=== PATIENT | female | born 1930 | race Hispanic/Latino ===

== ENCOUNTER 2016-10-24 20:11 | Inpatient (IN) | payer MEDICARE, BC ==
[2016-10-24 21:07] LABS: BASO # 0.1 K/uL (0.0-0.2); BASO % 0.9 % (0.0-2.0); EOS # 0.2 K/uL (0.0-0.7); EOS % 2.6 % (0.0-4.0); HEMATOCRIT 30.8 % (34.0-47.0); LYMPH # 0.8 K/uL (1.0-4.3); LYMPH % 11.4 % (20.0-40.0); MEAN CORPUSCULAR HEMOGLOBIN 29.7 pg (27.0-31.0); MEAN CORPUSCULAR HGB CONC 33.2 g/dL (33.0-37.0); MEAN PLATELET VOLUME 7.6 fL (7.2-11.7); MONO # 0.9 K/uL (0.0-0.8); WHITE BLOOD COUNT 7.2 K/uL (4.8-10.8)
[2016-10-24 21:09] LABS: MEAN CELL VOLUME 89.4 fL (81.0-99.0)
[2016-10-24 21:15] LABS: POTASSIUM 4.8 mmol/L (3.6-5.2)
[2016-10-24 21:18] LABS: ALB/GLOB RATIO 1.1 (1.0-2.1); BILIRUBIN,TOTAL 0.5 mg/dL (0.2-1.3); CALCIUM 8.6 mg/dl (8.6-10.4); TOTAL PROTEIN 6.9 g/dL (6.3-8.3)
[2016-10-24 21:47] LABS: TROPONIN I 0.015 ng/mL (0.00-0.120)
[2016-10-24 21:50] LABS: THYROID STIMULATING HORMONE 1.94 mIU/L (0.46-4.68)
--- NOTE | 2016-10-24 21:57 | C.PDOC ---
Time Seen by Provider: 10/24/16 20:37 Chief Complaint (Nursing): Lower Extremity Problem/Injury History Per: Patient, Family Onset/Duration Of Symptoms: Days (about 1 month) Current Symptoms Are (Timing): Still Present Severity: Moderate Associated Symptoms: Ankle/Leg Swelling, Other (Rash on left leg) Reports Recently: Treated By A Physician Additional History Per: Prior Records Past Medical History Reviewed: Historical Data, Nursing Documentation, Vital Signs Vital Signs: Last Vital Signs Temp 98.7 F 10/24/16 20:24 Pulse 61 10/24/16 20:24 Resp 20 10/24/16 20:24 BP 134/65 10/24/16 20:24 Pulse Ox 95 10/24/16 21:59 - Medical History PMH: CHF, Fractures, HTN, Hypercholesterolemia Surgical History: Appendectomy Family History: States: Unknown Family Hx - Social History Hx Tobacco Use: No Hx Alcohol Use: No Hx Substance Use: No - Immunization History Hx Tetanus Toxoid Vaccination: No Hx Influenza Vaccination: Yes Hx Pneumococcal Vaccination: No Review Of Systems Except As Marked, All Systems Reviewed And Found Negative. Constitutional: Negative for: Fever Cardiovascular: Positive for: Edema. Negative for: Chest Pain Respiratory: Negative for: Shortness of Breath Gastrointestinal: Negative for: Vomiting, Abdominal Pain Musculoskeletal: Negative for: Neck Pain Skin: Positive for: Rash Neurological: Negative for: Weakness, Numbness Physical Exam - Physical Exam Appears: Non-toxic, No Acute Distress, Chronically Ill Skin: Warm, Dry, Rash (erythematous, no left leg) Head: Atraumatic, Normacephalic Eye(s): bilateral: PERRL, EOMI Neck: Normal ROM, Supple Cardiovascular: Rhythm Regular Respiratory: Normal Breath Sounds, No Accessory Muscle Use Gastrointestinal/Abdominal: Soft, No Tenderness Back: No CVA Tenderness Extremity: Normal ROM, Pedal Edema (L>R), No Calf Tenderness Pulses: Left Dorsalis Pedis: Normal, Right Dorsalis Pedis: Normal Neurological/Psych: Oriented x3, Normal Motor, Normal Sensation ED Course And Treatment - Laboratory Results Result Diagrams: 10/24/16 20:55 10/24/16 20:55 ECG: Interpreted By Me, Viewed By Me ECG Rhythm: Sinus Rhythm, L BBB, Nonspecific Changes ECG Interpretation: No Changes From Prior Rate From EC O2 Sat by Pulse Oximetry: 95 Pulse Ox Interpretation: Normal Disposition Discussed With : Tim Harmon Comment: He wants pt to be admitted on his service. Doctor Will See Patient In The: Hospital Counseled Patient/Family Regarding: Studies Performed, Diagnosis - Disposition Disposition: HOSPITALIZED Disposition Time: 22:12 Condition: FAIR - Clinical Impression Clinical Impression: Bilateral lower extremity edema, Left leg cellulitis
[2016-10-24] MEDS ORDERED: ceFAZolin IV 1 gm in Dextrose 1 GM/50 ML BAG IVPB STA (22:08)
[2016-10-24] MEDS ORDERED: ceFAZolin 1 gm FROZEN Premix 1 GM/50 ML ML IVPB ONE (22:43)
[2016-10-25] MEDS: Levothyroxine 50 MCG TAB PO SCH (05:57)
[2016-10-25 08:04] VITALS: RESP 20
[2016-10-25] MEDS: Metoprolol Succinate 100 mg XL Tab PO SCH (11:08)
[2016-10-25] MEDS: ceFAZolin IV 1 gm in Dextrose 1 GM/50 ML BAG IVPB SCH ×2 (11:21→22:06)
--- NOTE | 2016-10-25 11:39 | CP.PCM.CON ---
History of Present Illness - History of Present Illness History of Present Illness: admitted for cellulitis multiple comorbidities- IV rx in progress PMH: CHF, Fractures, HTN, Hypercholesterolemia Surgical History: Appendectomy Review of Systems - Constitutional Constitutional: As Per HPI, Fatigue - EENT Eyes: absent: As Per HPI, Blind Spots, Blurred Vision, Change in Vision, Decreased Night Vision, Diplopia, Discharge, Dry Eye, Exophthalmos, Floaters, Irritation, Itchy Eyes, Loss of Peripheral Vision, Pain, Photophobia, Requires Corrective Lenses, Sees Flashes, Spots in Vision, Tunnel Vision, Other Visual Disturbances, Loss of Vision, Other Ears: absent: As Per HPI, Decreased Hearing, Ear Discharge, Ear Pain, Tinnitus, Abnormal Hearing, Disequilibrium, Dizziness, Other Nose/Mouth/Throat: absent: As Per HPI, Epistaxis, Nasal Congestion, Nasal Discharge, Nasal Obstruction, Nasal Trauma, Nose Pain, Post Nasal Drip, Sinus Pain, Sinus Pressure, Bleeding Gums, Change in Voice, Dental Pain, Dry Mouth, Dysphagia, Halitosis, Hoarsness, Lip Swelling, Mouth Lesions, Mouth Pain, Odynophagia, Sore Throat, Throat Swelling, Tongue Swelling, Facial Pain, Neck Pain, Neck Mass, Other - Breasts Breasts: absent: As Per HPI, Change in Shape, Mass, Pain, Nipple Discharge, Nipple Inversion, Skin Changes, Swelling, Other - Cardiovascular Cardiovascular: absent: As Per HPI, Acrocyanosis, Chest Pain, Chest Pain at Rest , Chest Pain with Activity, Claudication, Diaphoresis, Dyspnea, Dyspnea on Exertion, Edema, Irregular Heart Rhythm, Pain Radiating to Arm/Neck/Jaw, Leg Edema, Leg Ulcers, Lightheadedness, Orthopnea, Palpitations, Paroxysmal Nocturnal Dyspnea, Pedal Edema, Radiating Pain, Rapid Heart Rate, Slow Heart Rate, Syncope, Other - Respiratory Respiratory: absent: As Per HPI, Cough, Dyspnea, Hemoptysis, Dyspnea on Exertion , Wheezing, Snoring, Stridor, Pain on Inspiration, Chest Congestion, Excessive Mucous Production, Change in Mucous Color, Pain with Coughing, Other - Gastrointestinal Gastrointestinal: absent: As Per HPI, Abdominal Pain, Belching, Bloating, Change in Bowel Habits, Change in Stool Character, Coffee Ground Emesis, Constipation, Cramping, Diarrhea, Dyspepsia, Dysphagia, Early Satiety, Excessive Flatus, Fecal Incontinence, Heartburn, Hematemesis, Hematochezia, Loose Stools, Melena, Nausea, Odynophagia, Temesmus, Vomiting, Other - Genitourinary Genitourinary: absent: As Per HPI, Change in Urinary Stream, Difficulty Urinating, Dysuria, Flank Pain, Hematuria, Pyuria, Nocturia, Urinary Incontinence, Urinary Frequency, Urinary Hesitance, Urinary Urgency, Voiding Freq/Small Amts, Freq UTI, Hx Renal/Bladder Calculi, Hx /Renal Surgery, Bladder Distension, Other - Reproductive: Female Reproductive:Female: absent: As Per HPI, Amenorrhea, Amenorrhea/ Control, Currently Menstual, Cycle <21 Days, Cycle >35 Days, Cycle Variable, Menses 1-7 Days, Menses >/= 8 Days, Menses Variable, Cycle > 4 Weeks Between, No Menses for 6 Months, Heavy Menses, Light Menses, Normal Menses, Spotting Between Cycles , S/P Hysterectomy, Menopausal, Post Menopausal, Premenarche, Abnormal Vaginal Bleeding, Dysmenorrhea, Dyspareunia, Genital Lesions, Genital Pruritis, Pelvic Pain, Prolapse Symptoms, Sexual Dysfunction, Vaginal Discharge, Vaginal Dryness , Vaginal Odor, Vaginal Pruritis, Other - Menstruation Menstruation: absent: As Per HPI, Amenorrhea, Amenorrhea/ Control, Currently Menstual, Cycle <21 Days, Cycle >35 Days, Cycle Variable, Menses 1-7 Days, Menses >/= 8 Days, Menses Variable, Cycle > 4 Weeks Between, No Menses for 6 Months, Heavy Menses, Light Menses, Normal Menses, Spotting Between Cycles , S/P Hysterectomy, Menopausal, Post Menopausal, Premenarche, Abnormal Vaginal Bleeding, Dysmenorrhea, Other - Musculoskeletal Musculoskeletal: As Per HPI - Integumentary Integumentary: As Per HPI - Neurological Neurological: absent: As Per HPI, Abnormal Gait, Abnormal Hearing, Abnormal Movements, Abnormal Speech, Behavioral Changes, Burning Sensations, Confusion, Convulsions, Disequilibrium, Dizziness, Numbness, Focal Weakness, Frequent Falls , Headaches, Lack of Coordination, Loss of Vision, Memory Loss, Paresthesias, Radicular Pain, Restless Legs, Sensory Deficit, Syncope, Tingling, Tremor, Vertigo, Weakness, Other Visual Disturbances, Other - Psychiatric Psychiatric: absent: As Per HPI, Abnormal Sleep Pattern, Anhedonia, Anxiety, Auditory Hallucinations, Behavioral Changes, Change in Appetite, Change in Libido, Confusion, Depression, Difficulty Concentrating, Hallucinations, Homicidal Ideation, Hopelessness, Irritability, Memory Loss, Mood Swings, Panic Attacks, Paranoia, Suicidal Ideation, Visual Hallucinations, Tactile Hallucinations, Other - Endocrine Endocrine: absent: As Per HPI, Change in Body Appearance, Change in Libido, Cold Intolorance, Deepening of Voice, Excessive Sweating, Fatigue, Flushing, Heat Intolorance, Increase in Ring/Shoe/Hat Size, Palpitations, Polydipsia, Polyphagia, Polyuria, Other - Hematologic/Lymphatic Hematologic: absent: As Per HPI, Easy Bleeding, Easy Bruising, Lymphadenopathy, Other Past Patient History - Past Social History Smoking Status: Former Smoker - CARDIAC Hx Congestive Heart Failure: Yes Hx Hypercholesterolemia: Yes Hx Hypertension: Yes - PULMONARY Hx Respiratory Disorders: No - NEUROLOGICAL Hx Neurological Disorder: No - HEENT Hx HEENT Problems: No - RENAL Hx Chronic Kidney Disease: No - ENDOCRINE/METABOLIC Hx Endocrine Disorders: Yes Hx Diabetes Mellitus Type 2: Yes - HEMATOLOGICAL/ONCOLOGICAL Hx Blood Disorders: No - INTEGUMENTARY Hx Dermatological Problems: No - MUSCULOSKELETAL/RHEUMATOLOGICAL Hx Falls: No Hx Fractures: Yes - GASTROINTESTINAL Hx Gastrointestinal Disorders: No - GENITOURINARY/GYNECOLOGICAL Hx Genitourinary Disorders: No - PSYCHIATRIC Hx Substance Use: No - SURGICAL HISTORY Hx Appendectomy: Yes - ANESTHESIA Hx Anesthesia: Yes Hx Anesthesia Reactions: No Hx Malignant Hyperthermia: No Meds Allergies/Adverse Reactions: Allergies Allergy/AdvReac Type Severity Reaction Status Date / Time naproxen Allergy RASH Verified 10/24/16 20:28 - Medications Medications: Current Medications Amiodarone HCl (Cordarone) 200 mg PO MWF [facility] Last Admin: 10/25/16 11:17 Dose: 200 mg Apixaban (Eliquis) 5 mg PO BID [facility] Last Admin: 10/25/16 11:08 Dose: 5 mg Aspirin (Ecotrin) 81 mg PO DAILY [facility] Last Admin: 10/25/16 11:09 Dose: 81 mg Diltiazem HCl (Cardizem) 120 mg PO DAILY [facility] Last Admin: 10/25/16 11:09 Dose: 120 mg Furosemide (Lasix) 40 mg IVP DAILY [facility] Last Admin: 10/25/16 11:20 Dose: 40 mg Cefazolin Sodium/Dextrose (Ancef Iv 1 Gm Duplex) 1 gm in 50 mls @ 100 mls/hr IVPB Q12 [facility] Last Admin: 10/25/16 11:21 Dose: 100 mls/hr Levothyroxine Sodium (Synthroid) 50 mcg PO DAILY@0630 [facility] Last Admin: 10/25/16 05:57 Dose: 50 mcg Metformin HCl (Glucophage) 500 mg PO BID [facility] Last Admin: 10/25/16 11:09 Dose: 500 mg Metoprolol Succinate (Toprol Xl) 100 mg PO DAILY [facility] Last Admin: 10/25/16 11:08 Dose: 100 mg Rosuvastatin Calcium (Crestor) 5 mg PO [facility] Physical Exam - Constitutional Appears: Non-toxic, Chronically Ill - Head Exam Head Exam: NORMOCEPHALIC - Eye Exam Eye Exam: PERRL. absent: Scleral icterus - ENT Exam ENT Exam: Mucous Membranes Dry, Normal External Ear Exam - Neck Exam Neck exam: Negative for: Lymphadenopathy - Respiratory Exam Respiratory Exam: Decreased Breath Sounds - Cardiovascular Exam Cardiovascular Exam: REGULAR RHYTHM - GI/Abdominal Exam GI & Abdominal Exam: Diminished Bowel Sounds, Soft. absent: Tenderness - Rectal Exam Rectal Exam: Deferred - Exam Exam: NORMAL INSPECTION - Extremities Exam Extremities exam: Negative for: calf tenderness, pedal edema - Back Exam Back exam: absent: CVA tenderness (L), CVA tenderness (R) - Neurological Exam Neurological exam: Alert, CN II-XII Intact, Oriented x3, Reflexes Normal - Psychiatric Exam Psychiatric exam: Normal Affect - Skin Skin Exam: Dry, Erythema Results - Vital Signs Recent Vital Signs: Last Vital Signs Temp 97.9 F 10/25/16 08:02 Pulse 60 10/25/16 08:02 Resp 20 10/25/16 08:02 BP 150/64 10/25/16 11:20 Pulse Ox 95 10/25/16 08:02 - Labs Result Diagrams: 10/24/16 20:55 10/24/16 20:55 Labs: Laboratory Results - last 24 hr 10/25/16 10/25/16 06:55 11:05 POC Glucose (mg/dL) 122 H 232 H Assessment & Plan (1) Bilateral lower extremity edema Status: Acute (2) Left leg cellulitis Status: Acute - Assessment and Plan (Free Text) Assessment: cont iv rx elevation and wound care podiatry follow up
--- NOTE | 2016-10-25 15:21 | VASCLAB ---
PROCEDURE: Lower Extremity Venous Duplex Exam. HISTORY: Swelling, r/o DVT PRIORS: None. TECHNIQUE: Bilateral common femoral, femoral, popliteal and posterior tibial, peroneal and great saphenous veins were evaluated. Flow was assessed with color Doppler, compressibility, assessment of phasic flow and augmentation response. Report prepared by ARIK Cary FINDINGS: RIGHT: 1. Common Femoral Vein: 1.1. Compressibility - Fully compressible: Thrombus - None : Flow - Phasic: Augmentation -Normal: Reflux - None. 2. Femoral Vein: 2.1. Compressibility - Fully compressible: Thrombus - None : Flow - Phasic: Augmentation -Normal: Reflux - None. 3. Popliteal Vein: 3.1. Compressibility - Fully compressible: Thrombus - None : Flow - Phasic: Augmentation -Normal: Reflux - None. 4. Posterior Tibial Vein: 4.1. Compressibility - Fully compressible: Thrombus - None: Flow - Phasic: Augmentation -Normal: Reflux - None. 5. Peroneal Vein: 5.1. Compressibility - Fully compressible: Thrombus - None: Flow - Phasic: Augmentation -Normal: Reflux - None. 6. Great Saphenous Vein: 6.1. Compressibility - Fully compressible: Thrombus - None: Flow - Phasic: Augmentation - Normal: Reflux - None. LEFT: 1. Common Femoral Vein: 1.1. Compressibility - Fully compressible: Thrombus - None: Flow - Phasic: Augmentation -Normal: Reflux - None. 2. Femoral Vein: 2.1. Compressibility - Fully compressible: Thrombus - None: Flow - Phasic: Augmentation -Normal: Reflux - None. 3. Popliteal Vein: 3.1. Compressibility - Fully compressible: Thrombus - None : Flow - Phasic: Augmentation -Normal: Reflux - None. 4. Posterior Tibial Vein: 4.1. Compressibility - Fully compressible: Thrombus - None: Flow - Phasic: Augmentation -Normal: Reflux - None. 5. Peroneal Vein: 5.1. Compressibility - Fully compressible: Thrombus - None: Flow - Phasic: Augmentation -Normal: Reflux - None. 6. Great Saphenous Vein: 6.1. Compressibility - Fully compressible: Thrombus - None: Flow - Phasic: Augmentation - Normal: Reflux - None. OTHER FINDINGS: Right: None significant. Left: None significant. IMPRESSION: Right: No evidence of deep or superficial vein thrombosis of the right lower extremity. Normal valve function noted of the right side. Left: No evidence of deep or superficial vein thrombosis of the left lower extremity. Normal valve function noted of the left side. Soft tissue edema noted in bilateral calf areas.
[2016-10-26] MEDS: Levothyroxine 50 MCG TAB PO SCH (05:42)
--- NOTE | 2016-10-26 09:29 | HP ---
DATE OF SERVICE: 10/24/2016 HISTORY OF PRESENT ILLNESS: This is an 86-year-old female was brought in with a history of redness, swelling and a pain in the left leg, knee down edema increasing over the past two weeks. The patient was seen in the past by Dr. Zane Harmon to his antibiotic did not get better, went to the emergency room at [facility], was discharge few days ago, again seen by me in the office last Tuesday and was recommended admission. She went home and she came back last night. Denies any fall or trauma. She has a history of hypertension, hypothyroidism, diabetes, high cholesterol, and has a cardiac arrhythmias in the past. MEDICATION AT HOME: Include metformin 500 mg one a day, baby aspirin, Lipitor 10, lisinopril 40, Prilosec 40, multivitamin, Synthroid 25, Toprol XL 100 mg one a day, amiodarone 200 mg daily, five days a week Tuesday to Tuesday. REVIEW OF SYSTEMS: GENERAL: Denies any fever or chills, walks with a walker. HEENT: No visual disturbance. No history of glaucoma. NECK: No swollen glands. RESPIRATORY: Negative for cough or hemoptysis. Chest x-ray has been negative. 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 History of hypertension. 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 Has had an EP studies in the past to my recollection. She has been well controlled with amiodarone and stayed in sinus rhythm. GI: Negative for abdominal pain, hematemesis or melena. : Negative for hematuria. She has a history of chronic kidney disease, well stabilized following by Dr. Barnes. MUSCULOSKELETAL: History of back pains, occasional knee pains. Takes Tylenol #3 with relief and in the past, she also had a fracture of the left foot. Use to wear splint. NEUROLOGICAL: Occasional dizziness, one near syncope. PSYCH: No evidence of depression. ALLERGIES: ALLERGIC TO NAPROXEN AND SALICYLATES. PAST MEDICATION HISTORY: History of SVT, has had episode requiring cardioversion in the past. She is currently on amiodarone very well. She is under the care of the DrToan . Never had a colonoscopy done. FAMILY HISTORY: Negative for diabetes or cardiac problems. PERSONAL HISTORY: Does not smokes. Does not drink. She is on well controlled. Low fat low cholesterol ADA diet. No exercise. She is retried. PHYSICAL EXAMINATION: GENERAL: Shows elderly white female conscious,alert, well, oriented, chronically sick looking, but in no distress. She is 5 feet, weighs 223 pounds. VITAL SIGNS: Blood pressure 154/70, heart rate of 72 and regular, respiratory rate of 14, and O2 saturation is 95% on room air. HEAD: Normocephalic. NECK: Supple. MOUTH: No exudates. LUNGS: Clear to auscultation bilaterally. HEART: PMI is . S1 and S2 is distant. No definite gallops or murmurs to be appreciated. ABDOMEN: Soft. EXTREMITIES: 2 to 3+ edema on the knee down from the left leg. Dorsalis pedis is feeble, but palpable. No focal signs. NEUROLOGIC: She is awake, alert, and oriented times 3. LABORATORY DATA: White count was normal. Venous Doppler was done, which was negative. Chem-7 was acceptable. TSH is 1.9. ASSESSMENT: This is an 86-year-old female with the history of cellulitis. PLAN: Plan is to blood culture. Continue with IV Ancef for now. ID followup with Dr. Tamez, Dr. Zane Harmon. Care of plan was explain to the patient's family who was at the bedside. Tim Harmon MD
[2016-10-26] MEDS: ceFAZolin IV 1 gm in Dextrose 1 GM/50 ML BAG IVPB SCH (10:41)
[2016-10-26] MEDS: Metoprolol Succinate 100 mg XL Tab PO SCH (10:43)
[2016-10-26] MEDS ORDERED: Pneumococcal 23-Valent Vaccine IM ONE (13:37)
[2016-10-26 17:11] VITALS: BP 123/58; PULSE 64; TEMP 98.3; O2SAT 96
--- NOTE | 2016-10-26 17:13 | CP.PCM.PN ---
Subjective - Date & Time of Evaluation Date of Evaluation: 10/26/16 Time of Evaluation: 11:00 - Subjective Subjective: Alert, respnsive, no sob or chest pains. Objective - Vital Signs/Intake and Output Vital Signs (last 24 hours): Temp Pulse Resp BP Pulse Ox 98.2 F 56 L 20 146/69 95 10/26/16 07:51 10/26/16 07:51 10/26/16 07:51 10/26/16 10:43 10/26/16 07:51 Intake and Output: 10/26/16 10/26/16 06:59 18:59 Intake Total 200 Balance 200 - Medications Medications: Current Medications Amiodarone HCl (Cordarone) 200 mg PO MWF [facility] Last Admin: 10/25/16 11:17 Dose: 200 mg Apixaban (Eliquis) 5 mg PO BID [facility] Last Admin: 10/26/16 10:42 Dose: 5 mg Aspirin (Ecotrin) 81 mg PO DAILY [facility] Last Admin: 10/26/16 10:42 Dose: 81 mg Diltiazem HCl (Cardizem) 120 mg PO DAILY [facility] Last Admin: 10/26/16 10:42 Dose: Not Given Furosemide (Lasix) 40 mg IVP DAILY [facility] Last Admin: 10/26/16 10:43 Dose: 40 mg Cefazolin Sodium/Dextrose (Ancef Iv 1 Gm Duplex) 1 gm in 50 mls @ 100 mls/hr IVPB Q12 [facility] Last Admin: 10/26/16 10:41 Dose: 100 mls/hr Levothyroxine Sodium (Synthroid) 50 mcg PO DAILY@0630 [facility] Last Admin: 10/26/16 05:42 Dose: 50 mcg Metformin HCl (Glucophage) 500 mg PO BID [facility] Last Admin: 10/26/16 10:42 Dose: 500 mg Metoprolol Succinate (Toprol Xl) 100 mg PO DAILY [facility] Last Admin: 10/26/16 10:43 Dose: Not Given Rosuvastatin Calcium (Crestor) 5 mg PO HS [facility] Last Admin: 10/25/16 22:06 Dose: 5 mg Assessment and Plan - Assessment and Plan (Free Text) Assessment: Ptient admitted with leg edema and cellulitis , seen and examined. Alert, responsive, no distress. Leg edema improved, cleared by DR Harmon for for discharge home today on po keflex. Advised to follow up in 1 week in the office.
--- NOTE | 2016-10-26 17:21 | PCM.HF ---
Heart Failure Core Measure - Heart Failure Left Ventricular Function to be assessed after discharge: Yes JAMES Inhibitor Prescribed: No Contraindication/Reason for not providing: CKD Beta-Princess Prescribed: Metoprolol Succinate Angiotensin II Receptor Princess Prescribed: No Contraindication/Reason for not providing: CKD AnticoagulationTherapy for Atrial Fibrillation/Atrialflutter: Yes Aldosterone Antagonist Prescribed: No Contraindication/Reason for not providing: on calcium channel princess Hydralazine Nitrate Prescribed: No Contraindication/Reason for not providing: will be f/u by PMD Implantable Cardioverter Defibrillator Therapy: No Contraindication/Reason for not providing: will be evaluated in the office Cardiac Resynchronization Therapy Prescribed: No Contraindication/Reason for not providing: not indicated - Follow up Will be discharged to: Home Follow Up Date (must be within 7 days from discharge): 11/01/16 Follow Up Time: 09:00
--- NOTE | 2016-10-27 08:51 | DS ---
HOSPITAL COURSE: An 86-year-old female was brought in with cellulitis of the left leg. P.o. antibiotics did not work. The patient was hospitalized, IV antibiotics Ancef was given. ID consultation Dr. Tamez and podiatry consult Dr. Zane Harmon was given. The patient is improved now and will be discharged to be followed up as an outpatient. Keflex 500 mg p.o. 3 times a day for 5 days was prescribed. She will continue her Lasix, amiodarone, and Cardizem along with Synthroid and metformin. Care of plan was explained to the patient's daughter, Destinee. I will see her back in 2 weeks. FINAL DIAGNOSES: Cellulitis of the left leg. History of hypothyroidism, borderline diabetes, and supraventricular tachycardia. Tim Harmon MD
[2016-10-27] MEDS ORDERED: Pneumococcal 23-Valent Vaccine IM ONE (10:00)
--- NOTE | 2016-10-28 15:01 | PQF CHF ---
To Tim Harmon MD, Patient was presented to the ED with lower leg swelling, history of HTN/CHF/, Prediabetis, Hyperdholesterolemia, Diagnosed with Leg cellulitis. Lab works showed ProBNP of 1780 on admission. Progress notes documented CHF/HTN. Please specify the type of CHF -- Systolic/ Diastolic/acute/Acute on Chronic. Thank you, This form is a permanent part of the medical record Clarification of your documentation is requested to better reflect the severity of illness and intensity of treatment of your patient. Indicators present [X] Diagnosis of CHF and/or history of CHF [X] BNP > 200 1780 [] Imaging Finding of Pulmonary Edema /Pleural Effusions [] Fluid/Volume Overload [] Pitting edema [] Ejection Fraction < 40% (Indicative of Systolic Heart Failure) [] Ejection Fraction > 40% (Indicative of Diastolic Heart Failure) [] Dyspnea / Orthopenea / Paroxysmal Nocturnal Dyspnea [] Other: Location in the medical record that reflects the above clinical findings: [] Treatment Provided: [] PHYSICIAN'S RESPONSE Based on your medical judgment of the clinical indicators outlined above, are you treating this patient for a known or suspected: [] Acute CHF [] Systolic [] Diastolic [] Combined [] Chronic CHF [] Systolic [] Diastolic [] Combined [] Acute on Chronic CHF []Systolic [] Diastolic [] Combined [] CHF due hypertension [] Acute systolic []Chronic systolic [] Acute/ chronic systolic [] Other, please indicate: [] [] If Unable to Determine, please check the box, sign and date. Present On Admission (POA) Indicator: [] Present at the time of admission [] Not present at the time of admission [] Clinically Undetermined In responding to this query, please exercise your independent professional judgment. The fact that a question is asked does not imply that any particular answer is desired or expected. Thank you for your clarification on this documentation. If you have any questions please call:[ ] * Thank you, [ Sharlene Curiel CCS ] wooden barrel mechanic KENISHA
--- NOTE | 2016-10-29 10:12 | CARD ---
APPROVED REPORT EKG Measurement Heart [id number] <Conclusion> Sinus bradycardia Left axis deviation Left bundle branch block Abnormal ECG
== END 2016-10-26 18:00 | disposition home or self-care (01) | DRG 603 ==
LOC: C.ER 20:11 → C.9E 22:12 → C.5T 23:09 → C.3T 10-25 22:34
PROVIDERS: ADMIT Internal Medicine Cardiovascular Disease; ATTEND Internal Medicine Cardiovascular Disease
DX: L03.116 Cellulitis of left lower limb (principal); I11.0 Hypertensive heart disease with heart failure; I50.32 Chronic diastolic (congestive) heart failure; I47.1 Supraventricular tachycardia; E78.00 Pure hypercholesterolemia, unspecified; E03.9 Hypothyroidism, unspecified; R73.03 Prediabetes

== ENCOUNTER 2016-11-19 14:33 | Inpatient (IN) | payer MEDICARE, BC ==
[2016-11-19 16:15] LABS: BASO % 0.1 % (0.0-2.0); EOS # 0.1 K/uL (0.0-0.7); EOS % 0.4 % (0.0-4.0); HEMATOCRIT 33.7 % (34.0-47.0); LYMPH # 0.5 K/uL (1.0-4.3); LYMPH % 2.5 % (20.0-40.0); MEAN CELL VOLUME 87.4 fL (81.0-99.0); MEAN CORPUSCULAR HEMOGLOBIN 28.6 pg (27.0-31.0); MEAN CORPUSCULAR HGB CONC 32.7 g/dL (33.0-37.0); MEAN PLATELET VOLUME 7.7 fL (7.2-11.7); MONO # 2.1 K/uL (0.0-0.8); MONO % 10.4 % (0.0-10.0); PLATELET COUNT 252 K/uL (130-400); RED CELL DISTRIBUTION WIDTH 14.4 % (11.5-14.5); WHITE BLOOD COUNT 20.3 K/uL (4.8-10.8)
[2016-11-19] MEDS ORDERED: Piperacill/Tazo 4.5gm in Dex 4.5 GM/100 ML BAG IVPB STA (16:24)
[2016-11-19 16:25] LABS: ALB/GLOB RATIO 0.9 (1.0-2.1); TOTAL PROTEIN 5.8 g/dL (6.3-8.3)
[2016-11-19 16:36] LABS: RBC URINE 22 /hpf (0-3); URINE BACTERIA MOD (<OCC); URINE BILIRUBIN NEGATIVE (NEGATIVE); URINE BLOOD 2+ (NEGATIVE); URINE COLOR Yellow (YELLOW); URINE GLUCOSE (UA) NORMAL (Normal); URINE KETONE NEGATIVE (NEGATIVE); URINE LEUKOCYTE ESTERASE 1+ Leu/uL (Negative); URINE PROTEIN NEGATIVE (NEGATIVE); URINE UROBILINOGEN NORMAL mg/dL (0.2-1.0); WBC URINE 11 /hpf (0-5)
[2016-11-19 16:47] LABS: BILIRUBIN,TOTAL 0.4 mg/dL (0.2-1.3); CALCIUM 8.4 mg/dl (8.6-10.4); PHOSPHOROUS 3.4 mg/dL (2.5-4.5)
--- NOTE | 2016-11-19 16:52 | C.PDOC ---
History Of Present Illness Patient is a 86 y/o female, with PMHx of hemorrhoids, atrial Fibrillation, CHF, HTN, Hypercholesterolemia, presents to the ED for evaluation of diarrhea for the last 6 days. Pt reports feeling weak, and has decreased PO intake for the last 3 days. Notes that she has diarrhea only after eating. Pt states she was prescribed Flagyl and anti-diarrhea medications by Dr. Tim Harmon. Otherwise, denies any abdominal pain, nausea, vomiting, urinary symptoms, fever, chills, chest pain, shortness of breath, or any other associated symptoms at this time. Time Seen by Provider: 11/19/16 15:12 Chief Complaint (Nursing): Abdominal Pain History Per: Patient History/Exam Limitations: no limitations Onset/Duration Of Symptoms: Days (6) Current Symptoms Are (Timing): Still Present Severity: None Pain Scale Rating Of: 0 Radiation Of Pain To:: None Associated Symptoms: Diarrhea, Loss Of Appetite (Decreased appetite). denies: Fever, Chills, Nausea, Vomiting, Back Pain, Chest Pain, Constipation, Urinary Symptoms Exacerbating Factors: None Alleviating Factors: None Recent travel outside of the [place]: No Additional History Per: Patient Abnormal Vaginal Bleeding: No Past Medical History Reviewed: Historical Data, Nursing Documentation, Vital Signs Vital Signs: Last Vital Signs Temp 99.0 F 11/19/16 17:45 Pulse 74 11/19/16 17:45 Resp 20 11/19/16 17:45 BP 105/63 11/19/16 17:45 Pulse Ox 98 11/19/16 17:45 - Medical History PMH: Atrial Fibrillation (A-flutter (ablation done)), CHF, Fractures (left foot fracture), HTN, Hypercholesterolemia Denies: Chronic Kidney Disease Surgical History: Appendectomy Family History: States: Unknown Family Hx - Social History Hx Tobacco Use: No Hx Alcohol Use: No Hx Substance Use: No - Immunization History Hx Tetanus Toxoid Vaccination: No Hx Influenza Vaccination: Yes Hx Pneumococcal Vaccination: No Review Of Systems Except As Marked, All Systems Reviewed And Found Negative. Constitutional: Positive for: Weakness. Negative for: Fever, Chills Cardiovascular: Negative for: Chest Pain, Palpitations Respiratory: Negative for: Cough, Shortness of Breath Gastrointestinal: Positive for: Diarrhea. Negative for: Nausea, Vomiting, Abdominal Pain, Melena, Hematochezia Genitourinary: Negative for: Dysuria, Frequency, Incontinence, Hematuria Musculoskeletal: Negative for: Back Pain Physical Exam - Physical Exam Additional Physical Exam Comments: Constitutional: No acute distress. Head: Normocephalic. Atraumatic. Eyes: PERRL. ENT: Dry mucous membranes. Neck: Supple. Cardiovascular: Regular rate. Radial pulses 2+ bilaterally. Chest: No tenderness. Respiratory: Clear to auscultation bilaterally. GI: Soft. Nontender. Nondistended. Back: No CVA tenderness. Musculoskeletal: No tenderness or swelling of extremities. Skin: No rash. Neurologic: Alert, no focal deficit. ED Course And Treatment - Laboratory Results Result Diagrams: 11/19/16 16:01 11/19/16 16:01 O2 Sat by Pulse Oximetry: 97 Medical Decision Making Medical Decision Making: Plan: Blood work, UA, urine culture, Abd & pelvis CT. Pt was given Zosyn. On re-evaluation, pt is resting comfortably, no acute distress at this time. PROCEDURE: CT Abdomen and Pelvis without intravenous contrast HISTORY: abdominal pain COMPARISON: None. TECHNIQUE: Without contrast.. Contrast Dose: 0 Radiation dose: Total exam DLP = 1015.95 mGy-cm. This CT exam was performed using one or more of the following dose reduction techniques: Automated exposure control, adjustment of the mA and/or kV according to patient size, and/or use of iterative reconstruction technique. FINDINGS: LOWER THORAX: Moderate hiatal hernia. Coronary arterial calcification. No infiltrate/ effusion. LIVER: Unremarkable. No gross lesion or ductal dilatation. GALLBLADDER AND BILE DUCTS: Unremarkable. PANCREAS: Unremarkable. No gross lesion or ductal dilatation. SPLEEN: Unremarkable. ADRENALS: Bilateral adrenal hypertrophy. No adrenal mass. KIDNEYS AND URETERS: Nonspecific bilateral perinephric stranding. Mid left renal cortical cyst, 2.6 cm diameter. No renal calculus or hydronephrosis. VASCULATURE: Unremarkable. No aortic aneurysm. BOWEL: [place] colonic mural thickening most pronounced in the ascending and transverse colon, consistent with diffuse colitis. There is pericolonic inflammatory change noted about the ascending and transverse and proximal descending colon. There is diverticulosis of the sigmoid colon. There is no evidence of diverticulitis. There is no bowel obstruction. No other abnormal bowel loops are identified. APPENDIX: Not identified. No secondary findings to suggest acute appendicitis. PERITONEUM: Trace fluid in the pelvis. LYMPH NODES: Unremarkable. No enlarged lymph nodes. BLADDER: Nondistended. No gross abnormality. REPRODUCTIVE: Status post hysterectomy. BONES: No fracture. Grade 1 spondylolisthesis at L5-S1 without spondylolysis. OTHER FINDINGS: None. IMPRESSION: Acute [place] colitis most pronounced in the ascending and transverse colon. Likely infectious etiology. Additional minor findings as above. Patient with leukocytosis, bands, pancolitis, acute renal insufficiency, requires IV antibiotics, close monitoring, fluids despite CHF, will keep on telemetry. Dr. Harmon accepts to his service, recommends consult with Savannah Tamez and Cameron. Disposition Discussed With : Tim Harmon Doctor Will See Patient In The: Hospital - Disposition Disposition: HOSPITALIZED Disposition Time: 17:25 Condition: GUARDED Forms: [facility] (Jordanian) - Clinical Impression Clinical Impression: Pancolitis, Bandemia, Acute renal insufficiency - Scribe Statement The provider has reviewed the documentation as recorded by the Scribe Rose Teran All medical record entries made by the Vannessaibe were at my direction and personally dictated by me. I have reviewed the chart and agree that the record accurately reflects my personal performance of the history, physical exam, medical decision making, and the department course for this patient. I have also personally directed, reviewed, and agree with the discharge instructions and disposition.
--- NOTE | 2016-11-19 17:27 | CT ---
PROCEDURE: CT Abdomen and Pelvis without intravenous contrast HISTORY: abdominal pain COMPARISON: None. TECHNIQUE: Without contrast.. Contrast Dose: 0 Radiation dose: Total exam DLP = 1015.95 mGy-cm. This CT exam was performed using one or more of the following dose reduction techniques: Automated exposure control, adjustment of the mA and/or kV according to patient size, and/or use of iterative reconstruction technique. FINDINGS: LOWER THORAX: Moderate hiatal hernia. Coronary arterial calcification. No infiltrate/effusion. LIVER: Unremarkable. No gross lesion or ductal dilatation. GALLBLADDER AND BILE DUCTS: Unremarkable. PANCREAS: Unremarkable. No gross lesion or ductal dilatation. SPLEEN: Unremarkable. ADRENALS: Bilateral adrenal hypertrophy. No adrenal mass. KIDNEYS AND URETERS: Nonspecific bilateral perinephric stranding. Mid left renal cortical cyst, 2.6 cm diameter. No renal calculus or hydronephrosis. VASCULATURE: Unremarkable. No aortic aneurysm. BOWEL: [place] colonic mural thickening most pronounced in the ascending and transverse colon, consistent with diffuse colitis. There is pericolonic inflammatory change noted about the ascending and transverse and proximal descending colon. There is diverticulosis of the sigmoid colon. There is no evidence of diverticulitis. There is no bowel obstruction. No other abnormal bowel loops are identified. APPENDIX: Not identified. No secondary findings to suggest acute appendicitis. PERITONEUM: Trace fluid in the pelvis. LYMPH NODES: Unremarkable. No enlarged lymph nodes. BLADDER: Nondistended. No gross abnormality. REPRODUCTIVE: Status post hysterectomy. BONES: No fracture. Grade 1 spondylolisthesis at L5-S1 without spondylolysis. OTHER FINDINGS: None. IMPRESSION: Acute [place] colitis most pronounced in the ascending and transverse colon. Likely infectious etiology. Additional minor findings as above.
[2016-11-19 17:36] LABS: METAMYELOCYTE 2 % (0-0); MYELOCYTE 1 % (0-0); NEUTROPHIL 69 % (50-75); TOTAL CELLS COUNTED 100
[2016-11-19] MEDS ORDERED: metroNIDAZOLE IV 500 mg/100 ml 500 MG/100 ML BAG IVPB STA (17:50)
[2016-11-19] MEDS ORDERED: Sodium Chloride 0.9% 1,000 ML IV STA (17:51)
[2016-11-19] MEDS ORDERED: Sodium Chloride 0.9% 1,000 ML ONE (18:34)
[2016-11-19] MEDS ORDERED: metroNIDAZOLE IV 500 mg/100 ml 500 MG/100 ML BAG ONE (18:34)
--- NOTE | 2016-11-19 19:15 | CP.PCM.CON ---
History of Present Illness - History of Present Illness History of Present Illness: 86 y/o female, with PMHx of hemorrhoids, atrial Fibrillation, CHF, HTN, Hypercholesterolemia, presents to the ED for evaluation of diarrhea for the last 6 days. Pt reports feeling weak, and has decreased PO intake for the last 3 days. Notes that she has diarrhea only after eating. Pt states she was prescribed Flagyl and anti-diarrhea medications by Dr. Tim Harmon. Otherwise, denies any abdominal pain, nausea, vomiting, urinary symptoms, fever, chills, chest pain, shortness of breath, or any other associated symptoms at this time. - Medical History PMH: Atrial Fibrillation (A-flutter (ablation done)), CHF, Fractures (left foot fracture), HTN, Hypercholesterolemia Denies: Chronic Kidney Disease Surgical History: Appendectomy Family History: States: Unknown Family Hx Past Patient History - Infectious Disease Hx of Infectious Diseases: None - Past Social History Smoking Status: Former Smoker - CARDIAC Hx Atrial Fibrillation: Yes (A-flutter (ablation done)) Hx Congestive Heart Failure: Yes Hx Hypercholesterolemia: Yes Hx Hypertension: Yes - PULMONARY Hx Respiratory Disorders: No - NEUROLOGICAL Hx Neurological Disorder: No - HEENT Hx HEENT Problems: No - RENAL Hx Chronic Kidney Disease: No - ENDOCRINE/METABOLIC Hx Endocrine Disorders: Yes Hx Diabetes Mellitus Type 2: Yes - HEMATOLOGICAL/ONCOLOGICAL Hx Blood Disorders: No - INTEGUMENTARY Hx Dermatological Problems: No - MUSCULOSKELETAL/RHEUMATOLOGICAL Hx Fractures: Yes (left foot fracture) - GASTROINTESTINAL Hx Gastrointestinal Disorders: No - GENITOURINARY/GYNECOLOGICAL Hx Genitourinary Disorders: No - PSYCHIATRIC Hx Substance Use: No - SURGICAL HISTORY Hx Appendectomy: Yes - ANESTHESIA Hx Anesthesia: Yes Hx Anesthesia Reactions: No Hx Malignant Hyperthermia: No Meds Allergies/Adverse Reactions: Allergies Allergy/AdvReac Type Severity Reaction Status Date / Time naproxen Allergy Intermediate RASH Verified 11/19/16 14:46 - Medications Medications: Current Medications Sodium Chloride (Sodium Chloride 0.9%) 1,000 mls @ 100 mls/hr IV .Q10H STA Stop: 11/20/16 03:50 Last Admin: 11/19/16 18:38 Dose: 100 mls/hr Results - Vital Signs Recent Vital Signs: Last Vital Signs Temp 99.0 F 11/19/16 17:45 Pulse 74 11/19/16 17:45 Resp 20 11/19/16 17:45 BP 105/63 11/19/16 17:45 Pulse Ox 97 11/19/16 18:30 - Labs Result Diagrams: 11/19/16 16:01 11/19/16 16:01
[2016-11-19] MEDS: metroNIDAZOLE IV 500 mg/100 ml 500 MG/100 ML BAG IVPB SCH (22:02)
--- NOTE | 2016-11-20 05:01 | HP ---
HISTORY OF PRESENT ILLNESS: Ms. Lili Summers is an 86-year-old female who was brought in with the history of abdominal pain, not eating, drinking well for past three days. The patient was admitted recently in October with the cellulitis of the leg and received antibiotics. Subsequently, she did well, but last week ago, she developed diarrhea and was placed on Flagyl. For the past three days, she has not been eating well and drinking well and feeling nauseous, came to the emergency room where CT showed pancolitis. Also creatinine was 1.7. She has a longstanding history of hypertension, hypothyroidism, diabetes, and SVTs requiring cardioversion in the past. MEDICATION AT HOME: She is maintained on metformin 500 mg one a day, Lipitor 10 mg, lisinopril, which was stopped, multivitamin, Synthroid 25, Toprol XL 100 mg and amiodarone 200 mg five days a week. PERSONAL HISTORY: Does not smoke, does not drink. FAMILY HISTORY: Negative for CAD. ALLERGIES: SHE IS ALLERGIC TO NAPROXEN AND SALICYLATES. PAST MEDICAL HISTORY: History of SVT, cardioversion in the past. Never had a colonoscopy done. REVIEW OF SYSTEMS: Generalized weakness, no fever, no chills, no hematemesis, no melena. Abdominal pain for past three days. No orthopnea, no PND, has no palpation. Multiple joint pains, back pains. No history of TIAs or CVAs, history of dizziness in the past and syncope in the past. No evidence of depression. No visual disturbances. PHYSICAL EXAMINATION: GENERAL: Shows elderly white female who is conscious, alert, well-oriented, in no distress. She is 5 feet and weighs 220 pounds. VITAL SIGNS: Blood pressure 130/70, heart rate of 70 and regular, respiratory rate of 20, afebrile. HEENT: Head is normocephalic. Eyes, no pallor. No icterus. NECK: Supple. LUNGS: Clear. HEART: PMI is not localized. S1 and S2 is distant. No definite gallops or murmurs. ABDOMEN: Not distended, is soft, but diffuse nonspecific tenderness is noted. EXTREMITIES: Shows 1+ pitting edema. Dorsalis pedis are intact. No focal sign. LABORATORY DATA: Creatinine is 1.7, white count is elevated 20,000 with the shift to the left. CT pancolitis. ASSESSMENT: This is an 86-year-old female with history of pancolitis. Worsening of the renal failure, hypertension, diabetes, and hypothyroidism. PLAN: At this point is to ID consultation Dr. Tamez and GI consultation Dr. Pierre and Dr. Barnes for followup. Tim Harmon MD
[2016-11-20] MEDS: Levothyroxine 50 MCG TAB PO SCH (05:59)
[2016-11-20 06:00] LABS: RBC URINE 5 /hpf (0-3); URINE BACTERIA RARE (<OCC); URINE BILIRUBIN NEGATIVE (NEGATIVE); URINE BLOOD 1+ (NEGATIVE); URINE COLOR Yellow (YELLOW); URINE GLUCOSE (UA) NORMAL (Normal); URINE KETONE NEGATIVE (NEGATIVE); URINE LEUKOCYTE ESTERASE 2+ Leu/uL (Negative); URINE PROTEIN NEGATIVE (NEGATIVE); URINE UROBILINOGEN NORMAL mg/dL (0.2-1.0); WBC URINE 13 /hpf (0-5)
[2016-11-20] MEDS: metroNIDAZOLE IV 500 mg/100 ml 500 MG/100 ML BAG IVPB SCH ×3 (06:00→21:30)
[2016-11-20 06:39] LABS: BASO % 0.2 % (0.0-2.0); EOS % 0.1 % (0.0-4.0); HEMATOCRIT 31.6 % (34.0-47.0); LYMPH # 0.6 K/uL (1.0-4.3); LYMPH % 3.3 % (20.0-40.0); MEAN CELL VOLUME 86.7 fL (81.0-99.0); MEAN CORPUSCULAR HEMOGLOBIN 28.3 pg (27.0-31.0); MEAN CORPUSCULAR HGB CONC 32.7 g/dL (33.0-37.0); MEAN PLATELET VOLUME 7.7 fL (7.2-11.7); MONO % 10.9 % (0.0-10.0); PLATELET COUNT 247 K/uL (130-400); RED CELL DISTRIBUTION WIDTH 14.7 % (11.5-14.5); WHITE BLOOD COUNT 18.6 K/uL (4.8-10.8)
[2016-11-20 06:54] LABS: ALB/GLOB RATIO 0.9 (1.0-2.1); BILIRUBIN,TOTAL 0.3 mg/dL (0.2-1.3); CALCIUM 8.2 mg/dl (8.6-10.4); MAGNESIUM 2.2 mg/dL (1.6-2.3); POTASSIUM 3.7 mmol/L (3.6-5.2); TOTAL PROTEIN 5.2 g/dL (6.3-8.3)
[2016-11-20 07:22] LABS: THYROID STIMULATING HORMONE 1.96 mIU/L (0.46-4.68)
[2016-11-20] MEDS: (Novolin R) Insulin Human Regular 100 units/ml vial SC SCH ×3 (07:45→16:30)
[2016-11-20 08:52] LABS: NEUTROPHIL 69 % (50-75); TOTAL CELLS COUNTED 100
--- NOTE | 2016-11-20 10:20 | RAD ---
HISTORY: CHF COMPARISON: Chest x-ray performed 09/17/13 TECHNIQUE: Chest, one view. FINDINGS: Examination limited by habitus. LUNGS: Right peritracheal opacity, possibly tortuous vasculature. Alternatives including thyroid goiter or adenopathy cannot be excluded. Retrocardiac opacity compatible with large hiatal hernia. Please note that chest x-ray has limited sensitivity for the detection of pulmonary masses. PLEURA: No significant pleural effusion identified. No definite pneumothorax . CARDIOVASCULAR: Cardiomegaly. OSSEOUS STRUCTURES: No acute osseous abnormality identified. VISUALIZED UPPER ABDOMEN: Unremarkable. OTHER FINDINGS: None. IMPRESSION: No focal consolidation, significant pleural effusion, or definite pneumothorax identified. Right peritracheal opacity, possibly tortuous vasculature. Alternatives including thyroid goiter or adenopathy cannot be excluded. Retrocardiac opacity compatible with large hiatal hernia.
--- NOTE | 2016-11-20 10:33 | CP.PCM.CON ---
History of Present Illness - History of Present Illness History of Present Illness: 86 yo white female, history of afib, chf, htn, dyslipidemia. Presents with voluminous diarrhea of several days duration. Recent hospitalization with ab therapy. Ct scan indicates pancolitis. Pt with poor po intake. Renal consult for hyponatremia and john. Notes normal u/o. No change in appearance of urine. No one sick at home. No unusual food intake. No family history of renal disease. Baseline creatinine of 1.3. Review of Systems - Constitutional Constitutional: Fatigue. absent: Fever - EENT Eyes: absent: Blurred Vision, Change in Vision Ears: absent: Ear Pain, Dizziness Nose/Mouth/Throat: absent: Dry Mouth, Neck Pain - Cardiovascular Cardiovascular: absent: Chest Pain, Dyspnea - Respiratory Respiratory: absent: Wheezing, Chest Congestion - Gastrointestinal Gastrointestinal: Abdominal Pain, Diarrhea - Genitourinary Genitourinary: absent: Change in Urinary Stream, Difficulty Urinating - Musculoskeletal Musculoskeletal: absent: Back Pain, Neck Pain - Psychiatric Psychiatric: absent: Anhedonia, Anxiety - Hematologic/Lymphatic Hematologic: absent: Easy Bleeding, Easy Bruising Past Patient History - Infectious Disease Hx of Infectious Diseases: None - Past Medical History & Family History Past Medical History?: Yes - Past Social History Smoking Status: Former Smoker - CARDIAC Hx Atrial Fibrillation: Yes (A-flutter (ablation done)) Hx Congestive Heart Failure: Yes Hx Hypercholesterolemia: Yes Hx Hypertension: Yes - PULMONARY Hx Respiratory Disorders: No - NEUROLOGICAL Hx Neurological Disorder: No - HEENT Hx HEENT Problems: No - RENAL Hx Chronic Kidney Disease: No - ENDOCRINE/METABOLIC Hx Endocrine Disorders: Yes Hx Diabetes Mellitus Type 2: Yes - HEMATOLOGICAL/ONCOLOGICAL Hx Blood Disorders: No - INTEGUMENTARY Hx Dermatological Problems: No - MUSCULOSKELETAL/RHEUMATOLOGICAL Hx Falls: Yes Hx Fractures: Yes (left foot fracture) - GASTROINTESTINAL Hx Gastrointestinal Disorders: No - GENITOURINARY/GYNECOLOGICAL Hx Genitourinary Disorders: No - PSYCHIATRIC Hx Psychophysiologic Disorder: No Hx Substance Use: No - SURGICAL HISTORY Hx Appendectomy: Yes Hx Hysterectomy: Yes - ANESTHESIA Hx Anesthesia: Yes Hx Anesthesia Reactions: No Hx Malignant Hyperthermia: No Meds Allergies/Adverse Reactions: Allergies Allergy/AdvReac Type Severity Reaction Status Date / Time naproxen Allergy Intermediate RASH Verified 11/19/16 14:46 - Medications Medications: Current Medications Amiodarone HCl (Cordarone) 200 mg [place] [facility] [place]irin (Aspirin Chewable) 81 mg PO DAILY [facility] Diltiazem HCl (Cardizem) 120 mg PO DAILY [facility] Metronidazole (Flagyl) 500 mg in 100 mls @ 100 mls/hr IVPB Q8 [facility] Last Admin: 11/20/16 06:00 Dose: 100 mls/hr Cefepime HCl 1 gm/ Dextrose 50 mls @ 100 mls/hr IVPB Q12H [facility] Last Admin: 11/20/16 07:47 Dose: 100 mls/hr Insulin Human Regular (Novolin R) 0 unit SC ACHS CLARI PRN Reason: Protocol Last Admin: 11/20/16 07:45 Dose: Not Given Levothyroxine Sodium (Synthroid) 50 mcg PO DAILY@0630 [facility] Last Admin: 11/20/16 05:59 Dose: 50 mcg Metoprolol Succinate (Toprol Xl) 100 mg PO DAILY [facility] Rivaroxaban (Xarelto) 10 mg PO DAILY [facility] Rosuvastatin Calcium (Crestor) 5 mg PO [facility] Physical Exam - Constitutional Appears: Chronically Ill - Head Exam Head Exam: ATRAUMATIC - Eye Exam Eye Exam: EOMI, Normal appearance - ENT Exam ENT Exam: Mucous Membranes Moist - Neck Exam Neck exam: Positive for: Full Rom. Negative for: Lymphadenopathy - Respiratory Exam Respiratory Exam: Clear to Auscultation Bilateral. absent: Accessory Muscle Use - Cardiovascular Exam Cardiovascular Exam: Irregular Rhythm. absent: REGULAR RHYTHM, Rubs - GI/Abdominal Exam GI & Abdominal Exam: Distended, Tenderness. absent: Rebound - Extremities Exam Extremities exam: Negative for: pedal edema - Neurological Exam Neurological exam: Alert, Oriented x3 Results - Vital Signs Recent Vital Signs: Last Vital Signs Temp 98.3 F 11/20/16 08:38 Pulse 80 11/20/16 08:38 Resp 20 11/20/16 08:38 BP 157/69 H 11/20/16 08:38 Pulse Ox 96 11/20/16 08:38 - Labs Result Diagrams: 11/20/16 06:32 11/20/16 06:32 Labs: Laboratory Results - last 24 hr 11/20/16 11/20/16 11/20/16 05:31 06:13 06:32 WBC 18.6 H RBC 3.65 L Hgb 10.3 L Hct 31.6 L MCV 86.7 MCH 28.3 MCHC 32.7 L RDW 14.7 H Plt Count 247 MPV 7.7 Neut % (Auto) 85.5 H Lymph % (Auto) 3.3 L [place] % (Auto) 10.9 H Eos % (Auto) 0.1 Baso % (Auto) 0.2 Neut # 15.9 H Lymph # 0.6 L [place] # 2.0 H Eos # 0.0 Baso # 0.0 Neutrophils % (Manual) 69 Band Neutrophils % 15 H* Lymphocytes % (Manual) 6 L Monocytes % (Manual) 10 Toxic Granulation Present Platelet Estimate Normal Poikilocytosis (manual Slight Anisocytosis (manual) Slight Ovalocytes Slight Sodium Potassium Chloride Carbon Dioxide Anion Gap BUN Creatinine Est GFR ( Amer) Est GFR (Non-Af Amer) POC Glucose (mg/dL) 128 H Random Glucose Calcium Magnesium Total Bilirubin AST ALT Alkaline Phosphatase Total Protein Albumin Globulin Albumin/Globulin Ratio TSH 3rd Generation Urine Color Yellow Urine Clarity Hazy Urine pH 5.0 Ur Specific [place] 1.017 Urine Protein Negative Urine Glucose (UA) Normal Urine Ketones Negative Urine Blood 1+ H Urine Nitrate Negative Urine Bilirubin Negative Urine Urobilinogen Normal Ur Leukocyte Esterase 2+ H Urine WBC (Auto) 13 H Urine RBC (Auto) 5 H Ur Squamous Epith Cells 8 H Urine Bacteria Rare 11/20/16 06:32 WBC RBC Hgb Hct MCV MCH MCHC RDW Plt Count MPV Neut % (Auto) Lymph % (Auto) [place] % (Auto) Eos % (Auto) Baso % (Auto) Neut # Lymph # [place] # Eos # Baso # Neutrophils % (Manual) Band Neutrophils % Lymphocytes % (Manual) Monocytes % (Manual) Toxic Granulation Platelet Estimate Poikilocytosis (manual Anisocytosis (manual) Ovalocytes Sodium 129 L Potassium 3.7 Chloride 98 Carbon Dioxide 24 Anion Gap 11 BUN 60 H Creatinine 1.6 H Est GFR ( Amer) 37 Est GFR (Non-Af Amer) 30 POC Glucose (mg/dL) Random Glucose 111 H Calcium 8.2 L Magnesium 2.2 Total Bilirubin 0.3 AST 26 ALT 36 Alkaline Phosphatase 79 Total Protein 5.2 L Albumin 2.5 L Globulin 2.7 Albumin/Globulin Ratio 0.9 L TSH 3rd Generation 1.96 Urine Color Urine Clarity Urine pH Ur Specific [place] Urine Protein Urine Glucose (UA) Urine Ketones Urine Blood Urine Nitrate Urine Bilirubin Urine Urobilinogen Ur Leukocyte Esterase Urine WBC (Auto) Urine RBC (Auto) Ur Squamous Epith Cells Urine Bacteria Assessment & Plan - Assessment and Plan (Free Text) Assessment: john on ckd due to poor po and diarrhea losses hyponatremia likely due to hypoosmolar hypovolemia for w/u of hyponatremia NS gentle hydration at present trend labs stool cultures empiric treatment for cdiff
[2016-11-20] MEDS: Metoprolol Succinate 100 mg XL Tab PO SCH (11:00)
--- NOTE | 2016-11-20 11:04 | CP.PCM.CON ---
History of Present Illness - History of Present Illness History of Present Illness: This is an 86 year old woman with diarrhea. Patient is a poor historian. Patient was hospitalized at [facility] [place] weeks ago for treatment of cellulitis. She noted sudden onset of diarrhea one week ago, frequent small stools, up to six times a day, without bleeding. she also complains of poor appetite and weakness. She denies having nausea, vomiting, fever, chills. Her primary care doctor prescribed oral metronidazole without any improvement. On evaluation in the ER, WBC count was elevated at 20.3. The CT scan showed mural thickening affecting the entire colon. Review of Systems - Constitutional Constitutional: Weakness. absent: Chills, Fever - Cardiovascular Cardiovascular: absent: Chest Pain, Palpitations - Respiratory Respiratory: absent: Cough, Dyspnea - Gastrointestinal Gastrointestinal: Diarrhea. absent: Abdominal Pain, Constipation, Hematochezia , Melena, Nausea, Vomiting - Genitourinary Genitourinary: absent: Dysuria, Hematuria, Urinary Frequency - Musculoskeletal Musculoskeletal: absent: Back Pain Past Patient History - Infectious Disease Hx of Infectious Diseases: None - Past Medical History & Family History Past Medical History?: Yes - Past Social History Smoking Status: Former Smoker - CARDIAC Hx Atrial Fibrillation: Yes (A-flutter (ablation done)) Hx Congestive Heart Failure: Yes Hx Hypercholesterolemia: Yes Hx Hypertension: Yes - PULMONARY Hx Respiratory Disorders: No - NEUROLOGICAL Hx Neurological Disorder: No - HEENT Hx HEENT Problems: No - RENAL Hx Chronic Kidney Disease: No - ENDOCRINE/METABOLIC Hx Endocrine Disorders: Yes Hx Diabetes Mellitus Type 2: Yes - HEMATOLOGICAL/ONCOLOGICAL Hx Blood Disorders: No - INTEGUMENTARY Hx Dermatological Problems: No - MUSCULOSKELETAL/RHEUMATOLOGICAL Hx Falls: Yes Hx Fractures: Yes (left foot fracture) - GASTROINTESTINAL Hx Gastrointestinal Disorders: No - GENITOURINARY/GYNECOLOGICAL Hx Genitourinary Disorders: No - PSYCHIATRIC Hx Psychophysiologic Disorder: No Hx Substance Use: No - SURGICAL HISTORY Hx Appendectomy: Yes Hx Hysterectomy: Yes - ANESTHESIA Hx Anesthesia: Yes Hx Anesthesia Reactions: No Hx Malignant Hyperthermia: No Meds Allergies/Adverse Reactions: Allergies Allergy/AdvReac Type Severity Reaction Status Date / Time naproxen Allergy Intermediate RASH Verified 11/19/16 14:46 - Medications Medications: Current Medications Amiodarone HCl (Cordarone) 200 mg PO [facility] [place] Aspirin (Aspirin Chewable) 81 mg PO DAILY [facility] Diltiazem HCl (Cardizem) 120 mg PO DAILY [facility] Metronidazole (Flagyl) 500 mg in 100 mls @ 100 mls/hr IVPB Q8 [facility] Last Admin: 11/20/16 06:00 Dose: 100 mls/hr Cefepime HCl 1 gm/ Dextrose 50 mls @ 100 mls/hr IVPB Q12H [facility] Last Admin: 11/20/16 07:47 Dose: 100 mls/hr Insulin Human Regular (Novolin R) 0 unit SC ACHS [facility] PRN Reason: Protocol Last Admin: 11/20/16 07:45 Dose: Not Given Levothyroxine Sodium (Synthroid) 50 mcg PO DAILY@0630 [facility] Last Admin: 11/20/16 05:59 Dose: 50 mcg Metoprolol Succinate (Toprol Xl) 100 mg PO DAILY [facility] Rivaroxaban (Xarelto) 10 mg PO DAILY [facility] Rosuvastatin Calcium (Crestor) 5 mg PO HS [facility] Vancomycin HCl (Vancocin (Oral Or Rectal Use)) 125 mg PO QID [facility] Physical Exam - Constitutional Appears: No Acute Distress - Head Exam Head Exam: ATRAUMATIC, NORMOCEPHALIC - Eye Exam Eye Exam: EOMI, PERRL - Neck Exam Neck exam: Negative for: Lymphadenopathy, Thyromegaly - Respiratory Exam Respiratory Exam: NORMAL BREATHING PATTERN. absent: Rales, Rhonchi, Wheezes - Cardiovascular Exam Cardiovascular Exam: REGULAR RHYTHM, +S1, +S2. absent: Gallop, Rubs, Systolic Murmur - GI/Abdominal Exam GI & Abdominal Exam: Normal Bowel Sounds, Soft. absent: Mass, Organomegaly, Tenderness - Rectal Exam Rectal Exam: Deferred - Extremities Exam Extremities exam: Negative for: calf tenderness, pedal edema Results - Vital Signs Recent Vital Signs: Last Vital Signs Temp 98.3 F 11/20/16 08:38 Pulse 80 11/20/16 08:38 Resp 20 11/20/16 08:38 BP 157/69 H 11/20/16 08:38 Pulse Ox 96 11/20/16 08:38 - Labs Result Diagrams: 11/20/16 06:32 11/20/16 06:32 Labs: Laboratory Results - last 24 hr 11/20/16 11/20/16 11/20/16 05:31 06:13 06:32 WBC 18.6 H RBC 3.65 L Hgb 10.3 L Hct 31.6 L MCV 86.7 MCH 28.3 MCHC 32.7 L RDW 14.7 H Plt Count 247 MPV 7.7 Neut % (Auto) 85.5 H Lymph % (Auto) 3.3 L [place] % (Auto) 10.9 H Eos % (Auto) 0.1 Baso % (Auto) 0.2 Neut # 15.9 H Lymph # 0.6 L [place] # 2.0 H Eos # 0.0 Baso # 0.0 Neutrophils % (Manual) 69 Band Neutrophils % 15 H* Lymphocytes % (Manual) 6 L Monocytes % (Manual) 10 Toxic Granulation Present Platelet Estimate Normal Poikilocytosis (manual Slight Anisocytosis (manual) Slight Ovalocytes Slight Sodium Potassium Chloride Carbon Dioxide Anion Gap BUN Creatinine Est GFR ( Amer) Est GFR (Non-Af Amer) POC Glucose (mg/dL) 128 H Random Glucose Calcium Magnesium Total Bilirubin AST ALT Alkaline Phosphatase Total Protein Albumin Globulin Albumin/Globulin Ratio TSH 3rd Generation Urine Color Yellow Urine Clarity Hazy Urine pH 5.0 Ur Specific [place] 1.017 Urine Protein Negative Urine Glucose (UA) Normal Urine Ketones Negative Urine Blood 1+ H Urine Nitrate Negative Urine Bilirubin Negative Urine Urobilinogen Normal Ur Leukocyte Esterase 2+ H Urine WBC (Auto) 13 H Urine RBC (Auto) 5 H Ur Squamous Epith Cells 8 H Urine Bacteria Rare 11/20/16 06:32 WBC RBC Hgb Hct MCV MCH MCHC RDW Plt Count MPV Neut % (Auto) Lymph % (Auto) [place] % (Auto) Eos % (Auto) Baso % (Auto) Neut # Lymph # [place] # Eos # Baso # Neutrophils % (Manual) Band Neutrophils % Lymphocytes % (Manual) Monocytes % (Manual) Toxic Granulation Platelet Estimate Poikilocytosis (manual Anisocytosis (manual) Ovalocytes Sodium 129 L Potassium 3.7 Chloride 98 Carbon Dioxide 24 Anion Gap 11 BUN 60 H Creatinine 1.6 H Est GFR ( Amer) 37 Est GFR (Non-Af Amer) 30 POC Glucose (mg/dL) Random Glucose 111 H Calcium 8.2 L Magnesium 2.2 Total Bilirubin 0.3 AST 26 ALT 36 Alkaline Phosphatase 79 Total Protein 5.2 L Albumin 2.5 L Globulin 2.7 Albumin/Globulin Ratio 0.9 L TSH 3rd Generation 1.96 Urine Color Urine Clarity Urine pH Ur Specific [place] Urine Protein Urine Glucose (UA) Urine Ketones Urine Blood Urine Nitrate Urine Bilirubin Urine Urobilinogen Ur Leukocyte Esterase Urine WBC (Auto) Urine RBC (Auto) Ur Squamous Epith Cells Urine Bacteria Assessment & Plan (1) Diarrhea Assessment and Plan: Patient presents with diarrhea, leukocytosis, colits on CT scan after antibiotic treatment for cellulitis. This clinical picture is most consistent with C difficile infection and pseudomembranous colitis. Patient should be on vancomycin pending the result of stool for C difficile toxin and PCR. The other antibiotics should be withdrawn as soon as possible. Status: Acute
--- NOTE | 2016-11-20 11:17 | US ---
PROCEDURE: Ultrasound of the Kidneys HISTORY: ARF COMPARISON: CT abdomen and pelvis without oral or IV contrast performed 11/19/16 TECHNIQUE: Sonogram of the kidneys. FINDINGS: RIGHT KIDNEY: Measures: 10.2 x 4.7 x 4.8 cm. 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 No obstructing calculus or hydronephrosis. LEFT KIDNEY: Measures: 10.0 x 4.8 x 5.1 cm. No obstructing calculus or hydronephrosis identified. 2.3 x 2.3 x 2.7 cm midpole renal cyst. OTHER FINDINGS: None. IMPRESSION: 2.3 x 2.3 x 2.7 cm left midpole renal cyst. 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
[2016-11-20] MEDS: Saccharomyces Boulardi 250 mg Cap PO SCH ×2 (11:43→19:00)
[2016-11-20 11:51] LABS: ALB/GLOB RATIO 0.9 (1.0-2.1); BILIRUBIN,TOTAL 0.5 mg/dL (0.2-1.3); TOTAL PROTEIN 4.9 g/dL (6.3-8.3)
[2016-11-20 11:52] LABS: CALCIUM 8.2 mg/dl (8.6-10.4); URIC ACID 8.9 mg/dL (2.2-7.5)
--- NOTE | 2016-11-20 13:28 | CP.PCM.PN ---
Subjective - Date & Time of Evaluation Date of Evaluation: 11/20/16 Time of Evaluation: 13:26 - Subjective Subjective: sleeping.nephro,id & gi consult noted.labs noted. Objective - Vital Signs/Intake and Output Vital Signs (last 24 hours): Temp Pulse Resp BP Pulse Ox 98.3 F 80 20 157/69 H 96 11/20/16 08:38 11/20/16 08:38 11/20/16 08:38 11/20/16 08:38 11/20/16 08:38 - Medications Medications: Current Medications Amiodarone HCl (Cordarone) 200 mg PO [facility] [place] Aspirin (Aspirin Chewable) 81 mg PO DAILY [facility] Last Admin: 11/20/16 11:00 Dose: 81 mg Diltiazem HCl (Cardizem) 120 mg PO DAILY [facility] Last Admin: 11/20/16 11:00 Dose: 120 mg Metronidazole (Flagyl) 500 mg in 100 mls @ 100 mls/hr IVPB Q8 [facility] Last Admin: 11/20/16 06:00 Dose: 100 mls/hr Cefepime HCl 1 gm/ Dextrose 50 mls @ 100 mls/hr IVPB Q12H [facility] Last Admin: 11/20/16 07:47 Dose: 100 mls/hr Insulin Human Regular (Novolin R) 0 unit SC ACHS [facility] PRN Reason: Protocol Last Admin: 11/20/16 07:45 Dose: Not Given Levothyroxine Sodium (Synthroid) 50 mcg PO DAILY@0630 [facility] Last Admin: 11/20/16 05:59 Dose: 50 mcg Metoprolol Succinate (Toprol Xl) 100 mg PO DAILY [facility] Last Admin: 11/20/16 11:00 Dose: 100 mg Rivaroxaban (Xarelto) 10 mg PO DAILY [facility] Last Admin: 11/20/16 11:00 Dose: 10 mg Rosuvastatin Calcium (Crestor) 5 mg PO [facility] Saccharomyces Boulardii (Florastor) 500 mg PO BID [facility] Last Admin: 11/20/16 11:43 Dose: 500 mg Vancomycin HCl (Vancocin (Oral Or Rectal Use)) 125 mg PO QID [facility] - Labs Labs: 11/20/16 06:32 11/20/16 11:20 - Constitutional Appears: No Acute Distress - Eye Exam Eye Exam: Normal appearance - ENT Exam ENT Exam: Mucous Membranes Moist - Respiratory Exam Respiratory Exam: Clear to Ausculation Bilateral - Cardiovascular Exam Cardiovascular Exam: REGULAR RHYTHM - GI/Abdominal Exam GI & Abdominal Exam: Soft Assessment and Plan - Assessment and Plan (Free Text) Assessment: john,ckd,dm,poss sepsis. ct iv antibiotics,hydration.
[2016-11-20] MEDS: Vancomycin 125 MG/5 ML SOLN (ORAL/RECTAL) PO SCH ×3 (14:26→22:21)
[2016-11-21] MEDS: metroNIDAZOLE IV 500 mg/100 ml 500 MG/100 ML BAG IVPB SCH ×3 (05:10→21:49)
[2016-11-21] MEDS: Levothyroxine 50 MCG TAB PO SCH (06:16)
[2016-11-21] MEDS: (Novolin R) Insulin Human Regular 100 units/ml vial SC SCH ×4 (07:08→21:48)
[2016-11-21 07:54] LABS: BASO # 0.1 K/uL (0.0-0.2); BASO % 0.5 % (0.0-2.0); EOS # 0.3 K/uL (0.0-0.7); EOS % 2.2 % (0.0-4.0); LYMPH # 0.8 K/uL (1.0-4.3); MEAN CORPUSCULAR HEMOGLOBIN 28.2 pg (27.0-31.0); MEAN CORPUSCULAR HGB CONC 32.1 g/dL (33.0-37.0); MEAN PLATELET VOLUME 7.5 fL (7.2-11.7); MONO # 2.1 K/uL (0.0-0.8); MONO % 13.2 % (0.0-10.0); PLATELET COUNT 266 K/uL (130-400); RED CELL DISTRIBUTION WIDTH 14.8 % (11.5-14.5); WHITE BLOOD COUNT 15.6 K/uL (4.8-10.8)
[2016-11-21 08:22] LABS: POTASSIUM 3.7 mmol/L (3.6-5.2)
[2016-11-21 08:25] LABS: CALCIUM 7.9 mg/dl (8.6-10.4)
[2016-11-21] MEDS: Vancomycin 125 MG/5 ML SOLN (ORAL/RECTAL) PO SCH ×4 (09:24→21:49)
[2016-11-21] MEDS: Metoprolol Succinate 100 mg XL Tab PO SCH (09:25)
[2016-11-21] MEDS: Saccharomyces Boulardi 250 mg Cap PO SCH ×2 (09:25→18:33)
[2016-11-21 09:32] LABS: METAMYELOCYTE 1 % (0-0); MYELOCYTE 2 % (0-0); NEUTROPHIL 61 % (50-75); TOTAL CELLS COUNTED 100
--- NOTE | 2016-11-21 10:37 | CP.PCM.PN ---
Subjective - Date & Time of Evaluation Date of Evaluation: 11/21/16 Time of Evaluation: 10:35 - Subjective Subjective: Patient states that the bowel movements are less frequent: twice yesterday and once this morning. The bowel movements were better formed yesterday, but she thinks she saw some blood. She denies having nausea, vomiting, abdominal pain. Objective - Vital Signs/Intake and Output Vital Signs (last 24 hours): Temp Pulse Resp BP Pulse Ox 98 F 71 20 141/62 97 11/21/16 09:50 11/21/16 09:50 11/21/16 09:50 11/21/16 09:50 11/21/16 09:50 Intake and Output: 11/21/16 11/21/16 06:59 18:59 Intake Total 600 Balance 600 - Medications Medications: Current Medications Amiodarone HCl (Cordarone) 200 mg PO F [facility] Aspirin (Aspirin Chewable) 81 mg PO DAILY [facility] Last Admin: 11/21/16 09:24 Dose: 81 mg Diltiazem HCl (Cardizem) 120 mg PO DAILY [facility] Last Admin: 11/21/16 09:25 Dose: 120 mg Metronidazole (Flagyl) 500 mg in 100 mls @ 100 mls/hr IVPB Q8 [facility] Last Admin: 11/21/16 05:10 Dose: 100 mls/hr Cefepime HCl 1 gm/ Dextrose 50 mls @ 100 mls/hr IVPB Q12H [facility] Last Admin: 11/21/16 06:53 Dose: 100 mls/hr Insulin Human Regular (Novolin R) 0 unit SC ACHS [facility] PRN Reason: Protocol Last Admin: 11/21/16 07:08 Dose: Not Given Levothyroxine Sodium (Synthroid) 50 mcg PO DAILY@0630 [facility] Last Admin: 11/21/16 06:16 Dose: 50 mcg Metoprolol Succinate (Toprol Xl) 100 mg PO DAILY [facility] Last Admin: 11/21/16 09:25 Dose: 100 mg Rivaroxaban (Xarelto) 10 mg PO DAILY [facility] Last Admin: 11/21/16 09:25 Dose: 10 mg Rosuvastatin Calcium (Crestor) 5 mg PO HS [facility] Last Admin: 11/20/16 22:21 Dose: 5 mg Saccharomyces Boulardii (Florastor) 500 mg PO BID [facility] Last Admin: 11/21/16 09:25 Dose: 500 mg Vancomycin HCl (Vancocin (Oral Or Rectal Use)) 125 mg PO QID [facility] Last Admin: 11/21/16 09:24 Dose: 125 mg - Labs Labs: 11/21/16 07:35 11/21/16 07:35 - Constitutional Appears: No Acute Distress - Head Exam Head Exam: ATRAUMATIC, NORMOCEPHALIC - Eye Exam Eye Exam: EOMI, PERRL - Neck Exam Neck Exam: absent: Lymphadenopathy, Thyromegaly - Respiratory Exam Respiratory Exam: NORMAL BREATHING PATTERN. absent: Rales, Rhonchi, Wheezes - Cardiovascular Exam Cardiovascular Exam: REGULAR RHYTHM, +S1, +S2. absent: Gallop, Rubs, Murmur - GI/Abdominal Exam GI & Abdominal Exam: Soft, Normal Bowel Sounds. absent: Tenderness, Mass, Organomegaly - Rectal Exam Rectal Exam: Deferred - Extremities Exam Extremities Exam: Pedal Edema Additional comments: 1+, non pitting Assessment and Plan (1) Diarrhea Assessment & Plan: Diarrhea is improving, and the WBC count is down to 15,600. The stool leukocytes and C diff toxin АЛЕКСАНДР are both negative; the C diff PCR is pending. If C diff PCR is negative, will schedule colonoscopy. Status: Acute
[2016-11-21 14:46] LABS: RBC URINE 5 /hpf (0-3); URINE BILIRUBIN NEGATIVE (NEGATIVE); URINE BLOOD 1+ (NEGATIVE); URINE COLOR Yellow (YELLOW); URINE GLUCOSE (UA) NORMAL (Normal); URINE KETONE NEGATIVE (NEGATIVE); URINE LEUKOCYTE ESTERASE TRACE Leu/uL (Negative); URINE PROTEIN NEGATIVE (NEGATIVE); URINE UROBILINOGEN NORMAL mg/dL (0.2-1.0); WBC URINE 1 /hpf (0-5)
--- NOTE | 2016-11-21 14:57 | CP.PCM.PN ---
Subjective - Date & Time of Evaluation Date of Evaluation: 11/21/16 Time of Evaluation: 08:00 - Subjective Subjective: Patient states that the bowel movements are less frequent Objective - Vital Signs/Intake and Output Vital Signs (last 24 hours): Temp Pulse Resp BP Pulse Ox 98 F 71 20 141/62 97 11/21/16 09:50 11/21/16 09:50 11/21/16 09:50 11/21/16 09:50 11/21/16 09:50 Intake and Output: 11/21/16 11/21/16 06:59 18:59 Intake Total 600 Balance 600 - Medications Medications: Current Medications Amiodarone HCl (Cordarone) 200 mg PO F [facility] Aspirin (Aspirin Chewable) 81 mg PO DAILY [facility] Last Admin: 11/21/16 09:24 Dose: 81 mg Diltiazem HCl (Cardizem) 120 mg PO DAILY [facility] Last Admin: 11/21/16 09:25 Dose: 120 mg Metronidazole (Flagyl) 500 mg in 100 mls @ 100 mls/hr IVPB Q8 [facility] Last Admin: 11/21/16 14:49 Dose: 100 mls/hr Cefepime HCl 1 gm/ Dextrose 50 mls @ 100 mls/hr IVPB Q12H [facility] Last Admin: 11/21/16 06:53 Dose: 100 mls/hr Insulin Human Regular (Novolin R) 0 unit SC ACHS [facility] PRN Reason: Protocol Last Admin: 11/21/16 14:49 Dose: 2 unit Levothyroxine Sodium (Synthroid) 50 mcg PO DAILY@0630 [facility] Last Admin: 11/21/16 06:16 Dose: 50 mcg Metoprolol Succinate (Toprol Xl) 100 mg PO DAILY [facility] Last Admin: 11/21/16 09:25 Dose: 100 mg Rivaroxaban (Xarelto) 10 mg PO DAILY [facility] Last Admin: 11/21/16 09:25 Dose: 10 mg Rosuvastatin Calcium (Crestor) 5 mg PO HS [facility] Last Admin: 11/20/16 22:21 Dose: 5 mg Saccharomyces Boulardii (Florastor) 500 mg PO BID [facility] Last Admin: 11/21/16 09:25 Dose: 500 mg Vancomycin HCl (Vancocin (Oral Or Rectal Use)) 125 mg PO QID [facility] Last Admin: 11/21/16 14:49 Dose: 125 mg - Labs Labs: 11/21/16 07:35 11/21/16 07:35 - Constitutional Appears: Non-toxic, Chronically Ill - Head Exam Head Exam: NORMOCEPHALIC - Eye Exam Eye Exam: PERRL. absent: Scleral icterus - ENT Exam ENT Exam: Mucous Membranes Dry - Neck Exam Neck Exam: absent: Lymphadenopathy - Respiratory Exam Respiratory Exam: Decreased Breath Sounds - Cardiovascular Exam Cardiovascular Exam: REGULAR RHYTHM, +S1, +S2 - GI/Abdominal Exam GI & Abdominal Exam: Distended, Soft. absent: Tenderness - Rectal Exam Rectal Exam: Deferred - Exam Exam: NORMAL INSPECTION - Back Exam Back Exam: absent: CVA tenderness (L), CVA tenderness (R) - Neurological Exam Neurological Exam: Alert, CN II-XII Intact, Oriented x3 - Psychiatric Exam Psychiatric exam: Normal Mood - Skin Skin Exam: Dry Assessment and Plan (1) Acute renal insufficiency Status: Acute (2) Bandemia Status: Acute (3) Diarrhea Status: Acute (4) Pancolitis Status: Acute (5) Bilateral lower extremity edema Status: Acute - Assessment and Plan (Free Text) Assessment: SEVERE COLITIS IMPROVING R/O ENTEROINVASIVE ORGANISM C DIFF NEGATIVE DR BAKER TO EVALUATE
--- NOTE | 2016-11-21 20:21 | CP.PCM.PN ---
Subjective - Date & Time of Evaluation Date of Evaluation: 11/21/16 Time of Evaluation: 20:19 - Subjective Subjective: blood in stool Objective - Vital Signs/Intake and Output Vital Signs (last 24 hours): Temp Pulse Resp BP Pulse Ox 97.8 F 67 20 99/72 L 99 11/21/16 15:30 11/21/16 18:49 11/21/16 15:30 11/21/16 15:30 11/21/16 15:30 - Medications Medications: Current Medications Amiodarone HCl (Cordarone) 200 mg PO [facility] [place]irin (Aspirin Chewable) 81 mg PO DAILY [facility] Last Admin: 11/21/16 09:24 Dose: 81 mg Diltiazem HCl (Cardizem) 120 mg PO DAILY [facility] Last Admin: 11/21/16 09:25 Dose: 120 mg Metronidazole (Flagyl) 500 mg in 100 mls @ 100 mls/hr IVPB Q8 [facility] Last Admin: 11/21/16 14:49 Dose: 100 mls/hr Cefepime HCl 1 gm/ Dextrose 50 mls @ 100 mls/hr IVPB Q12H [facility] Last Admin: 11/21/16 18:33 Dose: 100 mls/hr Insulin Human Regular (Novolin R) 0 unit SC ACHS [facility] PRN Reason: Protocol Last Admin: 11/21/16 17:25 Dose: Not Given Levothyroxine Sodium (Synthroid) 50 mcg PO DAILY@0630 [facility] Last Admin: 11/21/16 06:16 Dose: 50 mcg Metoprolol Succinate (Toprol Xl) 100 mg PO DAILY [facility] Last Admin: 11/21/16 09:25 Dose: 100 mg Rivaroxaban (Xarelto) 10 mg PO DAILY [facility] Last Admin: 11/21/16 09:25 Dose: 10 mg Rosuvastatin Calcium (Crestor) 5 mg PO HS [facility] Last Admin: 11/20/16 22:21 Dose: 5 mg Saccharomyces Boulardii (Florastor) 500 mg PO BID [facility] Last Admin: 11/21/16 18:33 Dose: 500 mg Vancomycin HCl (Vancocin (Oral Or Rectal Use)) 125 mg PO QID [facility] Last Admin: 11/21/16 18:33 Dose: 125 mg - Labs Labs: 11/21/16 07:35 11/21/16 07:35 - Constitutional Appears: No Acute Distress, Chronically Ill - Eye Exam Eye Exam: Normal appearance - Neck Exam Neck Exam: Normal Inspection - Respiratory Exam Respiratory Exam: Clear to Ausculation Bilateral - Cardiovascular Exam Cardiovascular Exam: REGULAR RHYTHM - GI/Abdominal Exam GI & Abdominal Exam: Soft - Extremities Exam Extremities Exam: absent: Pedal Edema - Neurological Exam Neurological Exam: Alert, Oriented x3 Assessment and Plan - Assessment and Plan (Free Text) Assessment: colitis,better.renal function is back to baseline. ct iv & po antibiotics. recheck labs.
[2016-11-22] MEDS: metroNIDAZOLE IV 500 mg/100 ml 500 MG/100 ML BAG IVPB SCH ×3 (06:07→21:50)
[2016-11-22] MEDS: Levothyroxine 50 MCG TAB PO SCH (06:07)
[2016-11-22] MEDS: (Novolin R) Insulin Human Regular 100 units/ml vial SC SCH ×4 (07:26→22:03)
--- NOTE | 2016-11-22 07:47 | CP.PCM.PN ---
Subjective - Date & Time of Evaluation Date of Evaluation: 11/22/16 Time of Evaluation: 07:45 - Subjective Subjective: seen and examined formed stool this am on vanco flagyl for colitis renal us noted. Objective - Vital Signs/Intake and Output Vital Signs (last 24 hours): Temp Pulse Resp BP Pulse Ox 98.4 F 61 20 134/62 95 11/21/16 23:10 11/22/16 03:29 11/21/16 23:10 11/21/16 23:10 11/21/16 23:10 Intake and Output: 11/22/16 11/22/16 06:59 18:59 Intake Total 850 Balance 850 - Medications Medications: Current Medications Amiodarone HCl (Cordarone) 200 mg PO [facility] [place] Aspirin (Aspirin Chewable) 81 mg PO DAILY [facility] Last Admin: 11/21/16 09:24 Dose: 81 mg Diltiazem HCl (Cardizem) 120 mg PO DAILY [facility] Last Admin: 11/21/16 09:25 Dose: 120 mg Metronidazole (Flagyl) 500 mg in 100 mls @ 100 mls/hr IVPB Q8 [facility] Last Admin: 11/22/16 06:07 Dose: 100 mls/hr Cefepime HCl 1 gm/ Dextrose 50 mls @ 100 mls/hr IVPB Q12H [facility] Last Admin: 11/22/16 06:39 Dose: 100 mls/hr Insulin Human Regular (Novolin R) 0 unit SC ACHS [facility] PRN Reason: Protocol Last Admin: 11/22/16 07:26 Dose: Not Given Levothyroxine Sodium (Synthroid) 50 mcg PO DAILY@0630 [facility] Last Admin: 11/22/16 06:07 Dose: 50 mcg Metoprolol Succinate (Toprol Xl) 100 mg PO DAILY [facility] Last Admin: 11/21/16 09:25 Dose: 100 mg Rivaroxaban (Xarelto) 10 mg PO DAILY [facility] Last Admin: 11/21/16 09:25 Dose: 10 mg Rosuvastatin Calcium (Crestor) 5 mg PO HS [facility] Last Admin: 11/21/16 21:50 Dose: 5 mg Saccharomyces Boulardii (Florastor) 500 mg PO BID [facility] Last Admin: 11/21/16 18:33 Dose: 500 mg Vancomycin HCl (Vancocin (Oral Or Rectal Use)) 125 mg PO QID [facility] Last Admin: 11/21/16 21:49 Dose: 125 mg - Labs Labs: 11/21/16 07:35 11/21/16 07:35 - Constitutional Appears: Non-toxic, No Acute Distress - Head Exam Head Exam: NORMAL INSPECTION - Eye Exam Eye Exam: Normal appearance - ENT Exam ENT Exam: Mucous Membranes Moist, Normal Exam - Neck Exam Neck Exam: Normal Inspection - Respiratory Exam Respiratory Exam: Clear to Ausculation Bilateral, NORMAL BREATHING PATTERN - Cardiovascular Exam Cardiovascular Exam: REGULAR RHYTHM - GI/Abdominal Exam GI & Abdominal Exam: Distended, Soft, Normal Bowel Sounds - Extremities Exam Extremities Exam: Normal Inspection, Pedal Edema Assessment and Plan (1) Acute renal insufficiency Status: Acute (2) Diarrhea Status: Acute (3) Pancolitis Status: Acute (4) Bilateral lower extremity edema Status: Acute (5) Deep venous thrombosis of lower extremity Status: Acute (6) Hyponatremia Status: Acute - Assessment and Plan (Free Text) Assessment: iv fluids if poor intake antibiotics
[2016-11-22 07:50] LABS: CHOLESTEROL 79 mg/dL (0-199)
[2016-11-22] MEDS: Saccharomyces Boulardi 250 mg Cap PO SCH ×2 (09:28→17:30)
[2016-11-22] MEDS: Metoprolol Succinate 100 mg XL Tab PO SCH (09:28)
[2016-11-22] MEDS: Vancomycin 125 MG/5 ML SOLN (ORAL/RECTAL) PO SCH ×4 (09:36→21:49)
--- NOTE | 2016-11-22 11:12 | CP.PCM.PN ---
Subjective - Date & Time of Evaluation Date of Evaluation: 11/22/16 Time of Evaluation: 11:09 - Subjective Subjective: Patient states she had two or three bowel movements yesterday, one today which was looser than before. She denies having nausea, vomiting, abdominal pain. Objective - Vital Signs/Intake and Output Vital Signs (last 24 hours): Temp Pulse Resp BP Pulse Ox 98.1 F 61 20 166/84 H 96 11/22/16 07:57 11/22/16 07:57 11/22/16 07:57 11/22/16 07:57 11/22/16 07:57 Intake and Output: 11/22/16 11/22/16 06:59 18:59 Intake Total 850 Balance 850 - Medications Medications: Current Medications Amiodarone HCl (Cordarone) 200 mg PO MWF [facility] Last Admin: 11/22/16 08:23 Dose: 200 mg Aspirin (Aspirin Chewable) 81 mg PO DAILY [facility] Last Admin: 11/22/16 09:28 Dose: 81 mg Diltiazem HCl (Cardizem) 120 mg PO DAILY [facility] Last Admin: 11/22/16 09:28 Dose: 120 mg Metronidazole (Flagyl) 500 mg in 100 mls @ 100 mls/hr IVPB Q8 [facility] Last Admin: 11/22/16 06:07 Dose: 100 mls/hr Cefepime HCl 1 gm/ Dextrose 50 mls @ 100 mls/hr IVPB Q12H [facility] Last Admin: 11/22/16 06:39 Dose: 100 mls/hr Insulin Human Regular (Novolin R) 0 unit SC ACHS [facility] PRN Reason: Protocol Last Admin: 11/22/16 07:26 Dose: Not Given Levothyroxine Sodium (Synthroid) 50 mcg PO DAILY@0630 [facility] Last Admin: 11/22/16 06:07 Dose: 50 mcg Metoprolol Succinate (Toprol Xl) 100 mg PO DAILY [facility] Last Admin: 11/22/16 09:28 Dose: 100 mg Rivaroxaban (Xarelto) 10 mg PO DAILY [facility] Last Admin: 11/22/16 09:36 Dose: 10 mg Rosuvastatin Calcium (Crestor) 5 mg PO HS [facility] Last Admin: 11/21/16 21:50 Dose: 5 mg Saccharomyces Boulardii (Florastor) 500 mg PO BID [facility] Last Admin: 11/22/16 09:28 Dose: 500 mg Vancomycin HCl (Vancocin (Oral Or Rectal Use)) 125 mg PO QID [facility] Last Admin: 11/22/16 09:36 Dose: 125 mg - Labs Labs: 11/21/16 07:35 11/21/16 07:35 - Constitutional Appears: No Acute Distress - Head Exam Head Exam: ATRAUMATIC, NORMOCEPHALIC - Eye Exam Eye Exam: EOMI, PERRL - Neck Exam Neck Exam: absent: Lymphadenopathy, Thyromegaly - Respiratory Exam Respiratory Exam: NORMAL BREATHING PATTERN. absent: Rales, Rhonchi, Wheezes - Cardiovascular Exam Cardiovascular Exam: REGULAR RHYTHM, +S1, +S2. absent: Gallop, Rubs, Murmur - GI/Abdominal Exam GI & Abdominal Exam: Soft, Normal Bowel Sounds. absent: Tenderness, Mass, Organomegaly - Rectal Exam Rectal Exam: Deferred - Extremities Exam Extremities Exam: absent: Calf Tenderness, Pedal Edema Assessment and Plan (1) Diarrhea Assessment & Plan: Patient continues to have loose bowel movements, though less frequently than on admission. The stool C difficile АЛЕКСАНДР was negative, and the PCR is pending. Plan is for colonoscopy if PCR is negative to investigate the [place]-colitis found on CT scan. Status: Acute
--- NOTE | 2016-11-22 12:34 | CP.PCM.PN ---
Subjective - Date & Time of Evaluation Date of Evaluation: 11/22/16 Time of Evaluation: 12:33 - Subjective Subjective: better.labs noted. Objective - Vital Signs/Intake and Output Vital Signs (last 24 hours): Temp Pulse Resp BP Pulse Ox 98.1 F 61 20 166/84 H 96 11/22/16 07:57 11/22/16 07:57 11/22/16 07:57 11/22/16 07:57 11/22/16 07:57 Intake and Output: 11/22/16 11/22/16 06:59 18:59 Intake Total 850 Balance 850 - Medications Medications: Current Medications Amiodarone HCl (Cordarone) 200 mg PO MWF [facility] Last Admin: 11/22/16 08:23 Dose: 200 mg Aspirin (Aspirin Chewable) 81 mg PO DAILY [facility] Last Admin: 11/22/16 09:28 Dose: 81 mg Diltiazem HCl (Cardizem) 120 mg PO DAILY [facility] Last Admin: 11/22/16 09:28 Dose: 120 mg Metronidazole (Flagyl) 500 mg in 100 mls @ 100 mls/hr IVPB Q8 [facility] Last Admin: 11/22/16 06:07 Dose: 100 mls/hr Cefepime HCl 1 gm/ Dextrose 50 mls @ 100 mls/hr IVPB Q12H [facility] Last Admin: 11/22/16 06:39 Dose: 100 mls/hr Insulin Human Regular (Novolin R) 0 unit SC ACHS [facility] PRN Reason: Protocol Last Admin: 11/22/16 07:26 Dose: Not Given Levothyroxine Sodium (Synthroid) 50 mcg PO DAILY@0630 [facility] Last Admin: 11/22/16 06:07 Dose: 50 mcg Metoprolol Succinate (Toprol Xl) 100 mg PO DAILY [facility] Last Admin: 11/22/16 09:28 Dose: 100 mg Rivaroxaban (Xarelto) 10 mg PO DAILY [facility] Last Admin: 11/22/16 09:36 Dose: 10 mg Rosuvastatin Calcium (Crestor) 5 mg PO HS [facility] Last Admin: 11/21/16 21:50 Dose: 5 mg Saccharomyces Boulardii (Florastor) 500 mg PO BID [facility] Last Admin: 11/22/16 09:28 Dose: 500 mg Vancomycin HCl (Vancocin (Oral Or Rectal Use)) 125 mg PO QID [facility] Last Admin: 11/22/16 09:36 Dose: 125 mg - Labs Labs: 11/21/16 07:35 11/21/16 07:35 - Constitutional Appears: No Acute Distress, Chronically Ill - Head Exam Head Exam: NORMOCEPHALIC - Eye Exam Eye Exam: Normal appearance - Respiratory Exam Respiratory Exam: Clear to Ausculation Bilateral - Cardiovascular Exam Cardiovascular Exam: REGULAR RHYTHM, Murmur - GI/Abdominal Exam GI & Abdominal Exam: Soft - Neurological Exam Neurological Exam: Alert, Oriented x3 Assessment and Plan - Assessment and Plan (Free Text) Assessment: will d/c tele.will d/c home in am
[2016-11-23] MEDS: metroNIDAZOLE IV 500 mg/100 ml 500 MG/100 ML BAG IVPB SCH ×3 (05:42→21:37)
[2016-11-23] MEDS: Levothyroxine 50 MCG TAB PO SCH (06:21)
[2016-11-23] MEDS: (Novolin R) Insulin Human Regular 100 units/ml vial SC SCH ×4 (07:07→21:39)
[2016-11-23] MEDS: Saccharomyces Boulardi 250 mg Cap PO SCH ×2 (09:03→18:11)
[2016-11-23] MEDS: Metoprolol Succinate 100 mg XL Tab PO SCH (09:03)
[2016-11-23] MEDS: Vancomycin 125 MG/5 ML SOLN (ORAL/RECTAL) PO SCH ×4 (09:04→21:37)
--- NOTE | 2016-11-23 11:54 | CP.PCM.PN ---
Subjective - Date & Time of Evaluation Date of Evaluation: 11/23/16 Time of Evaluation: 08:00 - Subjective Subjective: c diff neg await pcr urine + VRE- contaminant ? will repeat discussed with Dr Harmon Objective - Vital Signs/Intake and Output Vital Signs (last 24 hours): Temp Pulse Resp BP Pulse Ox 98.1 F 77 20 123/70 95 11/23/16 07:35 11/23/16 07:35 11/23/16 07:35 11/23/16 07:35 11/23/16 07:35 Intake and Output: 11/23/16 11/23/16 06:59 18:59 Intake Total 260 Balance 260 - Medications Medications: Current Medications Amiodarone HCl (Cordarone) 200 mg PO MWF [facility] Last Admin: 11/22/16 08:23 Dose: 200 mg Aspirin (Aspirin Chewable) 81 mg PO DAILY [facility] Last Admin: 11/23/16 09:04 Dose: 81 mg Diltiazem HCl (Cardizem) 120 mg PO DAILY [facility] Last Admin: 11/23/16 09:04 Dose: 120 mg Metronidazole (Flagyl) 500 mg in 100 mls @ 100 mls/hr IVPB Q8 [facility] Last Admin: 11/23/16 05:42 Dose: 100 mls/hr Cefepime HCl 1 gm/ Dextrose 50 mls @ 100 mls/hr IVPB Q12H [facility] Last Admin: 11/23/16 06:31 Dose: 100 mls/hr Insulin Human Regular (Novolin R) 0 unit SC ACHS [facility] PRN Reason: Protocol Last Admin: 11/23/16 07:07 Dose: Not Given Levothyroxine Sodium (Synthroid) 50 mcg PO DAILY@0630 [facility] Last Admin: 11/23/16 06:21 Dose: 50 mcg Metoprolol Succinate (Toprol Xl) 100 mg PO DAILY [facility] Last Admin: 11/23/16 09:03 Dose: 100 mg Rivaroxaban (Xarelto) 10 mg PO DAILY [facility] Last Admin: 11/23/16 09:07 Dose: 10 mg Rosuvastatin Calcium (Crestor) 5 mg PO HS [facility] Last Admin: 11/22/16 21:49 Dose: 5 mg Saccharomyces Boulardii (Florastor) 500 mg PO BID [facility] Last Admin: 11/23/16 09:03 Dose: 500 mg Vancomycin HCl (Vancocin (Oral Or Rectal Use)) 125 mg PO QID [facility] Last Admin: 11/23/16 09:04 Dose: 125 mg - Labs Labs: 11/21/16 07:35 11/21/16 07:35 Assessment and Plan (1) Acute renal insufficiency Status: Acute (2) Bandemia Status: Acute (3) Diarrhea Status: Acute (4) Pancolitis Status: Acute (5) Bilateral lower extremity edema Status: Acute
--- NOTE | 2016-11-23 11:58 | CP.PCM.PN ---
Subjective - Date & Time of Evaluation Date of Evaluation: 11/23/16 Time of Evaluation: 11:56 - Subjective Subjective: urine c/s noted.vre.needs colon. Objective - Vital Signs/Intake and Output Vital Signs (last 24 hours): Temp Pulse Resp BP Pulse Ox 98.1 F 77 20 123/70 95 11/23/16 07:35 11/23/16 07:35 11/23/16 07:35 11/23/16 07:35 11/23/16 07:35 Intake and Output: 11/23/16 11/23/16 06:59 18:59 Intake Total 260 Balance 260 - Medications Medications: Current Medications Amiodarone HCl (Cordarone) 200 mg PO MWF [facility] Last Admin: 11/22/16 08:23 Dose: 200 mg Aspirin (Aspirin Chewable) 81 mg PO DAILY [facility] Last Admin: 11/23/16 09:04 Dose: 81 mg Diltiazem HCl (Cardizem) 120 mg PO DAILY [facility] Last Admin: 11/23/16 09:04 Dose: 120 mg Metronidazole (Flagyl) 500 mg in 100 mls @ 100 mls/hr IVPB Q8 [facility] Last Admin: 11/23/16 05:42 Dose: 100 mls/hr Cefepime HCl 1 gm/ Dextrose 50 mls @ 100 mls/hr IVPB Q12H [facility] Last Admin: 11/23/16 06:31 Dose: 100 mls/hr Insulin Human Regular (Novolin R) 0 unit SC ACHS [facility] PRN Reason: Protocol Last Admin: 11/23/16 07:07 Dose: Not Given Levothyroxine Sodium (Synthroid) 50 mcg PO DAILY@0630 [facility] Last Admin: 11/23/16 06:21 Dose: 50 mcg Metoprolol Succinate (Toprol Xl) 100 mg PO DAILY [facility] Last Admin: 11/23/16 09:03 Dose: 100 mg Rivaroxaban (Xarelto) 10 mg PO DAILY [facility] Last Admin: 11/23/16 09:07 Dose: 10 mg Rosuvastatin Calcium (Crestor) 5 mg PO HS [facility] Last Admin: 11/22/16 21:49 Dose: 5 mg Saccharomyces Boulardii (Florastor) 500 mg PO BID [facility] Last Admin: 11/23/16 09:03 Dose: 500 mg Vancomycin HCl (Vancocin (Oral Or Rectal Use)) 125 mg PO QID [facility] Last Admin: 11/23/16 09:04 Dose: 125 mg - Labs Labs: 11/21/16 07:35 11/21/16 07:35 - Constitutional Appears: No Acute Distress - Eye Exam Eye Exam: Normal appearance - Respiratory Exam Respiratory Exam: Clear to Ausculation Bilateral - Cardiovascular Exam Cardiovascular Exam: REGULAR RHYTHM, Murmur - GI/Abdominal Exam GI & Abdominal Exam: Soft - Neurological Exam Neurological Exam: Alert, Oriented x3 Assessment and Plan - Assessment and Plan (Free Text) Assessment: c dif was neg.needs colon.iv antibiotics added.diss with dr maza,.no disch yet
[2016-11-23 12:26] LABS: RBC URINE < 1 /hpf (0-3); URINE BACTERIA RARE (<OCC); URINE BILIRUBIN NEGATIVE (NEGATIVE); URINE BLOOD NEGATIVE (NEGATIVE); URINE COLOR Yellow (YELLOW); URINE GLUCOSE (UA) NORMAL (Normal); URINE KETONE NEGATIVE (NEGATIVE); URINE LEUKOCYTE ESTERASE TRACE Leu/uL (Negative); URINE PROTEIN NEGATIVE (NEGATIVE); URINE UROBILINOGEN NORMAL mg/dL (0.2-1.0); WBC URINE 1 /hpf (0-5)
--- NOTE | 2016-11-23 15:49 | CP.PCM.PN ---
Subjective - Date & Time of Evaluation Date of Evaluation: 11/23/16 Time of Evaluation: 15:47 - Subjective Subjective: feels well no complaints Objective - Vital Signs/Intake and Output Vital Signs (last 24 hours): Temp Pulse Resp BP Pulse Ox 98.1 F 77 20 123/70 95 11/23/16 07:35 11/23/16 07:35 11/23/16 07:35 11/23/16 07:35 11/23/16 07:35 Intake and Output: 11/23/16 11/23/16 06:59 18:59 Intake Total 260 Balance 260 - Medications Medications: Current Medications Amiodarone HCl (Cordarone) 200 mg PO MWF [facility] Last Admin: 11/22/16 08:23 Dose: 200 mg Aspirin (Aspirin Chewable) 81 mg PO DAILY [facility] Last Admin: 11/23/16 09:04 Dose: 81 mg Diltiazem HCl (Cardizem) 120 mg PO DAILY [facility] Last Admin: 11/23/16 09:04 Dose: 120 mg Metronidazole (Flagyl) 500 mg in 100 mls @ 100 mls/hr IVPB Q8 [facility] Last Admin: 11/23/16 14:02 Dose: 100 mls/hr Cefepime HCl 1 gm/ Dextrose 50 mls @ 100 mls/hr IVPB Q12H [facility] Last Admin: 11/23/16 06:31 Dose: 100 mls/hr Insulin Human Regular (Novolin R) 0 unit SC ACHS [facility] PRN Reason: Protocol Last Admin: 11/23/16 13:08 Dose: 3 unit Levothyroxine Sodium (Synthroid) 50 mcg PO DAILY@0630 [facility] Last Admin: 11/23/16 06:21 Dose: 50 mcg Metoprolol Succinate (Toprol Xl) 100 mg PO DAILY [facility] Last Admin: 11/23/16 09:03 Dose: 100 mg Rivaroxaban (Xarelto) 10 mg PO DAILY [facility] Last Admin: 11/23/16 09:07 Dose: 10 mg Rosuvastatin Calcium (Crestor) 5 mg PO HS [facility] Last Admin: 11/22/16 21:49 Dose: 5 mg Saccharomyces Boulardii (Florastor) 500 mg PO BID [facility] Last Admin: 11/23/16 09:03 Dose: 500 mg Vancomycin HCl (Vancocin (Oral Or Rectal Use)) 125 mg PO QID [facility] Last Admin: 11/23/16 14:03 Dose: 125 mg - Labs Labs: 11/21/16 07:35 11/21/16 07:35 - Constitutional Appears: Non-toxic, No Acute Distress - Head Exam Head Exam: NORMAL INSPECTION - Eye Exam Eye Exam: Normal appearance - ENT Exam ENT Exam: Mucous Membranes Moist, Normal Exam - Neck Exam Neck Exam: Normal Inspection - Respiratory Exam Respiratory Exam: Clear to Ausculation Bilateral, NORMAL BREATHING PATTERN - Cardiovascular Exam Cardiovascular Exam: REGULAR RHYTHM, RRR - GI/Abdominal Exam GI & Abdominal Exam: Distended, Soft - Extremities Exam Extremities Exam: Normal Inspection - Neurological Exam Neurological Exam: Alert, Awake, Oriented x3 Assessment and Plan (1) Acute renal insufficiency Status: Acute (2) Diarrhea Status: Acute (3) Pancolitis Status: Acute (4) Bilateral lower extremity edema Status: Acute (5) Deep venous thrombosis of lower extremity Status: Acute (6) Hyponatremia Status: Acute - Assessment and Plan (Free Text) Assessment: creatinine at baseline, ckd stable. bp acceptable
[2016-11-23 20:22] LABS: BASO # 0.1 K/uL (0.0-0.2); BASO % 0.7 % (0.0-2.0); EOS # 0.4 K/uL (0.0-0.7); EOS % 3.6 % (0.0-4.0); HEMATOCRIT 29.6 % (34.0-47.0); LYMPH # 0.5 K/uL (1.0-4.3); LYMPH % 4.8 % (20.0-40.0); MEAN CORPUSCULAR HEMOGLOBIN 29.3 pg (27.0-31.0); MEAN CORPUSCULAR HGB CONC 33.7 g/dL (33.0-37.0); MONO # 1.6 K/uL (0.0-0.8); MONO % 13.9 % (0.0-10.0); PLATELET COUNT 274 K/uL (130-400); RED CELL DISTRIBUTION WIDTH 14.9 % (11.5-14.5); WHITE BLOOD COUNT 11.5 K/uL (4.8-10.8)
[2016-11-23 20:34] LABS: POTASSIUM 4.4 mmol/L (3.6-5.2)
[2016-11-23 20:36] LABS: ALB/GLOB RATIO 0.9 (1.0-2.1); BILIRUBIN,TOTAL 0.4 mg/dL (0.2-1.3); TOTAL PROTEIN 4.9 g/dL (6.3-8.3)
[2016-11-23 20:37] LABS: CALCIUM 7.7 mg/dl (8.6-10.4)
[2016-11-23 21:56] LABS: EOSINOPHIL 1 % (0-4); METAMYELOCYTE 1 % (0-0); MYELOCYTE 2 % (0-0); NEUTROPHIL 49 % (50-75); TOTAL CELLS COUNTED 100
[2016-11-24] MEDS: metroNIDAZOLE IV 500 mg/100 ml 500 MG/100 ML BAG IVPB SCH ×3 (05:51→22:12)
[2016-11-24] MEDS: Levothyroxine 50 MCG TAB PO SCH (05:53)
[2016-11-24 07:33] LABS: POTASSIUM 4.6 mmol/L (3.6-5.2)
[2016-11-24 07:37] LABS: CALCIUM 7.8 mg/dl (8.6-10.4)
[2016-11-24] MEDS: Vancomycin 125 MG/5 ML SOLN (ORAL/RECTAL) PO SCH ×5 (09:18→22:14)
[2016-11-24] MEDS: (Novolin R) Insulin Human Regular 100 units/ml vial SC SCH ×5 (09:19→22:12)
[2016-11-24] MEDS: Saccharomyces Boulardi 250 mg Cap PO SCH ×2 (09:19→18:14)
[2016-11-24] MEDS: Metoprolol Succinate 100 mg XL Tab PO SCH (09:19)
[2016-11-24 13:46] LABS: BASO # 0.1 K/uL (0.0-0.2); BASO % 0.7 % (0.0-2.0); EOS # 0.3 K/uL (0.0-0.7); LYMPH # 0.6 K/uL (1.0-4.3); LYMPH % 4.3 % (20.0-40.0); MEAN CELL VOLUME 87.9 fL (81.0-99.0); MEAN CORPUSCULAR HEMOGLOBIN 28.7 pg (27.0-31.0); MEAN CORPUSCULAR HGB CONC 32.6 g/dL (33.0-37.0); MEAN PLATELET VOLUME 6.9 fL (7.2-11.7); MONO # 1.6 K/uL (0.0-0.8); MONO % 12.3 % (0.0-10.0); PLATELET COUNT 308 K/uL (130-400); RED CELL DISTRIBUTION WIDTH 14.9 % (11.5-14.5); WHITE BLOOD COUNT 12.9 K/uL (4.8-10.8)
[2016-11-24 14:24] LABS: MYELOCYTE 2 % (0-0); NEUTROPHIL 76 % (50-75); TOTAL CELLS COUNTED 100
--- NOTE | 2016-11-24 14:49 | CP.PCM.PN ---
Subjective - Date & Time of Evaluation Date of Evaluation: 11/24/16 Time of Evaluation: 13:00 - Subjective Subjective: nontoxic continued diarrhea for scope no chest pain no sob no abdominal pain no edema no rash no headache no dysuria no fever no arthralgias Objective - Vital Signs/Intake and Output Vital Signs (last 24 hours): Temp Pulse Resp BP Pulse Ox 98.1 F 68 20 122/69 96 11/24/16 08:02 11/24/16 08:02 11/24/16 08:02 11/24/16 08:02 11/24/16 08:02 Intake and Output: 11/24/16 11/24/16 06:59 18:59 Intake Total 170 Balance 170 - Medications Medications: Current Medications Amiodarone HCl (Cordarone) 200 mg PO MWF [facility] Last Admin: 11/24/16 08:37 Dose: 200 mg Aspirin (Aspirin Chewable) 81 mg PO DAILY [facility] Last Admin: 11/24/16 09:19 Dose: 81 mg Diltiazem HCl (Cardizem) 120 mg PO DAILY [facility] Last Admin: 11/24/16 09:19 Dose: 120 mg Metronidazole (Flagyl) 500 mg in 100 mls @ 100 mls/hr IVPB Q8 [facility] Last Admin: 11/24/16 13:31 Dose: 100 mls/hr Cefepime HCl 1 gm/ Dextrose 50 mls @ 100 mls/hr IVPB Q12H [facility] Last Admin: 11/24/16 06:44 Dose: 100 mls/hr Insulin Human Regular (Novolin R) 0 unit SC ACHS [facility] PRN Reason: Protocol Last Admin: 11/24/16 13:08 Dose: 1 unit Levothyroxine Sodium (Synthroid) 50 mcg PO DAILY@0630 [facility] Last Admin: 11/24/16 05:53 Dose: 50 mcg Metoprolol Succinate (Toprol Xl) 100 mg PO DAILY [facility] Last Admin: 11/24/16 09:19 Dose: 100 mg Rivaroxaban (Xarelto) 10 mg PO DAILY [facility] Last Admin: 11/24/16 09:19 Dose: 10 mg Rosuvastatin Calcium (Crestor) 5 mg PO HS [facility] Last Admin: 11/23/16 21:37 Dose: 5 mg Saccharomyces Boulardii (Florastor) 500 mg PO BID [facility] Last Admin: 11/24/16 09:19 Dose: 500 mg Vancomycin HCl (Vancocin (Oral Or Rectal Use)) 125 mg PO QID [facility] Last Admin: 11/24/16 13:31 Dose: 125 mg - Labs Labs: 11/24/16 13:40 11/24/16 06:55 - Constitutional Appears: Non-toxic - Head Exam Head Exam: ATRAUMATIC - Eye Exam Eye Exam: EOMI - ENT Exam ENT Exam: Mucous Membranes Moist - Neck Exam Neck Exam: Full ROM. absent: Lymphadenopathy - Respiratory Exam Respiratory Exam: Clear to Ausculation Bilateral. absent: Accessory Muscle Use - Cardiovascular Exam Cardiovascular Exam: REGULAR RHYTHM. absent: Rubs - GI/Abdominal Exam GI & Abdominal Exam: Distended. absent: Guarding, Tenderness - Extremities Exam Extremities Exam: Full ROM. absent: Tenderness Assessment and Plan - Assessment and Plan (Free Text) Assessment: john on ckd, resolved improved hyponatremia for w/u of persistent diarrhea
--- NOTE | 2016-11-24 17:53 | CP.PCM.PN ---
Subjective - Date & Time of Evaluation Date of Evaluation: 11/24/16 Time of Evaluation: 17:51 - Subjective Subjective: Patient denies having nausea, vomiting, abdominal pain. She recalls having only one bowel movement today, which was more formed than previously, though still soft. Nurses notes document a reddish bowel movement last night. Objective - Vital Signs/Intake and Output Vital Signs (last 24 hours): Temp Pulse Resp BP Pulse Ox 98.2 F 74 20 117/70 98 11/24/16 15:25 11/24/16 15:25 11/24/16 15:25 11/24/16 15:25 11/24/16 15:25 Intake and Output: 11/24/16 11/24/16 06:59 18:59 Intake Total 170 200 Balance 170 200 - Medications Medications: Current Medications Amiodarone HCl (Cordarone) 200 mg PO MWF [facility] Last Admin: 11/24/16 08:37 Dose: 200 mg Aspirin (Aspirin Chewable) 81 mg PO DAILY [facility] Last Admin: 11/24/16 09:19 Dose: 81 mg Diltiazem HCl (Cardizem) 120 mg PO DAILY [facility] Last Admin: 11/24/16 09:19 Dose: 120 mg Metronidazole (Flagyl) 500 mg in 100 mls @ 100 mls/hr IVPB Q8 [facility] Last Admin: 11/24/16 13:31 Dose: 100 mls/hr Cefepime HCl 1 gm/ Dextrose 50 mls @ 100 mls/hr IVPB Q12H [facility] Last Admin: 11/24/16 06:44 Dose: 100 mls/hr Insulin Human Regular (Novolin R) 0 unit SC ACHS [facility] PRN Reason: Protocol Last Admin: 11/24/16 13:08 Dose: 1 unit Levothyroxine Sodium (Synthroid) 50 mcg PO DAILY@0630 [facility] Last Admin: 11/24/16 05:53 Dose: 50 mcg Metoprolol Succinate (Toprol Xl) 100 mg PO DAILY [facility] Last Admin: 11/24/16 09:19 Dose: 100 mg Rivaroxaban (Xarelto) 10 mg PO DAILY [facility] Last Admin: 11/24/16 09:19 Dose: 10 mg Rosuvastatin Calcium (Crestor) 5 mg PO HS [facility] Last Admin: 11/23/16 21:37 Dose: 5 mg Saccharomyces Boulardii (Florastor) 500 mg PO BID [facility] Last Admin: 11/24/16 09:19 Dose: 500 mg Vancomycin HCl (Vancocin (Oral Or Rectal Use)) 125 mg PO QID [facility] Last Admin: 11/24/16 13:31 Dose: 125 mg - Labs Labs: 11/24/16 13:40 11/24/16 06:55 - Constitutional Appears: No Acute Distress - Head Exam Head Exam: ATRAUMATIC - Eye Exam Eye Exam: EOMI, PERRL - Neck Exam Neck Exam: absent: Lymphadenopathy, Thyromegaly - Respiratory Exam Respiratory Exam: NORMAL BREATHING PATTERN. absent: Rales, Rhonchi, Wheezes - Cardiovascular Exam Cardiovascular Exam: REGULAR RHYTHM, +S1, +S2. absent: Gallop, Rubs, Murmur - GI/Abdominal Exam GI & Abdominal Exam: Soft, Normal Bowel Sounds. absent: Tenderness, Mass, Organomegaly - Rectal Exam Rectal Exam: Deferred - Extremities Exam Extremities Exam: absent: Calf Tenderness, Pedal Edema Assessment and Plan (1) Diarrhea Assessment & Plan: Patient states that the bowel movements are less frequent, only once today, and somewhat more formed. The HGB is up to 10.8, and the band count is down to 10% . The stool for C diff toxin B PCR is still pending from Tuesday and will be reordered. Status: Acute
--- NOTE | 2016-11-24 18:57 | CP.PCM.PN ---
Subjective - Date & Time of Evaluation Date of Evaluation: 11/24/16 Time of Evaluation: 09:00 - Subjective Subjective: C DIFF PENDING IV RX IN PROGRESS NO SYMPTOMS OF UTI Objective - Vital Signs/Intake and Output Vital Signs (last 24 hours): Temp Pulse Resp BP Pulse Ox 98.2 F 74 20 117/70 98 11/24/16 15:25 11/24/16 15:25 11/24/16 15:25 11/24/16 15:25 11/24/16 15:25 Intake and Output: 11/24/16 11/24/16 06:59 18:59 Intake Total 170 200 Balance 170 200 - Medications Medications: Current Medications Amiodarone HCl (Cordarone) 200 mg PO MWF [facility] Last Admin: 11/24/16 08:37 Dose: 200 mg Aspirin (Aspirin Chewable) 81 mg PO DAILY [facility] Last Admin: 11/24/16 09:19 Dose: 81 mg Diltiazem HCl (Cardizem) 120 mg PO DAILY [facility] Last Admin: 11/24/16 09:19 Dose: 120 mg Metronidazole (Flagyl) 500 mg in 100 mls @ 100 mls/hr IVPB Q8 [facility] Last Admin: 11/24/16 13:31 Dose: 100 mls/hr Cefepime HCl 1 gm/ Dextrose 50 mls @ 100 mls/hr IVPB Q12H [facility] Last Admin: 11/24/16 06:44 Dose: 100 mls/hr Insulin Human Regular (Novolin R) 0 unit SC ACHS [facility] PRN Reason: Protocol Last Admin: 11/24/16 13:08 Dose: 1 unit Levothyroxine Sodium (Synthroid) 50 mcg PO DAILY@0630 [facility] Last Admin: 11/24/16 05:53 Dose: 50 mcg Metoprolol Succinate (Toprol Xl) 100 mg PO DAILY [facility] Last Admin: 11/24/16 09:19 Dose: 100 mg Rivaroxaban (Xarelto) 10 mg PO DAILY [facility] Last Admin: 11/24/16 09:19 Dose: 10 mg Rosuvastatin Calcium (Crestor) 5 mg PO HS [facility] Last Admin: 11/23/16 21:37 Dose: 5 mg Saccharomyces Boulardii (Florastor) 500 mg PO BID [facility] Last Admin: 11/24/16 18:14 Dose: 500 mg Vancomycin HCl (Vancocin (Oral Or Rectal Use)) 125 mg PO QID [facility] Last Admin: 11/24/16 18:15 Dose: 125 mg - Labs Labs: 11/24/16 13:40 11/24/16 06:55 Assessment and Plan (1) Acute renal insufficiency Status: Acute (2) Bandemia Status: Acute (3) Diarrhea Status: Acute (4) Pancolitis Status: Acute (5) Bilateral lower extremity edema Status: Acute
[2016-11-25] MEDS: metroNIDAZOLE IV 500 mg/100 ml 500 MG/100 ML BAG IVPB SCH ×2 (05:41→14:03)
[2016-11-25] MEDS: Levothyroxine 50 MCG TAB PO SCH (05:42)
[2016-11-25] MEDS: (Novolin R) Insulin Human Regular 100 units/ml vial SC SCH ×3 (08:19→17:00)
[2016-11-25] MEDS: Saccharomyces Boulardi 250 mg Cap PO SCH (09:21)
[2016-11-25] MEDS: Vancomycin 125 MG/5 ML SOLN (ORAL/RECTAL) PO SCH ×5 (09:22→14:08)
[2016-11-25] MEDS: Metoprolol Succinate 100 mg XL Tab PO SCH (09:23)
[2016-11-25 14:25] LABS: BASO # 0.1 K/uL (0.0-0.2); BASO % 0.7 % (0.0-2.0); EOS # 0.3 K/uL (0.0-0.7); LYMPH # 0.7 K/uL (1.0-4.3); LYMPH % 5.4 % (20.0-40.0); MEAN CELL VOLUME 87.5 fL (81.0-99.0); MEAN CORPUSCULAR HGB CONC 33.1 g/dL (33.0-37.0); MEAN PLATELET VOLUME 6.5 fL (7.2-11.7); MONO # 1.5 K/uL (0.0-0.8); MONO % 11.4 % (0.0-10.0); NRBC % 0.1 % (0.0-2.0); PLATELET COUNT 248 K/uL (130-400); WHITE BLOOD COUNT 12.8 K/uL (4.8-10.8)
[2016-11-25 15:21] LABS: EOSINOPHIL 3 % (0-4); TOTAL CELLS COUNTED 100
[2016-11-25 15:22] LABS: MYELOCYTE 2 % (0-0); NEUTROPHIL 79 % (50-75)
[2016-11-25 16:46] VITALS: BP 137/63; PULSE 66; RESP 20; TEMP 98.4; O2SAT 97
--- NOTE | 2016-11-26 12:55 | DS ---
HISTORY OF PRESENT ILLNESS: An 86-year-old female was brought in with the history of diarrhea, not eating well, was found to have acute renal failure, dehydration and possible C. diff colitis. CAT scan showed pancolitis. She was seen by Dr. Tamez on ID consultation and Dr. Liu on GI consultation. Occult blood was positive. Hemoglobin was stable. Vital signs are stable at this time. IV Flagyl and vancomycin were given with improvement. The patient is stable now, will be discharged on p.o. vancomycin and Flagyl. She will return to see me in 1 week's time. Her creatinine, which was 1.7 has come back to 1.3. She was also seen and followed by Dr. Skelton for nephrology followup. She does have a history of SVT in the past and she is on amiodarone. FINAL DIAGNOSES: Pancolitis, presumably Clostridium difficile. She also has urinary tract infection, possibly contaminant with Enterococcus faecalis. The patient has history of hypertension, diabetes, hypothyroidism. Tim Harmon MD
== END 2016-11-25 17:20 | disposition home health service (06) | DRG 372 ==
LOC: C.ER 14:33 → C.9E 17:30 → C.6T 19:14
PROVIDERS: ADMIT Internal Medicine Cardiovascular Disease; ATTEND Internal Medicine Cardiovascular Disease
DX: A04.7 Enterocolitis due to Clostridium difficile (principal); E87.1 Hypo-osmolality and hyponatremia; N17.9 Acute kidney failure, unspecified; E11.22 Type 2 diabetes mellitus with diabetic chronic kidney disease; I13.0 Hypertensive heart and chronic kidney disease with heart failure and stage 1 through stage 4 chronic kidney disease, or unspecified chronic kidney disease; I48.91 Unspecified atrial fibrillation; E86.1 Hypovolemia; I50.9 Heart failure, unspecified; N39.0 Urinary tract infection, site not specified; I47.1 Supraventricular tachycardia; E03.9 Hypothyroidism, unspecified; E78.5 Hyperlipidemia, unspecified; D72.825 Bandemia; E78.00 Pure hypercholesterolemia, unspecified; N18.9 Chronic kidney disease, unspecified; Z79.84 Long term (current) use of oral hypoglycemic drugs; Z79.899 Other long term (current) drug therapy; Z87.891 Personal history of nicotine dependence

== ENCOUNTER 2016-12-27 13:50 | Inpatient (IN) | payer MEDICARE, BC ==
[2016-12-27] MEDS ORDERED: Sodium Chloride 0.9% 1,000 ML IV ONE (15:52)
[2016-12-27 16:08] LABS: BASO # 0.1 K/uL (0.0-0.2); BASO % 0.4 % (0.0-2.0); EOS # 0.1 K/uL (0.0-0.7); EOS % 0.5 % (0.0-4.0); HEMATOCRIT 22.1 % (34.0-47.0); LYMPH # 0.6 K/uL (1.0-4.3); LYMPH % 3.5 % (20.0-40.0); MEAN CELL VOLUME 80.9 fL (81.0-99.0); MEAN CORPUSCULAR HGB CONC 32.1 g/dL (33.0-37.0); MEAN PLATELET VOLUME 6.7 fL (7.2-11.7); MONO % 11.1 % (0.0-10.0); NRBC % 0.1 % (0.0-2.0); PLATELET COUNT 405 K/uL (130-400); RED CELL DISTRIBUTION WIDTH 18.3 % (11.5-14.5); WHITE BLOOD COUNT 17.7 K/uL (4.8-10.8)
[2016-12-27 16:18] LABS: POTASSIUM 3.9 mmol/L (3.6-5.2)
[2016-12-27 16:20] LABS: BILIRUBIN,TOTAL 0.3 mg/dL (0.2-1.3)
[2016-12-27 16:21] LABS: CALCIUM 8.3 mg/dl (8.6-10.4); MAGNESIUM 1.7 mg/dL (1.6-2.3); TOTAL PROTEIN 5.5 g/dL (6.3-8.3)
[2016-12-27 16:53] LABS: NEUTROPHIL 85 % (50-75); TOTAL CELLS COUNTED 100
[2016-12-27 17:16] LABS: FREE T4 2.38 ng/dL (0.78-2.19)
[2016-12-27 17:29] LABS: THYROID STIMULATING HORMONE 1.01 mIU/L (0.46-4.68)
--- NOTE | 2016-12-27 17:55 | C.PDOC ---
History Of Present Illness Pt was sent in by her PMD for admission due to persistent diarrhea. Time Seen by Provider: 12/27/16 15:20 Chief Complaint (Nursing): GI Problem History Per: Patient, Family Onset/Duration Of Symptoms: Days (about 1 month), Persistent Current Symptoms Are (Timing): Still Present Severity: Moderate Quality Of Discomfort: Unable To Describe Associated Symptoms: Diarrhea Exacerbating Factors: Food Alleviating Factors: None Last Bowel Movement: Today Recent travel outside of the [place]: No Additional History Per: Prior Records Past Medical History Reviewed: Historical Data, Nursing Documentation, Vital Signs Vital Signs: Last Vital Signs Temp 98.4 F 12/27/16 14:44 Pulse 72 12/27/16 14:44 Resp 16 12/27/16 14:44 BP 130/76 12/27/16 14:44 Pulse Ox 98 12/27/16 14:44 - Medical History PMH: Atrial Fibrillation (A-flutter (ablation done)), CHF, Fractures (left foot fracture), HTN, Hypercholesterolemia Surgical History: Appendectomy Family History: States: Unknown Family Hx - Social History Hx Tobacco Use: No Hx Alcohol Use: No Hx Substance Use: No - Immunization History Hx Tetanus Toxoid Vaccination: No Hx Influenza Vaccination: No Hx Pneumococcal Vaccination: No Review Of Systems Except As Marked, All Systems Reviewed And Found Negative. Constitutional: Positive for: Malaise. Negative for: Fever Cardiovascular: Negative for: Chest Pain Respiratory: Negative for: Shortness of Breath Gastrointestinal: Positive for: Diarrhea. Negative for: Vomiting, Abdominal Pain, Melena, Hematochezia, Hematemesis Musculoskeletal: Negative for: Neck Pain Skin: Negative for: Rash Neurological: Negative for: Weakness, Numbness Physical Exam - Physical Exam Appears: Non-toxic, No Acute Distress Skin: Normal Color, Warm, Dry Head: Atraumatic, Normacephalic Eye(s): bilateral: PERRL, EOMI Oral Mucosa: Dry Neck: Normal ROM, Supple Cardiovascular: Rhythm Regular Respiratory: Normal Breath Sounds, No Accessory Muscle Use Gastrointestinal/Abdominal: Soft, No Tenderness Extremity: Normal ROM, Pedal Edema Neurological/Psych: Oriented x3, Normal Motor, Normal Sensation ED Course And Treatment - Laboratory Results Result Diagrams: 12/27/16 16:05 12/27/16 16:05 Lab Interpretation: Abnormal Interpretation Of Abnormal: Leukocytosis. Anemia. Renal insufficiency. ECG: Interpreted By Me, Viewed By Me ECG Rhythm: Sinus Rhythm, Nonspecific Changes ECG Interpretation: Abnormal Interpretation Of ECG: Nonspecific intraventricular block Rate From EC O2 Sat by Pulse Oximetry: 98 Pulse Ox Interpretation: Normal Progress - Interventions Interventions:: Observation, Intravenous fluid - Data Reviewed Data Reviewed: Lab, EKG, Old records - Patient Status Patient status: Unchanged - Continuity of Care Discussed patient case with:: Patient, Family-HIPPA compliant, ED Nurse, PMD - Patient Plan Patient Plan: Admission, Telemetry Disposition Discussed With : Tim Harmon Comment: He wants her to be admitted on telemetry on his service. Doctor Will See Patient In The: Hospital Counseled Patient/Family Regarding: Studies Performed, Diagnosis - Disposition Disposition: HOSPITALIZED Disposition Time: 17:59 Condition: GUARDED - Clinical Impression Clinical Impression: Intractable diarrhea, Anemia, Leukocytosis, Dehydration, Renal insufficiency
[2016-12-28] MEDS: metroNIDAZOLE IV 500 mg/100 ml 500 MG/100 ML BAG IVPB SCH ×3 (00:19→22:37)
[2016-12-28] MEDS: Vancomycin 125 MG/5 ML SOLN (ORAL/RECTAL) PO SCH ×5 (00:45→22:48)
--- NOTE | 2016-12-28 03:41 | HP ---
HISTORY OF PRESENT ILLNESS: An 86-year-old female was brought in from by office because of having diarrhea, which has continuous, feeling weak and she fell. She has multiple medical problems including history of SVT, history of chronic kidney disease, hypothyroidism, diabetes, severe osteoarthritis, and back problems. At home, she was maintained on metformin 500 mg one a day, Lipitor 10 mg, lisinopril, multivitamin, Synthroid 25 mcg, metoprolol 100 mg one a day, and amiodarone 200 mg 5 days a week. She was in usual state of health until 3 days ago when the diarrhea started. Apparently, she was recently admitted in last month with similar complaints and was dehydrated. She was seen by Dr. Tamez and Dr. Liu. She is under the care of Dr. Barnes for chronic kidney disease. PERSONAL HISTORY: Does not smoke, does not drink. FAMILY HISTORY: Negative for premature coronary artery disease. Family is supportive and daughter is with her. ALLERGIES: NAPROXEN AND SALICYLATES. PAST MEDICAL HISTORY: History of SVT, cardioverted in the past. REVIEW OF SYSTEMS: Generalized weakness currently she walks around with walker and using wheelchair at times. Denies any fever or chills. No cough, no hemoptysis, no chest pain. She has no palpitation since she is on past medications. No abdominal pain, diarrhea is noted. No hematemesis. No melena, joint pains, back pains. No history of TIAs or CVAs. Frequent fall with no syncope. No history of depression. No visual disturbances. Denies any urinary complaints. PHYSICAL EXAMINATION: GENERAL: Elderly white female who is conscious, alert, well oriented, sitting in the chair, chronically sick looking, but in no acute distress. She is 5 feet and weighs 220 pounds. VITAL SIGNS: Her blood pressure is 134/70, heart rate of 76, respiratory rate of 24, temperature is normal. HEENT: Head is normocephalic. Eyes, no pallor. No icterus. NECK: Supple. LUNGS: Clear to auscultation bilaterally. HEART: PMI is not localized. S1, S2 distant. No definite gallops. ABDOMEN: Soft, distended, but not tender. EXTREMITIES: Shows 1+ pitting edema. Distal pulses are intact. NEUROLOGICAL: She is awake, alert, and oriented x3. LABORATORY DATA: White count of 17.5. Creatinine is 1.6, BUN is elevated 42. Hemoglobin is up to 7.1. ASSESSMENT: An 86-year-old female with history of recurrent diarrhea, history of pancolitis, worsening of renal failure, severe anemia, hypertension, diabetes. PLAN: At this point is to admit, type and cross-match, GI followup, hematology followup, nephrology followup. Care of plan was explained to the patient's daughter. Prognosis remains guarded. Tim Harmon MD
[2016-12-28] MEDS: Levothyroxine 50 MCG TAB PO SCH (06:47)
--- NOTE | 2016-12-28 06:53 | CP.PCM.CON ---
History of Present Illness - History of Present Illness History of Present Illness: PATIENT SEEN FULL CONSULT WILL BE DICTATED. SYMPTOMATIC ANEMIA IN 86 YEAR OLD FEMALE WITH MULTIPLE MEDICAL ISSUES WORK UP IN PROGRESS . AGREE WITH PRBC TRANSFUSION WILL FOLLOW Past Patient History - Infectious Disease Hx of Infectious Diseases: None - Past Medical History & Family History Past Medical History?: Yes - Past Social History Smoking Status: Never Smoked - CARDIAC Hx Atrial Fibrillation: Yes (A-flutter (ablation done)) Hx Congestive Heart Failure: Yes Hx Hypercholesterolemia: Yes Hx Hypertension: Yes - PULMONARY Hx Respiratory Disorders: No - NEUROLOGICAL Hx Neurological Disorder: No - HEENT Hx HEENT Problems: No - RENAL Hx Chronic Kidney Disease: No - ENDOCRINE/METABOLIC Hx Diabetes Mellitus Type 2: Yes - HEMATOLOGICAL/ONCOLOGICAL Hx Blood Disorders: No - INTEGUMENTARY Hx Dermatological Problems: No - MUSCULOSKELETAL/RHEUMATOLOGICAL Hx Falls: No - GASTROINTESTINAL Hx Gastrointestinal Disorders: Yes Hx Colitis: Yes - GENITOURINARY/GYNECOLOGICAL Hx Genitourinary Disorders: No - PSYCHIATRIC Hx Substance Use: No - SURGICAL HISTORY Hx Appendectomy: Yes Other/Comment: no additional information given by patient. - ANESTHESIA Hx Anesthesia: Yes Hx Anesthesia Reactions: No Hx Malignant Hyperthermia: No Meds Allergies/Adverse Reactions: Allergies Allergy/AdvReac Type Severity Reaction Status Date / Time naproxen Allergy Intermediate RASH Verified 12/27/16 14:50 - Medications Medications: Current Medications Amiodarone HCl (Cordarone) 200 mg PO MWF [facility] Diltiazem HCl (Cardizem Cd) 120 mg PO DAILY [facility] Metronidazole (Flagyl) 500 mg in 100 mls @ 100 mls/hr IVPB Q8 [facility] Last Admin: 12/28/16 06:47 Dose: 100 mls/hr Levothyroxine Sodium (Synthroid) 50 mcg PO 0630 [facility] Last Admin: 12/28/16 06:47 Dose: 50 mcg Loperamide HCl (Imodium) 2 mg PO TID PRN PRN Reason: Diarrhea Metformin HCl (Glucophage Xr) 500 mg PO DAILY [facility] Metoprolol Succinate (Toprol Xl) 50 mg PO DAILY [facility] Rosuvastatin Calcium (Crestor) 10 mg PO HS [facility] Last Admin: 12/28/16 00:10 Dose: 10 mg Vancomycin HCl (Vancocin (Oral Or Rectal Use)) 250 mg PO QID [facility] Results - Vital Signs Recent Vital Signs: Last Vital Signs Temp 99.8 F H 12/27/16 23:35 Pulse 76 12/27/16 23:35 Resp 20 12/27/16 23:35 BP 108/56 L 12/27/16 23:35 Pulse Ox 95 12/27/16 23:35 - Labs Result Diagrams: 12/27/16 16:05 12/27/16 16:05 Labs: Laboratory Results - last 24 hr 12/27/16 12/27/16 12/27/16 16:05 16:05 16:05 WBC 17.7 H RBC 2.73 L Hgb 7.1 L D Hct 22.1 L MCV 80.9 L D MCH 26.0 L MCHC 32.1 L RDW 18.3 H Plt Count 405 H D MPV 6.7 L Neut % (Auto) 84.5 H Lymph % (Auto) 3.5 L Charles % (Auto) 11.1 H Eos % (Auto) 0.5 Baso % (Auto) 0.4 Neut # 14.9 H Lymph # 0.6 L Charles # 2.0 H Eos # 0.1 Baso # 0.1 Neutrophils % (Manual) 85 H Band Neutrophils % 4 H Lymphocytes % (Manual) 6 L Monocytes % (Manual) 5 Platelet Estimate Normal Polychromasia Slight Hypochromasia (manual) Moderate Anisocytosis (manual) Slight Ovalocytes Slight Sodium 135 Potassium 3.9 Chloride 98 Carbon Dioxide 24 Anion Gap 16 BUN 43 H Creatinine 1.3 H Est GFR ( Amer) 47 Est GFR (Non-Af Amer) 39 POC Glucose (mg/dL) Random Glucose 103 Calcium 8.3 L Magnesium 1.7 Total Bilirubin 0.3 AST 21 ALT 32 Alkaline Phosphatase 77 Total Protein 5.5 L Albumin 2.7 L Globulin 2.7 Albumin/Globulin Ratio 1.0 Free T4 2.38 H TSH 3rd Generation 1.01 12/27/16 21:56 WBC RBC Hgb Hct MCV MCH MCHC RDW Plt Count MPV Neut % (Auto) Lymph % (Auto) Charles % (Auto) Eos % (Auto) Baso % (Auto) Neut # Lymph # Charles # Eos # Baso # Neutrophils % (Manual) Band Neutrophils % Lymphocytes % (Manual) Monocytes % (Manual) Platelet Estimate Polychromasia Hypochromasia (manual) Anisocytosis (manual) Ovalocytes Sodium Potassium Chloride Carbon Dioxide Anion Gap BUN Creatinine Est GFR ( Amer) Est GFR (Non-Af Amer) POC Glucose (mg/dL) 172 H Random Glucose Calcium Magnesium Total Bilirubin AST ALT Alkaline Phosphatase Total Protein Albumin Globulin Albumin/Globulin Ratio Free T4 TSH 3rd Generation
[2016-12-28 07:24] LABS: HEMATOCRIT 20.1 % (34.0-47.0)
[2016-12-28 07:39] LABS: POTASSIUM 3.6 mmol/L (3.6-5.2)
[2016-12-28 08:32] LABS: IRON < 10 ug/dL (37-170)
--- NOTE | 2016-12-28 10:08 | CP.PCM.CON ---
History of Present Illness - History of Present Illness History of Present Illness: This is an 86 year old woman with diarrhea. Patient is a poor historian. Patient is known to me from the previous admission 11/19-11/25/16. She had been hospitalized at [facility] over the summer for treatment of cellulitis. She reports that diarrhea started early in November, frequent small stools, up to six times a day, without bleeding, usually after eating. She also complains of poor appetite and weakness. She denies having nausea, vomiting, fever, chills, difficulty swallowing or heartburn. On that admission, she had WBC count was elevated at 20.3, and a CT scan showed mural thickening affecting the entire colon. She was treated empirically for C difficile infection with probable pseudomembranous colitis, though the stool C diff antigen was negative on two occasions. The C diff toxin B PCR was reported as positive on 11/25/16. Patient was sent to the ER yesterday for persistent diarrhea. Lab work in the ER showed anemia, HGB 7.1 (was 9.6 on 11/25), iron <10, TIBC 248, ferritin 23.2. Review of Systems - Review of Systems All systems: reviewed and no additional remarkable complaints except - Constitutional Constitutional: Malaise. absent: Fever - Cardiovascular Cardiovascular: absent: Chest Pain - Respiratory Respiratory: absent: Cough, Dyspnea, Hemoptysis - Gastrointestinal Gastrointestinal: Diarrhea. absent: Abdominal Pain, Dysphagia, Heartburn, Hematochezia, Melena, Nausea, Vomiting - Musculoskeletal Musculoskeletal: absent: Arthralgias, Back Pain Past Patient History - Infectious Disease Hx of Infectious Diseases: None - Past Medical History & Family History Past Medical History?: Yes - Past Social History Smoking Status: Never Smoked - CARDIAC Hx Atrial Fibrillation: Yes (A-flutter (ablation done)) Hx Congestive Heart Failure: Yes Hx Hypercholesterolemia: Yes Hx Hypertension: Yes - PULMONARY Hx Respiratory Disorders: No - NEUROLOGICAL Hx Neurological Disorder: No - HEENT Hx HEENT Problems: No - RENAL Hx Chronic Kidney Disease: No - ENDOCRINE/METABOLIC Hx Diabetes Mellitus Type 2: Yes - HEMATOLOGICAL/ONCOLOGICAL Hx Blood Disorders: No - INTEGUMENTARY Hx Dermatological Problems: No - MUSCULOSKELETAL/RHEUMATOLOGICAL Hx Falls: No - GASTROINTESTINAL Hx Gastrointestinal Disorders: Yes Hx Colitis: Yes - GENITOURINARY/GYNECOLOGICAL Hx Genitourinary Disorders: No - PSYCHIATRIC Hx Substance Use: No - SURGICAL HISTORY Hx Appendectomy: Yes Other/Comment: no additional information given by patient. - ANESTHESIA Hx Anesthesia: Yes Hx Anesthesia Reactions: No Hx Malignant Hyperthermia: No Meds Allergies/Adverse Reactions: Allergies Allergy/AdvReac Type Severity Reaction Status Date / Time naproxen Allergy Intermediate RASH Verified 12/27/16 14:50 - Medications Medications: Current Medications Amiodarone HCl (Cordarone) 200 mg PO MWF [facility] Diltiazem HCl (Cardizem Cd) 120 mg PO DAILY [facility] Metronidazole (Flagyl) 500 mg in 100 mls @ 100 mls/hr IVPB Q8 [facility] Last Admin: 12/28/16 06:47 Dose: 100 mls/hr Levothyroxine Sodium (Synthroid) 50 mcg PO 0630 [facility] Last Admin: 12/28/16 06:47 Dose: 50 mcg Loperamide HCl (Imodium) 2 mg PO TID PRN PRN Reason: Diarrhea Metformin HCl (Glucophage Xr) 500 mg PO DAILY [facility] Metoprolol Succinate (Toprol Xl) 50 mg PO DAILY [facility] Rosuvastatin Calcium (Crestor) 10 mg PO HS [facility] Last Admin: 12/28/16 00:10 Dose: 10 mg Vancomycin HCl (Vancocin (Oral Or Rectal Use)) 250 mg PO QID [facility] Physical Exam - Constitutional Appears: No Acute Distress - Head Exam Head Exam: ATRAUMATIC, NORMOCEPHALIC - Eye Exam Eye Exam: EOMI, PERRL - Neck Exam Neck exam: Negative for: Lymphadenopathy, Thyromegaly - Respiratory Exam Respiratory Exam: NORMAL BREATHING PATTERN. absent: Rales, Rhonchi, Wheezes - Cardiovascular Exam Cardiovascular Exam: REGULAR RHYTHM, +S1, +S2. absent: Gallop, Rubs, Systolic Murmur - GI/Abdominal Exam GI & Abdominal Exam: Normal Bowel Sounds, Soft. absent: Mass, Organomegaly, Tenderness - Rectal Exam Rectal Exam: Deferred - Extremities Exam Extremities exam: Negative for: calf tenderness, pedal edema Results - Vital Signs Recent Vital Signs: Last Vital Signs Temp 98.0 F 12/28/16 07:25 Pulse 75 12/28/16 07:25 Resp 18 12/28/16 07:25 BP 124/68 12/28/16 07:25 Pulse Ox 95 12/28/16 07:25 - Labs Result Diagrams: 12/28/16 07:11 12/28/16 07:11 Labs: Laboratory Results - last 24 hr 12/27/16 12/27/16 12/27/16 16:05 16:05 16:05 WBC 17.7 H RBC 2.73 L Hgb 7.1 L D Hct 22.1 L MCV 80.9 L D MCH 26.0 L MCHC 32.1 L RDW 18.3 H Plt Count 405 H D MPV 6.7 L Neut % (Auto) 84.5 H Lymph % (Auto) 3.5 L Dickinson % (Auto) 11.1 H Eos % (Auto) 0.5 Baso % (Auto) 0.4 Neut # 14.9 H Lymph # 0.6 L Dickinson # 2.0 H Eos # 0.1 Baso # 0.1 Neutrophils % (Manual) 85 H Band Neutrophils % 4 H Lymphocytes % (Manual) 6 L Monocytes % (Manual) 5 Platelet Estimate Normal Polychromasia Slight Hypochromasia (manual) Moderate Anisocytosis (manual) Slight Ovalocytes Slight Sodium 135 Potassium 3.9 Chloride 98 Carbon Dioxide 24 Anion Gap 16 BUN 43 H Creatinine 1.3 H Est GFR ( Amer) 47 Est GFR (Non-Af Amer) 39 POC Glucose (mg/dL) Random Glucose 103 Calcium 8.3 L Magnesium 1.7 Iron TIBC Ferritin Total Bilirubin 0.3 AST 21 ALT 32 Alkaline Phosphatase 77 Total Protein 5.5 L Albumin 2.7 L Globulin 2.7 Albumin/Globulin Ratio 1.0 Vitamin B12 Folate Free T4 2.38 H TSH 3rd Generation 1.01 Stool Occult Blood Blood Type Antibody Screen 12/27/16 12/28/16 12/28/16 21:56 07:11 07:11 WBC RBC Hgb 6.5 L* Hct 20.1 L MCV MCH MCHC RDW Plt Count MPV Neut % (Auto) Lymph % (Auto) Dickinson % (Auto) Eos % (Auto) Baso % (Auto) Neut # Lymph # Dickinson # Eos # Baso # Neutrophils % (Manual) Band Neutrophils % Lymphocytes % (Manual) Monocytes % (Manual) Platelet Estimate Polychromasia Hypochromasia (manual) Anisocytosis (manual) Ovalocytes Sodium 132 Potassium 3.6 Chloride 102 Carbon Dioxide 22 Anion Gap 12 BUN 36 H Creatinine 1.2 Est GFR ( Amer) 51 Est GFR (Non-Af Amer) 42 POC Glucose (mg/dL) 172 H Random Glucose 105 Calcium 8.0 L Magnesium Iron TIBC Ferritin 23.2 Total Bilirubin AST ALT Alkaline Phosphatase Total Protein Albumin Globulin Albumin/Globulin Ratio Vitamin B12 643 Folate 20.0 Free T4 TSH 3rd Generation Stool Occult Blood Blood Type Antibody Screen 12/28/16 12/28/16 12/28/16 07:11 07:11 07:44 WBC RBC Hgb Hct MCV MCH MCHC RDW Plt Count MPV Neut % (Auto) Lymph % (Auto) Dickinson % (Auto) Eos % (Auto) Baso % (Auto) Neut # Lymph # Dickinson # Eos # Baso # Neutrophils % (Manual) Band Neutrophils % Lymphocytes % (Manual) Monocytes % (Manual) Platelet Estimate Polychromasia Hypochromasia (manual) Anisocytosis (manual) Ovalocytes Sodium Potassium Chloride Carbon Dioxide Anion Gap BUN Creatinine Est GFR ( Amer) Est GFR (Non-Af Amer) POC Glucose (mg/dL) Random Glucose Calcium Magnesium Iron < 10 L TIBC 248 L Ferritin Total Bilirubin AST ALT Alkaline Phosphatase Total Protein Albumin Globulin Albumin/Globulin Ratio Vitamin B12 Folate Free T4 TSH 3rd Generation Stool Occult Blood Negative Blood Type A NEGATIVE Antibody Screen Negative Assessment & Plan - Assessment and Plan (Free Text) Assessment: Patient had C diff documented on the last admission, by PCR, although the stool antigen by [id number] was negative (false negative) on two occasions. 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 However, patient is now anemic, and the HGB has dropped form 9.6 last month to 7.1 on admission. The stool occult blood is negative, but patient should have colonoscopy when stable because of the iron deficiency.
[2016-12-28] MEDS: Metoprolol Succinate 50 mg XL Tab PO SCH (10:42)
[2016-12-28] MEDS: diltiaZEM 120 mg/24 Hours CD Cap PO SCH (10:42)
--- NOTE | 2016-12-28 12:06 | CP.PCM.CON ---
History of Present Illness - History of Present Illness History of Present Illness: failed out pt treatment for c diff colitis appears dehydrated weak and poorly responsive iv anfd po rx ordered Review of Systems - Review of Systems Systems not reviewed;Unavailable: Altered Mental Status - Constitutional Constitutional: As Per HPI - EENT Eyes: absent: As Per HPI, Blind Spots, Blurred Vision, Change in Vision, Decreased Night Vision, Diplopia, Discharge, Dry Eye, Exophthalmos, Floaters, Irritation, Itchy Eyes, Loss of Peripheral Vision, Pain, Photophobia, Requires Corrective Lenses, Sees Flashes, Spots in Vision, Tunnel Vision, Other Visual Disturbances, Loss of Vision, Other Nose/Mouth/Throat: absent: As Per HPI, Epistaxis, Nasal Congestion, Nasal Discharge, Nasal Obstruction, Nasal Trauma, Nose Pain, Post Nasal Drip, Sinus Pain, Sinus Pressure, Bleeding Gums, Change in Voice, Dental Pain, Dry Mouth, Dysphagia, Halitosis, Hoarsness, Lip Swelling, Mouth Lesions, Mouth Pain, Odynophagia, Sore Throat, Throat Swelling, Tongue Swelling, Facial Pain, Neck Pain, Neck Mass, Other - Breasts Breasts: absent: As Per HPI, Change in Shape, Mass, Pain, Nipple Discharge, Nipple Inversion, Skin Changes, Swelling, Other - Cardiovascular Cardiovascular: absent: As Per HPI, Acrocyanosis, Chest Pain, Chest Pain at Rest , Chest Pain with Activity, Claudication, Diaphoresis, Dyspnea, Dyspnea on Exertion, Edema, Irregular Heart Rhythm, Pain Radiating to Arm/Neck/Jaw, Leg Edema, Leg Ulcers, Lightheadedness, Orthopnea, Palpitations, Paroxysmal Nocturnal Dyspnea, Pedal Edema, Radiating Pain, Rapid Heart Rate, Slow Heart Rate, Syncope, Other - Respiratory Respiratory: absent: As Per HPI, Cough, Dyspnea, Hemoptysis, Dyspnea on Exertion , Wheezing, Snoring, Stridor, Pain on Inspiration, Chest Congestion, Excessive Mucous Production, Change in Mucous Color, Pain with Coughing, Other - Gastrointestinal Gastrointestinal: As Per HPI - Genitourinary Genitourinary: absent: As Per HPI, Change in Urinary Stream, Difficulty Urinating, Dysuria, Flank Pain, Hematuria, Pyuria, Nocturia, Urinary Incontinence, Urinary Frequency, Urinary Hesitance, Urinary Urgency, Voiding Freq/Small Amts, Freq UTI, Hx Renal/Bladder Calculi, Hx /Renal Surgery, Bladder Distension, Other - Reproductive: Female Reproductive:Female: absent: As Per HPI, Amenorrhea, Amenorrhea/ Control, Currently Menstual, Cycle <21 Days, Cycle >35 Days, Cycle Variable, Menses 1-7 Days, Menses >/= 8 Days, Menses Variable, Cycle > 4 Weeks Between, No Menses for 6 Months, Heavy Menses, Light Menses, Normal Menses, Spotting Between Cycles , S/P Hysterectomy, Menopausal, Post Menopausal, Premenarche, Abnormal Vaginal Bleeding, Dysmenorrhea, Dyspareunia, Genital Lesions, Genital Pruritis, Pelvic Pain, Prolapse Symptoms, Sexual Dysfunction, Vaginal Discharge, Vaginal Dryness , Vaginal Odor, Vaginal Pruritis, Other - Menstruation Menstruation: absent: As Per HPI, Amenorrhea, Amenorrhea/ Control, Currently Menstual, Cycle <21 Days, Cycle >35 Days, Cycle Variable, Menses 1-7 Days, Menses >/= 8 Days, Menses Variable, Cycle > 4 Weeks Between, No Menses for 6 Months, Heavy Menses, Light Menses, Normal Menses, Spotting Between Cycles , S/P Hysterectomy, Menopausal, Post Menopausal, Premenarche, Abnormal Vaginal Bleeding, Dysmenorrhea, Other - Musculoskeletal Musculoskeletal: absent: As Per HPI, Abnormal Gait, Arthralgias, Atrophy, Back Pain, Deformity, Joint Swelling, Limited Range of Motion, Loss of Height, Muscle Cramps, Muscle Weakness, Myalgias, Neck Pain, Numbness, Radiating Pain into Limb, Stiffness, Tingling, Other - Integumentary Integumentary: absent: As Per HPI, Acne, Alopecia, Bleeding Lesions, Change in Hair, Change in Nails, Change in Pigmentation, Changing Lesions, Dry Skin, Erythema, Furuncle, Hirsutism, Lesions, New Lesions, Non-Healing Lesions, Photosensitivity, Pruritus, Rash, Skin Pain, Skin Ulcer, Sores, Striae, Swelling , Unusual Bruising, Wounds, Jaundice, Other Past Patient History - Infectious Disease Hx of Infectious Diseases: None - Past Medical History & Family History Past Medical History?: Yes - Past Social History Smoking Status: Never Smoked - CARDIAC Hx Atrial Fibrillation: Yes (A-flutter (ablation done)) Hx Congestive Heart Failure: Yes Hx Hypercholesterolemia: Yes Hx Hypertension: Yes - PULMONARY Hx Respiratory Disorders: No - NEUROLOGICAL Hx Neurological Disorder: No - HEENT Hx HEENT Problems: No - RENAL Hx Chronic Kidney Disease: No - ENDOCRINE/METABOLIC Hx Diabetes Mellitus Type 2: Yes - HEMATOLOGICAL/ONCOLOGICAL Hx Blood Disorders: No - INTEGUMENTARY Hx Dermatological Problems: No - MUSCULOSKELETAL/RHEUMATOLOGICAL Hx Falls: No - GASTROINTESTINAL Hx Gastrointestinal Disorders: Yes Hx Colitis: Yes - GENITOURINARY/GYNECOLOGICAL Hx Genitourinary Disorders: No - PSYCHIATRIC Hx Substance Use: No - SURGICAL HISTORY Hx Appendectomy: Yes Other/Comment: no additional information given by patient. - ANESTHESIA Hx Anesthesia: Yes Hx Anesthesia Reactions: No Hx Malignant Hyperthermia: No Meds Allergies/Adverse Reactions: Allergies Allergy/AdvReac Type Severity Reaction Status Date / Time naproxen Allergy Intermediate RASH Verified 12/27/16 14:50 - Medications Medications: Current Medications Amiodarone HCl (Cordarone) 200 mg PO MWF [facility] Diltiazem HCl (Cardizem Cd) 120 mg PO DAILY [facility] Last Admin: 12/28/16 10:42 Dose: 120 mg Metronidazole (Flagyl) 500 mg in 100 mls @ 100 mls/hr IVPB Q8 [facility] Last Admin: 12/28/16 06:47 Dose: 100 mls/hr Levothyroxine Sodium (Synthroid) 50 mcg PO 0630 [facility] Last Admin: 12/28/16 06:47 Dose: 50 mcg Loperamide HCl (Imodium) 2 mg PO TID PRN PRN Reason: Diarrhea Metformin HCl (Glucophage Xr) 500 mg PO DAILY [facility] Last Admin: 12/28/16 10:43 Dose: 500 mg Metoprolol Succinate (Toprol Xl) 50 mg PO DAILY [facility] Last Admin: 12/28/16 10:42 Dose: 50 mg Rosuvastatin Calcium (Crestor) 10 mg PO HS [facility] Last Admin: 12/28/16 00:10 Dose: 10 mg Vancomycin HCl (Vancocin (Oral Or Rectal Use)) 250 mg PO QID [facility] Last Admin: 12/28/16 10:43 Dose: 250 mg Physical Exam - Constitutional Appears: Confused, Chronically Ill - Head Exam Head Exam: ATRAUMATIC, NORMAL INSPECTION, NORMOCEPHALIC - Eye Exam Eye Exam: PERRL. absent: Scleral icterus - ENT Exam ENT Exam: Mucous Membranes Dry, Normal External Ear Exam - Neck Exam Neck exam: Negative for: Lymphadenopathy - Respiratory Exam Respiratory Exam: Decreased Breath Sounds, Clear to Auscultation Bilateral - Cardiovascular Exam Cardiovascular Exam: REGULAR RHYTHM, +S1, +S2 - GI/Abdominal Exam GI & Abdominal Exam: Diminished Bowel Sounds, Distended, Soft. absent: Rigid, Tenderness - Rectal Exam Rectal Exam: Deferred - Exam Exam: NORMAL INSPECTION - Extremities Exam Extremities exam: Positive for: pedal edema, pedal pulses present. Negative for : calf tenderness, tenderness - Back Exam Back exam: absent: CVA tenderness (L), CVA tenderness (R) - Neurological Exam Neurological exam: Altered - Psychiatric Exam Psychiatric exam: Depressed - Skin Skin Exam: Dry Results - Vital Signs Recent Vital Signs: Last Vital Signs Temp 98.0 F 12/28/16 07:25 Pulse 80 12/28/16 10:41 Resp 18 12/28/16 07:25 BP 126/66 12/28/16 10:41 Pulse Ox 95 12/28/16 07:25 - Labs Result Diagrams: 12/28/16 07:11 12/28/16 07:11 Labs: Laboratory Results - last 24 hr 12/27/16 12/27/16 12/27/16 16:05 16:05 16:05 WBC 17.7 H RBC 2.73 L Hgb 7.1 L D Hct 22.1 L MCV 80.9 L D MCH 26.0 L MCHC 32.1 L RDW 18.3 H Plt Count 405 H D MPV 6.7 L Neut % (Auto) 84.5 H Lymph % (Auto) 3.5 L [place] % (Auto) 11.1 H Eos % (Auto) 0.5 Baso % (Auto) 0.4 Neut # 14.9 H Lymph # 0.6 L [place] # 2.0 H Eos # 0.1 Baso # 0.1 Neutrophils % (Manual) 85 H Band Neutrophils % 4 H Lymphocytes % (Manual) 6 L Monocytes % (Manual) 5 Platelet Estimate Normal Polychromasia Slight Hypochromasia (manual) Moderate Anisocytosis (manual) Slight Ovalocytes Slight Sodium 135 Potassium 3.9 Chloride 98 Carbon Dioxide 24 Anion Gap 16 BUN 43 H Creatinine 1.3 H Est GFR ( Amer) 47 Est GFR (Non-Af Amer) 39 POC Glucose (mg/dL) Random Glucose 103 Calcium 8.3 L Magnesium 1.7 Iron TIBC Ferritin Total Bilirubin 0.3 AST 21 ALT 32 Alkaline Phosphatase 77 Total Protein 5.5 L Albumin 2.7 L Globulin 2.7 Albumin/Globulin Ratio 1.0 Vitamin B12 Folate Free T4 2.38 H TSH 3rd Generation 1.01 Stool Occult Blood C. difficile Ag & Toxin Blood Type Antibody Screen 12/27/16 12/28/16 12/28/16 21:56 03:00 07:11 WBC RBC Hgb 6.5 L* Hct 20.1 L MCV MCH MCHC RDW Plt Count MPV Neut % (Auto) Lymph % (Auto) [place] % (Auto) Eos % (Auto) Baso % (Auto) Neut # Lymph # [place] # Eos # Baso # Neutrophils % (Manual) Band Neutrophils % Lymphocytes % (Manual) Monocytes % (Manual) Platelet Estimate Polychromasia Hypochromasia (manual) Anisocytosis (manual) Ovalocytes Sodium Potassium Chloride Carbon Dioxide Anion Gap BUN Creatinine Est GFR ( Amer) Est GFR (Non-Af Amer) POC Glucose (mg/dL) 172 H Random Glucose Calcium Magnesium Iron TIBC Ferritin Total Bilirubin AST ALT Alkaline Phosphatase Total Protein Albumin Globulin Albumin/Globulin Ratio Vitamin B12 Folate Free T4 TSH 3rd Generation Stool Occult Blood C. difficile Ag & Toxin Negative Blood Type Antibody Screen 12/28/16 12/28/16 12/28/16 07:11 07:11 07:11 WBC RBC Hgb Hct MCV MCH MCHC RDW Plt Count MPV Neut % (Auto) Lymph % (Auto) [place] % (Auto) Eos % (Auto) Baso % (Auto) Neut # Lymph # [place] # Eos # Baso # Neutrophils % (Manual) Band Neutrophils % Lymphocytes % (Manual) Monocytes % (Manual) Platelet Estimate Polychromasia Hypochromasia (manual) Anisocytosis (manual) Ovalocytes Sodium 132 Potassium 3.6 Chloride 102 Carbon Dioxide 22 Anion Gap 12 BUN 36 H Creatinine 1.2 Est GFR ( Amer) 51 Est GFR (Non-Af Amer) 42 POC Glucose (mg/dL) Random Glucose 105 Calcium 8.0 L Magnesium Iron < 10 L TIBC 248 L Ferritin 23.2 Total Bilirubin AST ALT Alkaline Phosphatase Total Protein Albumin Globulin Albumin/Globulin Ratio Vitamin B12 643 Folate 20.0 Free T4 TSH 3rd Generation Stool Occult Blood C. difficile Ag & Toxin Blood Type A NEGATIVE Antibody Screen Negative 12/28/16 07:44 WBC RBC Hgb Hct MCV MCH MCHC RDW Plt Count MPV Neut % (Auto) Lymph % (Auto) [place] % (Auto) Eos % (Auto) Baso % (Auto) Neut # Lymph # [place] # Eos # Baso # Neutrophils % (Manual) Band Neutrophils % Lymphocytes % (Manual) Monocytes % (Manual) Platelet Estimate Polychromasia Hypochromasia (manual) Anisocytosis (manual) Ovalocytes Sodium Potassium Chloride Carbon Dioxide Anion Gap BUN Creatinine Est GFR ( Amer) Est GFR (Non-Af Amer) POC Glucose (mg/dL) Random Glucose Calcium Magnesium Iron TIBC Ferritin Total Bilirubin AST ALT Alkaline Phosphatase Total Protein Albumin Globulin Albumin/Globulin Ratio Vitamin B12 Folate Free T4 TSH 3rd Generation Stool Occult Blood Negative C. difficile Ag & Toxin Blood Type Antibody Screen Assessment & Plan (1) Anemia Status: Acute (2) Dehydration Status: Acute (3) Intractable diarrhea Status: Acute (4) Leukocytosis Status: Acute (5) Renal insufficiency Status: Acute (6) Acute renal insufficiency Status: Acute (7) Bilateral lower extremity edema Status: Acute (8) Pancolitis Status: Acute
--- NOTE | 2016-12-28 13:34 | CP.PCM.PN ---
Subjective - Date & Time of Evaluation Date of Evaluation: 12/28/16 Time of Evaluation: 13:32 - Subjective Subjective: poor appeatite. Objective - Vital Signs/Intake and Output Vital Signs (last 24 hours): Temp Pulse Resp BP Pulse Ox 99.2 F 80 18 126/69 100 12/28/16 13:26 12/28/16 13:26 12/28/16 13:26 12/28/16 13:26 12/28/16 12:36 Intake and Output: 12/28/16 12/28/16 06:59 18:59 Intake Total 0 Balance 0 - Medications Medications: Current Medications Amiodarone HCl (Cordarone) 200 mg PO F [facility] Diltiazem HCl (Cardizem Cd) 120 mg PO DAILY [facility] Last Admin: 12/28/16 10:42 Dose: 120 mg Metronidazole (Flagyl) 500 mg in 100 mls @ 100 mls/hr IVPB Q8 [facility] Last Admin: 12/28/16 06:47 Dose: 100 mls/hr Levothyroxine Sodium (Synthroid) 50 mcg PO 0630 [facility] Last Admin: 12/28/16 06:47 Dose: 50 mcg Loperamide HCl (Imodium) 2 mg PO TID PRN PRN Reason: Diarrhea Metformin HCl (Glucophage Xr) 500 mg PO DAILY [facility] Last Admin: 12/28/16 10:43 Dose: 500 mg Metoprolol Succinate (Toprol Xl) 50 mg PO DAILY [facility] Last Admin: 12/28/16 10:42 Dose: 50 mg Rosuvastatin Calcium (Crestor) 10 mg PO HS [facility] Last Admin: 12/28/16 00:10 Dose: 10 mg Vancomycin HCl (Vancocin (Oral Or Rectal Use)) 250 mg PO QID [facility] Last Admin: 12/28/16 10:43 Dose: 250 mg - Labs Labs: 12/28/16 07:11 12/28/16 07:11 - Constitutional Appears: No Acute Distress, Chronically Ill - Head Exam Head Exam: NORMOCEPHALIC - Neck Exam Neck Exam: Normal Inspection - Respiratory Exam Respiratory Exam: Clear to Ausculation Bilateral - Cardiovascular Exam Cardiovascular Exam: REGULAR RHYTHM - GI/Abdominal Exam GI & Abdominal Exam: Soft - Extremities Exam Extremities Exam: Pedal Edema - Neurological Exam Neurological Exam: Alert, Oriented x3 Assessment and Plan - Assessment and Plan (Free Text) Assessment: hb is 6.5.will transfuse. gi,id & hem consult juliet. diss with daughter.
[2016-12-28 22:37] LABS: RBC URINE 6 /hpf (0-3); URINE BACTERIA MANY (<OCC); URINE BILIRUBIN NEGATIVE (NEGATIVE); URINE BLOOD 1+ (NEGATIVE); URINE COLOR Yellow (YELLOW); URINE GLUCOSE (UA) NORMAL (Normal); URINE KETONE NEGATIVE (NEGATIVE); URINE LEUKOCYTE ESTERASE 1+ Leu/uL (Negative); URINE PROTEIN NEGATIVE (NEGATIVE); URINE UROBILINOGEN NORMAL mg/dL (0.2-1.0); WBC URINE 24 /hpf (0-5)
[2016-12-28] MEDS ORDERED: Vancomycin 125 MG/5 ML SOLN (ORAL/RECTAL) PO SCH (23:16)
[2016-12-29] MEDS: Levothyroxine 50 MCG TAB PO SCH (05:44)
[2016-12-29] MEDS: metroNIDAZOLE IV 500 mg/100 ml 500 MG/100 ML BAG IVPB SCH ×3 (05:44→21:41)
[2016-12-29 07:52] LABS: POTASSIUM 3.7 mmol/L (3.6-5.2)
[2016-12-29 07:55] LABS: CALCIUM 7.8 mg/dl (8.6-10.4)
[2016-12-29] MEDS: diltiaZEM 120 mg/24 Hours CD Cap PO SCH (09:58)
[2016-12-29] MEDS: Metoprolol Succinate 50 mg XL Tab PO SCH (09:58)
[2016-12-29] MEDS: Vancomycin 125 MG/5 ML SOLN (ORAL/RECTAL) PO SCH ×4 (10:14→21:42)
--- NOTE | 2016-12-29 14:31 | CP.PCM.PN ---
Subjective - Date & Time of Evaluation Date of Evaluation: 12/29/16 Time of Evaluation: 09:00 - Subjective Subjective: more alert no fever Objective - Vital Signs/Intake and Output Vital Signs (last 24 hours): Temp Pulse Resp BP Pulse Ox 98.2 F 74 20 125/69 95 12/29/16 08:30 12/29/16 09:57 12/29/16 08:30 12/29/16 09:57 12/29/16 08:30 Intake and Output: 12/29/16 12/29/16 06:59 18:59 Intake Total 1250 Balance 1250 - Medications Medications: Current Medications Amiodarone HCl (Cordarone) 200 mg PO MWF [facility] Last Admin: 12/29/16 09:58 Dose: 200 mg Diltiazem HCl (Cardizem Cd) 120 mg PO DAILY [facility] Last Admin: 12/29/16 09:58 Dose: 120 mg Metronidazole (Flagyl) 500 mg in 100 mls @ 100 mls/hr IVPB Q8 [facility] Last Admin: 12/29/16 05:44 Dose: 100 mls/hr Levothyroxine Sodium (Synthroid) 50 mcg PO 0630 [facility] Last Admin: 12/29/16 05:44 Dose: 50 mcg Loperamide HCl (Imodium) 2 mg PO TID PRN PRN Reason: Diarrhea Last Admin: 12/28/16 22:38 Dose: 2 mg Metformin HCl (Glucophage Xr) 500 mg PO DAILY [facility] Last Admin: 12/29/16 09:58 Dose: 500 mg Metoprolol Succinate (Toprol Xl) 50 mg PO DAILY [facility] Last Admin: 12/29/16 09:58 Dose: 50 mg Rosuvastatin Calcium (Crestor) 10 mg PO HS [facility] Last Admin: 12/28/16 22:37 Dose: 10 mg Vancomycin HCl (Vancocin (Oral Or Rectal Use)) 250 mg PO QID [facility] Last Admin: 12/29/16 10:14 Dose: 250 mg - Labs Labs: 12/28/16 07:11 12/29/16 07:12 - Constitutional Appears: Non-toxic, Chronically Ill - Head Exam Head Exam: NORMOCEPHALIC - Eye Exam Eye Exam: PERRL. absent: Scleral icterus - ENT Exam ENT Exam: Mucous Membranes Dry, Normal External Ear Exam - Neck Exam Neck Exam: absent: Lymphadenopathy - Respiratory Exam Respiratory Exam: Decreased Breath Sounds, Clear to Ausculation Bilateral - Cardiovascular Exam Cardiovascular Exam: REGULAR RHYTHM - GI/Abdominal Exam GI & Abdominal Exam: Distended, Soft - Rectal Exam Rectal Exam: Deferred - Exam Exam: NORMAL INSPECTION - Extremities Exam Extremities Exam: absent: Pedal Edema - Back Exam Back Exam: absent: CVA tenderness (L), CVA tenderness (R) Assessment and Plan (1) Anemia Status: Acute (2) Dehydration Status: Acute (3) Intractable diarrhea Status: Acute (4) Leukocytosis Status: Acute (5) Renal insufficiency Status: Acute (6) Acute renal insufficiency Status: Acute (7) Bilateral lower extremity edema Status: Acute (8) Pancolitis Status: Acute
[2016-12-29 14:50] LABS: HEMATOCRIT 28.4 % (34.0-47.0); MEAN CELL VOLUME 81.3 fL (81.0-99.0); MEAN CORPUSCULAR HEMOGLOBIN 26.3 pg (27.0-31.0); MEAN CORPUSCULAR HGB CONC 32.4 g/dL (33.0-37.0); MEAN PLATELET VOLUME 6.4 fL (7.2-11.7); RED CELL DISTRIBUTION WIDTH 18.2 % (11.5-14.5); WHITE BLOOD COUNT 20.4 K/uL (4.8-10.8)
--- NOTE | 2016-12-29 15:37 | CP.PCM.CON ---
History of Present Illness - History of Present Illness History of Present Illness: 86 yo female with ckd, afib, dyslipidemia, hypertension, chf, history of c diff colitis, presents with persistent diarrhea. Cx pending, but empiric treatment for c diff ongoing. Pt also with dropping hemoglobin, requiring blood transfusion. Stool guaiac +. No problems urinating. Poor appetite.No nsaids, contrast, or dc/arb medication. No family history of renal disease. Denies dysuria. Review of Systems - Constitutional Constitutional: Weakness. absent: Fever - EENT Eyes: absent: Blind Spots, Blurred Vision Nose/Mouth/Throat: absent: Nasal Congestion - Cardiovascular Cardiovascular: Palpitations. absent: Chest Pain - Respiratory Respiratory: absent: Cough, Dyspnea - Gastrointestinal Gastrointestinal: Cramping, Diarrhea. absent: Abdominal Pain - Genitourinary Genitourinary: absent: Difficulty Urinating, Dysuria - Musculoskeletal Musculoskeletal: Muscle Weakness. absent: Back Pain - Psychiatric Psychiatric: absent: Anxiety, Confusion - Hematologic/Lymphatic Hematologic: absent: Easy Bleeding, Easy Bruising Past Patient History - Infectious Disease Hx of Infectious Diseases: None - Past Medical History & Family History Past Medical History?: Yes - Past Social History Smoking Status: Never Smoked - CARDIAC Hx Atrial Fibrillation: Yes (A-flutter (ablation done)) Hx Congestive Heart Failure: Yes Hx Hypercholesterolemia: Yes Hx Hypertension: Yes - PULMONARY Hx Respiratory Disorders: No - NEUROLOGICAL Hx Neurological Disorder: No - HEENT Hx HEENT Problems: No - RENAL Hx Chronic Kidney Disease: No - ENDOCRINE/METABOLIC Hx Diabetes Mellitus Type 2: Yes - HEMATOLOGICAL/ONCOLOGICAL Hx Blood Disorders: No - INTEGUMENTARY Hx Dermatological Problems: No - MUSCULOSKELETAL/RHEUMATOLOGICAL Hx Falls: No - GASTROINTESTINAL Hx Gastrointestinal Disorders: Yes Hx Colitis: Yes - GENITOURINARY/GYNECOLOGICAL Hx Genitourinary Disorders: No - PSYCHIATRIC Hx Substance Use: No - SURGICAL HISTORY Hx Appendectomy: Yes Other/Comment: no additional information given by patient. - ANESTHESIA Hx Anesthesia: Yes Hx Anesthesia Reactions: No Hx Malignant Hyperthermia: No Meds Allergies/Adverse Reactions: Allergies Allergy/AdvReac Type Severity Reaction Status Date / Time naproxen Allergy Intermediate RASH Verified 12/27/16 14:50 - Medications Medications: Current Medications Amiodarone HCl (Cordarone) 200 mg PO [facility] Last Admin: 12/29/16 09:58 Dose: 200 mg Diltiazem HCl (Cardizem Cd) 120 mg PO DAILY [facility] Last Admin: 12/29/16 09:58 Dose: 120 mg Metronidazole (Flagyl) 500 mg in 100 mls @ 100 mls/hr IVPB Q8 [facility] Last Admin: 12/29/16 14:51 Dose: 100 mls/hr Levothyroxine Sodium (Synthroid) 50 mcg PO 0630 [facility] Last Admin: 12/29/16 05:44 Dose: 50 mcg Loperamide HCl (Imodium) 2 mg PO TID PRN PRN Reason: Diarrhea Last Admin: 12/28/16 22:38 Dose: 2 mg Metformin HCl (Glucophage Xr) 500 mg PO DAILY [facility] Last Admin: 12/29/16 09:58 Dose: 500 mg Metoprolol Succinate (Toprol Xl) 50 mg PO DAILY [facility] Last Admin: 12/29/16 09:58 Dose: 50 mg Rosuvastatin Calcium (Crestor) 10 mg PO HS [facility] Last Admin: 12/28/16 22:37 Dose: 10 mg Vancomycin HCl (Vancocin (Oral Or Rectal Use)) 250 mg PO QID [facility] Last Admin: 12/29/16 14:51 Dose: 250 mg Physical Exam - Constitutional Appears: Non-toxic, Chronically Ill - Head Exam Head Exam: ATRAUMATIC, NORMAL INSPECTION - Eye Exam Eye Exam: EOMI - ENT Exam ENT Exam: Mucous Membranes Moist - Neck Exam Neck exam: Positive for: Full Rom. Negative for: Lymphadenopathy - Respiratory Exam Respiratory Exam: Clear to Auscultation Bilateral. absent: Accessory Muscle Use - Cardiovascular Exam Cardiovascular Exam: Irregular Rhythm. absent: Rubs - GI/Abdominal Exam GI & Abdominal Exam: Distended, Normal Bowel Sounds, Soft. absent: Tenderness - Extremities Exam Extremities exam: Negative for: pedal edema - Neurological Exam Neurological exam: Alert, Oriented x3 Results - Vital Signs Recent Vital Signs: Last Vital Signs Temp 98.2 F 12/29/16 08:30 Pulse 74 12/29/16 09:57 Resp 20 12/29/16 08:30 BP 125/69 12/29/16 09:57 Pulse Ox 95 12/29/16 08:30 - Labs Result Diagrams: 12/29/16 14:46 12/29/16 07:12 Labs: Laboratory Results - last 24 hr 12/28/16 12/28/16 12/28/16 07:11 16:59 20:26 WBC RBC Hgb Hct MCV MCH MCHC RDW Plt Count MPV Sodium Potassium Chloride Carbon Dioxide Anion Gap BUN Creatinine Est GFR ( Amer) Est GFR (Non-Af Amer) POC Glucose (mg/dL) 144 H Random Glucose Calcium Urine Color Urine Clarity Urine pH Ur Specific [place] Urine Protein Urine Glucose (UA) Urine Ketones Urine Blood Urine Nitrate Urine Bilirubin Urine Urobilinogen Ur Leukocyte Esterase Urine WBC (Auto) Urine RBC (Auto) Ur Squamous Epith Cells Urine Bacteria Stool Occult Blood Positive H Blood Type A NEGATIVE Antibody Screen Negative 12/28/16 12/28/16 12/29/16 20:27 21:00 07:12 WBC RBC Hgb Hct MCV MCH MCHC RDW Plt Count MPV Sodium 135 Potassium 3.7 Chloride 101 Carbon Dioxide 23 Anion Gap 15 BUN 27 H Creatinine 1.1 Est GFR ( Amer) 57 Est GFR (Non-Af Amer) 47 POC Glucose (mg/dL) 169 H Random Glucose 90 Calcium 7.8 L Urine Color Yellow Urine Clarity Hazy Urine pH 5.0 Ur Specific [place] 1.014 Urine Protein Negative Urine Glucose (UA) Normal Urine Ketones Negative Urine Blood 1+ H Urine Nitrate Positive H Urine Bilirubin Negative Urine Urobilinogen Normal Ur Leukocyte Esterase 1+ H Urine WBC (Auto) 24 H Urine RBC (Auto) 6 H Ur Squamous Epith Cells 11 H Urine Bacteria Many H Stool Occult Blood Blood Type Antibody Screen 12/29/16 12/29/16 12/29/16 07:23 12:37 14:46 WBC 20.4 H RBC 3.49 L Hgb 9.2 L D Hct 28.4 L MCV 81.3 MCH 26.3 L MCHC 32.4 L RDW 18.2 H Plt Count 393 MPV 6.4 L Sodium Potassium Chloride Carbon Dioxide Anion Gap BUN Creatinine Est GFR ( Amer) Est GFR (Non-Af Amer) POC Glucose (mg/dL) 130 H 156 H Random Glucose Calcium Urine Color Urine Clarity Urine pH Ur Specific [place] Urine Protein Urine Glucose (UA) Urine Ketones Urine Blood Urine Nitrate Urine Bilirubin Urine Urobilinogen Ur Leukocyte Esterase Urine WBC (Auto) Urine RBC (Auto) Ur Squamous Epith Cells Urine Bacteria Stool Occult Blood Blood Type Antibody Screen Assessment & Plan - Assessment and Plan (Free Text) Assessment: ckd, stable 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
--- NOTE | 2016-12-29 17:55 | CP.PCM.PN ---
Subjective - Date & Time of Evaluation Date of Evaluation: 12/29/16 Time of Evaluation: 17:52 - Subjective Subjective: Patient is more alert today. She denies having nausea, vomiting, abdominal pain. She is unable to quantify the number of bowel movements. She received two units of PRBCs overnight. Objective - Vital Signs/Intake and Output Vital Signs (last 24 hours): Temp Pulse Resp BP Pulse Ox 98.2 F 67 20 125/69 95 12/29/16 08:30 12/29/16 12:30 12/29/16 08:30 12/29/16 09:57 12/29/16 08:30 Intake and Output: 12/29/16 12/29/16 06:59 18:59 Intake Total 1250 400 Balance 1250 400 - Medications Medications: Current Medications Amiodarone HCl (Cordarone) [address] [facility] Last Admin: 12/29/16 09:58 Dose: 200 mg Diltiazem HCl (Cardizem Cd) [address] [facility] Last Admin: 12/29/16 09:58 Dose: 120 mg Metronidazole (Flagyl) 500 mg in 100 mls @ 100 mls/hr IVPB Q8 [facility] Last Admin: 12/29/16 14:51 Dose: 100 mls/hr Levothyroxine Sodium (Synthroid) [address] [facility] Last Admin: 12/29/16 05:44 Dose: 50 mcg Loperamide HCl (Imodium) 2 mg PO TID PRN PRN Reason: Diarrhea Last Admin: 12/28/16 22:38 Dose: 2 mg Metformin HCl (Glucophage Xr) [address] [facility] Last Admin: 12/29/16 09:58 Dose: 500 mg Metoprolol Succinate (Toprol Xl) [address] [facility] Last Admin: 12/29/16 09:58 Dose: 50 mg Rosuvastatin Calcium (Crestor) [address] [facility] Last Admin: 12/28/16 22:37 Dose: 10 mg Vancomycin HCl (Vancocin (Oral Or Rectal Use)) [address] [facility] Last Admin: 12/29/16 14:51 Dose: 250 mg - Labs Labs: 12/29/16 14:46 12/29/16 07:12 - Constitutional Appears: No Acute Distress - Head Exam Head Exam: ATRAUMATIC, NORMOCEPHALIC - Eye Exam Eye Exam: EOMI, PERRL - Neck Exam Neck Exam: absent: Lymphadenopathy, Thyromegaly - Respiratory Exam Respiratory Exam: NORMAL BREATHING PATTERN. absent: Rales, Rhonchi, Wheezes - Cardiovascular Exam Cardiovascular Exam: REGULAR RHYTHM, +S1, +S2. absent: Gallop, Rubs, Murmur - GI/Abdominal Exam GI & Abdominal Exam: Soft, Normal Bowel Sounds. absent: Tenderness, Mass, Organomegaly - Rectal Exam Rectal Exam: Deferred Assessment and Plan (1) Diarrhea Assessment & Plan: Patient continues to experience diarrhea. She is being treated with oral vancomycin and IV metronidazole. Stool for C diff by PCR is pending. Plan is for colonoscopy when stable. Status: Acute
--- NOTE | 2016-12-29 22:51 | CON ---
DATE OF SERVICE: 12/28/2016 HISTORY OF PRESENT ILLNESS: Chart, medical history, medication, imaging study, lab, etc. were reviewed, confirmed, and discussed in great detail with the patient and Dr. Harmon. Ms. Summers is an 86-year-old female with multiple medical problems. She was admitted with diarrhea. She has chronic kidney disease, hypothyroidism, diabetes, osteoarthritis, and back problem. She has been taking multiple medications. The patient is being treated with intravenous antibiotic for her diarrhea. The patient was seen by me at the request of Dr. Harmon for evaluation of her severe symptomatic anemia with hemoglobin of 7.1. The patient had low MCV of 80. Her platelet count was 405. The patient has a high WBC count of 17.7. The patient has chronic renal insufficiency with creatinine of 1.3 and BUN of 43. The patient's diarrhea is getting better; however, the patient complains of generalized weakness and fatigue. The patient has difficulty in activity of daily living and now, the patient has ended up in the hospital with diarrhea. The patient denies any headache or neurological symptoms. The patient denies any chest pain, shortness of breath, or palpitation. The patient denies any abdominal pain, fever, nausea, or vomiting. The patient denies any leg swelling. REVIEW OF SYSTEMS: As stated above. PHYSICAL EXAMINATION: GENERAL: The patient is alert, awake, oriented. VITAL SIGNS: Afebrile, pulse is 78, respirations 16 per minute. HEENT: Unremarkable. Anicteric. NECK: Supple. No adenopathy. No JVD. CHEST: Bilateral air. No rales or rhonchi. ABDOMEN: Soft, nontender. Bowel sounds are present. No palpable hepatosplenomegaly. EXTREMITIES: No pitting edema. No clubbing. No cyanosis. NEUROLOGIC: Alert, awake, oriented, nonfocal. ASSESSMENT: Lili is an 86-year-old female, patient of Dr. Harmon, who was admitted to the hospital with fatigue, generalized weakness, and diarrhea. The patient is currently being treated with intravenous antibiotic. The patient was found to have a symptomatic anemia affecting activity of daily living and fatigue with hemoglobin of 7.1. PLAN: We will order iron, TIBC, ferritin, B12, and folate level. Because of the symptomatic anemia, I agree with Dr. Harmon to have a packed red blood cell transfusion to correct the hematocrit. The risks and benefits of blood transfusion were discussed with the patient. The patient understood the issues well and is in agreement with Dr. Harmon to give packed red blood transfusion. We will do further workup about her anemia. I also recommended that GI blood loss should be ruled out by having a routine screening colonoscopy and also performing stool for occult blood test. The patient is recommended to have outpatient followup with me. I gave my business card for followup information. Kira Alatorre MD
[2016-12-30] MEDS: metroNIDAZOLE IV 500 mg/100 ml 500 MG/100 ML BAG IVPB SCH ×3 (05:46→23:19)
[2016-12-30] MEDS: Levothyroxine 50 MCG TAB PO SCH (05:47)
[2016-12-30] MEDS ORDERED: Dextrose 50% SYRINGE Inj (50 ml) ONE (06:57)
[2016-12-30 08:16] LABS: BASO % 0.2 % (0.0-2.0); EOS # 0.2 K/uL (0.0-0.7); EOS % 1.3 % (0.0-4.0); HEMATOCRIT 25.7 % (34.0-47.0); LYMPH # 0.6 K/uL (1.0-4.3); LYMPH % 3.8 % (20.0-40.0); MEAN CELL VOLUME 81.1 fL (81.0-99.0); MEAN CORPUSCULAR HEMOGLOBIN 26.7 pg (27.0-31.0); MEAN PLATELET VOLUME 6.6 fL (7.2-11.7); MONO # 1.4 K/uL (0.0-0.8); MONO % 8.2 % (0.0-10.0); PLATELET COUNT 368 K/uL (130-400); RED CELL DISTRIBUTION WIDTH 17.9 % (11.5-14.5); WHITE BLOOD COUNT 16.8 K/uL (4.8-10.8)
[2016-12-30 08:31] LABS: POTASSIUM 3.6 mmol/L (3.6-5.2)
[2016-12-30 08:34] LABS: CALCIUM 7.6 mg/dl (8.6-10.4)
[2016-12-30 09:13] LABS: NEUTROPHIL 90 % (50-75); TOTAL CELLS COUNTED 100
[2016-12-30] MEDS: Metoprolol Succinate 50 mg XL Tab PO SCH (10:12)
[2016-12-30] MEDS: diltiaZEM 120 mg/24 Hours CD Cap PO SCH (10:12)
[2016-12-30] MEDS: Vancomycin 125 MG/5 ML SOLN (ORAL/RECTAL) PO SCH ×4 (10:12→22:34)
--- NOTE | 2016-12-30 10:33 | CP.PCM.PN ---
Subjective - Date & Time of Evaluation Date of Evaluation: 12/30/16 Time of Evaluation: 10:30 - Subjective Subjective: Still with diarrhea on rx- c.diff neg x1 UTI noted s/p blood transfusions Stool OB+ Iron stores low no CPs, n, v, f, chills Objective - Vital Signs/Intake and Output Vital Signs (last 24 hours): Temp Pulse Resp BP Pulse Ox 98.4 F 73 20 131/63 95 12/30/16 08:19 12/30/16 08:19 12/30/16 08:19 12/30/16 08:19 12/30/16 08:19 Intake and Output: 12/30/16 12/30/16 06:59 18:59 Intake Total 500 Balance 500 - Medications Medications: Current Medications Amiodarone HCl (Cordarone) 200 mg PO MWF [facility] Last Admin: 12/29/16 09:58 Dose: 200 mg Diltiazem HCl (Cardizem Cd) 120 mg PO DAILY [facility] Last Admin: 12/30/16 10:12 Dose: 120 mg Metronidazole (Flagyl) 500 mg in 100 mls @ 100 mls/hr IVPB Q8 [facility] Last Admin: 12/30/16 05:46 Dose: 100 mls/hr Levothyroxine Sodium (Synthroid) 50 mcg PO 0630 [facility] Last Admin: 12/30/16 05:47 Dose: 50 mcg Loperamide HCl (Imodium) 2 mg PO TID PRN PRN Reason: Diarrhea Last Admin: 12/29/16 18:54 Dose: 2 mg Metformin HCl (Glucophage Xr) 500 mg PO DAILY [facility] Last Admin: 12/30/16 10:12 Dose: 500 mg Metoprolol Succinate (Toprol Xl) 50 mg PO DAILY [facility] Last Admin: 12/30/16 10:12 Dose: 50 mg Rosuvastatin Calcium (Crestor) 10 mg PO HS [facility] Last Admin: 12/29/16 21:41 Dose: 10 mg Vancomycin HCl (Vancocin (Oral Or Rectal Use)) 250 mg PO QID [facility] Last Admin: 12/30/16 10:12 Dose: 250 mg - Labs Labs: 12/30/16 08:06 12/30/16 08:06 - Constitutional Appears: No Acute Distress, Chronically Ill - Head Exam Head Exam: ATRAUMATIC, NORMAL INSPECTION - Eye Exam Eye Exam: EOMI, Normal appearance - Neck Exam Neck Exam: Normal Inspection. absent: Tenderness - Respiratory Exam Respiratory Exam: Clear to Ausculation Bilateral, NORMAL BREATHING PATTERN - Cardiovascular Exam Cardiovascular Exam: REGULAR RHYTHM, +S1 - GI/Abdominal Exam GI & Abdominal Exam: Soft. absent: Tenderness - Extremities Exam Extremities Exam: Normal Inspection. absent: Tenderness - Neurological Exam Neurological Exam: Alert, CN II-XII Intact - Skin Skin Exam: Dry, Warm Assessment and Plan (1) CKD (chronic kidney disease), stage III Status: Acute (2) Dehydration Status: Acute (3) Diarrhea Status: Acute - Assessment and Plan (Free Text) Plan: IV Fe GI workup- as per GI Abs as per ID follow up chemistries
[2016-12-30] MEDS: Ferric Sodium Gluconat Complex 62.5 mg/5 ml Vial IVPB SCH (12:15)
--- NOTE | 2016-12-30 14:20 | CARD ---
APPROVED REPORT EXAM: Two-dimensional and M-mode echocardiogram with Doppler and color Doppler. Other Information Quality : GoodRhythm : NSR INDICATION DIARRHEA, ANEMIA, LEUKOCYTOSIS, DEHYDRATION, (+) B/C 2D DIMENSIONS IVSd1.2 (0.7-1.1cm)LVDd4.7 (3.9-5.9cm) PWd1.2 (0.7-1.1cm)LVDs3.3 (2.5-4.0cm) FS (%) 31.1 %LVEF (%)58.8 (>50%) M-Mode DIMENSIONS Left Atrium (MM)4.32 (2.5-4.0cm)Aortic Root3.28 (2.2-3.7cm) Aortic Cusp Exc.2.13 (1.5-2.0cm) Mitral Valve MV E Pngfnqjc317.0cm/sMV A Mabrdwpf459.5cm/sE/A ratio1.0 TDI E/Lateral E'0.0E/Medial E'0.0 Tricuspid Valve TR Peak [id number]/sTR Peak [id number] LEFT VENTRICLE The left ventricle is normal size. There is mild concentric left ventricular hypertrophy. Left ventricle systolic function is normal. The Ejection Fraction is 60-65%. There is a flattened septum consistent with right ventricle pressure overload. Transmitral Doppler flow pattern is Grade I-abnormal relaxation pattern. There is no ventricular septal defect visualized. RIGHT VENTRICLE The right ventricle is normal size. The right ventricular systolic function is normal. ATRIA The left atrium is mildly dilated. The right atrium size is normal. AORTIC VALVE The aortic valve is mildly sclerotic. The aortic valve is tri-cuspid. No aortic regurgitation is present. There is no aortic valvular stenosis. Vegetations could not be ruled out, if indicated, MADHU is more specific to rule out vegetation MITRAL VALVE The mitral valve is normal in structure. There is no evidence of mitral valve prolapse. Mitral regurgitation is trace. TRICUSPID VALVE The tricuspid valve is normal in structure. There is moderate tricuspid regurgitation. Right ventricular systolic pressure is estimated at greater than 60 mmHg. There is severe pulmonary hypertension. PULMONIC VALVE The pulmonic valve is not well visualized. There is trace pulmonic valvular regurgitation. GREAT VESSELS The aortic root is normal in size. The ascending aorta is normal in size. The IVC is dilated. PERICARDIAL EFFUSION There is no pericardial effusion. <Conclusion> There is mild concentric left ventricular hypertrophy. Left ventricle systolic function is normal. The Ejection Fraction is 60-65%. Transmitral Doppler flow pattern is Grade I-abnormal relaxation pattern. Mitral regurgitation is trace. There is severe pulmonary hypertension.
--- NOTE | 2016-12-30 17:36 | CP.PCM.PN ---
Subjective - Date & Time of Evaluation Date of Evaluation: 12/30/16 Time of Evaluation: 17:35 - Subjective Subjective: better.less diarrea Objective - Vital Signs/Intake and Output Vital Signs (last 24 hours): Temp Pulse Resp BP Pulse Ox 97.8 F 68 20 138/82 96 12/30/16 15:00 12/30/16 15:00 12/30/16 15:00 12/30/16 15:00 12/30/16 15:00 Intake and Output: 12/30/16 12/30/16 06:59 18:59 Intake Total 500 705 Balance 500 705 - Medications Medications: Current Medications Amiodarone HCl (Cordarone) 200 mg PO MWF [facility] Last Admin: 12/29/16 09:58 Dose: 200 mg Diltiazem HCl (Cardizem Cd) 120 mg PO DAILY [facility] Last Admin: 12/30/16 10:12 Dose: 120 mg Ferric Sodium Gluconate Complex (Ferrlecit) 125 mg IVPB DAILY [facility] Stop: 01/07/17 10:46 Last Admin: 12/30/16 12:15 Dose: 125 mg Metronidazole (Flagyl) 500 mg in 100 mls @ 100 mls/hr IVPB Q8 [facility] Last Admin: 12/30/16 14:35 Dose: 100 mls/hr Levothyroxine Sodium (Synthroid) 50 mcg PO 0630 [facility] Last Admin: 12/30/16 05:47 Dose: 50 mcg Loperamide HCl (Imodium) 2 mg PO TID PRN PRN Reason: Diarrhea Last Admin: 12/29/16 18:54 Dose: 2 mg Metformin HCl (Glucophage Xr) 500 mg PO DAILY [facility] Last Admin: 12/30/16 10:12 Dose: 500 mg Metoprolol Succinate (Toprol Xl) 50 mg PO DAILY [facility] Last Admin: 12/30/16 10:12 Dose: 50 mg Mupirocin (Bactroban Ointment) 0 gm TOP BID [facility] Stop: 01/06/17 18:01 Polyethylene Glycol/Electrolytes (Golytely) 4,000 ml PO ONCE ONE Stop: 12/30/16 19:01 Rosuvastatin Calcium (Crestor) 10 mg PO HS [facility] Last Admin: 12/29/16 21:41 Dose: 10 mg Vancomycin HCl (Vancocin (Oral Or Rectal Use)) 250 mg PO QID [facility] Last Admin: 12/30/16 14:34 Dose: 250 mg - Labs Labs: 12/30/16 08:06 12/30/16 08:06 - Constitutional Appears: No Acute Distress, Chronically Ill - Head Exam Head Exam: NORMOCEPHALIC - ENT Exam ENT Exam: Mucous Membranes Moist - Respiratory Exam Respiratory Exam: Clear to Ausculation Bilateral - Cardiovascular Exam Cardiovascular Exam: REGULAR RHYTHM - GI/Abdominal Exam GI & Abdominal Exam: Soft - Neurological Exam Neurological Exam: Alert, Oriented x3 Assessment and Plan - Assessment and Plan (Free Text) Assessment: going for colon in am. hb is better.
--- NOTE | 2016-12-30 18:01 | CP.PCM.PN ---
Subjective - Date & Time of Evaluation Date of Evaluation: 12/30/16 Time of Evaluation: 17:58 - Subjective Subjective: Patient denies having nausea, vomiting, abdominal pain. She states that the diarrhea is improving. Objective - Vital Signs/Intake and Output Vital Signs (last 24 hours): Temp Pulse Resp BP Pulse Ox 97.8 F 68 20 138/82 96 12/30/16 15:00 12/30/16 15:00 12/30/16 15:00 12/30/16 15:00 12/30/16 15:00 Intake and Output: 12/30/16 12/30/16 06:59 18:59 Intake Total 500 705 Balance 500 705 - Medications Medications: Current Medications Amiodarone HCl (Cordarone) 200 mg PO MWF [facility] Last Admin: 12/29/16 09:58 Dose: 200 mg Diltiazem HCl (Cardizem Cd) 120 mg PO DAILY [facility] Last Admin: 12/30/16 10:12 Dose: 120 mg Ferric Sodium Gluconate Complex (Ferrlecit) 125 mg IVPB DAILY [facility] [place] Stop: 01/07/17 10:46 Last Admin: 12/30/16 12:15 Dose: 125 mg Metronidazole (Flagyl) 500 mg in 100 mls @ 100 mls/hr IVPB Q8 [facility] Last Admin: 12/30/16 14:35 Dose: 100 mls/hr Levothyroxine Sodium (Synthroid) 50 mcg PO 0630 [facility] [place] Last Admin: 12/30/16 05:47 Dose: 50 mcg Loperamide HCl (Imodium) 2 mg PO TID PRN PRN Reason: Diarrhea Last Admin: 12/29/16 18:54 Dose: 2 mg Metformin HCl (Glucophage Xr) 500 mg PO DAILY [facility] Last Admin: 12/30/16 10:12 Dose: 500 mg Metoprolol Succinate (Toprol Xl) 50 mg PO DAILY [facility] Last Admin: 12/30/16 10:12 Dose: 50 mg Mupirocin (Bactroban Ointment) 0 gm TOP BID [facility] Stop: 01/06/17 18:01 Polyethylene Glycol/Electrolytes (Golytely) 4,000 ml PO ONCE ONE Stop: 12/30/16 19:01 Rosuvastatin Calcium (Crestor) 10 mg PO HS [facility] [place] Last Admin: 12/29/16 21:41 Dose: 10 mg Vancomycin HCl (Vancocin (Oral Or Rectal Use)) 250 mg PO QID [facility] Last Admin: 12/30/16 14:34 Dose: 250 mg - Labs Labs: 12/30/16 08:06 12/30/16 08:06 - Constitutional Appears: No Acute Distress - Head Exam Head Exam: ATRAUMATIC, NORMOCEPHALIC - Eye Exam Eye Exam: EOMI, PERRL - Neck Exam Neck Exam: absent: Lymphadenopathy, Thyromegaly - Respiratory Exam Respiratory Exam: NORMAL BREATHING PATTERN. absent: Rales, Rhonchi, Wheezes - Cardiovascular Exam Cardiovascular Exam: REGULAR RHYTHM, +S1, +S2. absent: Gallop, Rubs, Murmur - GI/Abdominal Exam GI & Abdominal Exam: Soft, Normal Bowel Sounds. absent: Tenderness, Mass, Organomegaly - Rectal Exam Rectal Exam: Deferred - Extremities Exam Extremities Exam: absent: Calf Tenderness, Pedal Edema Assessment and Plan (1) Diarrhea Assessment & Plan: Patient states that the diarrhea is improving. C diff toxin by [facility] is again negative; PCR is pending. Because of the positive tests for fecal occult blood , colonosocpy has been scheduled for tomorrow. Status: Acute
[2016-12-30] MEDS ORDERED: Peg-Electrolyte Oral Soln 4L (Golytely) PO ONE (19:00)
[2016-12-31] MEDS: metroNIDAZOLE IV 500 mg/100 ml 500 MG/100 ML BAG IVPB SCH ×3 (06:07→21:33)
[2016-12-31] MEDS: Levothyroxine 50 MCG TAB PO SCH (06:08)
[2016-12-31] MEDS ORDERED: Propofol 10 mg/ml Inj (20 ML) ONE (07:34)
[2016-12-31] MEDS ORDERED: Ketamine 50 mg/ml Inj (10 ml) ONE (07:36)
[2016-12-31 07:39] LABS: POTASSIUM 3.9 mmol/L (3.6-5.2)
[2016-12-31 07:41] LABS: ALB/GLOB RATIO 0.9 (1.0-2.1); BILIRUBIN,TOTAL 0.3 mg/dL (0.2-1.3)
[2016-12-31 07:42] LABS: CALCIUM 7.8 mg/dl (8.6-10.4); MAGNESIUM 1.7 mg/dL (1.6-2.3)
[2016-12-31] MEDS ORDERED: Iohexol 240 (50 ml) PO PRN (09:10)
[2016-12-31] MEDS: Metoprolol Succinate 50 mg XL Tab PO SCH (09:17)
[2016-12-31] MEDS: diltiaZEM 120 mg/24 Hours CD Cap PO SCH (09:17)
[2016-12-31] MEDS: Ferric Sodium Gluconat Complex 62.5 mg/5 ml Vial IVPB SCH (09:18)
--- NOTE | 2016-12-31 11:50 | CP.PCM.PN ---
Subjective - Date & Time of Evaluation Date of Evaluation: 12/31/16 Time of Evaluation: 11:49 - Subjective Subjective: egd & colon done.positive for c diff. going for ct. Objective - Vital Signs/Intake and Output Vital Signs (last 24 hours): Temp Pulse Resp BP Pulse Ox 98.4 F 66 16 119/46 L 100 12/31/16 08:05 12/31/16 08:35 12/31/16 08:35 12/31/16 08:35 12/31/16 08:35 Intake and Output: 12/31/16 12/31/16 06:59 18:59 Intake Total 4000 500 Balance 4000 500 - Medications Medications: Current Medications Amiodarone HCl (Cordarone) 200 mg PO MWF [facility] Last Admin: 12/31/16 09:17 Dose: 200 mg Diltiazem HCl (Cardizem Cd) 120 mg PO DAILY [facility] Last Admin: 12/31/16 09:17 Dose: 120 mg Ferric Sodium Gluconate Complex (Ferrlecit) 125 mg IVPB DAILY [facility] Stop: 01/07/17 10:46 Last Admin: 12/31/16 09:18 Dose: 125 mg Metronidazole (Flagyl) 500 mg in 100 mls @ 100 mls/hr IVPB Q8 [facility] Last Admin: 12/31/16 06:07 Dose: 100 mls/hr Lactated Ringer's (Lactated Ringer's 500ml) 500 mls @ 75 mls/hr IV .Q6H40M [facility] Iohexol (Omnipaque 240 (50 Ml)) 50 ml PO ONCE PRN Stop: 01/01/17 09:11 Last Admin: 12/31/16 09:37 Dose: 50 ml Levothyroxine Sodium (Synthroid) 50 mcg PO 0630 [facility] Last Admin: 12/31/16 06:08 Dose: 50 mcg Loperamide HCl (Imodium) 2 mg PO TID PRN PRN Reason: Diarrhea Last Admin: 12/29/16 18:54 Dose: 2 mg Metformin HCl (Glucophage Xr) 500 mg PO DAILY [facility] Last Admin: 12/30/16 10:12 Dose: 500 mg Metoprolol Succinate (Toprol Xl) 50 mg PO DAILY [facility] Last Admin: 12/31/16 09:17 Dose: 50 mg Mupirocin (Bactroban Ointment) 0 gm TOP BID [facility] Stop: 01/06/17 18:01 Last Admin: 12/31/16 09:18 Dose: 1 applic Rosuvastatin Calcium (Crestor) 10 mg PO HS [facility] Last Admin: 12/30/16 22:34 Dose: 10 mg Vancomycin HCl (Vancocin (Oral Or Rectal Use)) 250 mg PO QID [facility] Last Admin: 12/30/16 22:34 Dose: 250 mg - Labs Labs: 12/30/16 08:06 12/31/16 06:53 - Constitutional Appears: No Acute Distress - Eye Exam Eye Exam: Normal appearance - Respiratory Exam Respiratory Exam: Clear to Ausculation Bilateral - Cardiovascular Exam Cardiovascular Exam: REGULAR RHYTHM, Murmur - GI/Abdominal Exam GI & Abdominal Exam: Soft - Extremities Exam Extremities Exam: absent: Pedal Edema - Neurological Exam Neurological Exam: Alert, Oriented x3 Assessment and Plan - Assessment and Plan (Free Text) Assessment: hb stable. ckd better. ct iv fluids.check ct.
[2016-12-31] MEDS: Vancomycin 125 MG/5 ML SOLN (ORAL/RECTAL) PO SCH ×4 (12:52→21:34)
--- NOTE | 2016-12-31 13:24 | CP.PCM.PN ---
Subjective - Date & Time of Evaluation Date of Evaluation: 12/31/16 Time of Evaluation: 09:00 - Subjective Subjective: PCR C DIFF + AG/TOXIN NEG ENDOSCOPY POSITIVE CONT RX / HYDRATION/ IV AND PO RX Objective - Vital Signs/Intake and Output Vital Signs (last 24 hours): Temp Pulse Resp BP Pulse Ox 97.7 F 67 20 125/70 95 12/31/16 10:00 12/31/16 10:00 12/31/16 10:00 12/31/16 10:00 12/31/16 10:00 Intake and Output: 12/31/16 12/31/16 06:59 18:59 Intake Total 4000 500 Balance 4000 500 - Medications Medications: Current Medications Amiodarone HCl (Cordarone) 200 mg PO MWF [facility] Last Admin: 12/31/16 09:17 Dose: 200 mg Diltiazem HCl (Cardizem Cd) 120 mg PO DAILY [facility] Last Admin: 12/31/16 09:17 Dose: 120 mg Ferric Sodium Gluconate Complex (Ferrlecit) 125 mg IVPB DAILY [facility] Stop: 01/07/17 10:46 Last Admin: 12/31/16 09:18 Dose: 125 mg Metronidazole (Flagyl) 500 mg in 100 mls @ 100 mls/hr IVPB Q8 [facility] Last Admin: 12/31/16 06:07 Dose: 100 mls/hr Lactated Ringer's (Lactated Ringer's 500ml) 500 mls @ 75 mls/hr IV .Q6H40M [facility] Iohexol (Omnipaque 240 (50 Ml)) 50 ml PO ONCE PRN Stop: 01/01/17 09:11 Last Admin: 12/31/16 09:37 Dose: 50 ml Levothyroxine Sodium (Synthroid) 50 mcg PO 629 [facility] Last Admin: 12/31/16 06:08 Dose: 50 mcg Loperamide HCl (Imodium) 2 mg PO TID PRN PRN Reason: Diarrhea Last Admin: 12/29/16 18:54 Dose: 2 mg Metformin HCl (Glucophage Xr) 500 mg PO DAILY [facility] Last Admin: 12/30/16 10:12 Dose: 500 mg Metoprolol Succinate (Toprol Xl) 50 mg PO DAILY [facility] Last Admin: 12/31/16 09:17 Dose: 50 mg Mupirocin (Bactroban Ointment) 0 gm TOP BID [facility] Stop: 01/06/17 18:01 Last Admin: 12/31/16 09:18 Dose: 1 applic Rosuvastatin Calcium (Crestor) 10 mg PO HS [facility] Last Admin: 12/30/16 22:34 Dose: 10 mg Vancomycin HCl (Vancocin (Oral Or Rectal Use)) 250 mg PO QID [facility] Last Admin: 12/31/16 12:52 Dose: 250 mg - Labs Labs: 12/30/16 08:06 12/31/16 06:53 - Constitutional Appears: Non-toxic, Chronically Ill - Head Exam Head Exam: NORMOCEPHALIC - Eye Exam Eye Exam: PERRL. absent: Scleral icterus - ENT Exam ENT Exam: Mucous Membranes Dry - Neck Exam Neck Exam: absent: Lymphadenopathy - Respiratory Exam Respiratory Exam: Decreased Breath Sounds - Cardiovascular Exam Cardiovascular Exam: REGULAR RHYTHM - GI/Abdominal Exam GI & Abdominal Exam: Distended, Guarding, Soft. absent: Mass, Rebound - Rectal Exam Rectal Exam: Deferred - Exam Exam: NORMAL INSPECTION - Extremities Exam Extremities Exam: absent: Pedal Edema - Neurological Exam Neurological Exam: Alert, Awake, Oriented x3 - Psychiatric Exam Psychiatric exam: Depressed - Skin Skin Exam: Dry Assessment and Plan (1) Anemia Status: Acute (2) Dehydration Status: Acute (3) Intractable diarrhea Status: Acute (4) Leukocytosis Status: Acute (5) Renal insufficiency Status: Acute (6) Acute renal insufficiency Status: Acute (7) Bilateral lower extremity edema Status: Acute (8) Pancolitis Status: Acute - Assessment and Plan (Free Text) Assessment: CONT IV AND PO RX PROGNOSIS GUARDED
--- NOTE | 2016-12-31 14:16 | CP.PCM.PN ---
Subjective - Date & Time of Evaluation Date of Evaluation: 12/31/16 Time of Evaluation: 14:13 - Subjective Subjective: still with diarrhea c.diff dx noted- on treatment no fevers, chill, dyspnea, dysuria renal function improved; lytes acceptable no other complaint Objective - Vital Signs/Intake and Output Vital Signs (last 24 hours): Temp Pulse Resp BP Pulse Ox 97.7 F 67 20 125/70 95 12/31/16 10:00 12/31/16 10:00 12/31/16 10:00 12/31/16 10:00 12/31/16 10:00 Intake and Output: 12/31/16 12/31/16 06:59 18:59 Intake Total 4000 500 Balance 4000 500 - Medications Medications: Current Medications Amiodarone HCl (Cordarone) 200 mg PO MWF [facility] Last Admin: 12/31/16 09:17 Dose: 200 mg Diltiazem HCl (Cardizem Cd) 120 mg PO DAILY [facility] Last Admin: 12/31/16 09:17 Dose: 120 mg Ferric Sodium Gluconate Complex (Ferrlecit) 125 mg IVPB DAILY [facility] Stop: 01/07/17 10:46 Last Admin: 12/31/16 09:18 Dose: 125 mg Metronidazole (Flagyl) 500 mg in 100 mls @ 100 mls/hr IVPB Q8 [facility] Last Admin: 12/31/16 06:07 Dose: 100 mls/hr Lactated Ringer's (Lactated Ringer's 500ml) 500 mls @ 75 mls/hr IV .Q6H40M [facility] Iohexol (Omnipaque 240 (50 Ml)) 50 ml PO ONCE PRN Stop: 01/01/17 09:11 Last Admin: 12/31/16 09:37 Dose: 50 ml Levothyroxine Sodium (Synthroid) 50 mcg PO 0630 [facility] Last Admin: 12/31/16 06:08 Dose: 50 mcg Loperamide HCl (Imodium) 2 mg PO TID PRN PRN Reason: Diarrhea Last Admin: 12/29/16 18:54 Dose: 2 mg Metformin HCl (Glucophage Xr) 500 mg PO DAILY [facility] Last Admin: 12/30/16 10:12 Dose: 500 mg Metoprolol Succinate (Toprol Xl) 50 mg PO DAILY [facility] Last Admin: 12/31/16 09:17 Dose: 50 mg Mupirocin (Bactroban Ointment) 0 gm TOP BID [facility] Stop: 01/06/17 18:01 Last Admin: 12/31/16 09:18 Dose: 1 applic Rosuvastatin Calcium (Crestor) 10 mg PO HS [facility] Last Admin: 12/30/16 22:34 Dose: 10 mg Vancomycin HCl (Vancocin (Oral Or Rectal Use)) 250 mg PO QID [facility] Last Admin: 12/31/16 12:52 Dose: 250 mg - Labs Labs: 12/30/16 08:06 12/31/16 06:53 - Constitutional Appears: No Acute Distress, Chronically Ill - Head Exam Head Exam: ATRAUMATIC, NORMAL INSPECTION - Eye Exam Eye Exam: EOMI, Normal appearance - Neck Exam Neck Exam: Normal Inspection. absent: Tenderness - Respiratory Exam Respiratory Exam: Clear to Ausculation Bilateral, NORMAL BREATHING PATTERN - Cardiovascular Exam Cardiovascular Exam: REGULAR RHYTHM, +S1 - GI/Abdominal Exam GI & Abdominal Exam: Soft. absent: Tenderness - Extremities Exam Extremities Exam: Normal Inspection. absent: Tenderness - Neurological Exam Neurological Exam: Alert, CN II-XII Intact - Skin Skin Exam: Dry, Warm Assessment and Plan (1) CKD (chronic kidney disease), stage III Status: Acute (2) Dehydration Status: Acute (3) Diarrhea Status: Acute (4) Clostridium difficile colitis Status: Acute - Assessment and Plan (Free Text) Plan: treatment for c.diff follow up lytes closely
--- NOTE | 2016-12-31 15:52 | CT ---
PROCEDURE: CT chest abdomen pelvis dated 12/31/2016 HISTORY: Paraesophageal hiatal hernia. Pseudomembranous colitis COMPARISON: Comparison made with prior CT scan abdomen and pelvis 11/19/2016 TECHNIQUE: Radiation dose: Total exam DLP = 1672.09 mGy-cm. This CT exam was performed using one or more of the following dose reduction techniques: Automated exposure control, adjustment of the mA and/or kV according to patient size, and/or use of iterative reconstruction technique. . FINDINGS: CT CHEST WITHOUT CONTRAST: LUNGS: There appears to be chronic scarring and some mild fibrosis in both lung bases , left greater than right. . There also appears to be some scarring in the middle lobe and lingular regions as well. . No significant focal areas of consolidation not withstanding the aforementioned mild bibasilar atelectasis. MEDIASTINUM: Heart appears enlarged. No significant pericardial effusion. Ascending thoracic aorta measures approximately 3.56 cm and descending thoracic aorta measures approximately 2.56 cm. Pulmonary trunk measures approximately 2.68 cm. Central airways are midline and patent. No large endobronchial lesions are seen. Large paraesophageal hernia is present. Oral contrast material seen throughout most of the esophagus likely due to reflux. Mildly enlarged slightly heterogeneous right lobe thyroid gland which extends into a substernal location. . Thyroid ultrasound recommended LYMPH NODES: Few small nonspecific mediastinal lymph nodes are present, at least 1 of which appears calcified suggesting prior exposure to granulomatous disease process. Evaluation for hilar adenopathy slightly limited due to the lack of circulating intravenous contrast material. PLEURA: The small bilateral effusions are present right larger than left. There appears to be some minimal bibasilar atelectasis as well. BONES: Minor multilevel degenerative spondylosis of the thoracic spine. OTHER FINDINGS: None. CT ABDOMEN AND PELVIS: LIVER: Liver exhibits normal size. No obvious large hepatic mass or collection. . GALLBLADDER AND BILE DUCTS: Gallbladder is incompletely distended -contracted secondary to nonfasting state which may in part account for thick-walled appearance. . The possibility of gallbladder wall edema and/or small amount pericholecystic fluid cannot be excluded. No evidence of radiopaque intraluminal gallbladder calculi seen. PANCREAS: The pancreas appears atrophic and fatty replaced. No obvious pancreatic masses or collections. SPLEEN: Spleen exhibits normal size and attenuation pattern. ADRENALS: Re- demonstrated is enlargement of the adrenal glands. KIDNEYS AND URETERS: Kidneys demonstrate relatively symmetric size. No evidence of nephrolithiasis or hydronephrosis. Re- demonstrated is a exophytic cyst anterolateral aspect midpole left kidney. Infiltration changes and small amount of perinephric fluid felt to be present nonspecific. VASCULATURE: No evidence of abdominal aortic or iliac artery aneurysm. Partially calcified atherosclerotic plaque seen along the abdominal aorta and iliac arteries. BOWEL: Evaluation of the bowel is limited due to incomplete opacification. Visualized loops of small bowel exhibit relatively normal contour and caliber. No evidence of acute mechanical small bowel obstruction. Moderate wall thickening of the distal descending and sigmoid colon and to a lesser degree proximal rectum noted. There is a persistent although somewhat improved wall thickening of the remaining colon as compared to the prior study. . Vague infiltration changes in the mesentery seen about the cecum and scattered about the remaining colon. Findings are consistent with a nonspecific colitis possibly pseudomembranous variety given the patient's history of same however clinical correlation recommended. . The appendix is not seen with any certainty however no obvious inflammatory changes right lower quadrant of the abdomen not withstanding wall thickening and some infiltration about the cecum PERITONEUM: No free intraperitoneal air. There may be a small amount of presacral fluid. . Note is made of nonspecific infiltration changes within the subcutaneous tissues extending from the left lateral lower chest wall into the abdomen to the level of the upper pelvis region nonspecific. Overlying skin thickening. Rule out cellulitis. LYMPH NODES: Unremarkable. No enlarged lymph nodes. BLADDER: Urinary bladder incompletely distended which may in part account for thick-walled appearance. Possibility of a cystitis not excluded. REPRODUCTIVE: Changes of hysterectomy. BONES: Multilevel degenerative spondylosis of the lower thoracic and lumbar spine. Slight anterior subluxation L5 over S1 unchanged. OTHER FINDINGS: None. IMPRESSION: Small bilateral effusions and bibasilar atelectasis right greater than left. Large hiatal hernia. On oral contrast was seen anteriorly is seen throughout the esophagus likely due to reflux. Enlarged heterogeneous right lobe thyroid gland extending into a substernal location. Recommend followup thyroid ultrasound. Findings consistent nonspecific colitis some with mild improvement. . There may be a small amount of presacral fluid Infiltration changes within subcutaneous tissues left lateral lower chest and abdomen with what appears represent some mild overlying skin thickening. Rule out cellulitis.
[2016-12-31] MEDS: Lactated Ringer's 500 ML IV SCH ×2 (15:53→21:50)
[2016-12-31 22:43] LABS: RBC URINE 11 /hpf (0-3); URINE BACTERIA MANY (<OCC); URINE BILIRUBIN NEGATIVE (NEGATIVE); URINE BLOOD 2+ (NEGATIVE); URINE COLOR Amber (YELLOW); URINE GLUCOSE (UA) NORMAL (Normal); URINE KETONE NEGATIVE (NEGATIVE); URINE LEUKOCYTE ESTERASE 3+ Leu/uL (Negative); URINE PROTEIN NEGATIVE (NEGATIVE); URINE UROBILINOGEN NORMAL mg/dL (0.2-1.0); WBC URINE 91 /hpf (0-5)
[2017-01-01] MEDS: Lactated Ringer's 500 ML IV SCH ×2 (04:30→22:08)
[2017-01-01] MEDS: Levothyroxine 50 MCG TAB PO SCH (05:40)
[2017-01-01] MEDS: metroNIDAZOLE IV 500 mg/100 ml 500 MG/100 ML BAG IVPB SCH ×3 (05:40→22:07)
[2017-01-01 06:52] LABS: CHLORIDE 104 mmol/L (98-107); POTASSIUM 3.7 mmol/L (3.6-5.2); SODIUM 137 mmol/L (132-148)
[2017-01-01 06:54] LABS: BILIRUBIN,TOTAL 0.2 mg/dL (0.2-1.3); GFR AFRICAN-AMERICAN > 60
[2017-01-01 06:55] LABS: ALB/GLOB RATIO 0.8 (1.0-2.1); ALKALINE PHOSPHATASE 62 U/L (38-126); ALT/SGPT 32 U/L (9-52); AST/SGOT 26 U/L (14-36); BLOOD UREA NITROGEN 17 mg/dL (7-17); CALCIUM 7.9 mg/dl (8.6-10.4); CARBON DIOXIDE 25 mmol/L (22-30); GLUCOSE,RANDOM 85 mg/dL (65-105); MAGNESIUM 1.7 mg/dL (1.6-2.3); TOTAL PROTEIN 4.8 g/dL (6.3-8.3)
--- NOTE | 2017-01-01 09:05 | CP.PCM.PN ---
Subjective - Date & Time of Evaluation Date of Evaluation: 01/01/17 Time of Evaluation: 09:00 - Subjective Subjective: input over 4 liters bp stable afebrile bun down to 11,creatinine down to .9 awake alert comfortable no diarrhea overnight ROS no orthostaic symptoms Nasal drip and intermittent cough.no hemoptysis No chest pain No abdomenal pain or vomiting no dysuria or hematuria Objective - Vital Signs/Intake and Output Vital Signs (last 24 hours): Temp Pulse Resp BP Pulse Ox 97.3 F L 67 18 146/75 97 01/01/17 07:00 01/01/17 07:00 01/01/17 07:00 01/01/17 07:00 01/01/17 07:00 Intake and Output: 01/01/17 01/01/17 06:59 18:59 Intake Total 1400 Output Total 1 Balance 1399 - Medications Medications: Current Medications Amiodarone HCl (Cordarone) 200 mg PO F [facility] Last Admin: 12/31/16 09:17 Dose: 200 mg Diltiazem HCl (Cardizem Cd) 120 mg PO DAILY [facility] Last Admin: 12/31/16 09:17 Dose: 120 mg Ferric Sodium Gluconate Complex (Ferrlecit) 125 mg IVPB DAILY [facility] Stop: 01/07/17 10:46 Last Admin: 12/31/16 09:18 Dose: 125 mg Metronidazole (Flagyl) 500 mg in 100 mls @ 100 mls/hr IVPB Q8 [facility] Last Admin: 01/01/17 05:40 Dose: 100 mls/hr Lactated Ringer's (Lactated Ringer's 500ml) 500 mls @ 75 mls/hr IV .Q6H40M [facility] Last Admin: 01/01/17 04:30 Dose: Not Given Iohexol (Omnipaque 240 (50 Ml)) 50 ml PO ONCE PRN Stop: 01/01/17 09:11 Last Admin: 12/31/16 09:37 Dose: 50 ml Levothyroxine Sodium (Synthroid) 50 mcg PO 629 [facility] Last Admin: 01/01/17 05:40 Dose: 50 mcg Loperamide HCl (Imodium) 2 mg PO TID PRN PRN Reason: Diarrhea Last Admin: 12/29/16 18:54 Dose: 2 mg Metformin HCl (Glucophage Xr) 500 mg PO DAILY [facility] Last Admin: 12/30/16 10:12 Dose: 500 mg Metoprolol Succinate (Toprol Xl) 50 mg PO DAILY [facility] Last Admin: 12/31/16 09:17 Dose: 50 mg Mupirocin (Bactroban Ointment) 0 gm TOP BID [facility] Stop: 01/06/17 18:01 Last Admin: 12/31/16 18:23 Dose: 1 applic Rosuvastatin Calcium (Crestor) 10 mg PO HS [facility] Last Admin: 12/31/16 21:44 Dose: 10 mg Vancomycin HCl (Vancocin (Oral Or Rectal Use)) 250 mg PO QID [facility] Last Admin: 12/31/16 21:34 Dose: 250 mg - Labs Labs: 12/30/16 08:06 01/01/17 06:31 - Constitutional Appears: Well, No Acute Distress - ENT Exam ENT Exam: Mucous Membranes Moist - Respiratory Exam Respiratory Exam: Clear to Ausculation Bilateral - Cardiovascular Exam Cardiovascular Exam: REGULAR RHYTHM - GI/Abdominal Exam GI & Abdominal Exam: Soft. absent: Tenderness Additional comments: obese - Extremities Exam Extremities Exam: Pedal Edema. absent: Calf Tenderness - Back Exam Back Exam: absent: CVA tenderness (L), CVA tenderness (R) Additional comments: no pre sacral edema - Psychiatric Exam Psychiatric exam: Normal Affect - Skin Skin Exam: Dry Assessment and Plan (1) Clostridium difficile colitis Status: Acute (2) Dehydration Status: Acute (3) Acute renal insufficiency Status: Acute - Assessment and Plan (Free Text) Plan: follow chems closely continue supportive care
[2017-01-01] MEDS: Metoprolol Succinate 50 mg XL Tab PO SCH (10:03)
[2017-01-01] MEDS: Ferric Sodium Gluconat Complex 62.5 mg/5 ml Vial IVPB SCH (10:03)
[2017-01-01] MEDS: diltiaZEM 120 mg/24 Hours CD Cap PO SCH (10:03)
[2017-01-01] MEDS: Vancomycin 125 MG/5 ML SOLN (ORAL/RECTAL) PO SCH ×4 (10:06→22:11)
[2017-01-02] MEDS: Lactated Ringer's 500 ML IV SCH (00:30)
[2017-01-02] MEDS: metroNIDAZOLE IV 500 mg/100 ml 500 MG/100 ML BAG IVPB SCH ×3 (05:49→21:25)
[2017-01-02] MEDS: Levothyroxine 50 MCG TAB PO SCH (05:49)
[2017-01-02] MEDS: Metoprolol Succinate 50 mg XL Tab PO SCH (09:36)
[2017-01-02] MEDS: Ferric Sodium Gluconat Complex 62.5 mg/5 ml Vial IVPB SCH (09:36)
[2017-01-02] MEDS: diltiaZEM 120 mg/24 Hours CD Cap PO SCH (09:36)
[2017-01-02] MEDS: Vancomycin 125 MG/5 ML SOLN (ORAL/RECTAL) PO SCH ×5 (09:36→21:24)
--- NOTE | 2017-01-02 12:26 | CP.PCM.PN ---
Subjective - Date & Time of Evaluation Date of Evaluation: 01/02/17 Time of Evaluation: 12:24 - Subjective Subjective: Covering Dr Liu CC: Follow up CDiff colitis Diarrhea under control CT confirms large paraesophageal hernia with GE Reflux present Objective - Vital Signs/Intake and Output Vital Signs (last 24 hours): Temp Pulse Resp BP Pulse Ox 98.2 F 69 20 160/75 H 98 01/02/17 08:00 01/02/17 08:00 01/02/17 08:00 01/02/17 08:00 01/02/17 08:00 Intake and Output: 01/02/17 01/02/17 06:59 18:59 Intake Total 800 Balance 800 - Medications Medications: Current Medications Amiodarone HCl (Cordarone) 200 mg PO F [facility] Last Admin: 12/31/16 09:17 Dose: 200 mg Diltiazem HCl (Cardizem Cd) 120 mg PO DAILY [facility] Last Admin: 01/02/17 09:36 Dose: 120 mg Ferric Sodium Gluconate Complex (Ferrlecit) 125 mg IVPB DAILY [facility] Stop: 01/07/17 10:46 Last Admin: 01/02/17 09:36 Dose: 125 mg Metronidazole (Flagyl) 500 mg in 100 mls @ 100 mls/hr IVPB Q8 [facility] Last Admin: 01/02/17 05:49 Dose: 100 mls/hr Lactated Ringer's (Lactated Ringer's 500ml) 500 mls @ 75 mls/hr IV .Q6H40M [facility] Last Admin: 01/02/17 00:30 Dose: Not Given Levothyroxine Sodium (Synthroid) 50 mcg PO 0630 [facility] Last Admin: 01/02/17 05:49 Dose: 50 mcg Loperamide HCl (Imodium) 2 mg PO TID PRN PRN Reason: Diarrhea Last Admin: 12/29/16 18:54 Dose: 2 mg Metformin HCl (Glucophage Xr) 500 mg PO DAILY [facility] Last Admin: 12/30/16 10:12 Dose: 500 mg Metoprolol Succinate (Toprol Xl) 50 mg PO DAILY [facility] Last Admin: 01/02/17 09:36 Dose: 50 mg Mupirocin (Bactroban Ointment) 0 gm TOP BID [facility] Stop: 01/06/17 18:01 Last Admin: 10/01/17 09:36 Dose: Not Given Rosuvastatin Calcium (Crestor) 10 mg PO HS [facility] Last Admin: 01/01/17 22:12 Dose: 10 mg Vancomycin HCl (Vancocin (Oral Or Rectal Use)) 250 mg PO QID [facility] Last Admin: 01/02/17 09:36 Dose: 250 mg - Labs Labs: 12/30/16 08:06 01/01/17 06:31 - Constitutional Appears: Well, No Acute Distress - Head Exam Head Exam: NORMOCEPHALIC - Eye Exam Eye Exam: absent: Scleral icterus - Respiratory Exam Respiratory Exam: NORMAL BREATHING PATTERN - Cardiovascular Exam Cardiovascular Exam: REGULAR RHYTHM - GI/Abdominal Exam GI & Abdominal Exam: Soft. absent: Distended, Guarding, Tenderness Assessment and Plan (1) Gastro-esophageal reflux disease without esophagitis Assessment & Plan: Large paraesophageal hernia on EGD and CT scan Tolerating diet Monitor Status: Acute (2) Clostridium difficile colitis Assessment & Plan: Clinically improved Continue present management Status: Acute
[2017-01-02] MEDS ORDERED: Albuterol-Ipratrop 3 mg / 0.5 (3 ml) UD INH PRN (12:44)
--- NOTE | 2017-01-02 16:10 | CP.PCM.PN ---
Subjective - Date & Time of Evaluation Date of Evaluation: 01/02/17 Time of Evaluation: 08:00 - Subjective Subjective: less diarrhea VRE urine- likely contaminant cont Vanco/flagyl x 14 days Objective - Vital Signs/Intake and Output Vital Signs (last 24 hours): Temp Pulse Resp BP Pulse Ox 98.2 F 69 20 111/66 98 01/02/17 08:00 01/02/17 08:00 01/02/17 08:00 01/02/17 12:57 01/02/17 08:00 Intake and Output: 01/02/17 01/02/17 06:59 18:59 Intake Total 800 Balance 800 - Medications Medications: Current Medications Albuterol/Ipratropium (Duoneb 3 Mg/0.5 Mg (3 Ml) Ud) 3 ml INH RQID PRN PRN Reason: Shortness of Breath Amiodarone HCl (Cordarone) 200 mg PO MWF [facility] Last Admin: 12/31/16 09:17 Dose: 200 mg Diltiazem HCl (Cardizem Cd) 120 mg PO DAILY [facility] Last Admin: 01/02/17 09:36 Dose: 120 mg Ferric Sodium Gluconate Complex (Ferrlecit) 125 mg IVPB DAILY [facility] Stop: 01/07/17 10:46 Last Admin: 01/02/17 09:36 Dose: 125 mg Metronidazole (Flagyl) 500 mg in 100 mls @ 100 mls/hr IVPB Q8 [facility] Last Admin: 01/02/17 13:00 Dose: 100 mls/hr Levothyroxine Sodium (Synthroid) 50 mcg PO 0630 [facility] Last Admin: 01/02/17 05:49 Dose: 50 mcg Loperamide HCl (Imodium) 2 mg PO TID PRN PRN Reason: Diarrhea Last Admin: 12/29/16 18:54 Dose: 2 mg Metformin HCl (Glucophage Xr) 500 mg PO DAILY [facility] Last Admin: 12/30/16 10:12 Dose: 500 mg Metoprolol Succinate (Toprol Xl) 50 mg PO DAILY [facility] Last Admin: 01/02/17 09:36 Dose: 50 mg Mupirocin (Bactroban Ointment) 0 gm TOP BID [facility] Stop: 01/06/17 18:01 Last Admin: 01/02/17 09:36 Dose: Not Given Rosuvastatin Calcium (Crestor) 10 mg PO HS [facility] Last Admin: 01/01/17 22:12 Dose: 10 mg Vancomycin HCl (Vancocin (Oral Or Rectal Use)) 250 mg PO QID [facility] Last Admin: 01/02/17 14:40 Dose: 250 mg - Labs Labs: 12/30/16 08:06 01/01/17 06:31 - Constitutional Appears: Non-toxic, Chronically Ill - Head Exam Head Exam: NORMOCEPHALIC - Eye Exam Eye Exam: PERRL - ENT Exam ENT Exam: Mucous Membranes Dry - Neck Exam Neck Exam: absent: Lymphadenopathy - Respiratory Exam Respiratory Exam: Decreased Breath Sounds - Cardiovascular Exam Cardiovascular Exam: REGULAR RHYTHM - GI/Abdominal Exam GI & Abdominal Exam: Distended, Soft - Rectal Exam Rectal Exam: Deferred - Exam Exam: NORMAL INSPECTION - Extremities Exam Extremities Exam: absent: Pedal Edema - Back Exam Back Exam: absent: CVA tenderness (L), CVA tenderness (R) Assessment and Plan (1) Anemia Status: Acute (2) Dehydration Status: Acute (3) Intractable diarrhea Status: Acute (4) Leukocytosis Status: Acute (5) Renal insufficiency Status: Acute (6) Acute renal insufficiency Status: Acute (7) Bilateral lower extremity edema Status: Acute (8) Pancolitis Status: Acute
[2017-01-02] MEDS: Albuterol-Ipratrop 3 mg / 0.5 (3 ml) UD INH PRN (20:41)
[2017-01-03] MEDS: Levothyroxine 50 MCG TAB PO SCH (05:41)
[2017-01-03] MEDS: Albuterol-Ipratrop 3 mg / 0.5 (3 ml) UD INH PRN (05:46)
[2017-01-03] MEDS: diltiaZEM 120 mg/24 Hours CD Cap PO SCH (10:42)
[2017-01-03] MEDS: Ferric Sodium Gluconat Complex 62.5 mg/5 ml Vial IVPB SCH (10:42)
[2017-01-03] MEDS: Metoprolol Succinate 50 mg XL Tab PO SCH (10:43)
[2017-01-03] MEDS: Vancomycin 125 MG/5 ML SOLN (ORAL/RECTAL) PO SCH ×4 (10:43→23:55)
--- NOTE | 2017-01-03 11:00 | CP.PCM.PN ---
Subjective - Date & Time of Evaluation Date of Evaluation: 01/03/17 Time of Evaluation: 10:00 - Subjective Subjective: vre/ klebs in urine likely colonized improving with rx for c diff Objective - Vital Signs/Intake and Output Vital Signs (last 24 hours): Temp Pulse Resp BP Pulse Ox 97.7 F 91 H 20 117/69 97 01/03/17 07:40 01/03/17 07:40 01/03/17 07:40 01/03/17 07:40 01/03/17 07:40 Intake and Output: 01/03/17 01/03/17 06:59 18:59 Intake Total 678 Balance 678 - Medications Medications: Current Medications Albuterol/Ipratropium (Duoneb 3 Mg/0.5 Mg (3 Ml) Ud) 3 ml INH RQID PRN PRN Reason: Shortness of Breath Last Admin: 01/03/17 05:46 Dose: 3 ml Amiodarone HCl (Cordarone) 200 mg PO MWF [facility] Last Admin: 01/03/17 10:42 Dose: 200 mg Diltiazem HCl (Cardizem Cd) 120 mg PO DAILY [facility] Last Admin: 01/03/17 10:42 Dose: 120 mg Ferric Sodium Gluconate Complex (Ferrlecit) 125 mg IVPB DAILY [facility] Stop: 01/07/17 10:46 Last Admin: 01/03/17 10:42 Dose: 125 mg Levothyroxine Sodium (Synthroid) 50 mcg PO 0630 [facility] Last Admin: 01/03/17 05:41 Dose: 50 mcg Loperamide HCl (Imodium) 2 mg PO TID PRN PRN Reason: Diarrhea Last Admin: 12/29/16 18:54 Dose: 2 mg Metformin HCl (Glucophage Xr) 500 mg PO DAILY [facility] Last Admin: 01/03/17 10:43 Dose: 500 mg Metoprolol Succinate (Toprol Xl) 50 mg PO DAILY [facility] Last Admin: 01/03/17 10:43 Dose: 50 mg Metronidazole (Flagyl) 500 mg PO Q8 [facility] Last Admin: 01/03/17 05:41 Dose: 500 mg Mupirocin (Bactroban Ointment) 0 gm TOP BID [facility] Stop: 01/06/17 18:01 Last Admin: 01/03/17 10:41 Dose: 1 applic Rosuvastatin Calcium (Crestor) 10 mg PO HS [facility] Last Admin: 01/02/17 21:23 Dose: 10 mg Vancomycin HCl (Vancocin (Oral Or Rectal Use)) 250 mg PO QID [facility] Last Admin: 01/03/17 10:43 Dose: 250 mg - Labs Labs: 12/30/16 08:06 01/01/17 06:31 - Constitutional Appears: Non-toxic, Chronically Ill - Head Exam Head Exam: NORMOCEPHALIC - Eye Exam Eye Exam: PERRL - ENT Exam ENT Exam: Mucous Membranes Dry, Normal External Ear Exam - Neck Exam Neck Exam: absent: Lymphadenopathy - Respiratory Exam Respiratory Exam: Decreased Breath Sounds - Cardiovascular Exam Cardiovascular Exam: REGULAR RHYTHM - GI/Abdominal Exam GI & Abdominal Exam: Distended - Rectal Exam Rectal Exam: Deferred - Exam Exam: NORMAL INSPECTION Assessment and Plan (1) Anemia Status: Acute (2) Dehydration Status: Acute (3) Intractable diarrhea Status: Acute (4) Leukocytosis Status: Acute (5) Renal insufficiency Status: Acute (6) Acute renal insufficiency Status: Acute (7) Bilateral lower extremity edema Status: Acute (8) Pancolitis Status: Acute
--- NOTE | 2017-01-03 13:13 | CP.PCM.PN ---
Subjective - Date & Time of Evaluation Date of Evaluation: 01/03/17 Time of Evaluation: 13:11 - Subjective Subjective: No more diarrhea; c/o mild wheezing ALI resolved HTN controlled No c/o n, v, SOB, CPs, HAs, f,c Objective - Vital Signs/Intake and Output Vital Signs (last 24 hours): Temp Pulse Resp BP Pulse Ox 97.7 F 91 H 20 117/69 97 01/03/17 07:40 01/03/17 07:40 01/03/17 07:40 01/03/17 07:40 01/03/17 07:40 Intake and Output: 01/03/17 01/03/17 06:59 18:59 Intake Total 678 Balance 678 - Medications Medications: Current Medications Albuterol/Ipratropium (Duoneb 3 Mg/0.5 Mg (3 Ml) Ud) 3 ml INH RQID PRN PRN Reason: Shortness of Breath Last Admin: 01/03/17 05:46 Dose: 3 ml Amiodarone HCl (Cordarone) 200 mg PO MWF [facility] Last Admin: 01/03/17 10:42 Dose: 200 mg Diltiazem HCl (Cardizem Cd) 120 mg PO DAILY [facility] Last Admin: 01/03/17 10:42 Dose: 120 mg Ferric Sodium Gluconate Complex (Ferrlecit) 125 mg IVPB DAILY [facility] Stop: 01/07/17 10:46 Last Admin: 01/03/17 10:42 Dose: 125 mg Levothyroxine Sodium (Synthroid) 50 mcg PO 0630 [facility] Last Admin: 01/03/17 05:41 Dose: 50 mcg Loperamide HCl (Imodium) 2 mg PO TID PRN PRN Reason: Diarrhea Last Admin: 12/29/16 18:54 Dose: 2 mg Metformin HCl (Glucophage Xr) 500 mg PO DAILY [facility] Last Admin: 01/03/17 10:43 Dose: 500 mg Metoprolol Succinate (Toprol Xl) 50 mg PO DAILY [facility] Last Admin: 01/03/17 10:43 Dose: 50 mg Metronidazole (Flagyl) 500 mg PO Q8 [facility] Last Admin: 01/03/17 05:41 Dose: 500 mg Mupirocin (Bactroban Ointment) 0 gm TOP BID [facility] Stop: 01/06/17 18:01 Last Admin: 01/03/17 10:41 Dose: 1 applic Rosuvastatin Calcium (Crestor) 10 mg PO HS [facility] Last Admin: 01/02/17 21:23 Dose: 10 mg Vancomycin HCl (Vancocin (Oral Or Rectal Use)) 250 mg PO QID [facility] Last Admin: 01/03/17 10:43 Dose: 250 mg - Labs Labs: 12/30/16 08:06 01/01/17 06:31 - Constitutional Appears: No Acute Distress, Chronically Ill - Head Exam Head Exam: ATRAUMATIC, NORMAL INSPECTION - Eye Exam Eye Exam: EOMI, Normal appearance - Neck Exam Neck Exam: Normal Inspection. absent: Tenderness - Respiratory Exam Respiratory Exam: Clear to Ausculation Bilateral, NORMAL BREATHING PATTERN - Cardiovascular Exam Cardiovascular Exam: REGULAR RHYTHM, +S1 - GI/Abdominal Exam GI & Abdominal Exam: Soft. absent: Tenderness - Extremities Exam Extremities Exam: Pedal Edema. absent: Tenderness - Neurological Exam Neurological Exam: Alert, CN II-XII Intact - Skin Skin Exam: Dry, Warm Assessment and Plan (1) CKD (chronic kidney disease), stage III Status: Acute (2) Dehydration Status: Acute (3) Diarrhea Status: Acute (4) Clostridium difficile colitis Status: Acute - Assessment and Plan (Free Text) Plan: Continue to monitor lytes, renal function
[2017-01-03 13:59] LABS: BASO # 0.1 K/uL (0.0-0.2); BASO % 1.2 % (0.0-2.0); EOS # 0.1 K/uL (0.0-0.7); HEMATOCRIT 31.1 % (34.0-47.0); LYMPH # 0.2 K/uL (1.0-4.3); LYMPH % 2.2 % (20.0-40.0); MEAN CORPUSCULAR HGB CONC 32.5 g/dL (33.0-37.0); MEAN PLATELET VOLUME 6.1 fL (7.2-11.7); MONO # 1.3 K/uL (0.0-0.8); MONO % 11.8 % (0.0-10.0); PLATELET COUNT 356 K/uL (130-400); WHITE BLOOD COUNT 10.8 K/uL (4.8-10.8)
[2017-01-03 14:17] LABS: CHLORIDE 101 mmol/L (98-107); POTASSIUM 4.7 mmol/L (3.6-5.2); SODIUM 135 mmol/L (132-148)
[2017-01-03 14:19] LABS: BILIRUBIN,TOTAL 0.2 mg/dL (0.2-1.3); CARBON DIOXIDE 24 mmol/L (22-30); GFR AFRICAN-AMERICAN > 60
[2017-01-03 14:20] LABS: ALB/GLOB RATIO 0.9 (1.0-2.1); ALKALINE PHOSPHATASE 72 U/L (38-126); ALT/SGPT 32 U/L (9-52); AST/SGOT 32 U/L (14-36); BLOOD UREA NITROGEN 15 mg/dL (7-17); CALCIUM 8.4 mg/dl (8.6-10.4); GLUCOSE,RANDOM 149 mg/dL (65-105); TOTAL PROTEIN 5.9 g/dL (6.3-8.3)
[2017-01-03 14:45] LABS: EOSINOPHIL 2 % (0-4); NEUTROPHIL 83 % (50-75); TOTAL CELLS COUNTED 100
--- NOTE | 2017-01-03 16:00 | CP.PCM.PN ---
Subjective - Date & Time of Evaluation Date of Evaluation: 01/03/17 Time of Evaluation: 15:59 - Subjective Subjective: sob Objective - Vital Signs/Intake and Output Vital Signs (last 24 hours): Temp Pulse Resp BP Pulse Ox 97.7 F 91 H 20 117/69 97 01/03/17 07:40 01/03/17 07:40 01/03/17 07:40 01/03/17 07:40 01/03/17 07:40 Intake and Output: 01/03/17 01/03/17 06:59 18:59 Intake Total 678 Balance 678 - Medications Medications: Current Medications Albuterol/Ipratropium (Duoneb 3 Mg/0.5 Mg (3 Ml) Ud) 3 ml INH RQID PRN PRN Reason: Shortness of Breath Last Admin: 01/03/17 05:46 Dose: 3 ml Amiodarone HCl (Cordarone) 200 mg PO MWF [facility] Last Admin: 01/03/17 10:42 Dose: 200 mg Diltiazem HCl (Cardizem Cd) 120 mg PO DAILY [facility] Last Admin: 01/03/17 10:42 Dose: 120 mg Ferric Sodium Gluconate Complex (Ferrlecit) 125 mg IVPB DAILY [facility] Stop: 01/07/17 10:46 Last Admin: 01/03/17 10:42 Dose: 125 mg Levothyroxine Sodium (Synthroid) 50 mcg PO 0630 [facility] Last Admin: 01/03/17 05:41 Dose: 50 mcg Loperamide HCl (Imodium) 2 mg PO TID PRN PRN Reason: Diarrhea Last Admin: 12/29/16 18:54 Dose: 2 mg Metformin HCl (Glucophage Xr) 500 mg PO DAILY [facility] Last Admin: 01/03/17 10:43 Dose: 500 mg Metoprolol Succinate (Toprol Xl) 50 mg PO DAILY [facility] Last Admin: 01/03/17 10:43 Dose: 50 mg Metronidazole (Flagyl) 500 mg PO Q8 [facility] Last Admin: 01/03/17 13:31 Dose: 500 mg Mupirocin (Bactroban Ointment) 0 gm TOP BID [facility] Stop: 01/06/17 18:01 Last Admin: 01/03/17 10:41 Dose: 1 applic Rosuvastatin Calcium (Crestor) 10 mg PO HS [facility] Last Admin: 01/02/17 21:23 Dose: 10 mg Fluticasone/Salmeterol (Advair Diskus 250/50) 1 puff INH RQ12 [facility] Vancomycin HCl (Vancocin (Oral Or Rectal Use)) 250 mg PO QID [facility] Last Admin: 01/03/17 13:31 Dose: 250 mg - Labs Labs: 01/03/17 13:54 01/03/17 13:54 - Constitutional Appears: No Acute Distress, Chronically Ill - Eye Exam Eye Exam: Normal appearance - Respiratory Exam Respiratory Exam: Rhonchi, Wheezes - Cardiovascular Exam Cardiovascular Exam: REGULAR RHYTHM, Murmur - GI/Abdominal Exam GI & Abdominal Exam: Soft - Neurological Exam Neurological Exam: Alert, Oriented x3 Assessment and Plan - Assessment and Plan (Free Text) Assessment: still congested.will obtain chest x ray.add advair.ct neb rx.add lasix.d/c iv fluoids.labs noted.
[2017-01-03 19:43] LABS: RBC URINE 1 /hpf (0-3); URINE BACTERIA MANY (<OCC); URINE BILIRUBIN NEGATIVE (NEGATIVE); URINE COLOR Amber (YELLOW); URINE GLUCOSE (UA) NORMAL (Normal); URINE KETONE NEGATIVE (NEGATIVE); URINE LEUKOCYTE ESTERASE 2+ Leu/uL (Negative); URINE PROTEIN NEGATIVE (NEGATIVE); URINE UROBILINOGEN NORMAL mg/dL (0.2-1.0); WBC URINE 26 /hpf (0-5)
[2017-01-03 20:04] LABS: URINE BLOOD TRACE (NEGATIVE)
[2017-01-03] MEDS: Fluticasone-Salmeterol 250-50mcg Diskus INH SCH (20:20)
--- NOTE | 2017-01-03 21:12 | CP.PCM.CON ---
History of Present Illness - History of Present Illness History of Present Illness: Chief complaint: Shortness of breath History of present illness: 86-year-old female with history of atrial fibrillation, hypertension admitted to the hospital with profound diarrhea, and also anemia. Patient was also bradycardic, initially was on amiodarone. Patient admitted to the hospital with the persistent diarrhea, and there found to have C. difficile colitis. Patient started on Lasix, cause of the shortness of breath pulmonary evaluation was called. Patient is having increasing SOB recently. Combining of some cough. Cough with thick yellow mucus production. Patient still continues to have her diarrhea. She does not have any chest pain. Denies any fever or chills. Past medical history: Hypertension, renal insufficiency, hyperlipidemia, hypercholesterolemia and atrial fibrillation Surgical history: None Allergies: Naproxen Family history: Noncontributory Past surgical history: Nonsmoker nonalcoholic lives independently Review of system: 18 point review of systems noted. Combining of increasing SOB. Cough noted. Mucus production present. Continues to have her diarrhea. No fever. Mild abdominal pain noted. Leg swelling present bilaterally. Patient is extremely weak fatigue On examination: Vital signs reviewed Bilateral lungs with decreased air entry noted with rales Regular heart sound Abdomen soft nontender, edema bilaterally in the legs noted [employer] alert awake but mild confusion noted No lymphadenopathy Labs repeated Nonspecific. Chest x-ray showing evidence of bilateral congestive changes, increased right lower lung infiltrative changes Assessment and recommendation: 86-year-old female with a history of hypertension and atrial fibrillation congestive heart failure severe pulmonary hypertension admitted with the C. difficile colitis, and likely acute respiratory failure congestive heart failure cannot be ruled out. Aspiration possible. C. difficile colitis. Sepsis. We'll continue to monitor. Bronchodilators. Antibiotic may be needed. Aspiration prevention. BiPAP as needed and will follow the patient Past Patient History - Infectious Disease Hx of Infectious Diseases: None - Past Medical History & Family History Past Medical History?: Yes - Past Social History Smoking Status: Never Smoked - CARDIAC Hx Cardiac Disorders: Yes (A fibrillation) Hx Congestive Heart Failure: Yes Hx Hypercholesterolemia: Yes Hx Hypertension: Yes - PULMONARY Hx Respiratory Disorders: No - NEUROLOGICAL Hx Neurological Disorder: No - HEENT Hx HEENT Problems: No - RENAL Hx Chronic Kidney Disease: No - ENDOCRINE/METABOLIC Hx Diabetes Mellitus Type 2: Yes - HEMATOLOGICAL/ONCOLOGICAL Hx Blood Disorders: No - INTEGUMENTARY Hx Dermatological Problems: No - MUSCULOSKELETAL/RHEUMATOLOGICAL Hx Falls: No - GASTROINTESTINAL Hx Gastrointestinal Disorders: Yes Hx Colitis: Yes - GENITOURINARY/GYNECOLOGICAL Hx Genitourinary Disorders: No - PSYCHIATRIC Hx Substance Use: No - SURGICAL HISTORY Hx Appendectomy: Yes Other/Comment: no additional information given by patient. - ANESTHESIA Hx Anesthesia: Yes Hx Anesthesia Reactions: No Hx Malignant Hyperthermia: No Meds Allergies/Adverse Reactions: Allergies Allergy/AdvReac Type Severity Reaction Status Date / Time naproxen Allergy Intermediate RASH Verified 12/27/16 14:50 - Medications Medications: Current Medications Albuterol/Ipratropium (Duoneb 3 Mg/0.5 Mg (3 Ml) Ud) 3 ml INH RQID PRN PRN Reason: Shortness of Breath Last Admin: 01/03/17 05:46 Dose: 3 ml Amiodarone HCl (Cordarone) 200 mg PO MWF [facility] Last Admin: 01/03/17 10:42 Dose: 200 mg Diltiazem HCl (Cardizem Cd) 120 mg PO DAILY [facility] Last Admin: 01/03/17 10:42 Dose: 120 mg Ferric Sodium Gluconate Complex (Ferrlecit) 125 mg IVPB DAILY [facility] Stop: 01/07/17 10:46 Last Admin: 01/03/17 10:42 Dose: 125 mg Furosemide (Lasix) 20 mg IVP BID [facility] Last Admin: 01/03/17 18:45 Dose: Not Given Levothyroxine Sodium (Synthroid) 50 mcg PO 0630 [facility] Last Admin: 01/03/17 05:41 Dose: 50 mcg Loperamide HCl (Imodium) 2 mg PO TID PRN PRN Reason: Diarrhea Last Admin: 12/29/16 18:54 Dose: 2 mg Metformin HCl (Glucophage Xr) 500 mg PO DAILY [facility] Last Admin: 01/03/17 10:43 Dose: 500 mg Metoprolol Succinate (Toprol Xl) 50 mg PO DAILY [facility] Last Admin: 01/03/17 10:43 Dose: 50 mg Metronidazole (Flagyl) 500 mg PO Q8 [facility] Last Admin: 01/03/17 13:31 Dose: 500 mg Mupirocin (Bactroban Ointment) 0 gm TOP BID [facility] Stop: 01/06/17 18:01 Last Admin: 01/03/17 18:49 Dose: 1 applic Rosuvastatin Calcium (Crestor) 10 mg PO HS [facility] Last Admin: 01/02/17 21:23 Dose: 10 mg Fluticasone/Salmeterol (Advair Diskus 250/50) 1 puff INH RQ12 [facility] Vancomycin HCl (Vancocin (Oral Or Rectal Use)) 250 mg PO QID [facility] Last Admin: 01/03/17 18:47 Dose: 250 mg Results - Vital Signs Recent Vital Signs: Last Vital Signs Temp 97.3 F L 01/03/17 16:00 Pulse 96 H 01/03/17 16:00 Resp 20 01/03/17 16:00 BP 125/70 01/03/17 16:31 Pulse Ox 95 01/03/17 16:00 - Labs Result Diagrams: 01/09/17 07:12 01/09/17 06:29 Labs: Laboratory Results - last 24 hr 01/02/17 01/03/17 01/03/17 21:14 06:09 11:54 WBC RBC Hgb Hct MCV MCH MCHC RDW Plt Count MPV Neut % (Auto) Lymph % (Auto) [place] % (Auto) Eos % (Auto) Baso % (Auto) Neut # Lymph # [place] # Eos # Baso # Neutrophils % (Manual) Lymphocytes % (Manual) Monocytes % (Manual) Eosinophils % (Manual) Platelet Estimate Hypochromasia (manual) Anisocytosis (manual) Ovalocytes Sodium Potassium Chloride Carbon Dioxide Anion Gap BUN Creatinine Est GFR ( Amer) Est GFR (Non-Af Amer) POC Glucose (mg/dL) 144 H 117 H 151 H Random Glucose Calcium Total Bilirubin AST ALT Alkaline Phosphatase Total Protein Albumin Globulin Albumin/Globulin Ratio Urine Color Urine Clarity Urine pH Ur Specific [place] Urine Protein Urine Glucose (UA) Urine Ketones Urine Blood Urine Nitrate Urine Bilirubin Urine Urobilinogen Ur Leukocyte Esterase Urine WBC (Auto) Urine RBC (Auto) Ur Squamous Epith Cells Urine Bacteria 01/03/17 01/03/17 01/03/17 13:54 13:54 16:35 WBC 10.8 RBC 3.76 L Hgb 10.1 L Hct 31.1 L MCV 83.0 MCH 27.0 MCHC 32.5 L RDW 19.0 H Plt Count 356 MPV 6.1 L Neut % (Auto) 83.8 H Lymph % (Auto) 2.2 L [place] % (Auto) 11.8 H Eos % (Auto) 1.0 Baso % (Auto) 1.2 Neut # 9.0 H Lymph # 0.2 L [place] # 1.3 H Eos # 0.1 Baso # 0.1 Neutrophils % (Manual) 83 H Lymphocytes % (Manual) 5 L Monocytes % (Manual) 10 Eosinophils % (Manual) 2 Platelet Estimate Normal Hypochromasia (manual) Slight Anisocytosis (manual) Slight Ovalocytes Slight Sodium 135 Potassium 4.7 Chloride 101 Carbon Dioxide 24 Anion Gap 14 BUN 15 Creatinine 0.9 Est GFR ( Amer) > 60 Est GFR (Non-Af Amer) 59 POC Glucose (mg/dL) 136 H Random Glucose 149 H Calcium 8.4 L Total Bilirubin 0.2 AST 32 ALT 32 Alkaline Phosphatase 72 Total Protein 5.9 L Albumin 2.8 L D Globulin 3.1 Albumin/Globulin Ratio 0.9 L Urine Color Urine Clarity Urine pH Ur Specific [place] Urine Protein Urine Glucose (UA) Urine Ketones Urine Blood Urine Nitrate Urine Bilirubin Urine Urobilinogen Ur Leukocyte Esterase Urine WBC (Auto) Urine RBC (Auto) Ur Squamous Epith Cells Urine Bacteria 01/03/17 19:33 WBC RBC Hgb Hct MCV MCH MCHC RDW Plt Count MPV Neut % (Auto) Lymph % (Auto) [place] % (Auto) Eos % (Auto) Baso % (Auto) Neut # Lymph # [place] # Eos # Baso # Neutrophils % (Manual) Lymphocytes % (Manual) Monocytes % (Manual) Eosinophils % (Manual) Platelet Estimate Hypochromasia (manual) Anisocytosis (manual) Ovalocytes Sodium Potassium Chloride Carbon Dioxide Anion Gap BUN Creatinine Est GFR ( Amer) Est GFR (Non-Af Amer) POC Glucose (mg/dL) Random Glucose Calcium Total Bilirubin AST ALT Alkaline Phosphatase Total Protein Albumin Globulin Albumin/Globulin Ratio Urine Color [place] Urine Clarity Hazy Urine pH 5.0 Ur Specific [place] 1.019 Urine Protein Negative Urine Glucose (UA) Normal Urine Ketones Negative Urine Blood Trace H Urine Nitrate Positive H Urine Bilirubin Negative Urine Urobilinogen Normal Ur Leukocyte Esterase 2+ H Urine WBC (Auto) 26 H Urine RBC (Auto) 1 Ur Squamous Epith Cells 2 Urine Bacteria Many H
[2017-01-04] MEDS: Albuterol-Ipratrop 3 mg / 0.5 (3 ml) UD INH PRN ×3 (05:25→20:50)
[2017-01-04] MEDS: Levothyroxine 50 MCG TAB PO SCH (06:19)
[2017-01-04 06:47] LABS: BASO # 0.1 K/uL (0.0-0.2); BASO % 0.7 % (0.0-2.0); EOS # 0.1 K/uL (0.0-0.7); EOS % 1.1 % (0.0-4.0); HEMATOCRIT 29.5 % (34.0-47.0); LYMPH # 0.8 K/uL (1.0-4.3); LYMPH % 7.2 % (20.0-40.0); MEAN CELL VOLUME 82.4 fL (81.0-99.0); MEAN CORPUSCULAR HEMOGLOBIN 27.1 pg (27.0-31.0); MEAN CORPUSCULAR HGB CONC 32.8 g/dL (33.0-37.0); MEAN PLATELET VOLUME 6.3 fL (7.2-11.7); MONO # 1.4 K/uL (0.0-0.8); MONO % 13.2 % (0.0-10.0); NRBC % 0.1 % (0.0-2.0); PLATELET COUNT 348 K/uL (130-400); RED CELL DISTRIBUTION WIDTH 19.4 % (11.5-14.5); WHITE BLOOD COUNT 10.9 K/uL (4.8-10.8)
[2017-01-04 07:37] LABS: CHLORIDE 99 mmol/L (98-107)
[2017-01-04 07:38] LABS: POTASSIUM 4.3 mmol/L (3.6-5.2); SODIUM 135 mmol/L (132-148)
[2017-01-04 07:40] LABS: ALB/GLOB RATIO 0.8 (1.0-2.1); ALKALINE PHOSPHATASE 69 U/L (38-126); AST/SGOT 38 U/L (14-36); BILIRUBIN,TOTAL 0.3 mg/dL (0.2-1.3); BLOOD UREA NITROGEN 14 mg/dL (7-17); CARBON DIOXIDE 27 mmol/L (22-30); GFR AFRICAN-AMERICAN > 60; GLUCOSE,RANDOM 89 mg/dL (65-105); TOTAL PROTEIN 5.6 g/dL (6.3-8.3)
[2017-01-04 07:41] LABS: ALT/SGPT 31 U/L (9-52); CALCIUM 8.1 mg/dl (8.6-10.4); MAGNESIUM 1.5 mg/dL (1.6-2.3)
[2017-01-04] MEDS: Fluticasone-Salmeterol 250-50mcg Diskus INH SCH ×2 (07:48→19:38)
[2017-01-04 08:09] LABS: THYROID STIMULATING HORMONE 1.83 mIU/L (0.46-4.68)
[2017-01-04 08:25] LABS: NEUTROPHIL 83 % (50-75); TOTAL CELLS COUNTED 100
--- NOTE | 2017-01-04 08:43 | RAD ---
PROCEDURE: CHEST RADIOGRAPH, 1 VIEW HISTORY: SOB COMPARISON: 11/20/2016 FINDINGS: LUNGS: Interval right very an interval right infrahilar patchy airspace opacity noted. Coalescent areas of pulmonary edema with or without infiltrates here -considerations. Central pulmonary venous congestion-interstitial pulmonary edema - increased since prior exam PLEURA: No pneumothorax or significant appearing pleural fluid seen. Minimal small left pleural effusion not excluded CARDIOVASCULAR: Cardiomegaly -similar OSSEOUS STRUCTURES: No significant abnormalities. VISUALIZED UPPER ABDOMEN: Normal. OTHER FINDINGS: Large hiatal hernia-similar. Superior specially right peritracheal soft tissue fullness consistent with brachiocephalic tortuous vessel without thyroid pathology in most likely. Similar-appearing IMPRESSION: Cardiomegaly and pulmonary venous congestion -CHF. All increased right very and right infrahilar patchy airspace opacities-coalescent pulmonary edema with or without the infiltrate here. Follow-up recommended
--- NOTE | 2017-01-04 09:42 | RAD ---
Chest x-ray single frontal view History: Shortness of breath. Comparison: 01/03/2017 Findings: Persistent diffuse increased interstitial lung markings suggestive for edema and or infiltrate. More confluent consolidative changes in the right hilar and infrahilar region as well as at the left lung base. Persistent small to moderate left and small right pleural effusion. Cardiomegaly. Calcification at the aortic knob. Impression: No significant interval change.
[2017-01-04] MEDS: Metoprolol Succinate 50 mg XL Tab PO SCH (09:43)
[2017-01-04] MEDS: diltiaZEM 120 mg/24 Hours CD Cap PO SCH (09:43)
[2017-01-04] MEDS: Vancomycin 125 MG/5 ML SOLN (ORAL/RECTAL) PO SCH ×4 (09:44→21:40)
[2017-01-04] MEDS: Ferric Sodium Gluconat Complex 62.5 mg/5 ml Vial IVPB SCH (09:45)
--- NOTE | 2017-01-04 10:54 | CP.PCM.PN ---
Subjective - Date & Time of Evaluation Date of Evaluation: 01/04/17 Time of Evaluation: 10:53 - Subjective Subjective: seen and examined s/o sob. denies any nausea vomiting abd pain rash dizziness headache cp palpitation/ poor oral intake on lasix 20mg iv bid Objective - Vital Signs/Intake and Output Vital Signs (last 24 hours): Temp Pulse Resp BP Pulse Ox 99.3 F 122 H 20 112/64 98 01/04/17 07:40 01/04/17 07:40 01/04/17 07:40 01/04/17 09:44 01/04/17 07:40 Intake and Output: 01/04/17 01/04/17 06:59 18:59 Intake Total 250 Balance 250 - Medications Medications: Current Medications Albuterol/Ipratropium (Duoneb 3 Mg/0.5 Mg (3 Ml) Ud) 3 ml INH RQID PRN PRN Reason: Shortness of Breath Last Admin: 01/04/17 07:49 Dose: 3 ml Amiodarone HCl (Cordarone) 200 mg PO DAILY [facility] Last Admin: 01/04/17 09:44 Dose: 200 mg Diltiazem HCl (Cardizem Cd) 120 mg PO DAILY [facility] Last Admin: 01/04/17 09:43 Dose: 120 mg Ferric Sodium Gluconate Complex (Ferrlecit) 125 mg IVPB DAILY [facility] Stop: 01/07/17 10:46 Last Admin: 01/04/17 09:45 Dose: 125 mg Furosemide (Lasix) 20 mg IVP BID [facility] Last Admin: 01/04/17 09:44 Dose: 20 mg Levothyroxine Sodium (Synthroid) 50 mcg PO 0630 [facility] Last Admin: 01/04/17 06:19 Dose: 50 mcg Loperamide HCl (Imodium) 2 mg PO TID PRN PRN Reason: Diarrhea Last Admin: 12/29/16 18:54 Dose: 2 mg Metformin HCl (Glucophage Xr) 500 mg PO DAILY [facility] Last Admin: 01/04/17 09:43 Dose: 500 mg Metoprolol Succinate (Toprol Xl) 50 mg PO DAILY [facility] Last Admin: 01/04/17 09:43 Dose: 50 mg Metronidazole (Flagyl) 500 mg PO Q8 [facility] Last Admin: 01/04/17 06:19 Dose: 500 mg Mupirocin (Bactroban Ointment) 0 gm TOP BID [facility] Stop: 01/06/17 18:01 Last Admin: 01/04/17 09:43 Dose: Not Given Rosuvastatin Calcium (Crestor) 10 mg PO HS [facility] Last Admin: 01/03/17 23:45 Dose: 10 mg Fluticasone/Salmeterol (Advair Diskus 250/50) 1 puff INH RQ12 [facility] Last Admin: 01/04/17 07:48 Dose: 1 puff Vancomycin HCl (Vancocin (Oral Or Rectal Use)) 250 mg PO QID [facility] Last Admin: 01/04/17 09:44 Dose: 250 mg - Labs Labs: 01/04/17 06:23 01/04/17 06:23 - Constitutional Appears: Non-toxic, No Acute Distress, Chronically Ill - Head Exam Head Exam: NORMAL INSPECTION - Eye Exam Eye Exam: Normal appearance - ENT Exam ENT Exam: Mucous Membranes Moist, Normal Exam - Neck Exam Neck Exam: Normal Inspection - Respiratory Exam Respiratory Exam: Decreased Breath Sounds, Rhonchi, NORMAL BREATHING PATTERN - Cardiovascular Exam Cardiovascular Exam: REGULAR RHYTHM, RRR - GI/Abdominal Exam GI & Abdominal Exam: Distended, Soft, Diminished Bowel Sounds - Extremities Exam Extremities Exam: Pedal Edema (1+) Assessment and Plan (1) Anemia Status: Acute (2) CKD (chronic kidney disease), stage III Status: Acute (3) Clostridium difficile colitis Status: Acute (4) Intractable diarrhea Status: Acute - Assessment and Plan (Free Text) Assessment: agree w/ lasix daily chems
--- NOTE | 2017-01-04 10:56 | CARD ---
APPROVED REPORT EKG Measurement Heart [id number] <Conclusion> Normal sinus rhythm Nonspecific intraventricular block Possible Lateral infarct, age undetermined Abnormal ECG
--- NOTE | 2017-01-04 12:05 | CP.PCM.PN ---
Subjective - Date & Time of Evaluation Date of Evaluation: 01/04/17 Time of Evaluation: 12:04 - Subjective Subjective: weak.labs,vitals noted.nsr now. Objective - Vital Signs/Intake and Output Vital Signs (last 24 hours): Temp Pulse Resp BP Pulse Ox 99.3 F 122 H 20 112/64 98 01/04/17 07:40 01/04/17 07:40 01/04/17 07:40 01/04/17 09:44 01/04/17 07:40 Intake and Output: 01/04/17 01/04/17 06:59 18:59 Intake Total 250 Balance 250 - Medications Medications: Current Medications Albuterol/Ipratropium (Duoneb 3 Mg/0.5 Mg (3 Ml) Ud) 3 ml INH RQID PRN PRN Reason: Shortness of Breath Last Admin: 01/04/17 07:49 Dose: 3 ml Amiodarone HCl (Cordarone) 200 mg PO DAILY [facility] Last Admin: 01/04/17 09:44 Dose: 200 mg Diltiazem HCl (Cardizem Cd) 120 mg PO DAILY [facility] Last Admin: 01/04/17 09:43 Dose: 120 mg Ferric Sodium Gluconate Complex (Ferrlecit) 125 mg IVPB DAILY [facility] Stop: 01/07/17 10:46 Last Admin: 01/04/17 09:45 Dose: 125 mg Furosemide (Lasix) 20 mg IVP BID [facility] Last Admin: 01/04/17 09:44 Dose: 20 mg Levothyroxine Sodium (Synthroid) 50 mcg PO 0630 [facility] Last Admin: 01/04/17 06:19 Dose: 50 mcg Loperamide HCl (Imodium) 2 mg PO TID PRN PRN Reason: Diarrhea Last Admin: 12/29/16 18:54 Dose: 2 mg Metformin HCl (Glucophage Xr) 500 mg PO DAILY [facility] Last Admin: 01/04/17 09:43 Dose: 500 mg Metoprolol Succinate (Toprol Xl) 50 mg PO DAILY [facility] Last Admin: 01/04/17 09:43 Dose: 50 mg Metronidazole (Flagyl) 500 mg PO Q8 [facility] Last Admin: 01/04/17 06:19 Dose: 500 mg Mupirocin (Bactroban Ointment) 0 gm TOP BID [facility] Stop: 01/06/17 18:01 Last Admin: 01/04/17 09:43 Dose: Not Given Rosuvastatin Calcium (Crestor) 10 mg PO HS [facility] Last Admin: 01/03/17 23:45 Dose: 10 mg Fluticasone/Salmeterol (Advair Diskus 250/50) 1 puff INH RQ12 [facility] Last Admin: 01/04/17 07:48 Dose: 1 puff Vancomycin HCl (Vancocin (Oral Or Rectal Use)) 250 mg PO QID [facility] Last Admin: 01/04/17 09:44 Dose: 250 mg - Labs Labs: 01/04/17 06:23 01/04/17 06:23 - Constitutional Appears: No Acute Distress, Chronically Ill - Head Exam Head Exam: NORMOCEPHALIC - ENT Exam ENT Exam: Mucous Membranes Moist - Respiratory Exam Respiratory Exam: Rhonchi - Cardiovascular Exam Cardiovascular Exam: REGULAR RHYTHM - GI/Abdominal Exam GI & Abdominal Exam: Soft - Extremities Exam Extremities Exam: Pedal Edema - Neurological Exam Neurological Exam: Alert, Oriented x3 Assessment and Plan - Assessment and Plan (Free Text) Assessment: chf much better.echo done last week will review.will ct lasix.increase amio to 5 days a week.
--- NOTE | 2017-01-04 12:11 | CP.PCM.PN ---
Subjective - Date & Time of Evaluation Date of Evaluation: 01/04/17 Time of Evaluation: 07:00 - Subjective Subjective: Has VRE and KLebs in urine no fever or chills some frequent urination but may be due to diuretics hoild IV antibiotics and treat c diff , consider eval ? role for [address] saunders with bladder irrigation Objective - Vital Signs/Intake and Output Vital Signs (last 24 hours): Temp Pulse Resp BP Pulse Ox 99.3 F 122 H 20 112/64 98 01/04/17 07:40 01/04/17 07:40 01/04/17 07:40 01/04/17 09:44 01/04/17 07:40 Intake and Output: 01/04/17 01/04/17 06:59 18:59 Intake Total 250 Balance 250 - Medications Medications: Current Medications Albuterol/Ipratropium (Duoneb 3 Mg/0.5 Mg (3 Ml) Ud) 3 ml INH RQID PRN PRN Reason: Shortness of Breath Last Admin: 01/04/17 07:49 Dose: 3 ml Amiodarone HCl (Cordarone) 200 mg PO DAILY [facility] Last Admin: 01/04/17 09:44 Dose: 200 mg Diltiazem HCl (Cardizem Cd) 120 mg PO DAILY [facility] Last Admin: 01/04/17 09:43 Dose: 120 mg Ferric Sodium Gluconate Complex (Ferrlecit) 125 mg IVPB DAILY [facility] Stop: 01/07/17 10:46 Last Admin: 01/04/17 09:45 Dose: 125 mg Furosemide (Lasix) 20 mg IVP BID [facility] Last Admin: 01/04/17 09:44 Dose: 20 mg Levothyroxine Sodium (Synthroid) 50 mcg PO 0630 [facility] Last Admin: 01/04/17 06:19 Dose: 50 mcg Loperamide HCl (Imodium) 2 mg PO TID PRN PRN Reason: Diarrhea Last Admin: 12/29/16 18:54 Dose: 2 mg Metformin HCl (Glucophage Xr) 500 mg PO DAILY [facility] Last Admin: 01/04/17 09:43 Dose: 500 mg Metoprolol Succinate (Toprol Xl) 50 mg PO DAILY [facility] Last Admin: 01/04/17 09:43 Dose: 50 mg Metronidazole (Flagyl) 500 mg PO Q8 [facility] Last Admin: 01/04/17 06:19 Dose: 500 mg Mupirocin (Bactroban Ointment) 0 gm TOP BID [facility] Stop: 01/06/17 18:01 Last Admin: 01/04/17 09:43 Dose: Not Given Rosuvastatin Calcium (Crestor) 10 mg PO HS [facility] Last Admin: 01/03/17 23:45 Dose: 10 mg Fluticasone/Salmeterol (Advair Diskus 250/50) 1 puff INH RQ12 [facility] Last Admin: 01/04/17 07:48 Dose: 1 puff Vancomycin HCl (Vancocin (Oral Or Rectal Use)) 250 mg PO QID [facility] Last Admin: 01/04/17 09:44 Dose: 250 mg - Labs Labs: 01/04/17 06:23 01/04/17 06:23 - Constitutional Appears: Non-toxic, No Acute Distress, Chronically Ill - Head Exam Head Exam: NORMOCEPHALIC - Eye Exam Eye Exam: PERRL - ENT Exam ENT Exam: Mucous Membranes Dry - Neck Exam Neck Exam: absent: Lymphadenopathy - Respiratory Exam Respiratory Exam: Decreased Breath Sounds - Cardiovascular Exam Cardiovascular Exam: REGULAR RHYTHM - GI/Abdominal Exam GI & Abdominal Exam: Distended, Soft - Rectal Exam Rectal Exam: Deferred - Exam Exam: NORMAL INSPECTION - Extremities Exam Extremities Exam: absent: Pedal Edema - Back Exam Back Exam: absent: CVA tenderness (L), CVA tenderness (R) - Neurological Exam Neurological Exam: Alert, Awake - Psychiatric Exam Psychiatric exam: Depressed Assessment and Plan (1) Anemia Status: Acute (2) Dehydration Status: Acute (3) Intractable diarrhea Status: Acute (4) Leukocytosis Status: Acute (5) Renal insufficiency Status: Acute (6) Acute renal insufficiency Status: Acute (7) Bilateral lower extremity edema Status: Acute (8) Pancolitis Status: Acute
--- NOTE | 2017-01-04 16:14 | CP.PCM.CON ---
History of Present Illness - History of Present Illness History of Present Illness: EP Consult Note Reason for consult: tachycardia HPI: Patient is an 86 oy woman with hx of atrial flutter status post prior ablation (on chronic amiodarone); preserved LVEF (by recent echo); HTN; hypothyroidism; hemmorhoids; sciatica; who was admitted for diarrhea and found to have GI bleed with severe anemia. Workup revealed C.diff colitis, for which patient is being treated medically. On telemetry, patient noted to have episodes of atrial tachycardia degenerating into atrial fibrillation. She spontaneously converted to sinus rhythm this morning, but went back into atrial fibrillation this afternoon at 1:30pm. EP is now consulted by Dr. Tim Harmon. Patient feels comfortable for now, without any palpitaitons, SOB, chest pain, dizziness, leg edema, syncope or presyncope. PMH: As above SHx: no tobacco, no etoh, no drugs FHx: no premature CAD ROS: as described in HPI, otherwise negative Past Patient History - Infectious Disease Hx of Infectious Diseases: None - Past Medical History & Family History Past Medical History?: Yes - Past Social History Smoking Status: Never Smoked - CARDIAC Hx Cardiac Disorders: Yes (A fibrillation) Hx Congestive Heart Failure: Yes Hx Hypercholesterolemia: Yes Hx Hypertension: Yes - PULMONARY Hx Respiratory Disorders: No - NEUROLOGICAL Hx Neurological Disorder: No - HEENT Hx HEENT Problems: No - RENAL Hx Chronic Kidney Disease: No - ENDOCRINE/METABOLIC Hx Diabetes Mellitus Type 2: Yes - HEMATOLOGICAL/ONCOLOGICAL Hx Blood Disorders: No - INTEGUMENTARY Hx Dermatological Problems: No - MUSCULOSKELETAL/RHEUMATOLOGICAL Hx Falls: No - GASTROINTESTINAL Hx Gastrointestinal Disorders: Yes Hx Colitis: Yes - GENITOURINARY/GYNECOLOGICAL Hx Genitourinary Disorders: No - PSYCHIATRIC Hx Substance Use: No - SURGICAL HISTORY Hx Appendectomy: Yes Other/Comment: no additional information given by patient. - ANESTHESIA Hx Anesthesia: Yes Hx Anesthesia Reactions: No Hx Malignant Hyperthermia: No Meds Allergies/Adverse Reactions: Allergies Allergy/AdvReac Type Severity Reaction Status Date / Time naproxen Allergy Intermediate RASH Verified 12/27/16 14:50 - Medications Medications: Current Medications Albuterol/Ipratropium (Duoneb 3 Mg/0.5 Mg (3 Ml) Ud) 3 ml INH RQID PRN PRN Reason: Shortness of Breath Last Admin: 01/04/17 07:49 Dose: 3 ml Amiodarone HCl (Cordarone) 200 mg PO DAILY [facility] Last Admin: 01/04/17 09:44 Dose: 200 mg Diltiazem HCl (Cardizem Cd) 120 mg PO DAILY [facility] Last Admin: 01/04/17 09:43 Dose: 120 mg Ferric Sodium Gluconate Complex (Ferrlecit) 125 mg IVPB DAILY [facility] Stop: 01/07/17 10:46 Last Admin: 01/04/17 09:45 Dose: 125 mg Furosemide (Lasix) 20 mg IVP BID [facility] Last Admin: 01/04/17 09:44 Dose: 20 mg Levothyroxine Sodium (Synthroid) 50 mcg PO 0630 [facility] Last Admin: 01/04/17 06:19 Dose: 50 mcg Loperamide HCl (Imodium) 2 mg PO TID PRN PRN Reason: Diarrhea Last Admin: 12/29/16 18:54 Dose: 2 mg Metformin HCl (Glucophage Xr) 500 mg PO DAILY [facility] Last Admin: 01/04/17 09:43 Dose: 500 mg Metoprolol Succinate (Toprol Xl) 50 mg PO DAILY [facility] Last Admin: 01/04/17 09:43 Dose: 50 mg Metronidazole (Flagyl) 500 mg PO Q8 [facility] Last Admin: 01/04/17 13:53 Dose: 500 mg Mupirocin (Bactroban Ointment) 0 gm TOP BID [facility] Stop: 01/06/17 18:01 Last Admin: 01/04/17 09:43 Dose: Not Given Rosuvastatin Calcium (Crestor) 10 mg PO HS [facility] Last Admin: 01/03/17 23:45 Dose: 10 mg Fluticasone/Salmeterol (Advair Diskus 250/50) 1 puff INH RQ12 [facility] Last Admin: 01/04/17 07:48 Dose: 1 puff Vancomycin HCl (Vancocin (Oral Or Rectal Use)) 250 mg PO QID [facility] Last Admin: 01/04/17 13:53 Dose: 250 mg Physical Exam - Constitutional Appears: Well - Head Exam Head Exam: ATRAUMATIC - Eye Exam Eye Exam: Normal appearance - ENT Exam ENT Exam: Mucous Membranes Moist - Neck Exam Neck exam: Positive for: Normal Inspection - Respiratory Exam Respiratory Exam: Clear to Auscultation Bilateral - Cardiovascular Exam Cardiovascular Exam: Irregular Rhythm, +S1, +S2 - GI/Abdominal Exam GI & Abdominal Exam: Soft - Extremities Exam Extremities exam: Negative for: pedal edema - Neurological Exam Neurological exam: Oriented x3 - Psychiatric Exam Psychiatric exam: Normal Affect Results - Vital Signs Recent Vital Signs: Last Vital Signs Temp 99.3 F 01/04/17 07:40 Pulse 122 H 01/04/17 07:40 Resp 20 01/04/17 07:40 BP 112/64 01/04/17 09:44 Pulse Ox 98 01/04/17 07:40 - Labs Result Diagrams: 01/04/17 06:23 01/04/17 06:23 Labs: Laboratory Results - last 24 hr 01/03/17 01/03/17 01/03/17 16:35 19:33 21:13 WBC RBC Hgb Hct MCV MCH MCHC RDW Plt Count MPV Neut % (Auto) Lymph % (Auto) Leon % (Auto) Eos % (Auto) Baso % (Auto) Neut # Lymph # Leon # Eos # Baso # Neutrophils % (Manual) Band Neutrophils % Lymphocytes % (Manual) Monocytes % (Manual) Platelet Estimate Polychromasia Hypochromasia (manual) Anisocytosis (manual) Ovalocytes Sodium Potassium Chloride Carbon Dioxide Anion Gap BUN Creatinine Est GFR ( Amer) Est GFR (Non-Af Amer) POC Glucose (mg/dL) 136 H 115 H Random Glucose Calcium Magnesium Total Bilirubin AST ALT Alkaline Phosphatase Total Protein Albumin Globulin Albumin/Globulin Ratio TSH 3rd Generation Urine Color Valerie Urine Clarity Hazy Urine pH 5.0 Ur Specific [place] 1.019 Urine Protein Negative Urine Glucose (UA) Normal Urine Ketones Negative Urine Blood Trace H Urine Nitrate Positive H Urine Bilirubin Negative Urine Urobilinogen Normal Ur Leukocyte Esterase 2+ H Urine WBC (Auto) 26 H Urine RBC (Auto) 1 Ur Squamous Epith Cells 2 Urine Bacteria Many H 01/04/17 01/04/17 01/04/17 06:23 06:23 06:44 WBC 10.9 H RBC 3.58 L Hgb 9.7 L Hct 29.5 L MCV 82.4 MCH 27.1 MCHC 32.8 L RDW 19.4 H Plt Count 348 MPV 6.3 L Neut % (Auto) 77.8 H Lymph % (Auto) 7.2 L Leon % (Auto) 13.2 H Eos % (Auto) 1.1 Baso % (Auto) 0.7 Neut # 8.5 H Lymph # 0.8 L Leon # 1.4 H Eos # 0.1 Baso # 0.1 Neutrophils % (Manual) 83 H Band Neutrophils % 3 H Lymphocytes % (Manual) 4 L Monocytes % (Manual) 10 Platelet Estimate Normal Polychromasia Slight Hypochromasia (manual) Slight Anisocytosis (manual) Slight Ovalocytes Slight Sodium 135 Potassium 4.3 Chloride 99 Carbon Dioxide 27 Anion Gap 14 BUN 14 Creatinine 1.0 Est GFR ( Amer) > 60 Est GFR (Non-Af Amer) 52 POC Glucose (mg/dL) 109 Random Glucose 89 Calcium 8.1 L Magnesium 1.5 L Total Bilirubin 0.3 AST 38 H ALT 31 Alkaline Phosphatase 69 Total Protein 5.6 L Albumin 2.6 L Globulin 3.1 Albumin/Globulin Ratio 0.8 L TSH 3rd Generation 1.83 Urine Color Urine Clarity Urine pH Ur Specific [place] Urine Protein Urine Glucose (UA) Urine Ketones Urine Blood Urine Nitrate Urine Bilirubin Urine Urobilinogen Ur Leukocyte Esterase Urine WBC (Auto) Urine RBC (Auto) Ur Squamous Epith Cells Urine Bacteria 01/04/17 11:52 WBC RBC Hgb Hct MCV MCH MCHC RDW Plt Count MPV Neut % (Auto) Lymph % (Auto) Leon % (Auto) Eos % (Auto) Baso % (Auto) Neut # Lymph # Leon # Eos # Baso # Neutrophils % (Manual) Band Neutrophils % Lymphocytes % (Manual) Monocytes % (Manual) Platelet Estimate Polychromasia Hypochromasia (manual) Anisocytosis (manual) Ovalocytes Sodium Potassium Chloride Carbon Dioxide Anion Gap BUN Creatinine Est GFR ( Amer) Est GFR (Non-Af Amer) POC Glucose (mg/dL) 154 H Random Glucose Calcium Magnesium Total Bilirubin AST ALT Alkaline Phosphatase Total Protein Albumin Globulin Albumin/Globulin Ratio TSH 3rd Generation Urine Color Urine Clarity Urine pH Ur Specific [place] Urine Protein Urine Glucose (UA) Urine Ketones Urine Blood Urine Nitrate Urine Bilirubin Urine Urobilinogen Ur Leukocyte Esterase Urine WBC (Auto) Urine RBC (Auto) Ur Squamous Epith Cells Urine Bacteria - EKG Data EKG comments: EKG: atrial tachycardia, LBBB Assessment & Plan - Assessment and Plan (Free Text) Assessment: * Paroxysmal atrial fibrillation -- Currently being triggered by high sympathetic tone from dehydration, anemia, and C.diff colitis * Mild acute on chronic diastolic HF -- Probably due to PAF * Anemia with possible GI bleed * C.diff colitis * Preserved LVEF * Atrial flutter status post prior aflutter ablation Plan: * Cont treatment of C.diff, anemia, and GIB, which are the underlying triggers of this patient's PAF currently * Continue amiodarone 200mg PO daily * Unable to start anticoagulation due to severe anemia and probable GI bleed. Once anemia/GIB resolves, then would recommend chronic anticoagulation for high stroke risk from PAF * Cont metoprolol and cardizem for rate control General cardiac care per Dr. Tim Harmon Will see pt from EP standpoint as needed by Dr. Harmon
[2017-01-05] MEDS: Levothyroxine 50 MCG TAB PO SCH (05:45)
[2017-01-05] MEDS: Fluticasone-Salmeterol 250-50mcg Diskus INH SCH ×2 (07:23→19:17)
[2017-01-05] MEDS: Albuterol-Ipratrop 3 mg / 0.5 (3 ml) UD INH PRN ×2 (07:24→13:45)
[2017-01-05] MEDS: diltiaZEM 120 mg/24 Hours CD Cap PO SCH (09:34)
[2017-01-05] MEDS: Ferric Sodium Gluconat Complex 62.5 mg/5 ml Vial IVPB SCH (09:34)
[2017-01-05] MEDS: Metoprolol Succinate 50 mg XL Tab PO SCH (09:34)
[2017-01-05] MEDS: Vancomycin 125 MG/5 ML SOLN (ORAL/RECTAL) PO SCH ×4 (09:34→22:19)
--- NOTE | 2017-01-05 11:58 | CARD ---
APPROVED REPORT EKG Measurement Heart [id number] <Conclusion> svt Nonspecific intraventricular block Possible Lateral infarct, age undetermined Abnormal ECG
--- NOTE | 2017-01-05 13:50 | CP.PCM.PN ---
Subjective - Date & Time of Evaluation Date of Evaluation: 01/05/17 Time of Evaluation: 13:47 - Subjective Subjective: sob ++. Objective - Vital Signs/Intake and Output Vital Signs (last 24 hours): Temp Pulse Resp BP Pulse Ox 99.2 F 123 H 20 102/68 99 01/05/17 07:35 01/05/17 07:35 01/05/17 07:35 01/05/17 09:34 01/05/17 07:35 Intake and Output: 01/05/17 01/05/17 06:59 18:59 Intake Total 400 Balance 400 - Medications Medications: Current Medications Albuterol/Ipratropium (Duoneb 3 Mg/0.5 Mg (3 Ml) Ud) 3 ml INH RQID PRN PRN Reason: Shortness of Breath Last Admin: 01/05/17 13:45 Dose: 3 ml Amiodarone HCl (Cordarone) 200 mg PO DAILY [facility] Last Admin: 01/05/17 09:34 Dose: 200 mg Diltiazem HCl (Cardizem Cd) 120 mg PO DAILY [facility] Last Admin: 01/05/17 09:34 Dose: 120 mg Ferric Sodium Gluconate Complex (Ferrlecit) 125 mg IVPB DAILY [facility] Stop: 01/07/17 10:46 Last Admin: 01/05/17 09:34 Dose: 125 mg Furosemide (Lasix) 20 mg IVP BID [facility] Last Admin: 01/05/17 09:34 Dose: 20 mg Levothyroxine Sodium (Synthroid) 50 mcg PO 0630 [facility] Last Admin: 01/05/17 05:45 Dose: 50 mcg Loperamide HCl (Imodium) 2 mg PO TID PRN PRN Reason: Diarrhea Last Admin: 12/29/16 18:54 Dose: 2 mg Metformin HCl (Glucophage Xr) 500 mg PO DAILY [facility] Last Admin: 01/05/17 09:35 Dose: 500 mg Metoprolol Succinate (Toprol Xl) 50 mg PO DAILY [facility] Last Admin: 01/05/17 09:34 Dose: 50 mg Metronidazole (Flagyl) 500 mg PO Q8 [facility] Last Admin: 01/05/17 05:45 Dose: 500 mg Mupirocin (Bactroban Ointment) 0 gm TOP BID [facility] Stop: 01/06/17 18:01 Last Admin: 01/05/17 09:35 Dose: 1 applic Rosuvastatin Calcium (Crestor) 10 mg PO HS [facility] Last Admin: 01/04/17 21:40 Dose: 10 mg Fluticasone/Salmeterol (Advair Diskus 250/50) 1 puff INH RQ12 [facility] Last Admin: 01/05/17 07:23 Dose: 1 puff Vancomycin HCl (Vancocin (Oral Or Rectal Use)) 250 mg PO QID [facility] Last Admin: 01/05/17 09:34 Dose: 250 mg - Labs Labs: 01/04/17 06:23 01/04/17 06:23 - Constitutional Appears: In Acute Distress, Chronically Ill - Head Exam Head Exam: NORMOCEPHALIC - Respiratory Exam Respiratory Exam: Rhonchi, Wheezes - Cardiovascular Exam Cardiovascular Exam: Tachycardia, REGULAR RHYTHM - GI/Abdominal Exam GI & Abdominal Exam: Soft - Extremities Exam Extremities Exam: Pedal Edema - Neurological Exam Neurological Exam: Alert, Oriented x3 Assessment and Plan - Assessment and Plan (Free Text) Assessment: recurrent chf.sinus tach on tele. will give 80 mg lasix,ct lopressor & cardizem for rate control along with amio. prognosis is poor. pt has living will,request dnr.diss with daughter. everett give supportive rx.
--- NOTE | 2017-01-05 14:14 | CP.PCM.PN ---
Subjective - Date & Time of Evaluation Date of Evaluation: 01/05/17 Time of Evaluation: 14:11 - Subjective Subjective: Has been still very dyspneiCXR with CHF On increased doses of IV lasix Good UO so far Less diarrhea Renal function, lytes have been stable No other complaints Objective - Vital Signs/Intake and Output Vital Signs (last 24 hours): Temp Pulse Resp BP Pulse Ox 99.2 F 123 H 20 102/68 99 01/05/17 07:35 01/05/17 07:35 01/05/17 07:35 01/05/17 09:34 01/05/17 07:35 Intake and Output: 01/05/17 01/05/17 06:59 18:59 Intake Total 400 Balance 400 - Medications Medications: Current Medications Albuterol/Ipratropium (Duoneb 3 Mg/0.5 Mg (3 Ml) Ud) 3 ml INH RQID PRN PRN Reason: Shortness of Breath Last Admin: 01/05/17 13:45 Dose: 3 ml Amiodarone HCl (Cordarone) 200 mg PO DAILY [facility] Last Admin: 01/05/17 09:34 Dose: 200 mg Diltiazem HCl (Cardizem Cd) 120 mg PO DAILY [facility] Last Admin: 01/05/17 09:34 Dose: 120 mg Ferric Sodium Gluconate Complex (Ferrlecit) 125 mg IVPB DAILY [facility] Stop: 01/07/17 10:46 Last Admin: 01/05/17 09:34 Dose: 125 mg Furosemide (Lasix) 20 mg IVP BID [facility] Last Admin: 01/05/17 09:34 Dose: 20 mg Furosemide (Lasix) 80 mg IVP ONCE ONE Stop: 01/05/17 14:16 Levothyroxine Sodium (Synthroid) 50 mcg PO 0630 [facility] Last Admin: 01/05/17 05:45 Dose: 50 mcg Loperamide HCl (Imodium) 2 mg PO TID PRN PRN Reason: Diarrhea Last Admin: 12/29/16 18:54 Dose: 2 mg Metformin HCl (Glucophage Xr) 500 mg PO DAILY [facility] Last Admin: 01/05/17 09:35 Dose: 500 mg Metoprolol Succinate (Toprol Xl) 50 mg PO DAILY [facility] Last Admin: 01/05/17 09:34 Dose: 50 mg Metronidazole (Flagyl) 500 mg PO Q8 [facility] Last Admin: 01/05/17 05:45 Dose: 500 mg Mupirocin (Bactroban Ointment) 0 gm TOP BID [facility] Stop: 01/06/17 18:01 Last Admin: 01/05/17 09:35 Dose: 1 applic Rosuvastatin Calcium (Crestor) 10 mg PO HS [facility] Last Admin: 01/04/17 21:40 Dose: 10 mg Fluticasone/Salmeterol (Advair Diskus 250/50) 1 puff INH RQ12 [facility] Last Admin: 01/05/17 07:23 Dose: 1 puff Vancomycin HCl (Vancocin (Oral Or Rectal Use)) 250 mg PO QID [facility] Last Admin: 01/05/17 09:34 Dose: 250 mg - Labs Labs: 01/04/17 06:23 01/04/17 06:23 - Constitutional Appears: In Acute Distress, Chronically Ill - Head Exam Head Exam: ATRAUMATIC, NORMAL INSPECTION - Eye Exam Eye Exam: EOMI, Normal appearance - Neck Exam Neck Exam: Normal Inspection. absent: Tenderness - Respiratory Exam Respiratory Exam: Rales, Respiratory Distress - Cardiovascular Exam Cardiovascular Exam: REGULAR RHYTHM, +S1 - GI/Abdominal Exam GI & Abdominal Exam: Distended, Soft - Extremities Exam Extremities Exam: Pedal Edema, Tenderness - Neurological Exam Neurological Exam: Alert, CN II-XII Intact - Skin Skin Exam: Dry, Warm Assessment and Plan (1) CKD (chronic kidney disease), stage III Status: Acute (2) Diarrhea Status: Acute (3) Clostridium difficile colitis Status: Acute (4) CHF (congestive heart failure) Status: Acute - Assessment and Plan (Free Text) Plan: Agree with IV lasix Follow up chemistries
[2017-01-05] MEDS: Acetaminophen-Codeine 300/30 mg Tab PO PRN (18:10)
--- NOTE | 2017-01-05 18:33 | CP.PCM.PN ---
Subjective - Date & Time of Evaluation Date of Evaluation: 01/05/17 Time of Evaluation: 07:00 - Subjective Subjective: rx for chf/ copd/ c diff in progress Objective - Vital Signs/Intake and Output Vital Signs (last 24 hours): Temp Pulse Resp BP Pulse Ox 98.8 F 132 H 20 130/83 95 01/05/17 15:12 01/05/17 16:00 01/05/17 15:12 01/05/17 18:22 01/05/17 15:12 Intake and Output: 01/05/17 01/05/17 06:59 18:59 Intake Total 400 Output Total 400 Balance 400 -400 - Medications Medications: Current Medications Acetaminophen/Codeine Phosphate (Tylenol/Codeine 300 Mg/30 Mg) 1 ea PO Q8 PRN PRN Reason: Cough Last Admin: 01/05/17 18:10 Dose: 1 ea Albuterol/Ipratropium (Duoneb 3 Mg/0.5 Mg (3 Ml) Ud) 3 ml INH RQID PRN PRN Reason: Shortness of Breath Last Admin: 01/05/17 13:45 Dose: 3 ml Amiodarone HCl (Cordarone) 200 mg PO DAILY [facility] Last Admin: 01/05/17 09:34 Dose: 200 mg Diltiazem HCl (Cardizem Cd) 120 mg PO DAILY [facility] Last Admin: 01/05/17 09:34 Dose: 120 mg Ferric Sodium Gluconate Complex (Ferrlecit) 125 mg IVPB DAILY [facility] Stop: 01/07/17 10:46 Last Admin: 01/05/17 09:34 Dose: 125 mg Furosemide (Lasix) 20 mg IVP BID [facility] Last Admin: 01/05/17 18:22 Dose: 20 mg Levothyroxine Sodium (Synthroid) 50 mcg PO 0630 [facility] Last Admin: 01/05/17 05:45 Dose: 50 mcg Loperamide HCl (Imodium) 2 mg PO TID PRN PRN Reason: Diarrhea Last Admin: 12/29/16 18:54 Dose: 2 mg Metformin HCl (Glucophage Xr) 500 mg PO DAILY [facility] Last Admin: 01/05/17 09:35 Dose: 500 mg Metoprolol Succinate (Toprol Xl) 50 mg PO DAILY [facility] Last Admin: 01/05/17 09:34 Dose: 50 mg Metronidazole (Flagyl) 500 mg PO Q8 [facility] Last Admin: 01/05/17 14:22 Dose: 500 mg Mupirocin (Bactroban Ointment) 0 gm TOP BID [facility] Stop: 01/06/17 18:01 Last Admin: 01/05/17 18:15 Dose: 1 applic Rosuvastatin Calcium (Crestor) 10 mg PO HS [facility] Last Admin: 01/04/17 21:40 Dose: 10 mg Fluticasone/Salmeterol (Advair Diskus 250/50) 1 puff INH RQ12 [facility] Last Admin: 01/05/17 07:23 Dose: 1 puff Vancomycin HCl (Vancocin (Oral Or Rectal Use)) 250 mg PO QID [facility] Last Admin: 01/05/17 18:13 Dose: 250 mg - Labs Labs: 01/04/17 06:23 01/04/17 06:23 - Constitutional Appears: Non-toxic, Chronically Ill - Head Exam Head Exam: NORMOCEPHALIC - Eye Exam Eye Exam: PERRL - ENT Exam ENT Exam: Mucous Membranes Dry - Neck Exam Neck Exam: absent: Lymphadenopathy - Respiratory Exam Respiratory Exam: Decreased Breath Sounds, Clear to Ausculation Bilateral - Cardiovascular Exam Cardiovascular Exam: REGULAR RHYTHM, +S1, +S2 - GI/Abdominal Exam GI & Abdominal Exam: Distended, Soft - Rectal Exam Rectal Exam: Deferred - Exam Exam: NORMAL INSPECTION - Extremities Exam Extremities Exam: absent: Pedal Edema - Back Exam Back Exam: absent: CVA tenderness (L), CVA tenderness (R) - Neurological Exam Neurological Exam: Alert, Awake - Psychiatric Exam Psychiatric exam: Depressed - Skin Skin Exam: Dry Assessment and Plan (1) Anemia Status: Acute (2) Dehydration Status: Acute (3) Intractable diarrhea Status: Acute (4) Leukocytosis Status: Acute (5) Renal insufficiency Status: Acute (6) Acute renal insufficiency Status: Acute (7) Bilateral lower extremity edema Status: Acute (8) Pancolitis Status: Acute - Assessment and Plan (Free Text) Assessment: cont iv rx
[2017-01-06] MEDS: Acetaminophen-Codeine 300/30 mg Tab PO PRN ×2 (02:20→10:46)
[2017-01-06] MEDS: Levothyroxine 50 MCG TAB PO SCH (05:53)
[2017-01-06] MEDS ORDERED: Digoxin 500 mcg/2ml (0.5 mg/2ml) Inj IVP ONE (08:17)
[2017-01-06] MEDS: diltiaZEM 180 mg/24 Hours CD Cap PO SCH ×2 (08:30→10:30)
[2017-01-06] MEDS: Albuterol-Ipratrop 3 mg / 0.5 (3 ml) UD INH SCH ×4 (08:52→19:07)
[2017-01-06] MEDS: Fluticasone-Salmeterol 250-50mcg Diskus INH SCH ×2 (08:58→19:07)
--- NOTE | 2017-01-06 09:47 | RAD ---
HISTORY: sob COMPARISON: 01/04/2017 FINDINGS: LUNGS: Howell bile interstitial pulmonary edema and/or interstitial lung disease. Confluent superimposed airspace opacities right hilar in both infrahilar regions-right greater than left. Large hiatal hernia- Carol esophageal type previously referenced -likely contributing to some right medial lung base compressive atelectatic changes here. No active pulmonary disease. PLEURA: Bilateral small pleural effusions. No pneumothorax CARDIOVASCULAR: Cardiomegaly central hilar engorgement right greater than left OSSEOUS STRUCTURES: Left shoulder arthrosis VISUALIZED UPPER ABDOMEN: Hiatal hernia noted OTHER FINDINGS: None. IMPRESSION: Cardiomegaly and pulmonary interstitial edema suspect. Concomitant interstitial pulmonary lung disease possible. Findings similar . Small bilateral pleural effusions similar. Right basal subsegmental compressive atelectasis inferred-large contributing paraesophageal hernia.
[2017-01-06] MEDS ORDERED: MethylPREDNISolone 40 mg Vial IVP ONE (10:00)
[2017-01-06] MEDS: Vancomycin 125 MG/5 ML SOLN (ORAL/RECTAL) PO SCH ×4 (10:29→22:35)
[2017-01-06] MEDS: Metoprolol Succinate 50 mg XL Tab PO SCH (10:29)
[2017-01-06] MEDS: Ferric Sodium Gluconat Complex 62.5 mg/5 ml Vial IVPB SCH (10:29)
--- NOTE | 2017-01-06 10:47 | CP.PCM.PN ---
Subjective - Date & Time of Evaluation Date of Evaluation: 01/06/17 Time of Evaluation: 10:45 - Subjective Subjective: Still SOB Good UO with IV lasix On treatment for c.diff chemistries acceptable No CPs, n, v, diarrhea now Objective - Vital Signs/Intake and Output Vital Signs (last 24 hours): Temp Pulse Resp BP Pulse Ox 99.1 F 130 H 20 151/92 H 97 01/06/17 08:46 01/06/17 08:46 01/06/17 08:46 01/06/17 08:48 01/06/17 08:46 Intake and Output: 01/06/17 01/06/17 06:59 18:59 Intake Total 630 Output Total 2009 Balance -1380 - Medications Medications: Current Medications Acetaminophen/Codeine Phosphate (Tylenol/Codeine 300 Mg/30 Mg) 1 ea PO Q8 PRN PRN Reason: Cough Last Admin: 01/06/17 02:20 Dose: 1 ea Albuterol/Ipratropium (Duoneb 3 Mg/0.5 Mg (3 Ml) Ud) 3 ml INH RQID [facility] Last Admin: 01/06/17 08:52 Dose: 3 ml Amiodarone HCl (Cordarone) 200 mg PO DAILY [facility] Last Admin: 01/06/17 10:29 Dose: 200 mg Diltiazem HCl (Cardizem Cd) 180 mg PO DAILY [facility] Last Admin: 01/06/17 10:30 Dose: Not Given Ferric Sodium Gluconate Complex (Ferrlecit) 125 mg IVPB DAILY [facility] Stop: 01/07/17 10:46 Last Admin: 01/06/17 10:29 Dose: 125 mg Furosemide (Lasix) 20 mg IVP BID [facility] Last Admin: 01/06/17 10:30 Dose: Not Given Piperacillin Sod/Tazobactam (Sod 2.275 gm/ Sodium Chloride) 100 mls @ 200 mls/ hr IVPB Q8H [facility] Levothyroxine Sodium (Synthroid) 50 mcg PO 0630 [facility] Last Admin: 01/06/17 05:53 Dose: 50 mcg Loperamide HCl (Imodium) 2 mg PO TID PRN PRN Reason: Diarrhea Last Admin: 12/29/16 18:54 Dose: 2 mg Metformin HCl (Glucophage Xr) 500 mg PO DAILY [facility] Last Admin: 10/05/17 10:29 Dose: 500 mg Metoprolol Succinate (Toprol Xl) 50 mg PO DAILY [facility] Last Admin: 01/06/17 10:29 Dose: 50 mg Metronidazole (Flagyl) 500 mg PO Q8 [facility] Last Admin: 01/06/17 05:53 Dose: 500 mg Mupirocin (Bactroban Ointment) 0 gm TOP BID [facility] Stop: 01/06/17 18:01 Last Admin: 01/06/17 10:38 Dose: 1 applic Rosuvastatin Calcium (Crestor) 10 mg PO HS [facility] Last Admin: 01/05/17 22:19 Dose: 10 mg Fluticasone/Salmeterol (Advair Diskus 250/50) 1 puff INH RQ12 [facility] Last Admin: 01/06/17 08:58 Dose: 1 puff Vancomycin HCl (Vancocin (Oral Or Rectal Use)) 250 mg PO QID [facility] Last Admin: 01/06/17 10:29 Dose: 250 mg - Labs Labs: 01/04/17 06:23 01/04/17 06:23 - Constitutional Appears: No Acute Distress, Chronically Ill - Head Exam Head Exam: ATRAUMATIC, NORMAL INSPECTION - Eye Exam Eye Exam: EOMI, Normal appearance - Neck Exam Neck Exam: Normal Inspection. absent: Tenderness - Respiratory Exam Respiratory Exam: Clear to Ausculation Bilateral, NORMAL BREATHING PATTERN - Cardiovascular Exam Cardiovascular Exam: REGULAR RHYTHM, +S1 - GI/Abdominal Exam GI & Abdominal Exam: Soft. absent: Tenderness - Extremities Exam Extremities Exam: Normal Inspection. absent: Tenderness - Neurological Exam Neurological Exam: Alert, CN II-XII Intact - Skin Skin Exam: Dry, Warm Assessment and Plan (1) CKD (chronic kidney disease), stage III Status: Acute (2) Diarrhea Status: Acute (3) Clostridium difficile colitis Status: Acute (4) CHF (congestive heart failure) Status: Acute - Assessment and Plan (Free Text) Plan: Continue same rxs Monitor lytes, renal function periodically
[2017-01-06] MEDS: Piperacillin/Tazobact 2.275 GM in Sodium Chloride 100 ML IVPB SCH ×2 (11:15→18:14)
--- NOTE | 2017-01-06 12:58 | CP.PCM.PN ---
Subjective - Date & Time of Evaluation Date of Evaluation: 01/06/17 Time of Evaluation: 12:56 - Subjective Subjective: sob ++. Objective - Vital Signs/Intake and Output Vital Signs (last 24 hours): Temp Pulse Resp BP Pulse Ox 99.1 F 136 H 20 151/92 H 97 01/06/17 08:46 01/06/17 12:01 01/06/17 08:46 01/06/17 08:48 01/06/17 08:46 Intake and Output: 01/06/17 01/06/17 06:59 18:59 Intake Total 630 Output Total 2009 Balance -1380 - Medications Medications: Current Medications Acetaminophen/Codeine Phosphate (Tylenol/Codeine 300 Mg/30 Mg) 1 ea PO Q8 PRN PRN Reason: Cough Last Admin: 01/06/17 10:46 Dose: 1 ea Albuterol/Ipratropium (Duoneb 3 Mg/0.5 Mg (3 Ml) Ud) 3 ml INH RQID [facility] Last Admin: 01/06/17 11:13 Dose: 3 ml Amiodarone HCl (Cordarone) 200 mg PO DAILY [facility] Last Admin: 01/06/17 10:29 Dose: 200 mg Diltiazem HCl (Cardizem Cd) 180 mg PO DAILY [facility] Last Admin: 01/06/17 10:30 Dose: Not Given Ferric Sodium Gluconate Complex (Ferrlecit) 125 mg IVPB DAILY [facility] Stop: 01/07/17 10:46 Last Admin: 01/06/17 10:29 Dose: 125 mg Furosemide (Lasix) 20 mg IVP BID [facility] Last Admin: 01/06/17 10:30 Dose: Not Given Piperacillin Sod/Tazobactam (Sod 2.275 gm/ Sodium Chloride) 100 mls @ 200 mls/ hr IVPB Q8H [facility] Last Admin: 01/06/17 11:15 Dose: 200 mls/hr Levothyroxine Sodium (Synthroid) 50 mcg PO 0630 [facility] Last Admin: 01/06/17 05:53 Dose: 50 mcg Loperamide HCl (Imodium) 2 mg PO TID PRN PRN Reason: Diarrhea Last Admin: 12/29/16 18:54 Dose: 2 mg Metformin HCl (Glucophage Xr) 500 mg PO DAILY [facility] Last Admin: 01/06/17 10:29 Dose: 500 mg Metoprolol Succinate (Toprol Xl) 50 mg PO DAILY [facility] Last Admin: 01/06/17 10:29 Dose: 50 mg Metronidazole (Flagyl) 500 mg PO Q8 [facility] Last Admin: 01/06/17 05:53 Dose: 500 mg Mupirocin (Bactroban Ointment) 0 gm TOP BID [facility] Stop: 01/06/17 18:01 Last Admin: 01/06/17 10:38 Dose: 1 applic Rosuvastatin Calcium (Crestor) 10 mg PO HS [facility] Last Admin: 01/05/17 22:19 Dose: 10 mg Fluticasone/Salmeterol (Advair Diskus 250/50) 1 puff INH RQ12 [facility] Last Admin: 01/06/17 08:58 Dose: 1 puff Vancomycin HCl (Vancocin (Oral Or Rectal Use)) 250 mg PO QID [facility] Last Admin: 01/06/17 10:29 Dose: 250 mg - Labs Labs: 01/04/17 06:23 01/04/17 06:23 - Constitutional Appears: In Acute Distress, Chronically Ill - Head Exam Head Exam: NORMOCEPHALIC - Respiratory Exam Respiratory Exam: Rhonchi, Wheezes - Cardiovascular Exam Cardiovascular Exam: Tachycardia - GI/Abdominal Exam GI & Abdominal Exam: Soft - Extremities Exam Extremities Exam: Pedal Edema - Neurological Exam Neurological Exam: Alert, Oriented x3 Assessment and Plan - Assessment and Plan (Free Text) Assessment: chf,svt. will increase lasix.correct mg.
[2017-01-06] MEDS: Magnesium Sulfate 1 gm in D5W 1 GM/100 ML BAG IVPB SCH ×2 (13:23→14:51)
[2017-01-06 14:12] LABS: CHLORIDE 95 mmol/L (98-107); POTASSIUM 4.4 mmol/L (3.6-5.2); SODIUM 131 mmol/L (132-148)
[2017-01-06 14:15] LABS: CARBON DIOXIDE 27 mmol/L (22-30); GFR AFRICAN-AMERICAN > 60
[2017-01-06 14:16] LABS: BLOOD UREA NITROGEN 22 mg/dL (7-17); GLUCOSE,RANDOM 115 mg/dL (65-105)
[2017-01-07] MEDS: Piperacillin/Tazobact 2.275 GM in Sodium Chloride 100 ML IVPB SCH ×4 (02:47→12:20)
[2017-01-07 05:46] LABS: AMIODARONE 0.5 mcg/mL (1.5-2.5); DESETHYLAMIODARONE 0.9 mcg/mL (1.5-2.5)
[2017-01-07] MEDS: Levothyroxine 50 MCG TAB PO SCH (05:47)
[2017-01-07 07:20] LABS: MAGNESIUM 1.8 mg/dL (1.6-2.3)
[2017-01-07] MEDS: Albuterol-Ipratrop 3 mg / 0.5 (3 ml) UD INH SCH ×4 (08:06→19:29)
[2017-01-07 08:31] LABS: POTASSIUM 4.2 mmol/L (3.6-5.2)
[2017-01-07] MEDS ORDERED: Metoprolol Succinate 100 mg XL Tab PO STA (08:33)
[2017-01-07 08:34] LABS: ALB/GLOB RATIO 0.8 (1.0-2.1); BILIRUBIN,TOTAL 0.4 mg/dL (0.2-1.3); TOTAL PROTEIN 6.2 g/dL (6.3-8.3)
[2017-01-07 08:35] LABS: CALCIUM 7.8 mg/dl (8.6-10.4)
[2017-01-07] MEDS: Fluticasone-Salmeterol 250-50mcg Diskus INH SCH ×2 (09:06→19:29)
[2017-01-07] MEDS: diltiaZEM 180 mg/24 Hours CD Cap PO SCH (10:43)
[2017-01-07] MEDS: Vancomycin 125 MG/5 ML SOLN (ORAL/RECTAL) PO SCH ×4 (10:45→23:25)
[2017-01-07] MEDS: Ferric Sodium Gluconat Complex 62.5 mg/5 ml Vial IVPB SCH (10:59)
--- NOTE | 2017-01-07 11:59 | PCM.SURG1 ---
Surgeon's Initial Post Op Note - Surgeon's Notes Surgeon: Don Melendez MD Pharmaceutical Development Technician: NONE Type of Anesthesia: Local Pre-Operative Diagnosis: Poor venous access Operative Findings: US showed a patent right basilic vein Post-Operative Diagnosis: Poor venous access Operation Performed: Single lumen picc placement right basilic vein, 34 cm. Tip is in the SVC. Specimen/Specimens Removed: None Estimated Blood Loss: EBL {In ML}: 2 Blood Products Given: N/A Drains Used: No Drains Post-Op Condition: Fair Date of Surgery/Procedure: 01/07/17 Time of Surgery/Procedure: 11:50
--- NOTE | 2017-01-07 12:19 | CP.PCM.PN ---
Subjective - Date & Time of Evaluation Date of Evaluation: 01/07/17 Time of Evaluation: 12:18 - Subjective Subjective: sob ++.edema + Objective - Vital Signs/Intake and Output Vital Signs (last 24 hours): Temp Pulse Resp BP Pulse Ox 99.8 F H 140 H 20 138/83 97 01/07/17 07:25 01/07/17 07:32 01/07/17 07:25 01/07/17 07:25 01/07/17 07:25 Intake and Output: 01/07/17 01/07/17 06:59 18:59 Intake Total 540 Output Total 1100 Balance -560 - Medications Medications: Current Medications Acetaminophen/Codeine Phosphate (Tylenol/Codeine 300 Mg/30 Mg) 1 ea PO Q8 PRN PRN Reason: Cough Last Admin: 01/06/17 10:46 Dose: 1 ea Albuterol/Ipratropium (Duoneb 3 Mg/0.5 Mg (3 Ml) Ud) 3 ml INH RQID [facility] Last Admin: 01/07/17 08:06 Dose: Not Given Amiodarone HCl (Cordarone) 200 mg PO DAILY [facility] Last Admin: 01/07/17 10:44 Dose: 200 mg Diltiazem HCl (Cardizem Cd) 180 mg PO DAILY [facility] Last Admin: 01/07/17 10:43 Dose: 180 mg Furosemide (Lasix) 80 mg IVP Q12 [facility] Last Admin: 01/07/17 10:59 Dose: Not Given Piperacillin Sod/Tazobactam (Sod 2.275 gm/ Sodium Chloride) 100 mls @ 200 mls/ hr IVPB Q8H [facility] Last Admin: 01/07/17 10:59 Dose: Not Given Levothyroxine Sodium (Synthroid) 50 mcg PO 0630 [facility] Last Admin: 01/07/17 05:47 Dose: 50 mcg Loperamide HCl (Imodium) 2 mg PO TID PRN PRN Reason: Diarrhea Last Admin: 12/29/16 18:54 Dose: 2 mg Metformin HCl (Glucophage Xr) 500 mg PO DAILY [facility] Last Admin: 01/07/17 10:44 Dose: 500 mg Metoprolol Succinate (Toprol Xl) 100 mg PO DAILY [facility] Metronidazole (Flagyl) 500 mg PO Q8 [facility] Last Admin: 01/07/17 05:47 Dose: 500 mg Nitroglycerin (Nitro-Bid 2% Oint) 1 ea TOP Q6H [facility] Stop: 01/11/17 23:59 Rosuvastatin Calcium (Crestor) 10 mg PO HS [facility] Last Admin: 01/06/17 22:36 Dose: 10 mg Fluticasone/Salmeterol (Advair Diskus 250/50) 1 puff INH RQ12 [facility] Last Admin: 01/07/17 09:06 Dose: Not Given Vancomycin HCl (Vancocin (Oral Or Rectal Use)) 250 mg PO QID [facility] Last Admin: 01/07/17 10:45 Dose: 250 mg - Labs Labs: 01/04/17 06:23 01/07/17 06:30 - Constitutional Appears: In Acute Distress, Chronically Ill - Head Exam Head Exam: NORMOCEPHALIC - Respiratory Exam Respiratory Exam: Rhonchi, Wheezes - Cardiovascular Exam Cardiovascular Exam: Tachycardia, REGULAR RHYTHM - GI/Abdominal Exam GI & Abdominal Exam: Soft - Extremities Exam Extremities Exam: Pedal Edema - Neurological Exam Neurological Exam: Alert, Oriented x3 Assessment and Plan - Assessment and Plan (Free Text) Assessment: svt,chf, will add local nitrates.lopressor increase to 100. puree diet.
[2017-01-07 12:53] LABS: HEMATOCRIT 29.9 % (34.0-47.0); MEAN CELL VOLUME 82.6 fL (81.0-99.0); MEAN CORPUSCULAR HEMOGLOBIN 27.1 pg (27.0-31.0); MEAN CORPUSCULAR HGB CONC 32.8 g/dL (33.0-37.0); MEAN PLATELET VOLUME 6.6 fL (7.2-11.7); RED CELL DISTRIBUTION WIDTH 20.6 % (11.5-14.5); WHITE BLOOD COUNT 8.5 K/uL (4.8-10.8)
[2017-01-07] MEDS: Acetaminophen-Codeine 300/30 mg Tab PO PRN (13:19)
[2017-01-07] MEDS: Nitroglycerin 2% Ointment Foilpak UD TOP SCH ×2 (13:19→18:34)
--- NOTE | 2017-01-07 14:13 | CP.PCM.PN ---
Subjective - Date & Time of Evaluation Date of Evaluation: 01/07/17 Time of Evaluation: 14:10 - Subjective Subjective: s/p PICC CXR still with CHF pattern Still very dysneic UO-1100ml this AM- on increased dose lasix IV No more diarrhea poor appetite Objective - Vital Signs/Intake and Output Vital Signs (last 24 hours): Temp Pulse Resp BP Pulse Ox 98.1 F 138 H 28 H 119/80 93 L 01/07/17 13:30 01/07/17 13:30 01/07/17 13:30 01/07/17 12:24 01/07/17 13:30 Intake and Output: 01/07/17 01/07/17 06:59 18:59 Intake Total 540 Output Total 1100 Balance -560 - Medications Medications: Current Medications Acetaminophen/Codeine Phosphate (Tylenol/Codeine 300 Mg/30 Mg) 1 ea PO Q8 PRN PRN Reason: Cough Last Admin: 01/07/17 13:19 Dose: 1 ea Albuterol/Ipratropium (Duoneb 3 Mg/0.5 Mg (3 Ml) Ud) 3 ml INH RQID [facility] Last Admin: 01/07/17 12:35 Dose: 3 ml Amiodarone HCl (Cordarone) 200 mg PO DAILY [facility] Last Admin: 01/07/17 10:44 Dose: 200 mg Diltiazem HCl (Cardizem Cd) 180 mg PO DAILY [facility] Last Admin: 01/07/17 10:43 Dose: 180 mg Furosemide (Lasix) 80 mg IVP Q12 [facility] Last Admin: 01/07/17 12:24 Dose: 80 mg Piperacillin Sod/Tazobactam (Sod 2.275 gm/ Sodium Chloride) 100 mls @ 200 mls/ hr IVPB Q8H [facility] Last Admin: 01/07/17 12:20 Dose: 200 mls/hr Levothyroxine Sodium (Synthroid) 50 mcg PO 0630 [facility] Last Admin: 01/07/17 05:47 Dose: 50 mcg Loperamide HCl (Imodium) 2 mg PO TID PRN PRN Reason: Diarrhea Last Admin: 12/29/16 18:54 Dose: 2 mg Metformin HCl (Glucophage Xr) 500 mg PO DAILY [facility] Last Admin: 01/07/17 10:44 Dose: 500 mg Metoprolol Succinate (Toprol Xl) 100 mg PO DAILY [facility] Metronidazole (Flagyl) 500 mg PO Q8 [facility] Last Admin: 01/07/17 13:19 Dose: 500 mg Nitroglycerin (Nitro-Bid 2% Oint) 1 ea TOP Q6H [facility] Stop: 01/11/17 23:59 Last Admin: 01/07/17 13:19 Dose: 1 ea Rosuvastatin Calcium (Crestor) 10 mg PO HS [facility] Last Admin: 01/06/17 22:36 Dose: 10 mg Fluticasone/Salmeterol (Advair Diskus 250/50) 1 puff INH RQ12 [facility] Last Admin: 01/07/17 09:06 Dose: Not Given Vancomycin HCl (Vancocin (Oral Or Rectal Use)) 250 mg PO QID [facility] Last Admin: 01/07/17 13:19 Dose: 250 mg - Labs Labs: 01/07/17 12:46 01/07/17 06:30 - Constitutional Appears: In Acute Distress, Chronically Ill - Head Exam Head Exam: ATRAUMATIC, NORMAL INSPECTION - Eye Exam Eye Exam: EOMI, Normal appearance - Neck Exam Neck Exam: Normal Inspection. absent: Tenderness - Respiratory Exam Respiratory Exam: Rales, Respiratory Distress - Cardiovascular Exam Cardiovascular Exam: REGULAR RHYTHM, +S1 - GI/Abdominal Exam GI & Abdominal Exam: Soft. absent: Tenderness - Extremities Exam Extremities Exam: Pedal Edema, Tenderness - Neurological Exam Neurological Exam: Awake, CN II-XII Intact - Skin Skin Exam: Dry, Warm Assessment and Plan (1) CKD (chronic kidney disease), stage III Status: Acute (2) Diarrhea Status: Acute (3) Clostridium difficile colitis Status: Acute (4) CHF (congestive heart failure) Status: Acute - Assessment and Plan (Free Text) Plan: Add metolazone Continue IV lasix Repeat chemistries
[2017-01-07] MEDS ORDERED: metOLazone 2.5 MG TAB PO SCH (14:15)
--- NOTE | 2017-01-07 17:55 | CP.PCM.PN ---
Subjective - Date & Time of Evaluation Date of Evaluation: 01/07/17 Time of Evaluation: 07:00 - Subjective Subjective: afebrile alert but weak and lethrgic no diarrhea at present Objective - Vital Signs/Intake and Output Vital Signs (last 24 hours): Temp Pulse Resp BP Pulse Ox 98.8 F 117 H 28 H 112/67 92 L 01/07/17 15:42 01/07/17 16:00 01/07/17 15:42 01/07/17 15:42 01/07/17 15:42 Intake and Output: 01/07/17 01/07/17 06:59 18:59 Intake Total 540 474 Output Total 1100 725 Balance -560 -251 - Medications Medications: Current Medications Acetaminophen/Codeine Phosphate (Tylenol/Codeine 300 Mg/30 Mg) 1 ea PO Q8 PRN PRN Reason: Cough Last Admin: 01/07/17 13:19 Dose: 1 ea Albuterol/Ipratropium (Duoneb 3 Mg/0.5 Mg (3 Ml) Ud) 3 ml INH RQID [facility] Last Admin: 01/07/17 16:04 Dose: Not Given Amiodarone HCl (Cordarone) 200 mg PO DAILY [facility] Last Admin: 01/07/17 10:44 Dose: 200 mg Diltiazem HCl (Cardizem Cd) 180 mg PO DAILY [facility] Last Admin: 01/07/17 10:43 Dose: 180 mg Furosemide (Lasix) 80 mg IVP Q12 [facility] Last Admin: 01/07/17 12:24 Dose: 80 mg Piperacillin Sod/Tazobactam (Sod 2.25 gm/ Sodium Chloride) 100 mls @ 200 mls/ hr IVPB Q8H [facility] Levothyroxine Sodium (Synthroid) 50 mcg PO 0630 [facility] Last Admin: 01/07/17 05:47 Dose: 50 mcg Loperamide HCl (Imodium) 2 mg PO TID PRN PRN Reason: Diarrhea Last Admin: 12/29/16 18:54 Dose: 2 mg Metformin HCl (Glucophage Xr) 500 mg PO DAILY [facility] Last Admin: 01/07/17 10:44 Dose: 500 mg Metolazone (Zaroxolyn) 2.5 mg PO DAILY [facility] Last Admin: 01/07/17 14:40 Dose: 2.5 mg Metoprolol Succinate (Toprol Xl) 100 mg PO DAILY [facility] Metronidazole (Flagyl) 500 mg PO Q8 [facility] Last Admin: 01/07/17 13:19 Dose: 500 mg Nitroglycerin (Nitro-Bid 2% Oint) 1 ea TOP Q6H [facility] Stop: 01/11/17 23:59 Last Admin: 01/07/17 13:19 Dose: 1 ea Rosuvastatin Calcium (Crestor) 10 mg PO HS [facility] Last Admin: 01/06/17 22:36 Dose: 10 mg Fluticasone/Salmeterol (Advair Diskus 250/50) 1 puff INH RQ12 [facility] Last Admin: 01/07/17 09:06 Dose: Not Given Vancomycin HCl (Vancocin (Oral Or Rectal Use)) 250 mg PO QID [facility] Last Admin: 01/07/17 13:19 Dose: 250 mg - Labs Labs: 01/07/17 12:46 01/07/17 06:30 - Constitutional Appears: Non-toxic, Chronically Ill - Head Exam Head Exam: NORMOCEPHALIC - Eye Exam Eye Exam: PERRL. absent: Scleral icterus - ENT Exam ENT Exam: Mucous Membranes Dry - Neck Exam Neck Exam: absent: Lymphadenopathy - Respiratory Exam Respiratory Exam: Decreased Breath Sounds, Rales, Rhonchi - Cardiovascular Exam Cardiovascular Exam: REGULAR RHYTHM, +S1, +S2 - GI/Abdominal Exam GI & Abdominal Exam: Distended, Soft. absent: Tenderness - Rectal Exam Rectal Exam: Deferred - Exam Exam: NORMAL INSPECTION - Extremities Exam Extremities Exam: Pedal Edema - Back Exam Back Exam: absent: CVA tenderness (L), CVA tenderness (R) - Neurological Exam Neurological Exam: Alert, Awake, Oriented x3 - Psychiatric Exam Psychiatric exam: Depressed - Skin Skin Exam: Dry Assessment and Plan (1) Anemia Status: Acute (2) Dehydration Status: Acute (3) Intractable diarrhea Status: Acute (4) Leukocytosis Status: Acute (5) Renal insufficiency Status: Acute (6) Acute renal insufficiency Status: Acute (7) Bilateral lower extremity edema Status: Acute (8) Pancolitis Status: Acute - Assessment and Plan (Free Text) Assessment: severe chf s/p c diff colitis recent uti- recurrent afeb and wbc wnl cont iv and po rx poor prognosis
[2017-01-07] MEDS: Piperacillin/Tazobact 2.25 GM in Sodium Chloride 100 ML IVPB SCH (18:36)
--- NOTE | 2017-01-07 21:34 | CP.PCM.PN ---
Subjective - Date & Time of Evaluation Date of Evaluation: 01/06/17 Time of Evaluation: 21:34 - Subjective Subjective: Patient was examined by me on 01/04/2017. Patient is sitting up on the commode, increasing diarrhea noted. Mild exertional dyspnea noted. Complaining of cough. No chest pain Vital signs is stable. Tachycardia noted, heart rate is 1 23 bpm irregular Chest bilateral wheezing noted Abdomen nontender Bilateral leg edema noted Assessment and recommendation: 86-year-old female with a history of hypertension congestive heart failure severe pulmonary hypertension atrial fibrillation admitted with C. difficile colitis. Complicated the respiratory insufficiency possibly secondary to aspiration pneumonitis. Will start the patient on antibiotic, continue the current treatment. Bronchodilator. Will follow the patient. Chest x-ray showing evidence of right lower lung pneumonia, likely aspiration pneumonitis. I spoke to the patient's son about the condition. Patient overall situation is not improving. Objective - Vital Signs/Intake and Output Vital Signs (last 24 hours): Temp Pulse Resp BP Pulse Ox 98.8 F 117 H 28 H 112/67 92 L 01/07/17 15:42 01/07/17 16:00 01/07/17 15:42 01/07/17 15:42 01/07/17 15:42 Intake and Output: 01/07/17 01/08/17 18:59 06:59 Intake Total 474 Output Total 725 Balance -251 - Medications Medications: Current Medications Acetaminophen/Codeine Phosphate (Tylenol/Codeine 300 Mg/30 Mg) 1 ea PO Q8 PRN PRN Reason: Cough Last Admin: 01/07/17 13:19 Dose: 1 ea Albuterol/Ipratropium (Duoneb 3 Mg/0.5 Mg (3 Ml) Ud) 3 ml INH RQID [facility] Last Admin: 01/07/17 19:29 Dose: 3 ml Amiodarone HCl (Cordarone) 200 mg PO DAILY [facility] Last Admin: 01/07/17 10:44 Dose: 200 mg Diltiazem HCl (Cardizem Cd) 180 mg PO DAILY [facility] Last Admin: 01/07/17 10:43 Dose: 180 mg Furosemide (Lasix) 80 mg IVP Q12 [facility] Last Admin: 01/07/17 12:24 Dose: 80 mg Piperacillin Sod/Tazobactam (Sod 2.25 gm/ Sodium Chloride) 100 mls @ 200 mls/ hr IVPB Q8H [facility] Last Admin: 01/07/17 18:36 Dose: 200 mls/hr Levothyroxine Sodium (Synthroid) 50 mcg PO 0630 [facility] Last Admin: 01/07/17 05:47 Dose: 50 mcg Loperamide HCl (Imodium) 2 mg PO TID PRN PRN Reason: Diarrhea Last Admin: 12/29/16 18:54 Dose: 2 mg Metformin HCl (Glucophage Xr) 500 mg PO DAILY [facility] Last Admin: 01/07/17 10:44 Dose: 500 mg Metolazone (Zaroxolyn) 2.5 mg PO DAILY [facility] Last Admin: 01/07/17 14:40 Dose: 2.5 mg Metoprolol Succinate (Toprol Xl) 100 mg PO DAILY [facility] Metronidazole (Flagyl) 500 mg PO Q8 [facility] Last Admin: 01/07/17 13:19 Dose: 500 mg Nitroglycerin (Nitro-Bid 2% Oint) 1 ea TOP Q6H [facility] Stop: 01/11/17 23:59 Last Admin: 01/07/17 18:34 Dose: 1 ea Rosuvastatin Calcium (Crestor) 10 mg PO HS [facility] Last Admin: 01/06/17 22:36 Dose: 10 mg Fluticasone/Salmeterol (Advair Diskus 250/50) 1 puff INH RQ12 [facility] Last Admin: 01/07/17 19:29 Dose: 1 puff Vancomycin HCl (Vancocin (Oral Or Rectal Use)) 250 mg PO QID [facility] Last Admin: 01/07/17 18:35 Dose: 250 mg - Labs Labs: 01/07/17 12:46 01/07/17 06:30
--- NOTE | 2017-01-07 21:34 | CP.PCM.PN ---
Subjective - Date & Time of Evaluation Date of Evaluation: 01/07/17 Time of Evaluation: 21:34 - Subjective Subjective: Patient has episode of shortness of breath. Patient's son is at bedside. Immediate chest x-ray showing evidence of increasing infiltrative changes. Laboratory bleeding noted. No place ordered. Oxygen placed. We'll continue the diuretics at this time. Overall prognosis is very poor. 86-year-old female admitted with the initially severe anemia, received a blood transfusion, complicated with aspiration pneumonia. Anasarca noted. Also worsening renal insufficiency, sepsis, C. difficile colitis. We'll continue the current supportive treatment. Condition may get worse. Will speak to the family Objective - Vital Signs/Intake and Output Vital Signs (last 24 hours): Temp Pulse Resp BP Pulse Ox 98.8 F 117 H 28 H 112/67 92 L 01/07/17 15:42 01/07/17 16:00 01/07/17 15:42 01/07/17 15:42 01/07/17 15:42 Intake and Output: 01/07/17 01/08/17 18:59 06:59 Intake Total 474 Output Total 725 Balance -251 - Medications Medications: Current Medications Acetaminophen/Codeine Phosphate (Tylenol/Codeine 300 Mg/30 Mg) 1 ea PO Q8 PRN PRN Reason: Cough Last Admin: 01/07/17 13:19 Dose: 1 ea Albuterol/Ipratropium (Duoneb 3 Mg/0.5 Mg (3 Ml) Ud) 3 ml INH RQID [facility] Last Admin: 01/07/17 19:29 Dose: 3 ml Amiodarone HCl (Cordarone) 200 mg PO DAILY [facility] Last Admin: 01/07/17 10:44 Dose: 200 mg Diltiazem HCl (Cardizem Cd) 180 mg PO DAILY [facility] Last Admin: 01/07/17 10:43 Dose: 180 mg Furosemide (Lasix) 80 mg IVP Q12 [facility] Last Admin: 01/07/17 12:24 Dose: 80 mg Piperacillin Sod/Tazobactam (Sod 2.25 gm/ Sodium Chloride) 100 mls @ 200 mls/ hr IVPB Q8H [facility] Last Admin: 01/07/17 18:36 Dose: 200 mls/hr Levothyroxine Sodium (Synthroid) 50 mcg PO 0630 [facility] Last Admin: 01/07/17 05:47 Dose: 50 mcg Loperamide HCl (Imodium) 2 mg PO TID PRN PRN Reason: Diarrhea Last Admin: 12/29/16 18:54 Dose: 2 mg Metformin HCl (Glucophage Xr) 500 mg PO DAILY [facility] Last Admin: 01/07/17 10:44 Dose: 500 mg Metolazone (Zaroxolyn) 2.5 mg PO DAILY [facility] Last Admin: 01/07/17 14:40 Dose: 2.5 mg Metoprolol Succinate (Toprol Xl) 100 mg PO DAILY [facility] Metronidazole (Flagyl) 500 mg PO Q8 [facility] Last Admin: 01/07/17 13:19 Dose: 500 mg Nitroglycerin (Nitro-Bid 2% Oint) 1 ea TOP Q6H [facility] Stop: 01/11/17 23:59 Last Admin: 01/07/17 18:34 Dose: 1 ea Rosuvastatin Calcium (Crestor) 10 mg PO HS [facility] Last Admin: 01/06/17 22:36 Dose: 10 mg Fluticasone/Salmeterol (Advair Diskus 250/50) 1 puff INH RQ12 [facility] Last Admin: 01/07/17 19:29 Dose: 1 puff Vancomycin HCl (Vancocin (Oral Or Rectal Use)) 250 mg PO QID [facility] Last Admin: 01/07/17 18:35 Dose: 250 mg - Labs Labs: 01/07/17 12:46 01/07/17 06:30
[2017-01-07 21:46] LABS: DRAW SITE RRA
--- NOTE | 2017-01-07 22:18 | PCM.RRT ---
<Benjamin Bustillo - Last Filed: 01/09/17 09:15> [employer] Nurses Assessment New IV Insertion Tolerance: Good I.Reason for [employer] - A) Acute Change in Patient: (Select all that apply): Acute change in heart rate less than 50 or greater than 120 - Neurological Status (Select all that apply): Verbal, Lethargic. absent: Responsive - Constitutional Appears: In Acute Distress (tachypneic ) - Head Head Exam: ATRAUMATIC, NORMOCEPHALIC - Eyes Eye Exam: EOMI, Normal appearance - Respiratory Exam Respiratory Exam: Accessory Muscle Use, Rales (throughout), Wheezes (throughout) . absent: NORMAL BREATHING PATTERN (tachypneic ) - Cardiovascular Exam Cardiovascular Exam: Tachycardia (140's) - Neurological Exam Neurological Exam: Alert, Awake Plan - Assessment of Findings&Treatment Plan Nurse called [employer] due to increase in HR to 140s, tachypnea and patient appearing more lethargic/difficult to wake up. Patient sounded extremely tight throughout her lung tatum. A chest x-ray was obtained. It is believed that she has a worsening development of aspiration pneumonia. Patient was transferred to ICU. The patient's son and daughter were contacted and they arrived to the hospital. Dr. Lopez had a conversation with both of them. It was decided that the patient be intubated to help decrease the patient's work load. Patient was intubated. <Tim Lopez - Last Filed: 01/18/17 07:54> [facility] Nurses Assessment - Vital Signs Vital Signs: Rapid Response Vital Sign Blood Pressure 142/90 Pulse Rate 153 Respiratory Rate 28 Temperature 98.8 F Oxygen Saturation 88 - Vital Signs at end of [employer] Vital Signs at end of [employer]: Rapid Response End Vital Sign Blood Pressure 146/95 Pulse Rate 142 Respiratory Rate 24 Temperature 98.2 F O2 Sat by Pulse Oximetry 92 Attending/Attestation - Attestation I have personally seen and examined this patient.: Yes I have fully participated in the care of the patient.: Yes I have reviewed all pertinent clinical information, including history, physical exam and plan: Yes Notes (Text): See note for the same day.
[2017-01-07] MEDS ORDERED: Albuterol-Ipratrop 3 mg / 0.5 (3 ml) UD INH STA (22:31)
[2017-01-07] MEDS: Midazolam 50 mg/10 ml 100 MG in Sodium Chloride 0.9% 80 ML IV SCH (23:45)
[2017-01-08 00:26] LABS: ABG ALLEN TEST POS; ABG MECHANICAL RATE 16; ARTERIAL BLOOD GAS MODE PRVC; ARTERIAL BLOOD HGB O2 SAT 96.2 % (95.0-98.0); ATERIAL BLOOD GAS PEEP 5; CARBOXYHEMOGLOBIN 0.5 % (0.5-1.5); DRAW SITE RR; HHB 2.1 % (0.0-5.0); METHEMOGLOBIN 1.2 % (0.0-3.0)
[2017-01-08] MEDS ORDERED: Acetaminophen 650mg/20.3ml solution UD PO STA (00:31)
[2017-01-08] MEDS ORDERED: Acetaminophen 650mg/20.3ml solution UD PO PRN (00:33)
[2017-01-08 00:51] LABS: BASO % 0.1 % (0.0-2.0); HEMATOCRIT 29.5 % (34.0-47.0); LYMPH # 0.2 K/uL (1.0-4.3); LYMPH % 1.9 % (20.0-40.0); MEAN CORPUSCULAR HEMOGLOBIN 27.4 pg (27.0-31.0); MEAN PLATELET VOLUME 6.8 fL (7.2-11.7); MONO # 0.5 K/uL (0.0-0.8); MONO % 5.5 % (0.0-10.0); NRBC % 0.1 % (0.0-2.0); PLATELET COUNT 246 K/uL (130-400); RED CELL DISTRIBUTION WIDTH 21.1 % (11.5-14.5); WHITE BLOOD COUNT 8.3 K/uL (4.8-10.8)
[2017-01-08] MEDS ORDERED: Acetaminophen 650mg/20.3ml solution UD ONE (00:58)
[2017-01-08] MEDS: Piperacillin/Tazobact 2.25 GM in Sodium Chloride 100 ML IVPB SCH ×3 (00:59→17:31)
[2017-01-08 01:00] LABS: POTASSIUM 4.4 mmol/L (3.6-5.2)
[2017-01-08 01:02] LABS: ALB/GLOB RATIO 0.8 (1.0-2.1); BILIRUBIN,TOTAL 0.5 mg/dL (0.2-1.3); TOTAL PROTEIN 5.7 g/dL (6.3-8.3)
[2017-01-08 01:03] LABS: CALCIUM 7.5 mg/dl (8.6-10.4); MAGNESIUM 1.7 mg/dL (1.6-2.3); PHOSPHOROUS 3.5 mg/dL (2.5-4.5)
[2017-01-08 01:14] LABS: TROPONIN I 0.099 ng/mL (0.00-0.120)
[2017-01-08 01:42] LABS: RBC URINE 4 /hpf (0-3); URINE BACTERIA RARE (<OCC); URINE BILIRUBIN NEGATIVE (NEGATIVE); URINE BLOOD 1+ (NEGATIVE); URINE COLOR Yellow (YELLOW); URINE GLUCOSE (UA) NORMAL (Normal); URINE KETONE NEGATIVE (NEGATIVE); URINE LEUKOCYTE ESTERASE 2+ Leu/uL (Negative); URINE PROTEIN NEGATIVE (NEGATIVE); URINE UROBILINOGEN NORMAL mg/dL (0.2-1.0); WBC URINE 28 /hpf (0-5)
[2017-01-08 02:26] LABS: NEUTROPHIL 83 % (50-75); REACTIVE LYMPHOCYTES 1 % (0-0); TOTAL CELLS COUNTED 100
[2017-01-08] MEDS: Levothyroxine 50 MCG TAB PO SCH (06:13)
--- NOTE | 2017-01-08 06:55 | PCM.PROC ---
Procedures Attestation:: I certify that I have explained the specified Operation(s) or Procedure(s), risks, benefits and reasonable alternatives to the Patient and/or other person responsible. The opportunity was given to ask questions and all questions answered - Intubation Sedative: Etomidate Laryngoscope: Adan (4) ET Tube Size: 7.5 ET Tube Uncuffed: No ET Tube Secured at Depth: 21 ET Tube Secured Locarion: Lips ET Tube Placement Confirmation: Visualized Passing Through Cords, Breath Sounds Equal Bilaterally, No Breath Sounds Over Epigastrum, Confirmation w/Capnometry ( Position confirmed with CXR tip above [place].)
--- NOTE | 2017-01-08 07:07 | CP.PCM.PN ---
Subjective - Date & Time of Evaluation Date of Evaluation: 01/07/17 Time of Evaluation: 22:00 - Subjective Subjective: Patient was seen in [facility], for sob, tachycardia, irregular, being treated for CHF , Cdiff coliti and suspected aspiration pna, initial impression was of chf, but cxr showed worsening of gonzalez basal infltrates, also present interstitial edema, prior chart reviewed significant hiatal hernia noticed. Patient was breathing at >40 breaths/min, needing 100% fio2. Dr Tierney being on pulmonary consult spoke to the family and daughter and son came to the hospital. Daughter being the POA mentioned patient although has signed DNR probably during vegetative state but at the time of eval daughter Destinee, son and patient decided to go ahead with ventilator and patient intubated by me. She has b/l wheezing before intubation. Assessment/Plan Resp failure mainly from aspiration pna probably from hiatal hernia, secondary interstitial edema intubated on vented, family may decide to terminally extubate if she doesn't improve in 1-2 days. Cdiff colitis Recent severe anemia suspecting from gi bleeding hence observing off heparin Hypoxia Full code for now although patient has living will will be reviewed with family again DC, metalozone, metformin, lasix prn, bp meds with parameter added PPI, doxycycline continue rest of them meds See orders for detail. Objective - Vital Signs/Intake and Output Vital Signs (last 24 hours): Temp Pulse Resp BP Pulse Ox 98.9 F 114 H 18 107/55 L 100 01/08/17 04:00 01/08/17 04:00 01/08/17 04:00 01/08/17 04:00 01/08/17 04:00 Intake and Output: 01/07/17 01/08/17 18:59 06:59 Intake Total 474 344 Output Total 725 300 Balance -251 44 - Medications Medications: Current Medications Acetaminophen (Tylenol 650mg/20.3ml Solution Ud) 650 mg PO Q6H PRN PRN Reason: Fever Acetaminophen/Codeine Phosphate (Tylenol/Codeine 300 Mg/30 Mg) 1 ea PO Q8 PRN PRN Reason: Cough Last Admin: 01/07/17 13:19 Dose: 1 ea Albuterol Sulfate (Albuterol 0.042% Inhal Kimberly (1.25mg/3ml) Ud) 1.25 mg INH RQ3 PRN PRN Reason: shortness of breath Albuterol/Ipratropium (Duoneb 3 Mg/0.5 Mg (3 Ml) Ud) 3 ml INH RQID [facility] Last Admin: 01/07/17 19:29 Dose: 3 ml Amiodarone HCl (Cordarone) 200 mg PO DAILY [facility] Last Admin: 01/07/17 10:44 Dose: 200 mg Diltiazem HCl (Cardizem Cd) 180 mg PO DAILY [facility] Last Admin: 01/07/17 10:43 Dose: 180 mg Furosemide (Lasix) 80 mg IVP Q12 CLARI Last Admin: 01/07/17 21:53 Dose: 80 mg Piperacillin Sod/Tazobactam (Sod 2.25 gm/ Sodium Chloride) 100 mls @ 200 mls/ hr IVPB Q8H [facility] Last Admin: 01/08/17 00:59 Dose: 200 mls/hr Midazolam HCl 100 mg/ Sodium (Chloride) 100 mls @ 1.85 mls/hr IV .Q24H CLARI; 0.02 MG/KG/HR PRN Reason: Protocol Last Titration: 01/08/17 01:45 Dose: 0 mg/kg/hr, 0 mls/hr Doxycycline Hyclate 100 mg/ (Sodium Chloride) 100 mls @ 100 mls/hr IVPB Q12H [facility] Last Admin: 01/08/17 00:00 Dose: 100 mls/hr Levothyroxine Sodium (Synthroid) 50 mcg PO 0630 [facility] Last Admin: 01/08/17 06:13 Dose: 50 mcg Metoprolol Succinate (Toprol Xl) 100 mg PO DAILY [facility] Metronidazole (Flagyl) 500 mg PO Q8 [facility] Last Admin: 01/08/17 06:13 Dose: 500 mg Pantoprazole Sodium (Protonix Inj) 40 mg IVP DAILY [facility] Rosuvastatin Calcium (Crestor) 10 mg PO HS [facility] Last Admin: 01/07/17 23:21 Dose: Not Given Fluticasone/Salmeterol (Advair Diskus 250/50) 1 puff INH RQ12 [facility] Last Admin: 01/07/17 19:29 Dose: 1 puff Vancomycin HCl (Vancocin (Oral Or Rectal Use)) 250 mg PO QID [facility] Last Admin: 01/07/17 23:25 Dose: 250 mg - Labs Labs: 01/08/17 00:47 01/08/17 00:47
[2017-01-08] MEDS: Fluticasone-Salmeterol 250-50mcg Diskus INH SCH (07:46)
[2017-01-08] MEDS: Albuterol 0.042% Inhal Sol (1.25 mg/3 mL) UD INH PRN ×2 (07:47→13:47)
[2017-01-08] MEDS: Albuterol-Ipratrop 3 mg / 0.5 (3 ml) UD INH SCH ×3 (07:50→20:24)
[2017-01-08] MEDS: Sodium Chloride 0.9% 1,000 ML IV SCH ×3 (09:01→21:30)
[2017-01-08] MEDS ORDERED: Digoxin 500 mcg/2ml (0.5 mg/2ml) Inj IVP ONE (09:15)
[2017-01-08] MEDS: Vancomycin 125 MG/5 ML SOLN (ORAL/RECTAL) PO SCH ×4 (09:38→22:40)
--- NOTE | 2017-01-08 09:39 | CP.CCUPN ---
CCU Subjective - Physician Review Events Since Last Encounter (Free Text): 01/08/17 09:38 The patient is a 86-year-old female with a history of atrial fibrillation, C. difficile colitis, diarrhea, admitted to the intensive care unit last night with acute respiratory failure, complicated with aspiration pneumonia. Patient is currently on ventilator. Family is at bedside. I spoke to the family in details pain Family does not want her to be on mechanical ventilator for long time. They will be considering about withdrawal tonight or tomorrow. If needed. On examination: Patient is awake and responding, sedated at this time. On ventilator. 70% FiO2. Chest bilateral wheezing and rales noted Irregular heart sound, edema noted Chest x-ray increasing CHF pattern noted, are infiltrative changes noted. Assessment and recommendation: Acute respiratory failure, on ventilator. Likely aspiration pneumonitis. Severe pulmonary hypertension. Atrial fibrillation. C. difficile colitis. Overall prognosis very poor. We'll discuss with the family about the further management. On antibiotic, IV fluid, on ventilator. Control the heart rate and will follow the patient CCU Objective - Vital Signs / Intake & Output Vital Signs (Last 4 hours): Vital Signs Pulse Resp BP Pulse Ox 01/08/17 07:30 124 H 30 H 97 01/08/17 07:20 138 H 22 98 01/08/17 07:10 120 H 20 98 01/08/17 07:00 116 H 20 98 01/08/17 06:50 125 H 28 H 98 01/08/17 06:40 121 H 25 H 98 01/08/17 06:38 134 H 18 100/53 L 98 01/08/17 06:30 125 H 20 98 01/08/17 06:20 122 H 18 98 01/08/17 06:10 117 H 17 98 01/08/17 06:00 142 H 21 98 01/08/17 05:58 140 H 21 99/49 L 97 01/08/17 05:50 131 H 22 98 01/08/17 05:40 117 H 19 98 Intake and Output (Last 8hrs): Intake & Output 01/07/17 01/08/17 01/08/17 22:59 06:59 14:59 Intake Total 474 498 Output Total 725 900 100 Balance -251 -402 -100 Weight 206 lb Intake: IV 4 Intake, IV Amount 234 254 Right Antecubital 150 Right Hand 234 100 Right PICC 4 Oral 240 240 Output: Urine 725 900 100 Urethral (Renee) 725 900 100 Other: # Voids Urine, Voided 0 - Medications Active Medications: Active Medications Generic Name Dose Route Start Last Admin Trade Name Freq PRN Reason Stop Dose Admin Acetaminophen 650 mg 01/08/17 00:33 Tylenol 650mg/20.3ml Solution Ud PO Q6H PRN Fever Acetaminophen/Codeine Phosphate 1 ea 01/05/17 17:34 01/07/17 13:19 Tylenol/Codeine 300 Mg/30 Mg PO 1 ea Q8 PRN Administration Cough Albuterol Sulfate 1.25 mg 01/07/17 23:12 01/08/17 07:47 Albuterol 0.042% Inhal Kimberly (1.25mg/3ml) Ud INH 1.25 mg RQ3 PRN Administration shortness of breath Albuterol/Ipratropium 3 ml 01/06/17 08:45 01/08/17 07:50 Duoneb 3 Mg/0.5 Mg (3 Ml) Ud INH Not Given RQID CLARI Famotidine 20 mg 01/08/17 10:00 01/08/17 09:35 Pepcid PO 20 mg BID CLARI Administration Piperacillin Sod/Tazobactam 100 mls @ 200 mls/hr 01/07/17 18:00 01/08/17 00: 59 Sod 2.25 gm/ Sodium Chloride IVPB 200 mls/hr Q8H CLARI Administration Midazolam HCl 100 mg/ Sodium 100 mls @ 1.85 mls/hr 01/07/17 23:15 01/08/17 01 :45 Chloride IV 0 mg/kg/hr .Q24H CLARI 0 mls/hr Protocol Titration 0.02 MG/KG/HR Sodium Chloride 1,000 mls @ 100 mls/hr 01/08/17 09:00 01/08/17 09:01 Sodium Chloride 0.9% IV 100 mls/hr .Q10H CLARI Administration Amiodarone HCl 900 mg/ 500 mls @ 33.33 mls/hr 01/08/17 09:36 Dextrose IV 01/09/17 00:36 .Q15H1M ONE Protocol 1 MG/MIN Amiodarone HCl 900 mg/ 500 mls @ 16.66 mls/hr 01/08/17 09:36 Dextrose IV 01/09/17 09:35 .Q24H ONE Protocol 0.5 MG/MIN Levothyroxine Sodium 50 mcg 12/28/16 06:30 01/08/17 06:13 Synthroid PO 50 mcg 0630 CLARI Administration Metronidazole 500 mg 01/03/17 06:00 01/08/17 06:13 Flagyl PO 500 mg Q8 CLARI Administration Morphine Sulfate 2 mg 01/08/17 08:52 Morphine IVP Q4 PRN pain Rosuvastatin Calcium 10 mg 12/27/16 22:45 01/07/17 23:21 Crestor PO Not Given HS CL[facility]I Fluticasone/Salmeterol 1 puff 01/03/17 20:00 01/08/17 07:46 Advair Diskus 250/50 INH Not Given RQ12 [facility] Vancomycin HCl 250 mg 12/28/16 00:30 01/07/17 23:25 Vancocin (Oral Or Rectal Use) PO 250 mg QID [facility]I Administration - Patient Studies Lab Studies: Lab Studies 01/08/17 01/08/17 01/08/17 Range/Units 07:38 01:32 00:47 WBC (4.8-10.8) K/uL RBC (3.80-5.20) Mil/uL Hgb (11.0-16.0) g/dL Hct (34.0-47.0) % MCV (81.0-99.0) fL MCH (27.0-31.0) pg MCHC (33.0-37.0) g/dL RDW (11.5-14.5) % Plt Count (130-400) K/uL MPV (7.2-11.7) fL Neut % (Auto) (50.0-75.0) % Lymph % (Auto) (20.0-40.0) % [place] % (Auto) (0.0-10.0) % Eos % (Auto) (0.0-4.0) % Baso % (Auto) (0.0-2.0) % Neut # (1.8-7.0) K/uL Lymph # (1.0-4.3) K/uL [place] # (0.0-0.8) K/uL Eos # (0.0-0.7) K/uL Baso # (0.0-0.2) K/uL Neutrophils % (Manual) (50-75) % Band Neutrophils % (0-2) % Lymphocytes % (Manual) (20-40) % Reactive Lymphs % (0-0) % Monocytes % (Manual) (0-10) % Platelet Estimate (NORMAL) Puncture Site pCO2 (35-45) mm/Hg pO2 (80-100) mm/Hg HCO3 (21-28) mmol/L ABG pH (7.35-7.45) ABG Total CO2 (22-28) mmol/L ABG O2 Saturation (95-98) % ABG Base Excess (-2.0-3.0) mmol/L ABG Hemoglobin (11.7-17.4) g/dL ABG Carboxyhemoglobin (0.5-1.5) % POC ABG HHb (Measured) (0.0-5.0) % ABG Methemoglobin (0.0-3.0) % Sukumar Test ABG Potassium (3.6-5.2) mmol/L A-a O2 Difference mm/Hg Respiratory Index Hgb O2 Saturation (95.0-98.0) % Sodium 128 L (132-148) mmol/l Chloride 92 L (98-107) mmol/L Glucose (65-105) mg/dl Lactate (0.7-2.1) mmol/L Vent Mode Mechanical Rate FiO2 % Tidal Volume PEEP Potassium 4.4 (3.6-5.2) mmol/L Carbon Dioxide 26 (22-30) mmol/L Anion Gap 14 (10-20) BUN 42 H (7-17) mg/dL Creatinine 1.7 H (0.7-1.2) mg/dL Est GFR ( Amer) 34 Est GFR (Non-Af Amer) 28 POC Glucose (mg/dL) 99 (65-110) mg/dL Random Glucose 131 H (65-105) mg/dL Calcium 7.5 L (8.6-10.4) mg/dl Phosphorus 3.5 (2.5-4.5) mg/dL Magnesium 1.7 (1.6-2.3) mg/dL Total Bilirubin 0.5 (0.2-1.3) mg/dL AST 29 (14-36) U/L ALT 28 (9-52) U/L Alkaline Phosphatase 54 (38-126) U/L Troponin I 0.0990 (0.00-0.120) ng/mL Total Protein 5.7 L (6.3-8.3) g/dL Albumin 2.5 L (3.5-5.0) g/dL Globulin 3.2 (2.2-3.9) gm/dL Albumin/Globulin Ratio 0.8 L (1.0-2.1) Arterial Blood Potassium (3.6-5.2) mmol/L Urine Color Yellow (YELLOW) Urine Clarity Hazy (Clear) Urine pH 5.0 (5.0-8.0) Ur Specific [place] 1.012 (1.003-1.030) Urine Protein Negative (NEGATIVE) mg/dL Urine Glucose (UA) Normal (Normal) mg/dL Urine Ketones Negative (NEGATIVE) mg/dL Urine Blood 1+ H (NEGATIVE) Urine Nitrate Negative (NEGATIVE) Urine Bilirubin Negative (NEGATIVE) Urine Urobilinogen Normal (0.2-1.0) mg/dL Ur Leukocyte Esterase 2+ H (Negative) Dorie/uL Urine WBC (Auto) 28 H (0-5) /hpf Urine RBC (Auto) 4 H (0-3) /hpf Ur Squamous Epith Cells < 1 (0-5) /hpf Urine Bacteria Rare (<OCC) 01/08/17 01/08/17 01/07/17 Range/Units 00:47 00:23 21:40 WBC 8.3 (4.8-10.8) K/uL RBC 3.55 L (3.80-5.20) Mil/uL Hgb 9.7 L (11.0-16.0) g/dL Hct 29.5 L (34.0-47.0) % MCV 83.0 (81.0-99.0) fL MCH 27.4 (27.0-31.0) pg MCHC 33.0 (33.0-37.0) g/dL RDW 21.1 H (11.5-14.5) % Plt Count 246 (130-400) K/uL MPV 6.8 L (7.2-11.7) fL Neut % (Auto) 92.5 H (50.0-75.0) % Lymph % (Auto) 1.9 L (20.0-40.0) % [place] % (Auto) 5.5 (0.0-10.0) % Eos % (Auto) 0.0 (0.0-4.0) % Baso % (Auto) 0.1 (0.0-2.0) % Neut # 7.7 H (1.8-7.0) K/uL Lymph # 0.2 L (1.0-4.3) K/uL Glasscock # 0.5 (0.0-0.8) K/uL Eos # 0.0 (0.0-0.7) K/uL Baso # 0.0 (0.0-0.2) K/uL Neutrophils % (Manual) 83 H (50-75) % Band Neutrophils % 9 H (0-2) % Lymphocytes % (Manual) 1 L (20-40) % Reactive Lymphs % 1 H (0-0) % Monocytes % (Manual) 6 (0-10) % Platelet Estimate Normal (NORMAL) Puncture Site Rr Rra pCO2 46 H 49 H (35-45) mm/Hg pO2 211 H 95 (80-100) mm/Hg HCO3 28.6 H 29.7 H (21-28) mmol/L ABG pH 7.42 7.42 (7.35-7.45) ABG Total CO2 31.2 H 33.3 H (22-28) mmol/L ABG O2 Saturation 97.9 97.3 (95-98) % ABG Base Excess 4.7 H 6.1 H (-2.0-3.0) mmol/L ABG Hemoglobin 10.1 L (11.7-17.4) g/dL ABG Carboxyhemoglobin 0.5 (0.5-1.5) % POC ABG HHb (Measured) 2.1 (0.0-5.0) % ABG Methemoglobin 1.2 (0.0-3.0) % Sukumar Test Pos Na ABG Potassium 4.4 (3.6-5.2) mmol/L A-a O2 Difference 445.0 557.0 mm/Hg Respiratory Index 2.1 5.9 Hgb O2 Saturation 96.2 (95.0-98.0) % Sodium 130.0 L (132-148) mmol/l Chloride 97.0 L (98-107) mmol/L Glucose 123 H (65-105) mg/dl Lactate 1.1 (0.7-2.1) mmol/L Vent Mode Prvc Mechanical Rate 16 FiO2 100.0 100.0 % Tidal Volume 450 PEEP 5 Potassium (3.6-5.2) mmol/L Carbon Dioxide (22-30) mmol/L Anion Gap (10-20) BUN (7-17) mg/dL Creatinine (0.7-1.2) mg/dL Est GFR ( Amer) Est GFR (Non-Af Amer) POC Glucose (mg/dL) (65-110) mg/dL Random Glucose (65-105) mg/dL Calcium (8.6-10.4) mg/dl Phosphorus (2.5-4.5) mg/dL Magnesium (1.6-2.3) mg/dL Total Bilirubin (0.2-1.3) mg/dL AST (14-36) U/L ALT (9-52) U/L Alkaline Phosphatase (38-126) U/L Troponin I (0.00-0.120) ng/mL Total Protein (6.3-8.3) g/dL Albumin (3.5-5.0) g/dL Globulin (2.2-3.9) gm/dL Albumin/Globulin Ratio (1.0-2.1) Arterial Blood Potassium 4.4 (3.6-5.2) mmol/L Urine Color (YELLOW) Urine Clarity (Clear) Urine pH (5.0-8.0) Ur Specific [place] (1.003-1.030) Urine Protein (NEGATIVE) mg/dL Urine Glucose (UA) (Normal) mg/dL Urine Ketones (NEGATIVE) mg/dL Urine Blood (NEGATIVE) Urine Nitrate (NEGATIVE) Urine Bilirubin (NEGATIVE) Urine Urobilinogen (0.2-1.0) mg/dL Ur Leukocyte Esterase (Negative) Dorie/uL Urine WBC (Auto) (0-5) /hpf Urine RBC (Auto) (0-3) /hpf Ur Squamous Epith Cells (0-5) /hpf Urine Bacteria (<OCC) 01/07/17 01/07/17 01/07/17 Range/Units 21:38 21:10 16:36 WBC (4.8-10.8) K/uL RBC (3.80-5.20) Mil/uL Hgb (11.0-16.0) g/dL Hct (34.0-47.0) % MCV (81.0-99.0) fL MCH (27.0-31.0) pg MCHC (33.0-37.0) g/dL RDW (11.5-14.5) % Plt Count (130-400) K/uL MPV (7.2-11.7) fL Neut % (Auto) (50.0-75.0) % Lymph % (Auto) (20.0-40.0) % [place] % (Auto) (0.0-10.0) % Eos % (Auto) (0.0-4.0) % Baso % (Auto) (0.0-2.0) % Neut # (1.8-7.0) K/uL Lymph # (1.0-4.3) K/uL [place] # (0.0-0.8) K/uL Eos # (0.0-0.7) K/uL Baso # (0.0-0.2) K/uL Neutrophils % (Manual) (50-75) % Band Neutrophils % (0-2) % Lymphocytes % (Manual) (20-40) % Reactive Lymphs % (0-0) % Monocytes % (Manual) (0-10) % Platelet Estimate (NORMAL) Puncture Site pCO2 (35-45) mm/Hg pO2 (80-100) mm/Hg HCO3 (21-28) mmol/L ABG pH (7.35-7.45) ABG Total CO2 (22-28) mmol/L ABG O2 Saturation (95-98) % ABG Base Excess (-2.0-3.0) mmol/L ABG Hemoglobin (11.7-17.4) g/dL ABG Carboxyhemoglobin (0.5-1.5) % POC ABG HHb (Measured) (0.0-5.0) % ABG Methemoglobin (0.0-3.0) % Sukumar Test ABG Potassium (3.6-5.2) mmol/L A-a O2 Difference mm/Hg Respiratory Index Hgb O2 Saturation (95.0-98.0) % Sodium (132-148) mmol/l Chloride (98-107) mmol/L Glucose (65-105) mg/dl Lactate (0.7-2.1) mmol/L Vent Mode Mechanical Rate FiO2 % Tidal Volume PEEP Potassium (3.6-5.2) mmol/L Carbon Dioxide (22-30) mmol/L Anion Gap (10-20) BUN (7-17) mg/dL Creatinine (0.7-1.2) mg/dL Est GFR ( Amer) Est GFR (Non-Af Amer) POC Glucose (mg/dL) 115 H 140 H 136 H (65-110) mg/dL Random Glucose (65-105) mg/dL Calcium (8.6-10.4) mg/dl Phosphorus (2.5-4.5) mg/dL Magnesium (1.6-2.3) mg/dL Total Bilirubin (0.2-1.3) mg/dL AST (14-36) U/L ALT (9-52) U/L Alkaline Phosphatase (38-126) U/L Troponin I (0.00-0.120) ng/mL Total Protein (6.3-8.3) g/dL Albumin (3.5-5.0) g/dL Globulin (2.2-3.9) gm/dL Albumin/Globulin Ratio (1.0-2.1) Arterial Blood Potassium (3.6-5.2) mmol/L Urine Color (YELLOW) Urine Clarity (Clear) Urine pH (5.0-8.0) Ur Specific [place] (1.003-1.030) Urine Protein (NEGATIVE) mg/dL Urine Glucose (UA) (Normal) mg/dL Urine Ketones (NEGATIVE) mg/dL Urine Blood (NEGATIVE) Urine Nitrate (NEGATIVE) Urine Bilirubin (NEGATIVE) Urine Urobilinogen (0.2-1.0) mg/dL Ur Leukocyte Esterase (Negative) Dorie/uL Urine WBC (Auto) (0-5) /hpf Urine RBC (Auto) (0-3) /hpf Ur Squamous Epith Cells (0-5) /hpf Urine Bacteria (<OCC) 01/07/17 01/07/17 Range/Units 12:46 11:08 WBC 8.5 (4.8-10.8) K/uL RBC 3.62 L (3.80-5.20) Mil/uL Hgb 9.8 L (11.0-16.0) g/dL Hct 29.9 L (34.0-47.0) % MCV 82.6 (81.0-99.0) fL MCH 27.1 (27.0-31.0) pg MCHC 32.8 L (33.0-37.0) g/dL RDW 20.6 H (11.5-14.5) % Plt Count 255 (130-400) K/uL MPV 6.6 L (7.2-11.7) fL Neut % (Auto) (50.0-75.0) % Lymph % (Auto) (20.0-40.0) % [place] % (Auto) (0.0-10.0) % Eos % (Auto) (0.0-4.0) % Baso % (Auto) (0.0-2.0) % Neut # (1.8-7.0) K/uL Lymph # (1.0-4.3) K/uL [place] # (0.0-0.8) K/uL Eos # (0.0-0.7) K/uL Baso # (0.0-0.2) K/uL Neutrophils % (Manual) (50-75) % Band Neutrophils % (0-2) % Lymphocytes % (Manual) (20-40) % Reactive Lymphs % (0-0) % Monocytes % (Manual) (0-10) % Platelet Estimate (NORMAL) Puncture Site pCO2 (35-45) mm/Hg pO2 (80-100) mm/Hg HCO3 (21-28) mmol/L ABG pH (7.35-7.45) ABG Total CO2 (22-28) mmol/L ABG O2 Saturation (95-98) % ABG Base Excess (-2.0-3.0) mmol/L ABG Hemoglobin (11.7-17.4) g/dL ABG Carboxyhemoglobin (0.5-1.5) % POC ABG HHb (Measured) (0.0-5.0) % ABG Methemoglobin (0.0-3.0) % Sukumar Test ABG Potassium (3.6-5.2) mmol/L A-a O2 Difference mm/Hg Respiratory Index Hgb O2 Saturation (95.0-98.0) % Sodium (132-148) mmol/l Chloride (98-107) mmol/L Glucose (65-105) mg/dl Lactate (0.7-2.1) mmol/L Vent Mode Mechanical Rate FiO2 % Tidal Volume PEEP Potassium (3.6-5.2) mmol/L Carbon Dioxide (22-30) mmol/L Anion Gap (10-20) BUN (7-17) mg/dL Creatinine (0.7-1.2) mg/dL Est GFR ( Amer) Est GFR (Non-Af Amer) POC Glucose (mg/dL) 120 H (65-110) mg/dL Random Glucose (65-105) mg/dL Calcium (8.6-10.4) mg/dl Phosphorus (2.5-4.5) mg/dL Magnesium (1.6-2.3) mg/dL Total Bilirubin (0.2-1.3) mg/dL AST (14-36) U/L ALT (9-52) U/L Alkaline Phosphatase (38-126) U/L Troponin I (0.00-0.120) ng/mL Total Protein (6.3-8.3) g/dL Albumin (3.5-5.0) g/dL Globulin (2.2-3.9) gm/dL Albumin/Globulin Ratio (1.0-2.1) Arterial Blood Potassium (3.6-5.2) mmol/L Urine Color (YELLOW) Urine Clarity (Clear) Urine pH (5.0-8.0) Ur Specific [place] (1.003-1.030) Urine Protein (NEGATIVE) mg/dL Urine Glucose (UA) (Normal) mg/dL Urine Ketones (NEGATIVE) mg/dL Urine Blood (NEGATIVE) Urine Nitrate (NEGATIVE) Urine Bilirubin (NEGATIVE) Urine Urobilinogen (0.2-1.0) mg/dL Ur Leukocyte Esterase (Negative) Dorie/uL Urine WBC (Auto) (0-5) /hpf Urine RBC (Auto) (0-3) /hpf Ur Squamous Epith Cells (0-5) /hpf Urine Bacteria (<OCC) Laboratory Results - last 24 hr 01/07/17 01/07/17 01/07/17 11:08 12:46 16:36 WBC 8.5 RBC 3.62 L Hgb 9.8 L Hct 29.9 L MCV 82.6 MCH 27.1 MCHC 32.8 L RDW 20.6 H Plt Count 255 MPV 6.6 L Neut % (Auto) Lymph % (Auto) [place] % (Auto) Eos % (Auto) Baso % (Auto) Neut # Lymph # [place] # Eos # Baso # Neutrophils % (Manual) Band Neutrophils % Lymphocytes % (Manual) Reactive Lymphs % Monocytes % (Manual) Platelet Estimate Puncture Site pCO2 pO2 HCO3 ABG pH ABG Total CO2 ABG O2 Saturation ABG Base Excess ABG Hemoglobin ABG Carboxyhemoglobin POC ABG HHb (Measured) ABG Methemoglobin Sukumar Test ABG Potassium A-a O2 Difference Respiratory Index Hgb O2 Saturation Sodium Chloride Glucose Lactate Vent Mode Mechanical Rate FiO2 Tidal Volume PEEP Potassium Carbon Dioxide Anion Gap BUN Creatinine Est GFR ( Amer) Est GFR (Non-Af Amer) POC Glucose (mg/dL) 120 H 136 H Random Glucose Calcium Phosphorus Magnesium Total Bilirubin AST ALT Alkaline Phosphatase Troponin I Total Protein Albumin Globulin Albumin/Globulin Ratio Arterial Blood Potassium Urine Color Urine Clarity Urine pH Ur Specific [place] Urine Protein Urine Glucose (UA) Urine Ketones Urine Blood Urine Nitrate Urine Bilirubin Urine Urobilinogen Ur Leukocyte Esterase Urine WBC (Auto) Urine RBC (Auto) Ur Squamous Epith Cells Urine Bacteria 01/07/17 01/07/17 01/07/17 21:10 21:38 21:40 WBC RBC Hgb Hct MCV MCH MCHC RDW Plt Count MPV Neut % (Auto) Lymph % (Auto) [place] % (Auto) Eos % (Auto) Baso % (Auto) Neut # Lymph # [place] # Eos # Baso # Neutrophils % (Manual) Band Neutrophils % Lymphocytes % (Manual) Reactive Lymphs % Monocytes % (Manual) Platelet Estimate Puncture Site Rra pCO2 49 H pO2 95 HCO3 29.7 H ABG pH 7.42 ABG Total CO2 33.3 H ABG O2 Saturation 97.3 ABG Base Excess 6.1 H ABG Hemoglobin ABG Carboxyhemoglobin POC ABG HHb (Measured) ABG Methemoglobin Sukumar Test Na ABG Potassium 4.4 A-a O2 Difference 557.0 Respiratory Index 5.9 Hgb O2 Saturation Sodium 130.0 L Chloride 97.0 L Glucose 123 H Lactate 1.1 Vent Mode Mechanical Rate FiO2 100.0 Tidal Volume PEEP Potassium Carbon Dioxide Anion Gap BUN Creatinine Est GFR ( Amer) Est GFR (Non-Af Amer) POC Glucose (mg/dL) 140 H 115 H Random Glucose Calcium Phosphorus Magnesium Total Bilirubin AST ALT Alkaline Phosphatase Troponin I Total Protein Albumin Globulin Albumin/Globulin Ratio Arterial Blood Potassium 4.4 Urine Color Urine Clarity Urine pH Ur Specific [place] Urine Protein Urine Glucose (UA) Urine Ketones Urine Blood Urine Nitrate Urine Bilirubin Urine Urobilinogen Ur Leukocyte Esterase Urine WBC (Auto) Urine RBC (Auto) Ur Squamous Epith Cells Urine Bacteria 01/08/17 01/08/17 01/08/17 00:23 00:47 00:47 WBC 8.3 RBC 3.55 L Hgb 9.7 L Hct 29.5 L MCV 83.0 MCH 27.4 MCHC 33.0 RDW 21.1 H Plt Count 246 MPV 6.8 L Neut % (Auto) 92.5 H Lymph % (Auto) 1.9 L [place] % (Auto) 5.5 Eos % (Auto) 0.0 Baso % (Auto) 0.1 Neut # 7.7 H Lymph # 0.2 L [place] # 0.5 Eos # 0.0 Baso # 0.0 Neutrophils % (Manual) 83 H Band Neutrophils % 9 H Lymphocytes % (Manual) 1 L Reactive Lymphs % 1 H Monocytes % (Manual) 6 Platelet Estimate Normal Puncture Site Rr pCO2 46 H pO2 211 H HCO3 28.6 H ABG pH 7.42 ABG Total CO2 31.2 H ABG O2 Saturation 97.9 ABG Base Excess 4.7 H ABG Hemoglobin 10.1 L ABG Carboxyhemoglobin 0.5 POC ABG HHb (Measured) 2.1 ABG Methemoglobin 1.2 Sukumar Test Pos ABG Potassium A-a O2 Difference 445.0 Respiratory Index 2.1 Hgb O2 Saturation 96.2 Sodium 128 L Chloride 92 L Glucose Lactate Vent Mode Prvc Mechanical Rate 16 FiO2 100.0 Tidal Volume 450 PEEP 5 Potassium 4.4 Carbon Dioxide 26 Anion Gap 14 BUN 42 H Creatinine 1.7 H Est GFR ( Amer) 34 Est GFR (Non-Af Amer) 28 POC Glucose (mg/dL) Random Glucose 131 H Calcium 7.5 L Phosphorus 3.5 Magnesium 1.7 Total Bilirubin 0.5 AST 29 ALT 28 Alkaline Phosphatase 54 Troponin I 0.0990 Total Protein 5.7 L Albumin 2.5 L Globulin 3.2 Albumin/Globulin Ratio 0.8 L Arterial Blood Potassium Urine Color Urine Clarity Urine pH Ur Specific [place] Urine Protein Urine Glucose (UA) Urine Ketones Urine Blood Urine Nitrate Urine Bilirubin Urine Urobilinogen Ur Leukocyte Esterase Urine WBC (Auto) Urine RBC (Auto) Ur Squamous Epith Cells Urine Bacteria 01/08/17 01/08/17 01:32 07:38 WBC RBC Hgb Hct MCV MCH MCHC RDW Plt Count MPV Neut % (Auto) Lymph % (Auto) [place] % (Auto) Eos % (Auto) Baso % (Auto) Neut # Lymph # [place] # Eos # Baso # Neutrophils % (Manual) Band Neutrophils % Lymphocytes % (Manual) Reactive Lymphs % Monocytes % (Manual) Platelet Estimate Puncture Site pCO2 pO2 HCO3 ABG pH ABG Total CO2 ABG O2 Saturation ABG Base Excess ABG Hemoglobin ABG Carboxyhemoglobin POC ABG HHb (Measured) ABG Methemoglobin Sukumar Test ABG Potassium A-a O2 Difference Respiratory Index Hgb O2 Saturation Sodium Chloride Glucose Lactate Vent Mode Mechanical Rate FiO2 Tidal Volume PEEP Potassium Carbon Dioxide Anion Gap BUN Creatinine Est GFR ( Amer) Est GFR (Non-Af Amer) POC Glucose (mg/dL) 99 Random Glucose Calcium Phosphorus Magnesium Total Bilirubin AST ALT Alkaline Phosphatase Troponin I Total Protein Albumin Globulin Albumin/Globulin Ratio Arterial Blood Potassium Urine Color Yellow Urine Clarity Hazy Urine pH 5.0 Ur Specific [place] 1.012 Urine Protein Negative Urine Glucose (UA) Normal Urine Ketones Negative Urine Blood 1+ H Urine Nitrate Negative Urine Bilirubin Negative Urine Urobilinogen Normal Ur Leukocyte Esterase 2+ H Urine WBC (Auto) 28 H Urine RBC (Auto) 4 H Ur Squamous Epith Cells < 1 Urine Bacteria Rare Fingerstick Blood Sugar Results: 99 Critical Care Progress Note - Nutrition Nutrition: Nutrition Category Date Time Status NPO Diet [DIET] Diets 01/08/17 Breakfast Active
[2017-01-08] MEDS ORDERED: Metoprolol Succinate 100 mg XL Tab PO SCH (10:00)
--- NOTE | 2017-01-08 11:27 | RAD ---
HISTORY: sob COMPARISON: Comparison is made to the previous study dated 01/06/2017 FINDINGS: LUNGS: Interval improvement in the previously seen moderate pulmonary vascular congestion since the previous exam. PLEURA: Again seen are bilateral pleural effusions small in size. CARDIOVASCULAR: The cardiac silhouette is enlarged. OSSEOUS STRUCTURES: Diffuse osteopenia and degenerative changes are again noted. VISUALIZED UPPER ABDOMEN: Normal. OTHER FINDINGS: None. IMPRESSION: Interval improvement in the lungs since the previous exam.
--- NOTE | 2017-01-08 11:33 | RAD ---
HISTORY: intubation placement COMPARISON: Comparison is made to the previous same-day exam. FINDINGS: LUNGS: No significant interval change in the lungs noted since the previous study. The patient is status post intubation. The ET tube is seen at appropriate position with the tip is approximately 3 centimeter above the [place]. PLEURA: Blunting of both costophrenic angles suggestive of small bilateral pleural effusions larger on the right. CARDIOVASCULAR: The cardiac silhouette is mildly enlarged. OSSEOUS STRUCTURES: Diffuse osteopenia is noted. VISUALIZED UPPER ABDOMEN: Normal. OTHER FINDINGS: None. IMPRESSION: Appropriate position of the ETT. Otherwise no significant interval change.
--- NOTE | 2017-01-08 12:43 | RAD ---
HISTORY: post intubation COMPARISON: Comparison is made to 01/07/2017 FINDINGS: LUNGS: The ET tube is seen at appropriate position. Interval mild improvement in the lower lobes since the previous exam. PLEURA: Again seen is small right pleural effusion. CARDIOVASCULAR: The cardiac silhouette is mildly enlarged. OSSEOUS STRUCTURES: No significant abnormalities. VISUALIZED UPPER ABDOMEN: The NG tube seen extending to the abdomen. OTHER FINDINGS: None. IMPRESSION: Appropriate position of the support devices. Interval mild improvement in the lungs since the previous exam.
--- NOTE | 2017-01-08 13:05 | CP.PCM.PN ---
Subjective - Date & Time of Evaluation Date of Evaluation: 01/08/17 Time of Evaluation: 13:03 - Subjective Subjective: on respirator unable to obtain ROS no family at bedside Objective - Vital Signs/Intake and Output Vital Signs (last 24 hours): Temp Pulse Resp BP Pulse Ox 99.3 F 135 H 19 105/56 L 99 01/08/17 12:00 01/08/17 12:00 01/08/17 12:00 01/08/17 11:55 01/08/17 12:00 Intake and Output: 01/08/17 01/08/17 06:59 18:59 Intake Total 498 438.3 Output Total 900 265 Balance -402 173.3 - Medications Medications: Current Medications Acetaminophen (Tylenol 650mg/20.3ml Solution Ud) 650 mg PO Q6H PRN PRN Reason: Fever Acetaminophen/Codeine Phosphate (Tylenol/Codeine 300 Mg/30 Mg) 1 ea PO Q8 PRN PRN Reason: Cough Last Admin: 01/07/17 13:19 Dose: 1 ea Albuterol Sulfate (Albuterol 0.042% Inhal Kimberly (1.25mg/3ml) Ud) 1.25 mg INH RQ3 PRN PRN Reason: shortness of breath Last Admin: 01/08/17 07:47 Dose: 1.25 mg Albuterol/Ipratropium (Duoneb 3 Mg/0.5 Mg (3 Ml) Ud) 3 ml INH RQID [facility] Last Admin: 01/08/17 07:50 Dose: Not Given Famotidine (Pepcid) 20 mg PO BID [facility] Last Admin: 01/08/17 09:35 Dose: 20 mg Piperacillin Sod/Tazobactam (Sod 2.25 gm/ Sodium Chloride) 100 mls @ 200 mls/ hr IVPB Q8H [facility] Last Admin: 01/08/17 10:29 Dose: 200 mls/hr Midazolam HCl 100 mg/ Sodium (Chloride) 100 mls @ 1.85 mls/hr IV .Q24H [facility]; 0.02 MG/KG/HR PRN Reason: Protocol Last Titration: 01/08/17 01:45 Dose: 0 mg/kg/hr, 0 mls/hr Sodium Chloride (Sodium Chloride 0.9%) 1,000 mls @ 100 mls/hr IV .Q10H [facility] Last Admin: 01/08/17 09:01 Dose: 100 mls/hr Amiodarone HCl 900 mg/ (Dextrose) 500 mls @ 16.66 mls/hr IV .Q24H [facility]; 0.5 MG/ MIN PRN Reason: Protocol Stop: 01/09/17 10:31 Amiodarone HCl 900 mg/ (Dextrose) 500 mls @ 33.33 mls/hr IV .Q15H1M [facility]; 1 MG/ MIN PRN Reason: Protocol Stop: 01/08/17 16:30 Last Admin: 01/08/17 12:50 Dose: Not Given Levothyroxine Sodium (Synthroid) 50 mcg PO 0630 [facility] Last Admin: 01/08/17 06:13 Dose: 50 mcg Metronidazole (Flagyl) 500 mg PO Q8 [facility] Last Admin: 01/08/17 06:13 Dose: 500 mg Morphine Sulfate (Morphine) 2 mg IVP Q4 PRN PRN Reason: pain Rosuvastatin Calcium (Crestor) 10 mg PO HS [facility] Last Admin: 01/07/17 23:21 Dose: Not Given Fluticasone/Salmeterol (Advair Diskus 250/50) 1 puff INH RQ12 [facility] Last Admin: 01/08/17 07:46 Dose: Not Given Vancomycin HCl (Vancocin (Oral Or Rectal Use)) 250 mg PO QID [facility] Last Admin: 01/08/17 09:38 Dose: 250 mg - Labs Labs: 01/08/17 00:47 01/08/17 00:47 - Constitutional Appears: In Acute Distress - Head Exam Head Exam: ATRAUMATIC - Respiratory Exam Respiratory Exam: Decreased Breath Sounds. absent: Accessory Muscle Use - Cardiovascular Exam Cardiovascular Exam: Irregular Rhythm. absent: Rubs - GI/Abdominal Exam GI & Abdominal Exam: Distended. absent: Tenderness - Neurological Exam Neurological Exam: absent: Alert, Awake Assessment and Plan - Assessment and Plan (Free Text) Assessment: respiratory failure chf rapid afib ckd with john continue diuresis watch labs u/o 900 cc overnight prognosis fair
--- NOTE | 2017-01-08 13:26 | CP.PCM.PN ---
Subjective - Date & Time of Evaluation Date of Evaluation: 01/08/17 Time of Evaluation: 13:26 - Subjective Subjective: discussed with family signed DNR Objective - Vital Signs/Intake and Output Vital Signs (last 24 hours): Temp Pulse Resp BP Pulse Ox 99.3 F 135 H 19 105/56 L 99 01/08/17 12:00 01/08/17 12:00 01/08/17 12:00 01/08/17 11:55 01/08/17 12:00 Intake and Output: 01/08/17 01/08/17 06:59 18:59 Intake Total 498 438.3 Output Total 900 265 Balance -402 173.3 - Medications Medications: Current Medications Acetaminophen (Tylenol 650mg/20.3ml Solution Ud) 650 mg PO Q6H PRN PRN Reason: Fever Acetaminophen/Codeine Phosphate (Tylenol/Codeine 300 Mg/30 Mg) 1 ea PO Q8 PRN PRN Reason: Cough Last Admin: 01/07/17 13:19 Dose: 1 ea Albuterol Sulfate (Albuterol 0.042% Inhal Kimberly (1.25mg/3ml) Ud) 1.25 mg INH RQ3 PRN PRN Reason: shortness of breath Last Admin: 01/08/17 07:47 Dose: 1.25 mg Albuterol/Ipratropium (Duoneb 3 Mg/0.5 Mg (3 Ml) Ud) 3 ml INH RQID [facility] Last Admin: 01/08/17 07:50 Dose: Not Given Famotidine (Pepcid) 20 mg PO BID [facility] Last Admin: 01/08/17 09:35 Dose: 20 mg Piperacillin Sod/Tazobactam (Sod 2.25 gm/ Sodium Chloride) 100 mls @ 200 mls/ hr IVPB Q8H [facility] Last Admin: 01/08/17 10:29 Dose: 200 mls/hr Midazolam HCl 100 mg/ Sodium (Chloride) 100 mls @ 1.85 mls/hr IV .Q24H [facility]; 0.02 MG/KG/HR PRN Reason: Protocol Last Titration: 01/08/17 01:45 Dose: 0 mg/kg/hr, 0 mls/hr Sodium Chloride (Sodium Chloride 0.9%) 1,000 mls @ 100 mls/hr IV .Q10H [facility] Last Admin: 01/08/17 09:01 Dose: 100 mls/hr Amiodarone HCl 900 mg/ (Dextrose) 500 mls @ 16.66 mls/hr IV .Q24H [facility]; 0.5 MG/ MIN PRN Reason: Protocol Stop: 01/09/17 10:31 Amiodarone HCl 900 mg/ (Dextrose) 500 mls @ 33.33 mls/hr IV .Q15H1M [facility]; 1 MG/ MIN PRN Reason: Protocol Stop: 01/08/17 16:30 Last Admin: 01/08/17 12:50 Dose: Not Given Levothyroxine Sodium (Synthroid) 50 mcg PO 0630 [facility] Last Admin: 01/08/17 06:13 Dose: 50 mcg Metronidazole (Flagyl) 500 mg PO Q8 [facility] Last Admin: 01/08/17 06:13 Dose: 500 mg Morphine Sulfate (Morphine) 2 mg IVP Q4 PRN PRN Reason: pain Rosuvastatin Calcium (Crestor) 10 mg PO HS [facility] Last Admin: 01/07/17 23:21 Dose: Not Given Fluticasone/Salmeterol (Advair Diskus 250/50) 1 puff INH RQ12 [facility] Last Admin: 01/08/17 07:46 Dose: Not Given Vancomycin HCl (Vancocin (Oral Or Rectal Use)) 250 mg PO QID [facility] Last Admin: 01/08/17 09:38 Dose: 250 mg - Labs Labs: 01/08/17 00:47 01/08/17 00:47
--- NOTE | 2017-01-08 15:55 | CP.PCM.PN ---
Subjective - Date & Time of Evaluation Date of Evaluation: 01/08/17 Time of Evaluation: 11:00 - Subjective Subjective: COVERING DR. Alie CASIANO. PT EXAMINED AND CHART REVIEWED. INTUBATED FEBRILE. ELECTROLYTE IMBALANCE. ANEMIA PRESENT. CRF. Objective - Vital Signs/Intake and Output Vital Signs (last 24 hours): Temp Pulse Resp BP Pulse Ox 99.3 F 135 H 19 105/56 L 99 01/08/17 12:00 01/08/17 12:00 01/08/17 12:00 01/08/17 11:55 01/08/17 12:00 Intake and Output: 01/08/17 01/08/17 06:59 18:59 Intake Total 498 438.3 Output Total 900 265 Balance -402 173.3 - Medications Medications: Current Medications Acetaminophen (Tylenol 650mg/20.3ml Solution Ud) 650 mg PO Q6H PRN PRN Reason: Fever Acetaminophen/Codeine Phosphate (Tylenol/Codeine 300 Mg/30 Mg) 1 ea PO Q8 PRN PRN Reason: Cough Last Admin: 01/07/17 13:19 Dose: 1 ea Albuterol Sulfate (Albuterol 0.042% Inhal Kimberly (1.25mg/3ml) Ud) 1.25 mg INH RQ3 PRN PRN Reason: shortness of breath Last Admin: 01/08/17 13:47 Dose: 1.25 mg Albuterol/Ipratropium (Duoneb 3 Mg/0.5 Mg (3 Ml) Ud) 3 ml INH RQID [facility] Last Admin: 01/08/17 07:50 Dose: Not Given Famotidine (Pepcid) 20 mg PO BID [facility] Last Admin: 01/08/17 09:35 Dose: 20 mg Piperacillin Sod/Tazobactam (Sod 2.25 gm/ Sodium Chloride) 100 mls @ 200 mls/ hr IVPB Q8H [facility] Last Admin: 01/08/17 10:29 Dose: 200 mls/hr Midazolam HCl 100 mg/ Sodium (Chloride) 100 mls @ 1.85 mls/hr IV .Q24H [facility]; 0.02 MG/KG/HR PRN Reason: Protocol Last Titration: 01/08/17 01:45 Dose: 0 mg/kg/hr, 0 mls/hr Sodium Chloride (Sodium Chloride 0.9%) 1,000 mls @ 100 mls/hr IV .Q10H [facility] Last Admin: 01/08/17 09:01 Dose: 100 mls/hr Amiodarone HCl 900 mg/ (Dextrose) 500 mls @ 16.66 mls/hr IV .Q24H [facility]; 0.5 MG/ MIN PRN Reason: Protocol Stop: 01/09/17 10:31 Amiodarone HCl 900 mg/ (Dextrose) 500 mls @ 33.33 mls/hr IV .Q15H1M [facility]; 1 MG/ MIN PRN Reason: Protocol Stop: 01/08/17 16:30 Last Admin: 01/08/17 12:50 Dose: Not Given Levothyroxine Sodium (Synthroid) 50 mcg PO 0630 [facility] Last Admin: 01/08/17 06:13 Dose: 50 mcg Metronidazole (Flagyl) 500 mg PO Q8 [facility] Last Admin: 01/08/17 14:04 Dose: 500 mg Morphine Sulfate (Morphine) 2 mg IVP Q4 PRN PRN Reason: pain Rosuvastatin Calcium (Crestor) 10 mg PO HS [facility] Last Admin: 01/07/17 23:21 Dose: Not Given Fluticasone/Salmeterol (Advair Diskus 250/50) 1 puff INH RQ12 [facility] Last Admin: 01/08/17 07:46 Dose: Not Given Vancomycin HCl (Vancocin (Oral Or Rectal Use)) 250 mg PO QID [facility] Last Admin: 01/08/17 14:03 Dose: 250 mg - Labs Labs: 01/08/17 00:47 01/08/17 00:47 - Constitutional Appears: No Acute Distress, Chronically Ill - Eye Exam Eye Exam: PERRL - Respiratory Exam Respiratory Exam: Decreased Breath Sounds - Cardiovascular Exam Cardiovascular Exam: REGULAR RHYTHM, +S1, +S2 - GI/Abdominal Exam GI & Abdominal Exam: Soft, Normal Bowel Sounds - Extremities Exam Extremities Exam: Full ROM, Normal Capillary Refill, Normal Inspection. absent : Joint Swelling, Pedal Edema Assessment and Plan - Assessment and Plan (Free Text) Assessment: ELECTROLYTE IMBALANCE. CRF. RESP FAILURE. HYPOTENSION. Plan: SUPPORTIVE CARE. DNR.
[2017-01-08] MEDS: Midazolam 50 mg/10 ml 100 MG in Sodium Chloride 0.9% 80 ML IV SCH (23:00)
[2017-01-09] MEDS: Piperacillin/Tazobact 2.25 GM in Sodium Chloride 100 ML IVPB SCH ×3 (02:00→17:06)
[2017-01-09] MEDS: Sodium Chloride 0.9% 1,000 ML IV SCH (05:00)
[2017-01-09] MEDS: Levothyroxine 50 MCG TAB PO SCH (06:03)
[2017-01-09 06:43] LABS: ABG ALLEN TEST POS; ABG MECHANICAL RATE 16; ARTERIAL BLOOD HGB O2 SAT 96.8 % (95.0-98.0); ATERIAL BLOOD GAS PEEP 5; CARBOXYHEMOGLOBIN 0.5 % (0.5-1.5); DRAW SITE RRADIAL; HHB 1.9 % (0.0-5.0); METHEMOGLOBIN 0.8 % (0.0-3.0)
[2017-01-09 06:44] LABS: POTASSIUM 3.6 mmol/L (3.6-5.2)
[2017-01-09 06:46] LABS: BILIRUBIN,TOTAL 0.6 mg/dL (0.2-1.3); TOTAL PROTEIN 5.3 g/dL (6.3-8.3)
[2017-01-09 06:47] LABS: ALB/GLOB RATIO 0.8 (1.0-2.1); MAGNESIUM 1.8 mg/dL (1.6-2.3); PHOSPHOROUS 2.1 mg/dL (2.5-4.5)
[2017-01-09] MEDS: Albuterol 0.042% Inhal Sol (1.25 mg/3 mL) UD INH PRN ×2 (07:10→14:47)
[2017-01-09] MEDS: Fluticasone-Salmeterol 250-50mcg Diskus INH SCH (07:10)
[2017-01-09 07:19] LABS: BASO % 0.2 % (0.0-2.0); EOS % 0.4 % (0.0-4.0); HEMATOCRIT 28.6 % (34.0-47.0); LYMPH # 0.3 K/uL (1.0-4.3); LYMPH % 3.8 % (20.0-40.0); MEAN CELL VOLUME 82.2 fL (81.0-99.0); MEAN CORPUSCULAR HEMOGLOBIN 27.2 pg (27.0-31.0); MEAN PLATELET VOLUME 7.4 fL (7.2-11.7); MONO # 0.5 K/uL (0.0-0.8); MONO % 5.1 % (0.0-10.0); NRBC % 0.1 % (0.0-2.0); PLATELET COUNT 187 K/uL (130-400); RED CELL DISTRIBUTION WIDTH 20.9 % (11.5-14.5); WHITE BLOOD COUNT 9.1 K/uL (4.8-10.8)
[2017-01-09] MEDS ORDERED: Digoxin 500 mcg/2ml (0.5 mg/2ml) Inj IVP ONE (09:18)
[2017-01-09 10:05] LABS: NEUTROPHIL 86 % (50-75); TOTAL CELLS COUNTED 100
[2017-01-09] MEDS: Vancomycin 125 MG/5 ML SOLN (ORAL/RECTAL) PO SCH ×4 (10:14→22:00)
--- NOTE | 2017-01-09 12:32 | CP.CCUPN ---
CCU Subjective - Physician Review Events Since Last Encounter (Free Text): 01/09/17 12:31 The patient is a 86-year-old female with a history of atrial fibrillation, C. difficile colitis, diarrhea, admitted to the intensive care unit with acute respiratory failure, complicated with aspiration pneumonia. Patient is currently on ventilator. Family is at bedside. I spoke to the family in details about the pt prognosis Family does not want her to be on mechanical ventilator for long time. They will be considering about withdrawal tonight or tomorrow. they will discuss and let us know On examination: Patient is awake and responding, sedated at this time. On ventilator. 60% FiO2. Chest bilateral wheezing and rales noted Irregular heart sound, edema noted Chest x-ray increasing CHF pattern noted, are infiltrative changes noted. Assessment and recommendation: Acute respiratory failure, on ventilator. Likely aspiration pneumonitis. Severe pulmonary hypertension. Atrial fibrillation. C. difficile colitis. Overall prognosis very poor. We'll discuss with the family about the further management. On antibiotic, IV fluid, on ventilator. Control the heart rate and will follow the patient on amio and digoxin CCU Objective - Vital Signs / Intake & Output Vital Signs (Last 4 hours): Vital Signs Temp Pulse Resp BP Pulse Ox 01/09/17 12:02 99 H 21 96/57 L 97 01/09/17 12:00 98.6 F 108 H 19 98 01/09/17 11:56 93 H 21 112/89 99 01/09/17 11:30 95 H 18 99 01/09/17 11:00 102 H 19 99 01/09/17 10:30 97 H 22 99 01/09/17 10:03 102 H 18 95/67 L 99 01/09/17 10:00 109 H 19 99 01/09/17 09:30 124 H 19 90 L 01/09/17 09:03 109 H 21 93/69 L 99 01/09/17 09:00 123 H 22 100 Intake and Output (Last 8hrs): Intake & Output 01/08/17 01/09/17 01/09/17 22:59 06:59 14:59 Intake Total 1165.2 1148.6 726.8 Output Total 405 400 375 Balance 760.2 748.6 351.8 Weight 206 lb 4 oz Intake: Intake, IV Amount 950.2 933.6 466.8 Right Antecubital 800 800 400 Right PICC 150.2 133.6 66.8 Oral 30 Tube Feeding 185 215 200 Other 60 Output: Urine 405 400 375 Urethral (Renee) 405 400 375 Other: # Bowel Movements 0 1 1 - Medications Active Medications: Active Medications Generic Name Dose Route Start Last Admin Trade Name Freq PRN Reason Stop Dose Admin Acetaminophen 650 mg 01/08/17 00:33 Tylenol 650mg/20.3ml Solution Ud PO Q6H PRN Fever Albuterol Sulfate 1.25 mg 01/07/17 23:12 01/09/17 07:10 Albuterol 0.042% Inhal Kimberly (1.25mg/3ml) Ud INH 1.25 mg RQ3 PRN Administration shortness of breath Albuterol/Ipratropium 3 ml 01/06/17 08:45 01/08/17 20:24 Duoneb 3 Mg/0.5 Mg (3 Ml) Ud INH 3 ml RQID [facility] Administration Amiodarone HCl 200 mg 01/09/17 10:00 01/09/17 10:12 Cordarone PO 200 mg BID [facility] Administration Famotidine 20 mg 01/08/17 10:00 01/09/17 10:12 Pepcid PO 20 mg BID [facility] Administration Piperacillin Sod/Tazobactam 100 mls @ 200 mls/hr 01/07/17 18:00 01/09/17 10: 14 Sod 2.25 gm/ Sodium Chloride IVPB 200 mls/hr Q8H [facility] Administration Midazolam HCl 100 mg/ Sodium 100 mls @ 1.85 mls/hr 01/07/17 23:15 01/08/17 23 :00 Chloride IV Not Given .Q24H [facility] Protocol 0.02 MG/KG/HR Levothyroxine Sodium 50 mcg 12/28/16 06:30 01/09/17 06:03 Synthroid PO 50 mcg 0630 [facility] Administration Metronidazole 500 mg 01/03/17 06:00 01/09/17 06:02 Flagyl PO 500 mg Q8 [facility] Administration Morphine Sulfate 2 mg 01/08/17 08:52 Morphine IVP Q4 PRN pain Rosuvastatin Calcium 10 mg 12/27/16 22:45 01/08/17 22:40 Crestor PO 10 mg HS [facility] Administration Fluticasone/Salmeterol 1 puff 01/03/17 20:00 01/08/17 07:46 Advair Diskus 250/50 INH Not Given RQ12 [facility] Vancomycin HCl 250 mg 12/28/16 00:30 01/09/17 10:14 Vancocin (Oral Or Rectal Use) PO 250 mg QID [facility] Administration - Patient Studies Lab Studies: Microbiology Studies 01/08/17 Unknown Gram Stain - Final Trachasp Sputum Culture - Preliminary Yeast Species Lab Studies 01/09/17 01/09/17 01/09/17 Range/Units 10:36 07:12 06:30 WBC 9.1 (4.8-10.8) K/uL RBC 3.47 L (3.80-5.20) Mil/uL Hgb 9.4 L (11.0-16.0) g/dL Hct 28.6 L (34.0-47.0) % MCV 82.2 (81.0-99.0) fL MCH 27.2 (27.0-31.0) pg MCHC 33.0 (33.0-37.0) g/dL RDW 20.9 H (11.5-14.5) % Plt Count 187 (130-400) K/uL MPV 7.4 (7.2-11.7) fL Neut % (Auto) 90.5 H (50.0-75.0) % Lymph % (Auto) 3.8 L (20.0-40.0) % [place] % (Auto) 5.1 (0.0-10.0) % Eos % (Auto) 0.4 (0.0-4.0) % Baso % (Auto) 0.2 (0.0-2.0) % Neut # 8.2 H (1.8-7.0) K/uL Lymph # 0.3 L (1.0-4.3) K/uL [place] # 0.5 (0.0-0.8) K/uL Eos # 0.0 (0.0-0.7) K/uL Baso # 0.0 (0.0-0.2) K/uL Neutrophils % (Manual) 86 H (50-75) % Band Neutrophils % 7 H (0-2) % Lymphocytes % (Manual) 2 L (20-40) % Monocytes % (Manual) 5 (0-10) % Platelet Estimate Normal (NORMAL) Polychromasia Slight Hypochromasia (manual) Slight Anisocytosis (manual) Slight Puncture Site Rradial pCO2 38 (35-45) mm/Hg pO2 144 H (80-100) mm/Hg HCO3 29.6 H (21-28) mmol/L ABG pH 7.50 H (7.35-7.45) ABG Total CO2 30.8 H (22-28) mmol/L ABG O2 Saturation 98.1 H (95-98) % ABG Base Excess 6.0 H (-2.0-3.0) mmol/L ABG Hemoglobin 9.2 L (11.7-17.4) g/dL ABG Carboxyhemoglobin 0.5 (0.5-1.5) % POC ABG HHb (Measured) 1.9 (0.0-5.0) % ABG Methemoglobin 0.8 (0.0-3.0) % Sukumar Test Pos A-a O2 Difference 236.0 mm/Hg Respiratory Index 1.6 Hgb O2 Saturation 96.8 (95.0-98.0) % Mechanical Rate 16 FiO2 60.0 % Tidal Volume 450 PEEP 5 Sodium (132-148) mmol/L Potassium (3.6-5.2) mmol/L Chloride (98-107) mmol/L Carbon Dioxide (22-30) mmol/L Anion Gap (10-20) BUN (7-17) mg/dL Creatinine (0.7-1.2) mg/dL Est GFR ( Amer) Est GFR (Non-Af Amer) POC Glucose (mg/dL) (65-110) mg/dL Random Glucose (65-105) mg/dL Calcium (8.6-10.4) mg/dl Phosphorus (2.5-4.5) mg/dL Magnesium (1.6-2.3) mg/dL Total Bilirubin (0.2-1.3) mg/dL AST (14-36) U/L ALT (9-52) U/L Alkaline Phosphatase (38-126) U/L Total Protein (6.3-8.3) g/dL Albumin (3.5-5.0) g/dL Globulin (2.2-3.9) gm/dL Albumin/Globulin Ratio (1.0-2.1) Stool Occult Blood Negative (NEGATIVE) 01/09/17 01/09/17 01/08/17 Range/Units 06:29 06:16 22:18 WBC (4.8-10.8) K/uL RBC (3.80-5.20) Mil/uL Hgb (11.0-16.0) g/dL Hct (34.0-47.0) % MCV (81.0-99.0) fL MCH (27.0-31.0) pg MCHC (33.0-37.0) g/dL RDW (11.5-14.5) % Plt Count (130-400) K/uL MPV (7.2-11.7) fL Neut % (Auto) (50.0-75.0) % Lymph % (Auto) (20.0-40.0) % [place] % (Auto) (0.0-10.0) % Eos % (Auto) (0.0-4.0) % Baso % (Auto) (0.0-2.0) % Neut # (1.8-7.0) K/uL Lymph # (1.0-4.3) K/uL [place] # (0.0-0.8) K/uL Eos # (0.0-0.7) K/uL Baso # (0.0-0.2) K/uL Neutrophils % (Manual) (50-75) % Band Neutrophils % (0-2) % Lymphocytes % (Manual) (20-40) % Monocytes % (Manual) (0-10) % Platelet Estimate (NORMAL) Polychromasia Hypochromasia (manual) Anisocytosis (manual) Puncture Site pCO2 (35-45) mm/Hg pO2 (80-100) mm/Hg HCO3 (21-28) mmol/L ABG pH (7.35-7.45) ABG Total CO2 (22-28) mmol/L ABG O2 Saturation (95-98) % ABG Base Excess (-2.0-3.0) mmol/L ABG Hemoglobin (11.7-17.4) g/dL ABG Carboxyhemoglobin (0.5-1.5) % POC ABG HHb (Measured) (0.0-5.0) % ABG Methemoglobin (0.0-3.0) % Sukumar Test A-a O2 Difference mm/Hg Respiratory Index Hgb O2 Saturation (95.0-98.0) % Mechanical Rate FiO2 % Tidal Volume PEEP Sodium 127 L (132-148) mmol/L Potassium 3.6 (3.6-5.2) mmol/L Chloride 95 L (98-107) mmol/L Carbon Dioxide 23 (22-30) mmol/L Anion Gap 13 (10-20) BUN 50 H (7-17) mg/dL Creatinine 1.4 H (0.7-1.2) mg/dL Est GFR ( Amer) 43 Est GFR (Non-Af Amer) 35 POC Glucose (mg/dL) 120 H (65-110) mg/dL Random Glucose 99 (65-105) mg/dL Calcium 7.0 L (8.6-10.4) mg/dl Phosphorus 2.1 L (2.5-4.5) mg/dL Magnesium 1.8 (1.6-2.3) mg/dL Total Bilirubin 0.6 (0.2-1.3) mg/dL AST 39 H D (14-36) U/L ALT 26 (9-52) U/L Alkaline Phosphatase 50 (38-126) U/L Total Protein 5.3 L (6.3-8.3) g/dL Albumin 2.3 L (3.5-5.0) g/dL Globulin 3.0 (2.2-3.9) gm/dL Albumin/Globulin Ratio 0.8 L (1.0-2.1) Stool Occult Blood Negative (NEGATIVE) 01/08/17 Range/Units 17:47 WBC (4.8-10.8) K/uL RBC (3.80-5.20) Mil/uL Hgb (11.0-16.0) g/dL Hct (34.0-47.0) % MCV (81.0-99.0) fL MCH (27.0-31.0) pg MCHC (33.0-37.0) g/dL RDW (11.5-14.5) % Plt Count (130-400) K/uL MPV (7.2-11.7) fL Neut % (Auto) (50.0-75.0) % Lymph % (Auto) (20.0-40.0) % [place] % (Auto) (0.0-10.0) % Eos % (Auto) (0.0-4.0) % Baso % (Auto) (0.0-2.0) % Neut # (1.8-7.0) K/uL Lymph # (1.0-4.3) K/uL [place] # (0.0-0.8) K/uL Eos # (0.0-0.7) K/uL Baso # (0.0-0.2) K/uL Neutrophils % (Manual) (50-75) % Band Neutrophils % (0-2) % Lymphocytes % (Manual) (20-40) % Monocytes % (Manual) (0-10) % Platelet Estimate (NORMAL) Polychromasia Hypochromasia (manual) Anisocytosis (manual) Puncture Site pCO2 (35-45) mm/Hg pO2 (80-100) mm/Hg HCO3 (21-28) mmol/L ABG pH (7.35-7.45) ABG Total CO2 (22-28) mmol/L ABG O2 Saturation (95-98) % ABG Base Excess (-2.0-3.0) mmol/L ABG Hemoglobin (11.7-17.4) g/dL ABG Carboxyhemoglobin (0.5-1.5) % POC ABG HHb (Measured) (0.0-5.0) % ABG Methemoglobin (0.0-3.0) % Sukumar Test A-a O2 Difference mm/Hg Respiratory Index Hgb O2 Saturation (95.0-98.0) % Mechanical Rate FiO2 % Tidal Volume PEEP Sodium (132-148) mmol/L Potassium (3.6-5.2) mmol/L Chloride (98-107) mmol/L Carbon Dioxide (22-30) mmol/L Anion Gap (10-20) BUN (7-17) mg/dL Creatinine (0.7-1.2) mg/dL Est GFR ( Amer) Est GFR (Non-Af Amer) POC Glucose (mg/dL) 108 (65-110) mg/dL Random Glucose (65-105) mg/dL Calcium (8.6-10.4) mg/dl Phosphorus (2.5-4.5) mg/dL Magnesium (1.6-2.3) mg/dL Total Bilirubin (0.2-1.3) mg/dL AST (14-36) U/L ALT (9-52) U/L Alkaline Phosphatase (38-126) U/L Total Protein (6.3-8.3) g/dL Albumin (3.5-5.0) g/dL Globulin (2.2-3.9) gm/dL Albumin/Globulin Ratio (1.0-2.1) Stool Occult Blood (NEGATIVE) Laboratory Results - last 24 hr 01/08/17 01/08/17 01/09/17 17:47 22:18 06:16 WBC RBC Hgb Hct MCV MCH MCHC RDW Plt Count MPV Neut % (Auto) Lymph % (Auto) [place] % (Auto) Eos % (Auto) Baso % (Auto) Neut # Lymph # [place] # Eos # Baso # Neutrophils % (Manual) Band Neutrophils % Lymphocytes % (Manual) Monocytes % (Manual) Platelet Estimate Polychromasia Hypochromasia (manual) Anisocytosis (manual) Puncture Site pCO2 pO2 HCO3 ABG pH ABG Total CO2 ABG O2 Saturation ABG Base Excess ABG Hemoglobin ABG Carboxyhemoglobin POC ABG HHb (Measured) ABG Methemoglobin Sukumar Test A-a O2 Difference Respiratory Index Hgb O2 Saturation Mechanical Rate FiO2 Tidal Volume PEEP Sodium Potassium Chloride Carbon Dioxide Anion Gap BUN Creatinine Est GFR ( Amer) Est GFR (Non-Af Amer) POC Glucose (mg/dL) 108 120 H Random Glucose Calcium Phosphorus Magnesium Total Bilirubin AST ALT Alkaline Phosphatase Total Protein Albumin Globulin Albumin/Globulin Ratio Stool Occult Blood Negative 01/09/17 01/09/17 01/09/17 06:29 06:30 07:12 WBC 9.1 RBC 3.47 L Hgb 9.4 L Hct 28.6 L MCV 82.2 MCH 27.2 MCHC 33.0 RDW 20.9 H Plt Count 187 MPV 7.4 Neut % (Auto) 90.5 H Lymph % (Auto) 3.8 L [place] % (Auto) 5.1 Eos % (Auto) 0.4 Baso % (Auto) 0.2 Neut # 8.2 H Lymph # 0.3 L [place] # 0.5 Eos # 0.0 Baso # 0.0 Neutrophils % (Manual) 86 H Band Neutrophils % 7 H Lymphocytes % (Manual) 2 L Monocytes % (Manual) 5 Platelet Estimate Normal Polychromasia Slight Hypochromasia (manual) Slight Anisocytosis (manual) Slight Puncture Site Rradial pCO2 38 pO2 144 H HCO3 29.6 H ABG pH 7.50 H ABG Total CO2 30.8 H ABG O2 Saturation 98.1 H ABG Base Excess 6.0 H ABG Hemoglobin 9.2 L ABG Carboxyhemoglobin 0.5 POC ABG HHb (Measured) 1.9 ABG Methemoglobin 0.8 Sukumar Test Pos A-a O2 Difference 236.0 Respiratory Index 1.6 Hgb O2 Saturation 96.8 Mechanical Rate 16 FiO2 60.0 Tidal Volume 450 PEEP 5 Sodium 127 L Potassium 3.6 Chloride 95 L Carbon Dioxide 23 Anion Gap 13 BUN 50 H Creatinine 1.4 H Est GFR ( Amer) 43 Est GFR (Non-Af Amer) 35 POC Glucose (mg/dL) Random Glucose 99 Calcium 7.0 L Phosphorus 2.1 L Magnesium 1.8 Total Bilirubin 0.6 AST 39 H D ALT 26 Alkaline Phosphatase 50 Total Protein 5.3 L Albumin 2.3 L Globulin 3.0 Albumin/Globulin Ratio 0.8 L Stool Occult Blood 01/09/17 10:36 WBC RBC Hgb Hct MCV MCH MCHC RDW Plt Count MPV Neut % (Auto) Lymph % (Auto) [place] % (Auto) Eos % (Auto) Baso % (Auto) Neut # Lymph # [place] # Eos # Baso # Neutrophils % (Manual) Band Neutrophils % Lymphocytes % (Manual) Monocytes % (Manual) Platelet Estimate Polychromasia Hypochromasia (manual) Anisocytosis (manual) Puncture Site pCO2 pO2 HCO3 ABG pH ABG Total CO2 ABG O2 Saturation ABG Base Excess ABG Hemoglobin ABG Carboxyhemoglobin POC ABG HHb (Measured) ABG Methemoglobin Sukumar Test A-a O2 Difference Respiratory Index Hgb O2 Saturation Mechanical Rate FiO2 Tidal Volume PEEP Sodium Potassium Chloride Carbon Dioxide Anion Gap BUN Creatinine Est GFR ( Amer) Est GFR (Non-Af Amer) POC Glucose (mg/dL) Random Glucose Calcium Phosphorus Magnesium Total Bilirubin AST ALT Alkaline Phosphatase Total Protein Albumin Globulin Albumin/Globulin Ratio Stool Occult Blood Negative Fingerstick Blood Sugar Results: 120 Critical Care Progress Note - Nutrition Nutrition: Nutrition Category Date Time Status NPO Diet [DIET] Diets 01/08/17 Breakfast Active
--- NOTE | 2017-01-09 12:40 | RAD ---
PROCEDURE: CHEST RADIOGRAPH, 1 VIEW HISTORY: ICU Routine/Intubated COMPARISON: Multiple serial examinations preceding the most recent study: January 08, 2017. 07:29 FINDINGS: LUNGS: Stable bilateral infiltrates PLEURA: No significant pleural effusion. CARDIOVASCULAR: Cardiomegaly. No evidence of acute, significant cardiovascular disease. OSSEOUS STRUCTURES: No significant abnormalities. VISUALIZED UPPER ABDOMEN: Normal. OTHER FINDINGS: Endotracheal tube tip within 1 cm of the [place], unchanged. Orogastric tube courses through the esophagus into the stomach. IMPRESSION: No significant interval change compared to the prior examination(s).
--- NOTE | 2017-01-09 16:02 | CP.PCM.PN ---
Subjective - Date & Time of Evaluation Date of Evaluation: 01/09/17 Time of Evaluation: 06:00 - Subjective Subjective: intubated in ICU s/p worsening CHF no fever lethargic DNR in effect Objective - Vital Signs/Intake and Output Vital Signs (last 24 hours): Temp Pulse Resp BP Pulse Ox 98.6 F 115 H 22 88/58 L 98 01/09/17 12:00 01/09/17 15:01 01/09/17 15:01 01/09/17 15:01 01/09/17 15:01 Intake and Output: 01/09/17 01/09/17 06:59 18:59 Intake Total 1715.4 891.8 Output Total 600 550 Balance 1115.4 341.8 - Medications Medications: Current Medications Acetaminophen (Tylenol 650mg/20.3ml Solution Ud) 650 mg PO Q6H PRN PRN Reason: Fever Albuterol Sulfate (Albuterol 0.042% Inhal Kimberly (1.25mg/3ml) Ud) 1.25 mg INH RQ3 PRN PRN Reason: shortness of breath Last Admin: 01/09/17 14:47 Dose: 1.25 mg Albuterol/Ipratropium (Duoneb 3 Mg/0.5 Mg (3 Ml) Ud) 3 ml INH RQID [facility] Last Admin: 01/08/17 20:24 Dose: 3 ml Amiodarone HCl (Cordarone) 200 mg PO BID [facility] Last Admin: 01/09/17 10:12 Dose: 200 mg Famotidine (Pepcid) 20 mg PO BID [facility] Last Admin: 01/09/17 10:12 Dose: 20 mg Piperacillin Sod/Tazobactam (Sod 2.25 gm/ Sodium Chloride) 100 mls @ 200 mls/ hr IVPB Q8H [facility] Last Admin: 01/09/17 10:14 Dose: 200 mls/hr Midazolam HCl 100 mg/ Sodium (Chloride) 100 mls @ 1.85 mls/hr IV .Q24H [facility]; 0.02 MG/KG/HR PRN Reason: Protocol Last Admin: 01/08/17 23:00 Dose: Not Given Levothyroxine Sodium (Synthroid) 50 mcg PO 0630 [facility] Last Admin: 01/09/17 06:03 Dose: 50 mcg Metronidazole (Flagyl) 500 mg PO Q8 [facility] Last Admin: 01/09/17 13:04 Dose: 500 mg Morphine Sulfate (Morphine) 2 mg IVP Q4 PRN PRN Reason: pain Rosuvastatin Calcium (Crestor) 10 mg PO HS [facility] Last Admin: 01/08/17 22:40 Dose: 10 mg Fluticasone/Salmeterol (Advair Diskus 250/50) 1 puff INH RQ12 [facility] Last Admin: 01/09/17 07:10 Dose: Not Given Vancomycin HCl (Vancocin (Oral Or Rectal Use)) 250 mg PO QID [facility] Last Admin: 01/09/17 13:03 Dose: 250 mg - Labs Labs: 01/09/17 07:12 01/09/17 06:29 - Constitutional Appears: Non-toxic, Chronically Ill - Head Exam Head Exam: NORMOCEPHALIC - Eye Exam Eye Exam: PERRL. absent: Scleral icterus - ENT Exam ENT Exam: Mucous Membranes Dry - Neck Exam Neck Exam: absent: Lymphadenopathy - Respiratory Exam Respiratory Exam: Decreased Breath Sounds, Prolonged Expiratory Phase, Rales, Rhonchi - Cardiovascular Exam Cardiovascular Exam: REGULAR RHYTHM - GI/Abdominal Exam GI & Abdominal Exam: Distended, Soft - Exam Exam: NORMAL INSPECTION - Extremities Exam Extremities Exam: absent: Calf Tenderness, Pedal Edema, Tenderness - Back Exam Back Exam: absent: CVA tenderness (L), CVA tenderness (R) - Neurological Exam Neurological Exam: Altered - Psychiatric Exam Psychiatric exam: Depressed - Skin Skin Exam: Dry Assessment and Plan (1) Anemia Status: Acute (2) Dehydration Status: Acute (3) Intractable diarrhea Status: Acute (4) Leukocytosis Status: Acute (5) Renal insufficiency Status: Acute (6) Acute renal insufficiency Status: Acute (7) Bilateral lower extremity edema Status: Acute (8) Pancolitis Status: Acute (9) Respiratory failure Status: Acute (10) Respiratory failure Status: Acute (11) Respiratory failure requiring intubation Status: Acute (12) Respiratory failure requiring intubation Status: Acute - Assessment and Plan (Free Text) Assessment: will reculture as needed cont conservative management
[2017-01-09] MEDS: Albuterol-Ipratrop 3 mg / 0.5 (3 ml) UD INH SCH ×2 (16:40→19:42)
--- NOTE | 2017-01-09 18:02 | CP.PCM.PN ---
Subjective - Date & Time of Evaluation Date of Evaluation: 01/09/17 Time of Evaluation: 11:30 - Subjective Subjective: CONDITION POOR. DNR. HYPOTENSIVE. AFEBRILE. Objective - Vital Signs/Intake and Output Vital Signs (last 24 hours): Temp Pulse Resp BP Pulse Ox 97.6 F 103 H 20 98/56 L 98 01/09/17 16:00 01/09/17 17:30 01/09/17 17:30 01/09/17 17:03 01/09/17 17:30 Intake and Output: 01/09/17 01/09/17 06:59 18:59 Intake Total 1715.4 961.8 Output Total 600 630 Balance 1115.4 331.8 - Medications Medications: Current Medications Acetaminophen (Tylenol 650mg/20.3ml Solution Ud) 650 mg PO Q6H PRN PRN Reason: Fever Albuterol Sulfate (Albuterol 0.042% Inhal Kimberly (1.25mg/3ml) Ud) 1.25 mg INH RQ3 PRN PRN Reason: shortness of breath Last Admin: 01/09/17 14:47 Dose: 1.25 mg Albuterol/Ipratropium (Duoneb 3 Mg/0.5 Mg (3 Ml) Ud) 3 ml INH RQID [facility] Last Admin: 01/09/17 16:40 Dose: 3 ml Amiodarone HCl (Cordarone) 200 mg PO BID [facility] Last Admin: 01/09/17 17:06 Dose: 200 mg Famotidine (Pepcid) 20 mg PO BID [facility] Last Admin: 01/09/17 17:06 Dose: 20 mg Piperacillin Sod/Tazobactam (Sod 2.25 gm/ Sodium Chloride) 100 mls @ 200 mls/ hr IVPB Q8H [facility] Last Admin: 01/09/17 17:06 Dose: 200 mls/hr Midazolam HCl 100 mg/ Sodium (Chloride) 100 mls @ 1.85 mls/hr IV .Q24H [facility]; 0.02 MG/KG/HR PRN Reason: Protocol Last Admin: 01/08/17 23:00 Dose: Not Given Levothyroxine Sodium (Synthroid) 50 mcg PO 0630 [facility] Last Admin: 01/09/17 06:03 Dose: 50 mcg Metronidazole (Flagyl) 500 mg PO Q8 [facility] Last Admin: 01/09/17 13:04 Dose: 500 mg Morphine Sulfate (Morphine) 2 mg IVP Q4 PRN PRN Reason: pain Rosuvastatin Calcium (Crestor) 10 mg PO HS [facility] Last Admin: 01/08/17 22:40 Dose: 10 mg Fluticasone/Salmeterol (Advair Diskus 250/50) 1 puff INH RQ12 [facility] Last Admin: 01/09/17 07:10 Dose: Not Given Vancomycin HCl (Vancocin (Oral Or Rectal Use)) 250 mg PO QID [facility] Last Admin: 01/09/17 17:05 Dose: 250 mg - Labs Labs: 01/09/17 07:12 01/09/17 06:29 - Constitutional Appears: Chronically Ill - Eye Exam Eye Exam: Normal appearance, PERRL - ENT Exam ENT Exam: Mucous Membranes Moist - Respiratory Exam Respiratory Exam: Clear to Ausculation Bilateral, NORMAL BREATHING PATTERN - Cardiovascular Exam Cardiovascular Exam: REGULAR RHYTHM, +S1, +S2 - GI/Abdominal Exam GI & Abdominal Exam: Soft, Normal Bowel Sounds Assessment and Plan - Assessment and Plan (Free Text) Assessment: SAME. Plan: DNR.
[2017-01-09 18:03] LABS: RBC URINE 2 /hpf (0-3); URINE BACTERIA FEW (<OCC); URINE BILIRUBIN NEGATIVE (NEGATIVE); URINE BLOOD NEGATIVE (NEGATIVE); URINE COLOR Yellow (YELLOW); URINE GLUCOSE (UA) NORMAL (Normal); URINE KETONE NEGATIVE (NEGATIVE); URINE LEUKOCYTE ESTERASE 1+ Leu/uL (Negative); URINE PROTEIN NEGATIVE (NEGATIVE); URINE URIC ACID CRYSTALS RARE /hpf (<OCC); URINE UROBILINOGEN NORMAL mg/dL (0.2-1.0); WBC URINE 6 /hpf (0-5)
[2017-01-09] MEDS: Midazolam 50 mg/10 ml 100 MG in Sodium Chloride 0.9% 80 ML IV SCH (23:01)
[2017-01-10] MEDS: Piperacillin/Tazobact 2.25 GM in Sodium Chloride 100 ML IVPB SCH ×3 (02:00→17:34)
[2017-01-10] MEDS: Levothyroxine 50 MCG TAB PO SCH (06:50)
[2017-01-10] MEDS: Fluticasone-Salmeterol 250-50mcg Diskus INH SCH ×2 (07:47→19:41)
[2017-01-10] MEDS: Albuterol 0.042% Inhal Sol (1.25 mg/3 mL) UD INH PRN ×2 (07:48→12:55)
[2017-01-10] MEDS: Albuterol-Ipratrop 3 mg / 0.5 (3 ml) UD INH SCH ×4 (07:50→19:41)
--- NOTE | 2017-01-10 08:59 | CP.PCM.PN ---
Subjective - Date & Time of Evaluation Date of Evaluation: 01/04/17 Time of Evaluation: 08:59 - Subjective Subjective: Patient was examined by me on 01/04/2017. Patient is sitting up on the commode, increasing diarrhea noted. Mild exertional dyspnea noted. Complaining of cough. No chest pain Vital signs is stable. Tachycardia noted, heart rate is 1 23 bpm irregular Chest bilateral wheezing noted Abdomen nontender Bilateral leg edema noted Assessment and recommendation: 86-year-old female with a history of hypertension congestive heart failure severe pulmonary hypertension atrial fibrillation admitted with C. difficile colitis. Complicated the respiratory insufficiency possibly secondary to aspiration pneumonitis. Will start the patient on antibiotic, continue the current treatment. Bronchodilator. Will follow the patient. Objective - Vital Signs/Intake and Output Vital Signs (last 24 hours): Temp Pulse Resp BP Pulse Ox 98.1 F 124 H 17 130/69 97 01/10/17 08:00 01/10/17 08:30 01/10/17 08:30 01/10/17 08:02 01/10/17 08:00 Intake and Output: 01/10/17 01/10/17 06:59 18:59 Intake Total 214 1.0 Output Total 360 70 Balance -146 -69.0 - Medications Medications: Current Medications Acetaminophen (Tylenol 650mg/20.3ml Solution Ud) 650 mg PO Q6H PRN PRN Reason: Fever Albuterol Sulfate (Albuterol 0.042% Inhal Kimberly (1.25mg/3ml) Ud) 1.25 mg INH RQ3 PRN PRN Reason: shortness of breath Last Admin: 01/10/17 07:48 Dose: 1.25 mg Albuterol/Ipratropium (Duoneb 3 Mg/0.5 Mg (3 Ml) Ud) 3 ml INH RQID [facility] Last Admin: 01/09/17 19:42 Dose: 3 ml Amiodarone HCl (Cordarone) 200 mg PO BID [facility] Last Admin: 01/09/17 17:06 Dose: 200 mg Famotidine (Pepcid) 20 mg PO BID [facility] Last Admin: 01/09/17 17:06 Dose: 20 mg Piperacillin Sod/Tazobactam (Sod 2.25 gm/ Sodium Chloride) 100 mls @ 200 mls/ hr IVPB Q8H [facility] Last Admin: 01/10/17 02:00 Dose: 200 mls/hr Midazolam HCl 100 mg/ Sodium (Chloride) 100 mls @ 1.85 mls/hr IV .Q24H [facility]; 0.02 MG/KG/HR PRN Reason: Protocol Last Admin: 01/09/17 23:01 Dose: Not Given Morphine Sulfate 250 mg/ (Sodium Chloride) 250 mls @ 2 mls/hr IV .Q24H [facility] PRN Reason: Protocol Stop: 01/10/17 20:41 Last Admin: 01/09/17 22:00 Dose: 1 ml/hr, 1 mls/hr Levothyroxine Sodium (Synthroid) 50 mcg PO 0630 [facility] Last Admin: 01/10/17 06:50 Dose: 50 mcg Metronidazole (Flagyl) 500 mg PO Q8 [facility] Last Admin: 01/10/17 06:50 Dose: 500 mg Morphine Sulfate (Morphine) 2 mg IVP Q4 PRN PRN Reason: pain Rosuvastatin Calcium (Crestor) 10 mg PO HS [facility] Last Admin: 01/09/17 22:00 Dose: 10 mg Fluticasone/Salmeterol (Advair Diskus 250/50) 1 puff INH RQ12 [facility] Last Admin: 01/10/17 07:47 Dose: Not Given Vancomycin HCl (Vancocin (Oral Or Rectal Use)) 250 mg PO QID [facility] Last Admin: 01/09/17 22:00 Dose: 250 mg - Labs Labs: 01/09/17 07:12 01/09/17 06:29
--- NOTE | 2017-01-10 09:01 | CP.PCM.PN ---
Subjective - Date & Time of Evaluation Date of Evaluation: 01/05/17 Time of Evaluation: 18:00 - Subjective Subjective: Patient was examined by me on 01/05/2017. Patient is sitting up on the commode, increasing diarrhea noted. Mild exertional dyspnea noted. Complaining of cough. No chest pain Vital signs is stable. Tachycardia noted, heart rate is 1 23 bpm irregular Chest bilateral wheezing noted Abdomen nontender Bilateral leg edema noted Assessment and recommendation: 86-year-old female with a history of hypertension congestive heart failure severe pulmonary hypertension atrial fibrillation admitted with C. difficile colitis. Complicated the respiratory insufficiency possibly secondary to aspiration pneumonitis. Will start the patient on antibiotic, continue the current treatment. Bronchodilator. Will follow the patient. Objective - Vital Signs/Intake and Output Vital Signs (last 24 hours): Temp Pulse Resp BP Pulse Ox 98.1 F 124 H 17 130/69 97 01/05/17 08:00 01/05/17 08:30 01/05/17 08:30 01/05/17 08:02 01/05/17 08:00 Intake and Output: herson 214 1.0 Output Total 360 70 Balance -146 -69.0 - Medications Medications: Current Medications - Labs Labs:
--- NOTE | 2017-01-10 09:06 | CP.PCM.PN ---
Subjective - Date & Time of Evaluation Date of Evaluation: 01/10/17 Time of Evaluation: 09:05 - Subjective Subjective: Pulmonary follow-up: Patient was extubated yesterday as per the family request. Today patient is on Ventimask, awake and responding. Cough noted. Comfort care. No chest pain. Not in any distress. Poor intake noted On examination: Vital signs are stable. 1 10 bpm to 95% saturation 125/68 Chest bilateral wheezing and rales noted irregular heart sound. Abdomen soft nontender. Edema bilaterally noted Assessment/recommendation 86-year-old female with history of C. difficile colitis, hypertension, atrial fibrillation. Admitted with aspiration pneumonitis. Currently patient is DNR and comfort care. Continue the current supportive treatment. We will manage the patient in the floor. Continue the current supportive care Objective - Vital Signs/Intake and Output Vital Signs (last 24 hours): Temp Pulse Resp BP Pulse Ox 98.1 F 124 H 17 130/69 97 01/10/17 08:00 01/10/17 08:30 01/10/17 08:30 01/10/17 08:02 01/10/17 08:00 Intake and Output: 01/10/17 01/10/17 06:59 18:59 Intake Total 214 1.0 Output Total 360 70 Balance -146 -69.0 - Medications Medications: Current Medications Acetaminophen (Tylenol 650mg/20.3ml Solution Ud) 650 mg PO Q6H PRN PRN Reason: Fever Albuterol Sulfate (Albuterol 0.042% Inhal Kimberly (1.25mg/3ml) Ud) 1.25 mg INH RQ3 PRN PRN Reason: shortness of breath Last Admin: 01/10/17 07:48 Dose: 1.25 mg Albuterol/Ipratropium (Duoneb 3 Mg/0.5 Mg (3 Ml) Ud) 3 ml INH RQID [facility] Last Admin: 01/09/17 19:42 Dose: 3 ml Amiodarone HCl (Cordarone) 200 mg PO BID [facility] Last Admin: 01/09/17 17:06 Dose: 200 mg Famotidine (Pepcid) 20 mg PO BID [facility] Last Admin: 01/09/17 17:06 Dose: 20 mg Piperacillin Sod/Tazobactam (Sod 2.25 gm/ Sodium Chloride) 100 mls @ 200 mls/ hr IVPB Q8H [facility] Last Admin: 01/10/17 02:00 Dose: 200 mls/hr Levothyroxine Sodium (Synthroid) 50 mcg PO 0630 [facility] Last Admin: 01/10/17 06:50 Dose: 50 mcg Metronidazole (Flagyl) 500 mg PO Q8 [facility] Last Admin: 01/10/17 06:50 Dose: 500 mg Morphine Sulfate (Morphine) 2 mg IVP Q4 PRN PRN Reason: pain Rosuvastatin Calcium (Crestor) 10 mg PO HS [facility] Last Admin: 01/09/17 22:00 Dose: 10 mg Fluticasone/Salmeterol (Advair Diskus 250/50) 1 puff INH RQ12 [facility] Last Admin: 01/10/17 07:47 Dose: Not Given Vancomycin HCl (Vancocin (Oral Or Rectal Use)) 250 mg PO QID [facility] Last Admin: 01/09/17 22:00 Dose: 250 mg - Labs Labs: 01/09/17 07:12 01/09/17 06:29
--- NOTE | 2017-01-10 10:34 | US ---
Date of procedure: 01/07/2017 Procedure: Ultrasound guidance for vascular access HISTORY: Infection requiring long-term IV antibiotics TECHNIQUE: Following informed consent and procedure time-out, the patient placed supine on the interventional table and the right arm prepped and draped in the usual sterile fashion. Ultrasound showed a patent and compressible basilic vein. After the skin was anesthetized with lidocaine, the basilic vein was accessed with micro micropuncture technique using ultrasound guidance. An image documenting ultrasound guidance for vascular access was permanently saved. IMPRESSION: Ultrasound guidance for vascular access for placement of PICC.
[2017-01-10] MEDS: Vancomycin 125 MG/5 ML SOLN (ORAL/RECTAL) PO SCH ×4 (10:35→22:32)
[2017-01-10] MEDS: diltiaZEM 120 mg/24 Hours CD Cap PO SCH (10:35)
--- NOTE | 2017-01-10 11:13 | CP.PCM.PN ---
Subjective - Date & Time of Evaluation Date of Evaluation: 01/10/17 Time of Evaluation: 11:10 - Subjective Subjective: s/p extubation feels less dyspneic still with afib and RVR phos low, now with hyponatremia Objective - Vital Signs/Intake and Output Vital Signs (last 24 hours): Temp Pulse Resp BP Pulse Ox 98.1 F 124 H 17 130/69 97 01/10/17 08:00 01/10/17 08:30 01/10/17 08:30 01/10/17 08:02 01/10/17 08:00 Intake and Output: 01/10/17 01/10/17 06:59 18:59 Intake Total 214 1.0 Output Total 360 70 Balance -146 -69.0 - Medications Medications: Current Medications Acetaminophen (Tylenol 650mg/20.3ml Solution Ud) 650 mg PO Q6H PRN PRN Reason: Fever Albuterol Sulfate (Albuterol 0.042% Inhal Kimberly (1.25mg/3ml) Ud) 1.25 mg INH RQ3 PRN PRN Reason: shortness of breath Last Admin: 01/10/17 07:48 Dose: 1.25 mg Albuterol/Ipratropium (Duoneb 3 Mg/0.5 Mg (3 Ml) Ud) 3 ml INH RQID [facility] Last Admin: 01/09/17 19:42 Dose: 3 ml Amiodarone HCl (Cordarone) 200 mg PO BID [facility] Last Admin: 01/10/17 10:35 Dose: 200 mg Digoxin (Lanoxin) 0.25 mg PO DAILY@1800 [facility] Diltiazem HCl (Cardizem Cd) 120 mg PO DAILY [facility] Last Admin: 01/10/17 10:35 Dose: 120 mg Famotidine (Pepcid) 20 mg PO BID [facility] Last Admin: 01/10/17 10:35 Dose: 20 mg Piperacillin Sod/Tazobactam (Sod 2.25 gm/ Sodium Chloride) 100 mls @ 200 mls/ hr IVPB Q8H [facility] Last Admin: 01/10/17 10:35 Dose: 200 mls/hr Levothyroxine Sodium (Synthroid) 50 mcg PO 0630 [facility] Last Admin: 01/10/17 06:50 Dose: 50 mcg Metronidazole (Flagyl) 500 mg PO Q8 [facility] Last Admin: 01/10/17 06:50 Dose: 500 mg Morphine Sulfate (Morphine) 2 mg IVP Q4 PRN PRN Reason: pain Rosuvastatin Calcium (Crestor) 10 mg PO HS [facility] Last Admin: 01/09/17 22:00 Dose: 10 mg Fluticasone/Salmeterol (Advair Diskus 250/50) 1 puff INH RQ12 [facility] Last Admin: 01/10/17 07:47 Dose: Not Given Vancomycin HCl (Vancocin (Oral Or Rectal Use)) 250 mg PO QID [facility] Last Admin: 01/10/17 10:35 Dose: 250 mg - Labs Labs: 01/09/17 07:12 01/09/17 06:29 - Constitutional Appears: Non-toxic, Confused, Chronically Ill - Head Exam Head Exam: ATRAUMATIC, NORMAL INSPECTION - Eye Exam Eye Exam: EOMI, Normal appearance - Neck Exam Neck Exam: Normal Inspection. absent: Tenderness - Respiratory Exam Respiratory Exam: Rales, NORMAL BREATHING PATTERN - Cardiovascular Exam Cardiovascular Exam: Tachycardia, Irregular Rhythm - Extremities Exam Extremities Exam: Normal Inspection. absent: Tenderness - Neurological Exam Neurological Exam: Awake, CN II-XII Intact - Skin Skin Exam: Dry, Warm Assessment and Plan (1) CKD (chronic kidney disease), stage III Status: Acute (2) Diarrhea Status: Acute (3) Clostridium difficile colitis Status: Acute (4) CHF (congestive heart failure) Status: Acute - Assessment and Plan (Free Text) Assessment: Resume diuretics Replete phos
[2017-01-10] MEDS ORDERED: Potassium Phosphate 15 MMOLE in Sodium Chloride 0.9% 250 ML IVPB ONE (11:14)
--- NOTE | 2017-01-10 12:56 | CP.PCM.PN ---
Subjective - Date & Time of Evaluation Date of Evaluation: 01/10/17 Time of Evaluation: 12:53 - Subjective Subjective: pt extubated yesterday. on ventimask. not in distress. awake. cough present. vs Tachycardic. Objective - Vital Signs/Intake and Output Vital Signs (last 24 hours): Temp Pulse Resp BP Pulse Ox 98.7 F 123 H 13 95/69 L 95 01/10/17 12:00 01/10/17 12:00 01/10/17 12:00 01/10/17 11:48 01/10/17 12:00 Intake and Output: 01/10/17 01/10/17 06:59 18:59 Intake Total 214 201.0 Output Total 360 270 Balance -146 -69.0 - Medications Medications: Current Medications Acetaminophen (Tylenol 650mg/20.3ml Solution Ud) 650 mg PO Q6H PRN PRN Reason: Fever Albuterol Sulfate (Albuterol 0.042% Inhal Kimberly (1.25mg/3ml) Ud) 1.25 mg INH RQ3 PRN PRN Reason: shortness of breath Last Admin: 01/10/17 07:48 Dose: 1.25 mg Albuterol/Ipratropium (Duoneb 3 Mg/0.5 Mg (3 Ml) Ud) 3 ml INH RQID [facility] Last Admin: 01/09/17 19:42 Dose: 3 ml Amiodarone HCl (Cordarone) 200 mg PO BID [facility] Last Admin: 01/10/17 10:35 Dose: 200 mg Digoxin (Lanoxin) 0.25 mg PO DAILY@1800 [facility] Diltiazem HCl (Cardizem Cd) 120 mg PO DAILY [facility] Last Admin: 01/10/17 10:35 Dose: 120 mg Famotidine (Pepcid) 20 mg PO BID [facility] Last Admin: 01/10/17 10:35 Dose: 20 mg Furosemide (Lasix) 40 mg IVP Q12 [facility] Last Admin: 01/10/17 11:42 Dose: 40 mg Piperacillin Sod/Tazobactam (Sod 2.25 gm/ Sodium Chloride) 100 mls @ 200 mls/ hr IVPB Q8H [facility] Last Admin: 01/10/17 10:35 Dose: 200 mls/hr Potassium Phosphate 15 mmole/ (Sodium Chloride) 255 mls @ 42.5 mls/hr IVPB ONCE ONE Stop: 01/10/17 17:13 Levothyroxine Sodium (Synthroid) 50 mcg PO 0630 [facility] Last Admin: 01/10/17 06:50 Dose: 50 mcg Metronidazole (Flagyl) 500 mg PO Q8 [facility] Last Admin: 01/10/17 06:50 Dose: 500 mg Morphine Sulfate (Morphine) 2 mg IVP Q4 PRN PRN Reason: pain Rosuvastatin Calcium (Crestor) 10 mg PO HS [facility] Last Admin: 01/09/17 22:00 Dose: 10 mg Fluticasone/Salmeterol (Advair Diskus 250/50) 1 puff INH RQ12 [facility] Last Admin: 01/10/17 07:47 Dose: Not Given Vancomycin HCl (Vancocin (Oral Or Rectal Use)) 250 mg PO QID [facility] Last Admin: 01/10/17 10:35 Dose: 250 mg - Labs Labs: 01/09/17 07:12 01/09/17 06:29 - Constitutional Appears: No Acute Distress, Chronically Ill - Eye Exam Eye Exam: PERRL - ENT Exam ENT Exam: Normal Exam - Neck Exam Neck Exam: Full ROM, Normal Inspection. absent: Lymphadenopathy - Respiratory Exam Respiratory Exam: Clear to Ausculation Bilateral, NORMAL BREATHING PATTERN - Cardiovascular Exam Cardiovascular Exam: Tachycardia, +S1, +S2 - GI/Abdominal Exam GI & Abdominal Exam: Soft, Normal Bowel Sounds Assessment and Plan - Assessment and Plan (Free Text) Assessment: uti klebsiella. c def colitis. diarrhoea. cardiac arrhythmia. DNR. Plan: CT SUPPORTIVE CARE.
--- NOTE | 2017-01-10 14:41 | CP.CCUPN ---
CCU Subjective - Physician Review Subjective (Free Text): Patient was seen and examined at bedside. Patient denies any discomfort or pain. Patient is alert and responsive. Patient is currently extubated and on ventrimask. Patient denies chest pain, palpitations, SOB, fever, chills, nausea or vomiting. CCU Objective - Vital Signs / Intake & Output Vital Signs (Last 4 hours): Vital Signs Temp Pulse Resp BP Pulse Ox 01/10/17 14:03 112 H 19 107/65 80 L 01/10/17 14:00 131 H 24 83 L 01/10/17 13:03 146 H 15 116/85 94 L 01/10/17 13:00 115 H 20 95 01/10/17 12:00 98.7 F 123 H 13 94 L 01/10/17 11:48 95 H 12 95/69 L 93 L 01/10/17 11:42 100/57 L 01/10/17 11:03 126 H 12 100/57 L 96 01/10/17 11:00 114 H 19 97 Intake and Output (Last 8hrs): Intake & Output 01/09/17 01/10/17 01/10/17 22:59 06:59 14:59 Intake Total 306 108 286.0 Output Total 280 240 440 Balance 26 -132 -154.0 Weight 206 lb Intake: Intake, IV Amount 1 108 186.0 Right Antecubital 1 8 0 Right PICC 100 186.0 Oral 100 Tube Feeding 245 Other 60 Output: Urine 280 240 440 Urethral (Renee) 280 240 440 Other: # Bowel Movements 0 - Physical Exam Head: Positive for: Atraumatic Extroacular Muscles: Positive for: EOMI Respiratory/Chest: Positive for: Rales. Negative for: Respiratory Distress, Accessory Muscle Use Cardiovascular: Positive for: Regular Rate and Rhythm, Normal S1, S2 Abdomen: Positive for: Distention, Normal Bowel Sounds. Negative for: Tenderness Upper Extremity: Positive for: Swelling Lower Extremity: Positive for: Edema. Negative for: CALF TENDERNESS Neurological: Positive for: Speech Normal Skin: Positive for: Warm, Normal Color - Medications Active Medications: Active Medications Generic Name Dose Route Start Last Admin Trade Name Freq PRN Reason Stop Dose Admin Acetaminophen 650 mg 01/08/17 00:33 Tylenol 650mg/20.3ml Solution Ud PO Q6H PRN Fever Albuterol Sulfate 1.25 mg 01/07/17 23:12 01/10/17 12:55 Albuterol 0.042% Inhal Kimberly (1.25mg/3ml) Ud INH 1.25 mg RQ3 PRN Administration shortness of breath Albuterol/Ipratropium 3 ml 01/06/17 08:45 01/10/17 14:20 Duoneb 3 Mg/0.5 Mg (3 Ml) Ud INH Not Given RQID [facility] Amiodarone HCl 200 mg 01/09/17 10:00 01/10/17 10:35 Cordarone PO 200 mg BID [facility] Administration Digoxin 0.25 mg 01/10/17 18:00 Lanoxin PO DAILY@1800 [facility] Diltiazem HCl 120 mg 01/10/17 10:00 01/10/17 10:35 Cardizem Cd PO 120 mg DAILY [facility] Administration Famotidine 20 mg 01/08/17 10:00 01/10/17 10:35 Pepcid PO 20 mg BID [facility] Administration Furosemide 40 mg 01/10/17 11:15 01/10/17 11:42 Lasix IVP 40 mg Q12 [facility] Administration Piperacillin Sod/Tazobactam 100 mls @ 200 mls/hr 01/07/17 18:00 01/10/17 10: 35 Sod 2.25 gm/ Sodium Chloride IVPB 200 mls/hr Q8H [facility] Administration Potassium Phosphate 15 mmole/ 255 mls @ 42.5 mls/hr 01/10/17 11:14 01/10/17 13:03 Sodium Chloride IVPB 01/10/17 17:13 42.5 mls/hr ONCE ONE Administration Levothyroxine Sodium 50 mcg 12/28/16 06:30 01/10/17 06:50 Synthroid PO 50 mcg 0630 [facility] Administration Metronidazole 500 mg 01/03/17 06:00 01/10/17 13:05 Flagyl PO 500 mg Q8 [facility] Administration Morphine Sulfate 2 mg 01/08/17 08:52 Morphine IVP Q4 PRN pain Rosuvastatin Calcium 10 mg 12/27/16 22:45 01/09/17 22:00 Crestor PO 10 mg HS [facility] Administration Fluticasone/Salmeterol 1 puff 01/03/17 20:00 01/10/17 07:47 Advair Diskus 250/50 INH Not Given RQ12 [facility] Vancomycin HCl 250 mg 12/28/16 00:30 01/10/17 13:04 Vancocin (Oral Or Rectal Use) PO 250 mg QID [facility] Administration - Patient Studies Lab Studies: Microbiology Studies 01/08/17 Unknown Gram Stain - Final Trachasp Sputum Culture - Final Yeast Species 01/09/17 Unknown Gram Stain - Final Trachasp Sputum Culture - Preliminary Yeast Species Lab Studies 01/10/17 01/09/17 01/08/17 Range/Units 12:31 17:31 17:23 POC Glucose (mg/dL) 111 H 87 (65-110) mg/dL Urine Color Yellow (YELLOW) Urine Clarity Clear (Clear) Urine pH 5.0 (5.0-8.0) Ur Specific Rosanky 1.018 (1.003-1.030) Urine Protein Negative (NEGATIVE) mg/dL Urine Glucose (UA) Normal (Normal) mg/dL Urine Ketones Negative (NEGATIVE) mg/dL Urine Blood Negative (NEGATIVE) Urine Nitrate Negative (NEGATIVE) Urine Bilirubin Negative (NEGATIVE) Urine Urobilinogen Normal (0.2-1.0) mg/dL Ur Leukocyte Esterase 1+ H (Negative) Dorie/uL Urine WBC (Auto) 6 H (0-5) /hpf Urine RBC (Auto) 2 (0-3) /hpf Ur Squamous Epith Cells 1 (0-5) /hpf Uric Acid Crystals Rare (<OCC) /hpf Urine Bacteria Few H (<OCC) Laboratory Results - last 24 hr 01/08/17 01/09/17 01/10/17 17:23 17:31 12:31 POC Glucose (mg/dL) 87 111 H Urine Color Yellow Urine Clarity Clear Urine pH 5.0 Ur Specific Rosanky 1.018 Urine Protein Negative Urine Glucose (UA) Normal Urine Ketones Negative Urine Blood Negative Urine Nitrate Negative Urine Bilirubin Negative Urine Urobilinogen Normal Ur Leukocyte Esterase 1+ H Urine WBC (Auto) 6 H Urine RBC (Auto) 2 Ur Squamous Epith Cells 1 Uric Acid Crystals Rare Urine Bacteria Few H Fingerstick Blood Sugar Results: 111 Review of Systems - Constitutional Constitutional: Weakness. absent: Fever, Chills - EENT Eyes: absent: Blurred Vision, Change in Vision Ears: absent: Dizziness - Cardiovascular Cardiovascular: absent: Chest Pain, Diaphoresis, Dyspnea, Palpitations - Respiratory Respiratory: absent: Dyspnea - Gastrointestinal Gastrointestinal: absent: Abdominal Pain, Diarrhea, Nausea, Vomiting - Neurological Neurological: Weakness Critical Care Progress Note - Nutrition Nutrition: Nutrition Category Date Time Status Modified [Dysphagia/Modified Consistency Diet] [DIET] Diets 01/10/17 Lunch Active Assessment/Plan - Assessment and Plan (Free Text) Assessment: Patient is a 86 year old female with history of atrial fibrillation, C. difficile colitis, diarrhea, admitted to the intensive care unit with acute respiratory failure, complicated with aspiration pneumonia. Today: Plan: Extubate and transfer to Med-surg Plan: Neuro: Alert, extubated Cardio: Hx of A.fibrillation, Hx of HTN, Hx of CHF, Hx of HLD Medication/Management: * Amidarone 200mg PO BID * Digoxin 0.25mg PO daily * Cardizem CD 120mg PO Daily * Crestor 10mg PO HS * Lasix 40mg IVP Q12H Pulm: Respiratory of distress Medication/Management * Intubated (01/07/17), extubated (01/10/17) and currently on ventrimask * Albuterol 1.25mg INH R3 PRN * Albuterol 3ml INH RQID * Fluticasone/Salmeterol 1puff INH RQ12 GI: Hx of C-diff colitis, Diarrhea Medication/Management: * Vancomycin 250mg PO QID * Metronidazole 500mg PO Q8 * Endo: Hx of hypothyroidism Medication/Management: * Levothyroxine 50mcg PO ID: Sepsis Medication/Management: * Tylenol 650mg PO Q6H PRN for FEVER>100.4 * Zosyn 2.25gm IVPB Q8H Prophylaxis: GI: Pepcid 20mg PO BID Pain control: Morphine 2mg IVP Q4 PRN Plan: Transfer to med-surg
--- NOTE | 2017-01-10 14:59 | CP.PCM.PN ---
Subjective - Date & Time of Evaluation Date of Evaluation: 01/10/17 Time of Evaluation: 09:00 - Subjective Subjective: events noted extubated dnr in effect cont supportive rx Objective - Vital Signs/Intake and Output Vital Signs (last 24 hours): Temp Pulse Resp BP Pulse Ox 98.7 F 112 H 19 107/65 80 L 01/10/17 12:00 01/10/17 14:03 01/10/17 14:03 01/10/17 14:03 01/10/17 14:03 Intake and Output: 01/10/17 01/10/17 06:59 18:59 Intake Total 214 286.0 Output Total 360 440 Balance -146 -154.0 - Medications Medications: Current Medications Acetaminophen (Tylenol 650mg/20.3ml Solution Ud) 650 mg PO Q6H PRN PRN Reason: Fever Albuterol Sulfate (Albuterol 0.042% Inhal Kimberly (1.25mg/3ml) Ud) 1.25 mg INH RQ3 PRN PRN Reason: shortness of breath Last Admin: 01/10/17 12:55 Dose: 1.25 mg Albuterol/Ipratropium (Duoneb 3 Mg/0.5 Mg (3 Ml) Ud) 3 ml INH RQID [facility] Last Admin: 01/10/17 14:20 Dose: Not Given Amiodarone HCl (Cordarone) 200 mg PO BID [facility] Last Admin: 01/10/17 10:35 Dose: 200 mg Digoxin (Lanoxin) 0.25 mg PO DAILY@1800 [facility] Diltiazem HCl (Cardizem Cd) 120 mg PO DAILY [facility] Last Admin: 01/10/17 10:35 Dose: 120 mg Famotidine (Pepcid) 20 mg PO BID [facility] Last Admin: 01/10/17 10:35 Dose: 20 mg Furosemide (Lasix) 40 mg IVP Q12 [facility] Last Admin: 01/10/17 11:42 Dose: 40 mg Piperacillin Sod/Tazobactam (Sod 2.25 gm/ Sodium Chloride) 100 mls @ 200 mls/ hr IVPB Q8H [facility] Last Admin: 01/10/17 10:35 Dose: 200 mls/hr Potassium Phosphate 15 mmole/ (Sodium Chloride) 255 mls @ 42.5 mls/hr IVPB ONCE ONE Stop: 01/10/17 17:13 Last Admin: 01/10/17 13:03 Dose: 42.5 mls/hr Fluconazole (Diflucan Iv 200 Mg/100 Ml Ns) 100 mls @ 100 mls/hr IVPB DAILY [facility] Levothyroxine Sodium (Synthroid) 50 mcg PO 0630 [facility] Last Admin: 01/10/17 06:50 Dose: 50 mcg Metronidazole (Flagyl) 500 mg PO Q8 [facility] Last Admin: 01/10/17 13:05 Dose: 500 mg Morphine Sulfate (Morphine) 2 mg IVP Q4 PRN PRN Reason: pain Rosuvastatin Calcium (Crestor) 10 mg PO HS [facility] Last Admin: 01/09/17 22:00 Dose: 10 mg Fluticasone/Salmeterol (Advair Diskus 250/50) 1 puff INH RQ12 [facility] Last Admin: 01/10/17 07:47 Dose: Not Given Vancomycin HCl (Vancocin (Oral Or Rectal Use)) 250 mg PO QID [facility] Last Admin: 01/10/17 13:04 Dose: 250 mg - Labs Labs: 01/09/17 07:12 01/09/17 06:29 - Constitutional Appears: Confused - Head Exam Head Exam: NORMOCEPHALIC - Eye Exam Eye Exam: PERRL - ENT Exam ENT Exam: Mucous Membranes Dry - Neck Exam Neck Exam: absent: Lymphadenopathy - Respiratory Exam Respiratory Exam: Decreased Breath Sounds, Rales, Rhonchi - Cardiovascular Exam Cardiovascular Exam: REGULAR RHYTHM, +S1, +S2 - GI/Abdominal Exam GI & Abdominal Exam: Distended, Soft - Rectal Exam Rectal Exam: Deferred - Exam Exam: NORMAL INSPECTION - Extremities Exam Extremities Exam: Pedal Edema - Back Exam Back Exam: absent: CVA tenderness (L), CVA tenderness (R) Assessment and Plan (1) Anemia Status: Acute (2) Dehydration Status: Acute (3) Intractable diarrhea Status: Acute (4) Leukocytosis Status: Acute (5) Renal insufficiency Status: Acute (6) Acute renal insufficiency Status: Acute (7) Bilateral lower extremity edema Status: Acute (8) Pancolitis Status: Acute (9) Respiratory failure Status: Acute (10) Respiratory failure Status: Acute (11) Respiratory failure requiring intubation Status: Acute (12) Respiratory failure requiring intubation Status: Acute - Assessment and Plan (Free Text) Assessment: contIV and PO rx
[2017-01-10] MEDS: Fluconazole IV 200mg/100 ml NS 100 ML IVPB SCH (15:59)
[2017-01-10] MEDS: Digoxin 250 mcg (0.25 mg) Tab PO SCH (17:34)
[2017-01-11] MEDS: Piperacillin/Tazobact 2.25 GM in Sodium Chloride 100 ML IVPB SCH ×3 (01:39→17:18)
[2017-01-11] MEDS: Levothyroxine 50 MCG TAB PO SCH (05:47)
[2017-01-11] MEDS: Fluticasone-Salmeterol 250-50mcg Diskus INH SCH ×2 (07:43→07:47)
[2017-01-11] MEDS: Albuterol-Ipratrop 3 mg / 0.5 (3 ml) UD INH SCH ×4 (07:43→19:25)
[2017-01-11] MEDS: Vancomycin 125 MG/5 ML SOLN (ORAL/RECTAL) PO SCH ×4 (09:21→21:53)
[2017-01-11] MEDS: diltiaZEM 120 mg/24 Hours CD Cap PO SCH (09:22)
[2017-01-11] MEDS: Fluconazole IV 200mg/100 ml NS 100 ML IVPB SCH (09:24)
[2017-01-11 09:27] LABS: BASO % 0.2 % (0.0-2.0); EOS # 0.1 K/uL (0.0-0.7); EOS % 0.8 % (0.0-4.0); HEMATOCRIT 29.2 % (34.0-47.0); LYMPH # 0.3 K/uL (1.0-4.3); LYMPH % 3.1 % (20.0-40.0); MEAN CELL VOLUME 83.5 fL (81.0-99.0); MEAN CORPUSCULAR HGB CONC 32.3 g/dL (33.0-37.0); MEAN PLATELET VOLUME 7.3 fL (7.2-11.7); MONO # 0.7 K/uL (0.0-0.8); MONO % 7.1 % (0.0-10.0); PLATELET COUNT 194 K/uL (130-400); RED CELL DISTRIBUTION WIDTH 20.9 % (11.5-14.5); WHITE BLOOD COUNT 9.6 K/uL (4.8-10.8)
--- NOTE | 2017-01-11 09:41 | RAD ---
PROCEDURE: CHEST RADIOGRAPH, 1 VIEW HISTORY: R/o infiltrates COMPARISON: Portable chest 01/09/2017. FINDINGS: Bases apparently been extubated and orogastric tube has been removed as well. Right PICC tip now terminates at the mid superior vena cava. Radiographic technique at penetration in taking differences in technique into account, pulmonary venous congestion pattern appears to be developing with no level change in bilateral infiltrates, greater at the left and right sides. [id number] left pleural effusion is not excluded. A small right pleural effusion is in question as well. No interval pneumothorax. OSSEOUS STRUCTURES: No significant abnormalities. VISUALIZED UPPER ABDOMEN: Normal. OTHER FINDINGS: None. IMPRESSION: Stable bilateral infiltrates however pulmonary venous congestion appears to developing. [id number] left and limited right pleural effusions are not excluded. Apparent removal of prior nasogastric and endotracheal tubes. Stable PICC insertion.
[2017-01-11 09:48] LABS: POTASSIUM 3.1 mmol/L (3.6-5.2)
[2017-01-11 09:50] LABS: ALB/GLOB RATIO 0.8 (1.0-2.1); BILIRUBIN,TOTAL 0.4 mg/dL (0.2-1.3); EOSINOPHIL 2 % (0-4); MYELOCYTE 2 % (0-0); NEUTROPHIL 86 % (50-75); TOTAL CELLS COUNTED 100; TOTAL PROTEIN 5.6 g/dL (6.3-8.3)
[2017-01-11 09:51] LABS: CALCIUM 7.3 mg/dl (8.6-10.4); LARGE PLATELETS PRESENT; MAGNESIUM 1.8 mg/dL (1.6-2.3)
--- NOTE | 2017-01-11 12:08 | CP.PCM.PN ---
Subjective - Date & Time of Evaluation Date of Evaluation: 01/11/17 Time of Evaluation: 12:07 - Subjective Subjective: seen and examined s/p extubation eating ice cream. dEnies any abd pain nausea vomiting diarrhea cp cough rash headache on iv lasix, good uop Objective - Vital Signs/Intake and Output Vital Signs (last 24 hours): Temp Pulse Resp BP Pulse Ox 98.7 F 125 H 18 135/87 93 L 01/11/17 08:00 01/11/17 11:02 01/11/17 11:02 01/11/17 11:02 01/11/17 11:02 Intake and Output: 01/11/17 01/11/17 06:59 18:59 Intake Total 172.5 400 Output Total 1070 300 Balance -897.5 100 - Medications Medications: Current Medications Acetaminophen (Tylenol 650mg/20.3ml Solution Ud) 650 mg PO Q6H PRN PRN Reason: Fever Albuterol Sulfate (Albuterol 0.042% Inhal Kimberly (1.25mg/3ml) Ud) 1.25 mg INH RQ3 PRN PRN Reason: shortness of breath Last Admin: 01/10/17 12:55 Dose: 1.25 mg Albuterol/Ipratropium (Duoneb 3 Mg/0.5 Mg (3 Ml) Ud) 3 ml INH RQID [facility] Last Admin: 01/11/17 07:43 Dose: 3 ml Amiodarone HCl (Cordarone) 200 mg PO BID [facility] Last Admin: 01/11/17 09:22 Dose: 200 mg Budesonide (Pulmicort Respules) 0.5 mg INH RQ12 [facility] Digoxin (Lanoxin) 0.25 mg PO DAILY@1800 [facility] Last Admin: 01/10/17 17:34 Dose: 0.25 mg Diltiazem HCl (Cardizem Cd) 120 mg PO DAILY [facility] Last Admin: 01/11/17 09:22 Dose: 120 mg Famotidine (Pepcid) 20 mg PO BID [facility] Last Admin: 01/11/17 09:22 Dose: 20 mg Furosemide (Lasix) 40 mg IVP Q12 [facility] Last Admin: 01/11/17 09:22 Dose: 40 mg Piperacillin Sod/Tazobactam (Sod 2.25 gm/ Sodium Chloride) 100 mls @ 200 mls/ hr IVPB Q8H [facility] Last Admin: 10/10/17 10:45 Dose: 200 mls/hr Fluconazole (Diflucan Iv 200 Mg/100 Ml Ns) 100 mls @ 100 mls/hr IVPB DAILY [facility] Last Admin: 01/11/17 09:24 Dose: 100 mls/hr Potassium Chloride (Potassium Chloride 20 Meq/100 Ml) 20 meq in 100 mls @ 50 mls/hr IVPB ONCE ONE Stop: 01/11/17 12:09 Last Admin: 01/11/17 10:16 Dose: 50 mls/hr Levothyroxine Sodium (Synthroid) 50 mcg PO 0630 [facility] Last Admin: 01/11/17 05:47 Dose: 50 mcg Metronidazole (Flagyl) 500 mg PO Q8 [facility] Last Admin: 01/11/17 05:47 Dose: 500 mg Morphine Sulfate (Morphine) 2 mg IVP Q4 PRN PRN Reason: pain Rosuvastatin Calcium (Crestor) 10 mg PO HS [facility] Last Admin: 01/10/17 22:31 Dose: 10 mg Vancomycin HCl (Vancocin (Oral Or Rectal Use)) 250 mg PO QID [facility] Last Admin: 01/11/17 09:21 Dose: 250 mg - Labs Labs: 01/11/17 09:21 01/11/17 09:21 - Constitutional Appears: Non-toxic, No Acute Distress, Chronically Ill - Head Exam Head Exam: NORMAL INSPECTION - Eye Exam Eye Exam: Normal appearance - ENT Exam ENT Exam: Mucous Membranes Moist, Normal Exam - Neck Exam Neck Exam: Normal Inspection - Respiratory Exam Respiratory Exam: Decreased Breath Sounds, NORMAL BREATHING PATTERN - Cardiovascular Exam Cardiovascular Exam: Irregular Rhythm - GI/Abdominal Exam GI & Abdominal Exam: Distended, Soft - Extremities Exam Additional comments: chronic stasis + edema Assessment and Plan (1) Anemia Status: Acute (2) CKD (chronic kidney disease), stage III Status: Acute (3) Clostridium difficile colitis Status: Acute (4) Intractable diarrhea Status: Acute - Assessment and Plan (Free Text) Assessment: maintain lasix replete potassium per icu team daily chems
--- NOTE | 2017-01-11 12:33 | CP.PCM.PN ---
Subjective - Date & Time of Evaluation Date of Evaluation: 01/11/17 Time of Evaluation: 12:30 - Subjective Subjective: MORE AWAKE. AFEBRILE. NOT IN DISTRESS. ANEMIA PRESENT. HYPOKALEMIA. BUN 35. VS WNL. Objective - Vital Signs/Intake and Output Vital Signs (last 24 hours): Temp Pulse Resp BP Pulse Ox 98.7 F 125 H 18 135/87 93 L 01/11/17 08:00 01/11/17 11:02 01/11/17 11:02 01/11/17 11:02 01/11/17 11:02 Intake and Output: 01/11/17 01/11/17 06:59 18:59 Intake Total 172.5 400 Output Total 1070 300 Balance -897.5 100 - Medications Medications: Current Medications Acetaminophen (Tylenol 650mg/20.3ml Solution Ud) 650 mg PO Q6H PRN PRN Reason: Fever Albuterol Sulfate (Albuterol 0.042% Inhal Kimberly (1.25mg/3ml) Ud) 1.25 mg INH RQ3 PRN PRN Reason: shortness of breath Last Admin: 01/10/17 12:55 Dose: 1.25 mg Albuterol/Ipratropium (Duoneb 3 Mg/0.5 Mg (3 Ml) Ud) 3 ml INH RQID [facility] Last Admin: 01/11/17 07:43 Dose: 3 ml Amiodarone HCl (Cordarone) 200 mg PO BID [facility] Last Admin: 01/11/17 09:22 Dose: 200 mg Budesonide (Pulmicort Respules) 0.5 mg INH RQ12 [facility] Digoxin (Lanoxin) 0.25 mg PO DAILY@1800 [facility] Last Admin: 01/10/17 17:34 Dose: 0.25 mg Diltiazem HCl (Cardizem Cd) 120 mg PO DAILY [facility] Last Admin: 01/11/17 09:22 Dose: 120 mg Famotidine (Pepcid) 20 mg PO BID [facility] Last Admin: 01/11/17 09:22 Dose: 20 mg Furosemide (Lasix) 40 mg IVP Q12 [facility] Last Admin: 01/11/17 09:22 Dose: 40 mg Piperacillin Sod/Tazobactam (Sod 2.25 gm/ Sodium Chloride) 100 mls @ 200 mls/ hr IVPB Q8H [facility] Last Admin: 01/11/17 10:45 Dose: 200 mls/hr Fluconazole (Diflucan Iv 200 Mg/100 Ml Ns) 100 mls @ 100 mls/hr IVPB DAILY [facility] Last Admin: 01/11/17 09:24 Dose: 100 mls/hr Levothyroxine Sodium (Synthroid) 50 mcg PO 0630 [facility] Last Admin: 01/11/17 05:47 Dose: 50 mcg Metronidazole (Flagyl) 500 mg PO Q8 [facility] Last Admin: 01/11/17 05:47 Dose: 500 mg Morphine Sulfate (Morphine) 2 mg IVP Q4 PRN PRN Reason: pain Rosuvastatin Calcium (Crestor) 10 mg PO HS [facility] Last Admin: 01/10/17 22:31 Dose: 10 mg Vancomycin HCl (Vancocin (Oral Or Rectal Use)) 250 mg PO QID [facility] Last Admin: 01/11/17 09:21 Dose: 250 mg - Labs Labs: 01/11/17 09:21 01/11/17 09:21 - Constitutional Appears: No Acute Distress, Chronically Ill - Eye Exam Eye Exam: Normal appearance, PERRL - ENT Exam ENT Exam: Normal Exam - Respiratory Exam Respiratory Exam: Clear to Ausculation Bilateral, NORMAL BREATHING PATTERN - Cardiovascular Exam Cardiovascular Exam: Irregular Rhythm, +S1, +S2 - GI/Abdominal Exam GI & Abdominal Exam: Soft, Normal Bowel Sounds - Extremities Exam Extremities Exam: Full ROM, Normal Capillary Refill, Normal Inspection. absent : Joint Swelling, Pedal Edema Assessment and Plan - Assessment and Plan (Free Text) Assessment: IMPROVING. Plan: CT TREATMENT PER ICU TEAM. K SUPPLEMENT. IV ANRIBIOTICS.
[2017-01-11] MEDS: Digoxin 250 mcg (0.25 mg) Tab PO SCH (17:18)
[2017-01-11] MEDS: Budesonide 0.5 mg/2 ml Inhal Susp UD INH SCH (19:25)
--- NOTE | 2017-01-11 19:27 | CP.PCM.PN ---
Subjective - Date & Time of Evaluation Date of Evaluation: 01/11/17 Time of Evaluation: 19:27 - Subjective Subjective: Family at bedside. Spoke to the family. DNR/DNI. Family wants supportive care only. Patient is awake and responding, labored breathing noted. Vital signs reviewed from the chart Clinical examination is unremarkable. Family will consider comfort care. Continue the supportive treatment at this time. Prognosis very poor Objective - Vital Signs/Intake and Output Vital Signs (last 24 hours): Temp Pulse Resp BP Pulse Ox 98.1 F 102 H 17 144/69 96 01/11/17 16:00 01/11/17 19:00 01/11/17 19:00 01/11/17 17:45 01/11/17 19:00 Intake and Output: 01/11/17 01/12/17 18:59 06:59 Intake Total 750 0 Output Total 950 Balance -200 0 - Medications Medications: Current Medications Acetaminophen (Tylenol 650mg/20.3ml Solution Ud) 650 mg PO Q6H PRN PRN Reason: Fever Albuterol Sulfate (Albuterol 0.042% Inhal Kimberly (1.25mg/3ml) Ud) 1.25 mg INH RQ3 PRN PRN Reason: shortness of breath Last Admin: 01/10/17 12:55 Dose: 1.25 mg Albuterol/Ipratropium (Duoneb 3 Mg/0.5 Mg (3 Ml) Ud) 3 ml INH RQID [facility] Last Admin: 01/11/17 14:21 Dose: 3 ml Amiodarone HCl (Cordarone) 200 mg PO BID [facility] Last Admin: 01/11/17 17:19 Dose: 200 mg Budesonide (Pulmicort Respules) 0.5 mg INH RQ12 [facility] Digoxin (Lanoxin) 0.25 mg PO DAILY@1800 [facility] Last Admin: 01/11/17 17:18 Dose: 0.25 mg Diltiazem HCl (Cardizem Cd) 120 mg PO DAILY [facility] Last Admin: 01/11/17 09:22 Dose: 120 mg Famotidine (Pepcid) 20 mg PO BID [facility] Last Admin: 01/11/17 17:19 Dose: 20 mg Furosemide (Lasix) 40 mg IVP Q12 [facility] Last Admin: 01/11/17 09:22 Dose: 40 mg Piperacillin Sod/Tazobactam (Sod 2.25 gm/ Sodium Chloride) 100 mls @ 200 mls/ hr IVPB Q8H [facility] Last Admin: 01/11/17 17:18 Dose: 200 mls/hr Fluconazole (Diflucan Iv 200 Mg/100 Ml Ns) 100 mls @ 100 mls/hr IVPB DAILY [facility] Last Admin: 01/11/17 09:24 Dose: 100 mls/hr Levothyroxine Sodium (Synthroid) 50 mcg PO 0630 [facility] Last Admin: 01/11/17 05:47 Dose: 50 mcg Metronidazole (Flagyl) 500 mg PO Q8 [facility] Last Admin: 01/11/17 14:04 Dose: 500 mg Morphine Sulfate (Morphine) 2 mg IVP Q4 PRN PRN Reason: pain Rosuvastatin Calcium (Crestor) 10 mg PO HS [facility] Last Admin: 01/10/17 22:31 Dose: 10 mg Vancomycin HCl (Vancocin (Oral Or Rectal Use)) 250 mg PO QID [facility] Last Admin: 01/11/17 17:18 Dose: 250 mg - Labs Labs: 01/11/17 09:21 01/11/17 09:21
[2017-01-12] MEDS: Piperacillin/Tazobact 2.25 GM in Sodium Chloride 100 ML IVPB SCH ×3 (01:30→18:18)
[2017-01-12] MEDS: Levothyroxine 50 MCG TAB PO SCH (06:27)
[2017-01-12] MEDS: Albuterol-Ipratrop 3 mg / 0.5 (3 ml) UD INH SCH ×4 (08:00→19:16)
[2017-01-12] MEDS: Budesonide 0.5 mg/2 ml Inhal Susp UD INH SCH ×2 (08:00→19:15)
[2017-01-12] MEDS: Fluconazole IV 200mg/100 ml NS 100 ML IVPB SCH (10:33)
[2017-01-12] MEDS: diltiaZEM 120 mg/24 Hours CD Cap PO SCH (10:34)
[2017-01-12] MEDS: Vancomycin 125 MG/5 ML SOLN (ORAL/RECTAL) PO SCH ×4 (10:34→21:55)
--- NOTE | 2017-01-12 12:12 | CP.PCM.PN ---
Subjective - Date & Time of Evaluation Date of Evaluation: 01/12/17 Time of Evaluation: 12:08 - Subjective Subjective: PT CONDITION IMPROVING. A. FIB PRESENT. REPEAT URINE NEG. NO DIARRHOEA. AFEBRILE. Objective - Vital Signs/Intake and Output Vital Signs (last 24 hours): Temp Pulse Resp BP Pulse Ox 97.4 F L 150 H 20 162/74 H 95 01/12/17 08:00 01/12/17 10:52 01/12/17 10:52 01/12/17 10:52 01/12/17 10:52 Intake and Output: 01/12/17 01/12/17 06:59 18:59 Intake Total 200 120 Output Total 400 Balance -200 120 - Medications Medications: Current Medications Acetaminophen (Tylenol 650mg/20.3ml Solution Ud) 650 mg PO Q6H PRN PRN Reason: Fever Last Admin: 01/11/17 22:19 Dose: 650 mg Albuterol Sulfate (Albuterol 0.042% Inhal Kimberly (1.25mg/3ml) Ud) 1.25 mg INH RQ3 PRN PRN Reason: shortness of breath Last Admin: 01/10/17 12:55 Dose: 1.25 mg Albuterol/Ipratropium (Duoneb 3 Mg/0.5 Mg (3 Ml) Ud) 3 ml INH RQID [facility] Last Admin: 01/12/17 11:41 Dose: 3 ml Amiodarone HCl (Cordarone) 200 mg PO BID [facility] Last Admin: 01/12/17 10:34 Dose: 200 mg Budesonide (Pulmicort Respules) 0.5 mg INH RQ12 [facility] Last Admin: 01/12/17 08:00 Dose: 0.5 mg Digoxin (Lanoxin) 0.25 mg PO DAILY@1800 [facility] Last Admin: 01/11/17 17:18 Dose: 0.25 mg Diltiazem HCl (Cardizem Cd) 120 mg PO DAILY [facility] Last Admin: 01/12/17 10:34 Dose: 120 mg Famotidine (Pepcid) 20 mg PO BID [facility] Last Admin: 01/12/17 10:34 Dose: 20 mg Furosemide (Lasix) 40 mg IVP Q12 [facility] Last Admin: 01/12/17 10:35 Dose: 40 mg Piperacillin Sod/Tazobactam (Sod 2.25 gm/ Sodium Chloride) 100 mls @ 200 mls/ hr IVPB Q8H [facility] Last Admin: 01/12/17 10:33 Dose: 200 mls/hr Fluconazole (Diflucan Iv 200 Mg/100 Ml Ns) 100 mls @ 100 mls/hr IVPB DAILY [facility] Last Admin: 01/12/17 10:33 Dose: 100 mls/hr Levothyroxine Sodium (Synthroid) 50 mcg PO 0630 [facility] Last Admin: 01/12/17 06:27 Dose: 50 mcg Metronidazole (Flagyl) 500 mg PO Q8 [facility] Last Admin: 01/12/17 06:27 Dose: 500 mg Morphine Sulfate (Morphine) 2 mg IVP Q4 PRN PRN Reason: pain Rosuvastatin Calcium (Crestor) 10 mg PO HS [facility] Last Admin: 01/11/17 21:51 Dose: 10 mg Vancomycin HCl (Vancocin (Oral Or Rectal Use)) 250 mg PO QID [facility] Last Admin: 01/12/17 10:34 Dose: 250 mg - Labs Labs: 01/11/17 09:21 01/11/17 09:21 - Constitutional Appears: No Acute Distress, Chronically Ill - Eye Exam Eye Exam: Normal appearance, PERRL - ENT Exam ENT Exam: Mucous Membranes Moist - Respiratory Exam Respiratory Exam: Decreased Breath Sounds, NORMAL BREATHING PATTERN - Cardiovascular Exam Cardiovascular Exam: Irregular Rhythm, +S1, +S2 - GI/Abdominal Exam GI & Abdominal Exam: Soft, Normal Bowel Sounds. absent: Tenderness - Extremities Exam Extremities Exam: Full ROM, Normal Capillary Refill, Normal Inspection. absent : Joint Swelling, Pedal Edema - Neurological Exam Neurological Exam: Alert, Awake, CN II-XII Intact, Normal Gait, Oriented x3 - Psychiatric Exam Psychiatric exam: Normal Affect, Normal Mood Assessment and Plan - Assessment and Plan (Free Text) Assessment: C DEF COLITIS. UTI. Plan: FOR IV ANTIBIOTICS. OOB. PALLIATIVE CARE EVAL. NEEDS WILIAN. CT OTHER TREATMENT.
--- NOTE | 2017-01-12 16:00 | CP.PCM.PN ---
Subjective - Date & Time of Evaluation Date of Evaluation: 01/12/17 Time of Evaluation: 14:00 - Subjective Subjective: extubated no diarrhea weak tangential historian no dyspnea at this time cannot obtain ROS due to above Objective - Vital Signs/Intake and Output Vital Signs (last 24 hours): Temp Pulse Resp BP Pulse Ox 97.4 F L 150 H 20 162/74 H 95 01/12/17 08:00 01/12/17 10:52 01/12/17 10:52 01/12/17 10:52 01/12/17 10:52 Intake and Output: 01/12/17 01/12/17 06:59 18:59 Intake Total 200 120 Output Total 400 Balance -200 120 - Medications Medications: Current Medications Acetaminophen (Tylenol 650mg/20.3ml Solution Ud) 650 mg PO Q6H PRN PRN Reason: Fever Last Admin: 01/11/17 22:19 Dose: 650 mg Albuterol Sulfate (Albuterol 0.042% Inhal Kimberly (1.25mg/3ml) Ud) 1.25 mg INH RQ3 PRN PRN Reason: shortness of breath Last Admin: 01/10/17 12:55 Dose: 1.25 mg Albuterol/Ipratropium (Duoneb 3 Mg/0.5 Mg (3 Ml) Ud) 3 ml INH RQID [facility] Last Admin: 01/12/17 15:53 Dose: 3 ml Amiodarone HCl (Cordarone) 200 mg PO BID [facility] Last Admin: 01/12/17 10:34 Dose: 200 mg Budesonide (Pulmicort Respules) 0.5 mg INH RQ12 [facility] Last Admin: 01/12/17 08:00 Dose: 0.5 mg Digoxin (Lanoxin) 0.25 mg PO DAILY@1800 [facility] Last Admin: 01/11/17 17:18 Dose: 0.25 mg Diltiazem HCl (Cardizem Cd) 120 mg PO DAILY [facility] Last Admin: 01/12/17 10:34 Dose: 120 mg Famotidine (Pepcid) 20 mg PO BID [facility] Last Admin: 01/12/17 10:34 Dose: 20 mg Furosemide (Lasix) 40 mg IVP Q12 [facility] Last Admin: 01/12/17 10:35 Dose: 40 mg Piperacillin Sod/Tazobactam (Sod 2.25 gm/ Sodium Chloride) 100 mls @ 200 mls/ hr IVPB Q8H [facility] Last Admin: 01/12/17 10:33 Dose: 200 mls/hr Fluconazole (Diflucan Iv 200 Mg/100 Ml Ns) 100 mls @ 100 mls/hr IVPB DAILY [facility] Last Admin: 01/12/17 10:33 Dose: 100 mls/hr Levothyroxine Sodium (Synthroid) 50 mcg PO 0630 [facility] Last Admin: 01/12/17 06:27 Dose: 50 mcg Metronidazole (Flagyl) 500 mg PO Q8 [facility] Last Admin: 01/12/17 15:05 Dose: 500 mg Morphine Sulfate (Morphine) 2 mg IVP Q4 PRN PRN Reason: pain Rosuvastatin Calcium (Crestor) 10 mg PO HS [facility] Last Admin: 01/11/17 21:51 Dose: 10 mg Vancomycin HCl (Vancocin (Oral Or Rectal Use)) 250 mg PO QID [facility] Last Admin: 01/12/17 15:05 Dose: 250 mg - Labs Labs: 01/11/17 09:21 01/11/17 09:21 - Constitutional Appears: Confused, Chronically Ill - Eye Exam Eye Exam: EOMI - ENT Exam ENT Exam: Mucous Membranes Moist - Neck Exam Neck Exam: Full ROM. absent: Lymphadenopathy - Respiratory Exam Respiratory Exam: Decreased Breath Sounds. absent: Accessory Muscle Use - Cardiovascular Exam Cardiovascular Exam: Irregular Rhythm. absent: Rubs - GI/Abdominal Exam GI & Abdominal Exam: Distended, Soft. absent: Tenderness - Extremities Exam Extremities Exam: absent: Pedal Edema Assessment and Plan - Assessment and Plan (Free Text) Plan: ckd, stable heart failure exacerbation, better recurrent c diff, improved continue same rehab
--- NOTE | 2017-01-12 16:25 | CP.PCM.CON ---
History of Present Illness - History of Present Illness History of Present Illness: Palliative consult Requested by Jeffry Alejandre MD Reason; Goals of care discussion Patient is a 86 yo female, admitted from home with persistent diarrhea. The CT abdomen and pelvis upon admission was consistent with unspecific colitis. Patient underwent colonoscopy and EGD. All diagnostic studies confirmed colitis and patient was treated empirically. On 01/07/17 patient sustained respiratory distress, become tachypneic and bradycardic requireing intubation for life support. Patient was successfully extubated on Tuesday. Family needed support on deciding on further plans of care. PMH: A Fib, A flutter, HTN, Soc. Hx: , lives with daughter at home , son is in [facility]. Hx: patient denies Review of Systems - Constitutional Constitutional: Weakness - EENT Eyes: absent: As Per HPI, Blind Spots, Blurred Vision, Change in Vision, Decreased Night Vision, Diplopia, Discharge, Dry Eye, Exophthalmos, Floaters, Irritation, Itchy Eyes, Loss of Peripheral Vision, Pain, Photophobia, Requires Corrective Lenses, Sees Flashes, Spots in Vision, Tunnel Vision, Other Visual Disturbances, Loss of Vision, Other Ears: absent: As Per HPI, Decreased Hearing, Ear Discharge, Ear Pain, Tinnitus, Abnormal Hearing, Disequilibrium, Dizziness, Other Nose/Mouth/Throat: absent: As Per HPI, Epistaxis, Nasal Congestion, Nasal Discharge, Nasal Obstruction, Nasal Trauma, Nose Pain, Post Nasal Drip, Sinus Pain, Sinus Pressure, Bleeding Gums, Change in Voice, Dental Pain, Dry Mouth, Dysphagia, Halitosis, Hoarsness, Lip Swelling, Mouth Lesions, Mouth Pain, Odynophagia, Sore Throat, Throat Swelling, Tongue Swelling, Facial Pain, Neck Pain, Neck Mass, Other - Breasts Breasts: absent: As Per HPI, Change in Shape, Mass, Pain, Nipple Discharge, Nipple Inversion, Skin Changes, Swelling, Other - Cardiovascular Cardiovascular: Pedal Edema, Rapid Heart Rate - Respiratory Respiratory: Dyspnea on Exertion - Gastrointestinal Gastrointestinal: Abdominal Pain - Genitourinary Genitourinary: absent: As Per HPI, Change in Urinary Stream, Difficulty Urinating, Dysuria, Flank Pain, Hematuria, Pyuria, Nocturia, Urinary Incontinence, Urinary Frequency, Urinary Hesitance, Urinary Urgency, Voiding Freq/Small Amts, Freq UTI, Hx Renal/Bladder Calculi, Hx /Renal Surgery, Bladder Distension, Other - Reproductive: Female Reproductive:Female: Post Menopausal - Menstruation Menstruation: Post Menopausal - Musculoskeletal Musculoskeletal: Muscle Weakness - Integumentary Integumentary: Dry Skin - Neurological Neurological: Weakness - Psychiatric Psychiatric: absent: As Per HPI, Abnormal Sleep Pattern, Anhedonia, Anxiety, Auditory Hallucinations, Behavioral Changes, Change in Appetite, Change in Libido, Confusion, Depression, Difficulty Concentrating, Hallucinations, Homicidal Ideation, Hopelessness, Irritability, Memory Loss, Mood Swings, Panic Attacks, Paranoia, Suicidal Ideation, Visual Hallucinations, Tactile Hallucinations, Other - Endocrine Endocrine: absent: As Per HPI, Change in Body Appearance, Change in Libido, Cold Intolorance, Deepening of Voice, Excessive Sweating, Fatigue, Flushing, Heat Intolorance, Increase in Ring/Shoe/Hat Size, Palpitations, Polydipsia, Polyphagia, Polyuria, Other - Hematologic/Lymphatic Hematologic: absent: As Per HPI, Easy Bleeding, Easy Bruising, Lymphadenopathy, Other Past Patient History - Infectious Disease Hx of Infectious Diseases: None - Past Medical History & Family History Past Medical History?: Yes - Past Social History Smoking Status: Never Smoked - CARDIAC Hx Cardiac Disorders: Yes (A fibrillation) Hx Congestive Heart Failure: Yes Hx Hypercholesterolemia: Yes Hx Hypertension: Yes - PULMONARY Hx Respiratory Disorders: No - NEUROLOGICAL Hx Neurological Disorder: No - HEENT Hx HEENT Problems: No - RENAL Hx Chronic Kidney Disease: No - ENDOCRINE/METABOLIC Hx Diabetes Mellitus Type 2: Yes - HEMATOLOGICAL/ONCOLOGICAL Hx Blood Disorders: No - INTEGUMENTARY Hx Dermatological Problems: No - MUSCULOSKELETAL/RHEUMATOLOGICAL Hx Falls: No - GASTROINTESTINAL Hx Gastrointestinal Disorders: Yes Hx Colitis: Yes - GENITOURINARY/GYNECOLOGICAL Hx Genitourinary Disorders: No - PSYCHIATRIC Hx Substance Use: No - SURGICAL HISTORY Hx Appendectomy: Yes Other/Comment: no additional information given by patient. - ANESTHESIA Hx Anesthesia: Yes Hx Anesthesia Reactions: No Hx Malignant Hyperthermia: No Meds Allergies/Adverse Reactions: Allergies Allergy/AdvReac Type Severity Reaction Status Date / Time naproxen Allergy Intermediate RASH Verified 12/27/16 14:50 - Medications Medications: Current Medications Acetaminophen (Tylenol 650mg/20.3ml Solution Ud) 650 mg PO Q6H PRN PRN Reason: Fever Last Admin: 01/11/17 22:19 Dose: 650 mg Albuterol Sulfate (Albuterol 0.042% Inhal Kimberly (1.25mg/3ml) Ud) 1.25 mg INH RQ3 PRN PRN Reason: shortness of breath Last Admin: 01/10/17 12:55 Dose: 1.25 mg Albuterol/Ipratropium (Duoneb 3 Mg/0.5 Mg (3 Ml) Ud) 3 ml INH RQID [facility] Last Admin: 01/12/17 15:53 Dose: 3 ml Amiodarone HCl (Cordarone) 200 mg PO BID [facility] Last Admin: 01/12/17 10:34 Dose: 200 mg Budesonide (Pulmicort Respules) 0.5 mg INH RQ12 [facility] Last Admin: 01/12/17 08:00 Dose: 0.5 mg Digoxin (Lanoxin) 0.25 mg PO DAILY@1800 [facility] Last Admin: 01/11/17 17:18 Dose: 0.25 mg Diltiazem HCl (Cardizem Cd) 120 mg PO DAILY [facility] Last Admin: 01/12/17 10:34 Dose: 120 mg Famotidine (Pepcid) 20 mg PO BID [facility] Last Admin: 01/12/17 10:34 Dose: 20 mg Furosemide (Lasix) 40 mg IVP Q12 [facility] Last Admin: 01/12/17 10:35 Dose: 40 mg Piperacillin Sod/Tazobactam (Sod 2.25 gm/ Sodium Chloride) 100 mls @ 200 mls/ hr IVPB Q8H [facility] Last Admin: 01/12/17 10:33 Dose: 200 mls/hr Fluconazole (Diflucan Iv 200 Mg/100 Ml Ns) 100 mls @ 100 mls/hr IVPB DAILY [facility] Last Admin: 01/12/17 10:33 Dose: 100 mls/hr Levothyroxine Sodium (Synthroid) 50 mcg PO 0630 [facility] Last Admin: 01/12/17 06:27 Dose: 50 mcg Metronidazole (Flagyl) 500 mg PO Q8 [facility] Last Admin: 01/12/17 15:05 Dose: 500 mg Morphine Sulfate (Morphine) 2 mg IVP Q4 PRN PRN Reason: pain Rosuvastatin Calcium (Crestor) 10 mg PO HS [facility] Last Admin: 01/11/17 21:51 Dose: 10 mg Vancomycin HCl (Vancocin (Oral Or Rectal Use)) 250 mg PO QID [facility] Last Admin: 01/12/17 15:05 Dose: 250 mg Physical Exam - Constitutional Appears: No Acute Distress, Chronically Ill - Head Exam Head Exam: ATRAUMATIC, NORMAL INSPECTION, NORMOCEPHALIC - Eye Exam Eye Exam: EOMI, Normal appearance, PERRL Pupil Exam: NORMAL ACCOMODATION, PERRL - ENT Exam ENT Exam: Mucous Membranes Moist, Normal Exam - Neck Exam Neck exam: Positive for: Normal Inspection - Respiratory Exam Respiratory Exam: Decreased Breath Sounds, NORMAL BREATHING PATTERN - Cardiovascular Exam Cardiovascular Exam: Tachycardia, REGULAR RHYTHM - GI/Abdominal Exam GI & Abdominal Exam: Normal Bowel Sounds, Soft - Rectal Exam Rectal Exam: Deferred - Extremities Exam Extremities exam: Positive for: pedal edema - Back Exam Back exam: NORMAL INSPECTION - Neurological Exam Neurological exam: Alert, Oriented x3 - Psychiatric Exam Psychiatric exam: Flat Affect, Normal Affect, Normal Mood - Skin Skin Exam: Dry, Intact, Pallor, Warm Results - Vital Signs Recent Vital Signs: Last Vital Signs Temp 98.2 F 01/12/17 16:00 Pulse 107 H 01/12/17 15:44 Resp 22 01/12/17 15:44 BP 112/70 01/12/17 15:44 Pulse Ox 93 L 01/12/17 16:00 - Labs Result Diagrams: 01/11/17 09:21 01/11/17 09:21 Labs: Laboratory Results - last 24 hr 01/11/17 01/11/17 01/12/17 08:58 18:12 00:12 POC Glucose (mg/dL) 130 H 121 H C. difficile Ag & Toxin Negative 01/12/17 01/12/17 06:08 11:31 POC Glucose (mg/dL) 111 H 126 H C. difficile Ag & Toxin Assessment & Plan - Assessment and Plan (Free Text) Assessment: Palliative consult Code status DNR/DNI, POLST on chart, PPS 10% I reviewed medical records, all diagnostic studies, examined and interviewed patient in the chair and discussed goals of care with her son Oliver and daughter in law. Patient is alert X 3, looks weak and able to participate in conversation. Patient answers questions appropriately. Skin is dry and intact. Breath sounds diminished, denies cough, HR 108, O2Sat 93 % NC . Abdomen soft and flat, denies abdominal pain, able to swallow food. There is mild pedal edema. Patient reports feeling weak. BP 112/70, HR 108,. WBC 9.6, Hb 9.4, K 3.1, Alb 2.5. Family meeting held with son Oliver and his . The family admits to a losing the son just 6 weeks ago, but still managed to fly over from [place] and visit the patient. Per them, patient was deeply touched by the of her grandson and wanted to , to be with him. Patient's daughter Destinee was not able to attend the meting due to personal reasons. Before family arrived, I spoke to patient who stated she would want to go home as opposed to ID. Patient was aware that she would not get enough help at home, since her daughter Lottie has a maritime officer job. I related this to son Oliver, who agreed. Goals of care discussed with family. They understand patient's condition and her needs for extensive assistance with ADLs. Family would like patient to go to a [facility] first, than to make further plans based on patient's condition. They would not want her to stay there halfway. I checked with patient's insurance coverage for the [facility] . If patient participates in PT at [facility] and make progress, than family would consider bringing her home and arrange for private home school liaison officer. I shared this with Inge HURTADO. Impression * Patient is post removal of MV support in no acute distress * Patient is weak is requiring extensive assistance with ADLs * Patient wishes to ultimately goes home * Family prefers [facility] before discharge home Suggestion * Would discharge to regular floor * Discharge plan to [facility] Thank you for consulting Palliative Care
--- NOTE | 2017-01-12 17:07 | CP.PCM.PN ---
Subjective - Date & Time of Evaluation Date of Evaluation: 01/12/17 Time of Evaluation: 08:00 - Subjective Subjective: extubated afebrile congested Objective - Vital Signs/Intake and Output Vital Signs (last 24 hours): Temp Pulse Resp BP Pulse Ox 98.2 F 92 H 23 117/76 93 L 01/12/17 16:00 01/12/17 16:26 01/12/17 16:26 01/12/17 16:26 01/12/17 16:26 Intake and Output: 01/12/17 01/12/17 06:59 18:59 Intake Total 200 445 Output Total 400 500 Balance -200 -55 - Medications Medications: Current Medications Acetaminophen (Tylenol 650mg/20.3ml Solution Ud) 650 mg PO Q6H PRN PRN Reason: Fever Last Admin: 01/11/17 22:19 Dose: 650 mg Albuterol Sulfate (Albuterol 0.042% Inhal Kimberly (1.25mg/3ml) Ud) 1.25 mg INH RQ3 PRN PRN Reason: shortness of breath Last Admin: 01/10/17 12:55 Dose: 1.25 mg Albuterol/Ipratropium (Duoneb 3 Mg/0.5 Mg (3 Ml) Ud) 3 ml INH RQID [facility] Last Admin: 01/12/17 15:53 Dose: 3 ml Amiodarone HCl (Cordarone) 200 mg PO BID [facility] Last Admin: 01/12/17 10:34 Dose: 200 mg Budesonide (Pulmicort Respules) 0.5 mg INH RQ12 [facility] Last Admin: 01/12/17 08:00 Dose: 0.5 mg Digoxin (Lanoxin) 0.25 mg PO DAILY@1800 [facility] Last Admin: 01/11/17 17:18 Dose: 0.25 mg Diltiazem HCl (Cardizem Cd) 120 mg PO DAILY [facility] Last Admin: 01/12/17 10:34 Dose: 120 mg Famotidine (Pepcid) 20 mg PO BID [facility] Last Admin: 01/12/17 10:34 Dose: 20 mg Furosemide (Lasix) 40 mg IVP Q12 [facility] Last Admin: 01/12/17 10:35 Dose: 40 mg Piperacillin Sod/Tazobactam (Sod 2.25 gm/ Sodium Chloride) 100 mls @ 200 mls/ hr IVPB Q8H [facility] Last Admin: 01/12/17 10:33 Dose: 200 mls/hr Fluconazole (Diflucan Iv 200 Mg/100 Ml Ns) 100 mls @ 100 mls/hr IVPB DAILY [facility] Last Admin: 01/12/17 10:33 Dose: 100 mls/hr Levothyroxine Sodium (Synthroid) 50 mcg PO 0630 [facility] Last Admin: 01/12/17 06:27 Dose: 50 mcg Metronidazole (Flagyl) 500 mg PO Q8 [facility] Last Admin: 01/12/17 15:05 Dose: 500 mg Morphine Sulfate (Morphine) 2 mg IVP Q4 PRN PRN Reason: pain Rosuvastatin Calcium (Crestor) 10 mg PO HS [facility] Last Admin: 01/11/17 21:51 Dose: 10 mg Vancomycin HCl (Vancocin (Oral Or Rectal Use)) 250 mg PO QID [facility] Last Admin: 01/12/17 15:05 Dose: 250 mg - Labs Labs: 01/11/17 09:21 01/11/17 09:21 - Constitutional Appears: Non-toxic, Chronically Ill - Head Exam Head Exam: NORMOCEPHALIC - ENT Exam ENT Exam: Mucous Membranes Dry - Neck Exam Neck Exam: absent: Lymphadenopathy - Respiratory Exam Respiratory Exam: Decreased Breath Sounds, Rales, Rhonchi - Cardiovascular Exam Cardiovascular Exam: REGULAR RHYTHM, +S1, +S2 - GI/Abdominal Exam GI & Abdominal Exam: Distended, Soft. absent: Tenderness - Rectal Exam Rectal Exam: Deferred - Exam Exam: NORMAL INSPECTION - Extremities Exam Extremities Exam: absent: Pedal Edema - Back Exam Back Exam: absent: CVA tenderness (L), CVA tenderness (R) - Neurological Exam Neurological Exam: Alert, Awake - Psychiatric Exam Psychiatric exam: Depressed - Skin Skin Exam: Dry Assessment and Plan (1) Anemia Status: Acute (2) Dehydration Status: Acute (3) Intractable diarrhea Status: Acute (4) Leukocytosis Status: Acute (5) Renal insufficiency Status: Acute (6) Acute renal insufficiency Status: Acute (7) Bilateral lower extremity edema Status: Acute (8) Pancolitis Status: Acute (9) Respiratory failure Status: Acute (10) Respiratory failure Status: Acute (11) Respiratory failure requiring intubation Status: Acute (12) Respiratory failure requiring intubation Status: Acute
[2017-01-12] MEDS: Digoxin 250 mcg (0.25 mg) Tab PO SCH (18:18)
[2017-01-12 18:19] VITALS: PULSE 90
--- NOTE | 2017-01-12 23:43 | CP.PCM.PN ---
Subjective - Date & Time of Evaluation Date of Evaluation: 01/12/17 Time of Evaluation: 23:43 - Subjective Subjective: Patient's condition remains same. She is becoming more lethargic, more week. On oxygen. Supplemented oxygenation noted. Vital signs with clinically tachycardia noted, episodes of atrial flutter noted. Edema present. Poorly responding at this time. Family at bedside. Spoke to them. Continue the supportive treatment. DNR/DNI Objective - Vital Signs/Intake and Output Vital Signs (last 24 hours): Temp Pulse Resp BP Pulse Ox 98.5 F 71 24 152/98 H 92 L 01/12/17 20:00 01/12/17 22:00 01/12/17 22:00 01/12/17 21:56 01/12/17 22:00 Intake and Output: 01/12/17 01/13/17 18:59 06:59 Intake Total 645 100 Output Total 800 100 Balance -155 0 - Medications Medications: Current Medications Acetaminophen (Tylenol 650mg/20.3ml Solution Ud) 650 mg PO Q6H PRN PRN Reason: Fever Last Admin: 01/11/17 22:19 Dose: 650 mg Albuterol Sulfate (Albuterol 0.042% Inhal Kimberly (1.25mg/3ml) Ud) 1.25 mg INH RQ3 PRN PRN Reason: shortness of breath Last Admin: 01/10/17 12:55 Dose: 1.25 mg Albuterol/Ipratropium (Duoneb 3 Mg/0.5 Mg (3 Ml) Ud) 3 ml INH RQID [facility] Last Admin: 01/12/17 19:16 Dose: 3 ml Amiodarone HCl (Cordarone) 200 mg PO BID [facility] Last Admin: 01/12/17 18:17 Dose: 200 mg Budesonide (Pulmicort Respules) 0.5 mg INH RQ12 [facility] Last Admin: 01/12/17 19:15 Dose: 0.5 mg Digoxin (Lanoxin) 0.25 mg PO DAILY@1800 [facility] Last Admin: 01/12/17 18:18 Dose: 0.25 mg Diltiazem HCl (Cardizem Cd) 120 mg PO DAILY [facility] Last Admin: 01/12/17 10:34 Dose: 120 mg Famotidine (Pepcid) 20 mg PO BID [facility] Last Admin: 01/12/17 18:17 Dose: 20 mg Furosemide (Lasix) 40 mg IVP Q12 [facility] Last Admin: 01/12/17 21:56 Dose: 40 mg Piperacillin Sod/Tazobactam (Sod 2.25 gm/ Sodium Chloride) 100 mls @ 200 mls/ hr IVPB Q8H [facility] Last Admin: 01/12/17 18:18 Dose: 200 mls/hr Fluconazole (Diflucan Iv 200 Mg/100 Ml Ns) 100 mls @ 100 mls/hr IVPB DAILY [facility] Last Admin: 01/12/17 10:33 Dose: 100 mls/hr Levothyroxine Sodium (Synthroid) 50 mcg PO 0630 [facility] Last Admin: 01/12/17 06:27 Dose: 50 mcg Metronidazole (Flagyl) 500 mg PO Q8 [facility] Last Admin: 01/12/17 21:56 Dose: 500 mg Morphine Sulfate (Morphine) 2 mg IVP Q4 PRN PRN Reason: pain Rosuvastatin Calcium (Crestor) 10 mg PO HS [facility] Last Admin: 01/12/17 21:56 Dose: 10 mg Vancomycin HCl (Vancocin (Oral Or Rectal Use)) 250 mg PO QID [facility] Last Admin: 01/12/17 21:55 Dose: 250 mg - Labs Labs: 01/11/17 09:21 01/11/17 09:21
[2017-01-13] MEDS: Piperacillin/Tazobact 2.25 GM in Sodium Chloride 100 ML IVPB SCH ×2 (02:25→09:34)
[2017-01-13] MEDS: Levothyroxine 50 MCG TAB PO SCH (05:39)
[2017-01-13 06:49] LABS: BASO % 0.2 % (0.0-2.0); EOS # 0.1 K/uL (0.0-0.7); EOS % 0.7 % (0.0-4.0); HEMATOCRIT 29.1 % (34.0-47.0); LYMPH # 0.2 K/uL (1.0-4.3); LYMPH % 2.4 % (20.0-40.0); MEAN CELL VOLUME 84.5 fL (81.0-99.0); MEAN CORPUSCULAR HEMOGLOBIN 27.5 pg (27.0-31.0); MEAN CORPUSCULAR HGB CONC 32.6 g/dL (33.0-37.0); MEAN PLATELET VOLUME 7.4 fL (7.2-11.7); MONO % 10.8 % (0.0-10.0); PLATELET COUNT 255 K/uL (130-400); RED CELL DISTRIBUTION WIDTH 21.9 % (11.5-14.5); WHITE BLOOD COUNT 8.9 K/uL (4.8-10.8)
[2017-01-13 07:01] LABS: POTASSIUM 3.3 mmol/L (3.6-5.2)
[2017-01-13 07:03] LABS: BILIRUBIN,TOTAL 0.4 mg/dL (0.2-1.3); TOTAL PROTEIN 6.3 g/dL (6.3-8.3)
[2017-01-13 07:04] LABS: MAGNESIUM 1.8 mg/dL (1.6-2.3); PHOSPHOROUS 2.6 mg/dL (2.5-4.5)
[2017-01-13 07:10] LABS: ALB/GLOB RATIO 0.8 (1.0-2.1)
[2017-01-13] MEDS: Budesonide 0.5 mg/2 ml Inhal Susp UD INH SCH (08:25)
[2017-01-13] MEDS: Albuterol-Ipratrop 3 mg / 0.5 (3 ml) UD INH SCH ×2 (08:25→11:45)
[2017-01-13 08:34] LABS: NEUTROPHIL 86 % (50-75); REACTIVE LYMPHOCYTES 2 % (0-0); TOTAL CELLS COUNTED 100
[2017-01-13] MEDS: diltiaZEM 120 mg/24 Hours CD Cap PO SCH (09:33)
[2017-01-13] MEDS: Fluconazole IV 200mg/100 ml NS 100 ML IVPB SCH (09:33)
[2017-01-13] MEDS: Vancomycin 125 MG/5 ML SOLN (ORAL/RECTAL) PO SCH (09:35)
--- NOTE | 2017-01-13 09:53 | CP.PCM.PN ---
Subjective - Date & Time of Evaluation Date of Evaluation: 01/13/17 Time of Evaluation: 09:51 - Subjective Subjective: More obtunded, congested Spoke to family at length- refuses anothe rintubation [id number] Cannot obtain ROS No diarrhea reported Objective - Vital Signs/Intake and Output Vital Signs (last 24 hours): Temp Pulse Resp BP Pulse Ox 98.1 F 77 18 156/89 H 95 01/13/17 08:00 01/13/17 08:00 01/13/17 08:00 01/13/17 09:37 01/13/17 08:00 Intake and Output: 01/13/17 01/13/17 06:59 18:59 Intake Total 250 0 Output Total 400 100 Balance -150 -100 - Medications Medications: Current Medications Acetaminophen (Tylenol 650mg/20.3ml Solution Ud) 650 mg PO Q6H PRN PRN Reason: Fever Last Admin: 01/11/17 22:19 Dose: 650 mg Albuterol/Ipratropium (Duoneb 3 Mg/0.5 Mg (3 Ml) Ud) 3 ml INH RQID [facility] Last Admin: 01/13/17 08:25 Dose: 3 ml Amiodarone HCl (Cordarone) 200 mg PO BID [facility] Last Admin: 01/13/17 09:33 Dose: 200 mg Budesonide (Pulmicort Respules) 0.5 mg INH RQ12 [facility] Last Admin: 01/13/17 08:25 Dose: 0.5 mg Digoxin (Lanoxin) 0.25 mg PO DAILY@1800 [facility] Last Admin: 01/12/17 18:18 Dose: 0.25 mg Diltiazem HCl (Cardizem Cd) 120 mg PO DAILY [facility] Last Admin: 01/13/17 09:33 Dose: 120 mg Famotidine (Pepcid) 20 mg PO BID [facility] Last Admin: 01/13/17 09:33 Dose: 20 mg Furosemide (Lasix) 40 mg IVP Q12 [facility] Last Admin: 01/13/17 09:37 Dose: 40 mg Piperacillin Sod/Tazobactam (Sod 2.25 gm/ Sodium Chloride) 100 mls @ 200 mls/ hr IVPB Q8H [facility] Last Admin: 01/13/17 09:34 Dose: 200 mls/hr Fluconazole (Diflucan Iv 200 Mg/100 Ml Ns) 100 mls @ 100 mls/hr IVPB DAILY [facility] Last Admin: 01/13/17 09:33 Dose: 100 mls/hr Levothyroxine Sodium (Synthroid) 50 mcg PO 0630 [facility] Last Admin: 01/13/17 05:39 Dose: 50 mcg Metronidazole (Flagyl) 500 mg PO Q8 [facility] Last Admin: 01/13/17 05:39 Dose: 500 mg Morphine Sulfate (Morphine) 2 mg IVP Q4 PRN PRN Reason: pain Rosuvastatin Calcium (Crestor) 10 mg PO HS [facility] Last Admin: 01/12/17 21:56 Dose: 10 mg Vancomycin HCl (Vancocin (Oral Or Rectal Use)) 250 mg PO QID [facility] Last Admin: 01/13/17 09:35 Dose: 250 mg - Labs Labs: 01/13/17 06:32 01/13/17 06:32 - Constitutional Appears: In Acute Distress, Confused, Chronically Ill - Head Exam Head Exam: ATRAUMATIC, NORMAL INSPECTION - Eye Exam Eye Exam: EOMI, Normal appearance - Neck Exam Neck Exam: Normal Inspection. absent: Tenderness - Respiratory Exam Respiratory Exam: Rales, Respiratory Distress - Cardiovascular Exam Cardiovascular Exam: RRR, +S1 - GI/Abdominal Exam GI & Abdominal Exam: Soft. absent: Tenderness - Extremities Exam Extremities Exam: Pedal Edema. absent: Tenderness - Neurological Exam Neurological Exam: Altered, CN II-XII Intact - Skin Skin Exam: Dry, Warm Assessment and Plan (1) CKD (chronic kidney disease), stage III Status: Acute (2) Diarrhea Status: Acute (3) Clostridium difficile colitis Status: Acute (4) CHF (congestive heart failure) Status: Acute - Assessment and Plan (Free Text) Plan: Increase diuretics Replete K
[2017-01-13] MEDS ORDERED: metOLazone 5 MG TAB PO SCH (10:00)
[2017-01-13] MEDS ORDERED: Morphine Sulfate 250 MG in Dextrose 5% In Water 240 ML IV ONE (11:53)
--- NOTE | 2017-01-13 12:37 | CP.PCM.PN ---
Subjective - Date & Time of Evaluation Date of Evaluation: 01/13/17 Time of Evaluation: 12:33 - Subjective Subjective: PATIENT CONDITION DETERIORATING. LETHARGIC AND TACHYPNIC. PT EXPRESSING HER WISH TO BE WITH PARENTS (). DISCUSSED WITH FAMILY AND ADVISES TO STOP ALL TREATMENTS AND MAKE HER COMFORTABLE. AGREED. Objective - Vital Signs/Intake and Output Vital Signs (last 24 hours): Temp Pulse Resp BP Pulse Ox 98 F 81 20 160/71 H 96 01/13/17 12:00 01/13/17 12:00 01/13/17 12:00 01/13/17 12:00 01/13/17 12:00 Intake and Output: 01/13/17 01/13/17 06:59 18:59 Intake Total 250 50 Output Total 400 100 Balance -150 -50 - Medications Medications: Current Medications Morphine Sulfate 250 mg/ (Dextrose) 250 mls @ 2 mls/hr IV .Q24H ONE PRN Reason: Protocol Stop: 01/14/17 11:52 Last Admin: 01/13/17 12:14 Dose: 3 mg/hr, 3 mls/hr Morphine Sulfate (Morphine) 2 mg IVP Q4 PRN PRN Reason: pain - Labs Labs: 01/13/17 06:32 01/13/17 06:32 - Constitutional Appears: In Acute Distress, Chronically Ill - Eye Exam Eye Exam: PERRL - Neck Exam Neck Exam: Normal Inspection - Respiratory Exam Respiratory Exam: Accessory Muscle Use, Decreased Breath Sounds, Rales - Cardiovascular Exam Cardiovascular Exam: Irregular Rhythm, +S1, +S2 - GI/Abdominal Exam GI & Abdominal Exam: Soft - Neurological Exam Neurological Exam: Altered - Skin Skin Exam: Pallor Assessment and Plan - Assessment and Plan (Free Text) Assessment: C DEF COLITIS. CARDIOMYOPATHY. CHF. Plan: DNR. HOSPICE CARE. CONDITION POOR. PROGNOSIS GUARDED. FAMILY AWARE.
[2017-01-13 22:41] VITALS: O2SAT 88
[2017-01-14 06:56] VITALS: BP 129/60
--- NOTE | 2017-01-14 13:11 | CP.PCM.PN ---
Subjective - Date & Time of Evaluation Date of Evaluation: 01/14/17 Time of Evaluation: 13:08 - Subjective Subjective: CONDITION POOR. TACHYPNIC. PARADOXICAL BREATHING. SHALLOW. Objective - Vital Signs/Intake and Output Vital Signs (last 24 hours): Temp Pulse Resp BP Pulse Ox 98.2 F 78 10 L 129/60 88 L 01/14/17 04:00 01/14/17 00:00 01/14/17 00:00 01/14/17 00:00 01/14/17 00:00 Intake and Output: 01/14/17 01/14/17 06:59 18:59 Intake Total 92 8 Output Total 350 Balance -258 8 - Labs Labs: 01/13/17 06:32 01/13/17 06:32 - Constitutional Appears: In Acute Distress, Chronically Ill - Eye Exam Eye Exam: Normal appearance, PERRL - ENT Exam ENT Exam: Normal Exam - Respiratory Exam Respiratory Exam: Accessory Muscle Use, Decreased Breath Sounds - Cardiovascular Exam Cardiovascular Exam: Irregular Rhythm, +S1, +S2 - GI/Abdominal Exam GI & Abdominal Exam: Soft, Normal Bowel Sounds - Extremities Exam Extremities Exam: Full ROM, Normal Capillary Refill, Normal Inspection. absent : Joint Swelling, Pedal Edema Assessment and Plan - Assessment and Plan (Free Text) Assessment: DNR. END STAGE CARDIOMYOPATHY. Plan: SUPPORTIVE CARE.
[2017-01-14] MEDS ORDERED: Morphine Sulfate 250 MG in Dextrose 5% In Water 240 ML IV ONE (15:30)
--- NOTE | 2017-01-14 15:53 | CP.PCM.PRO ---
Pronouncement of Note - Clinical Findings Physical Exam: No Response Verbal/Painful Stimuli, Absent Heart & Breath Sounds , No Pupillary Light Reflex, No Corneal Reflex, Pupils Fixed & Dilated, Absence of Vital Signs - Pronouncement Time Time of Pronouncement of : 15:28 Additional Comments: Patient brought up from ICU, patient flatlined. 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 [id number]
[2017-01-14 18:34] VITALS: PULSE 69; RESP 12; TEMP 97.2
--- NOTE | 2017-01-17 12:04 | CP.PCM.PN ---
Subjective - Date & Time of Evaluation Date of Evaluation: 01/13/17 Time of Evaluation: 12:04 - Subjective Subjective: Patient's condition remains same. She is becoming more lethargic, more week. On oxygen. Supplemented oxygenation noted. Vital signs with clinically tachycardia noted, episodes of atrial flutter noted. Edema present. Poorly responding at this time. Family at bedside. Spoke to them. Continue the supportive treatment. DNR/DNI Objective - Vital Signs/Intake and Output Vital Signs (last 24 hours): Temp Pulse Resp BP Pulse Ox 97.2 F L 69 12 129/60 88 L 01/14/17 12:00 01/14/17 12:00 01/14/17 12:00 01/14/17 00:00 01/14/17 00:00 - Labs Labs: 01/13/17 06:32 01/13/17 06:32
--- NOTE | 2017-01-20 04:33 | DS ---
HISTORY OF PRESENT ILLNESS: This is an 86-year-old white female was admitted through the emergency room. The patient complained of persistent abdominal pain and severe diarrhea for the last 2 to 3 week. The patient was admitted with possibility of C. diff colitis. PAST MEDICAL HISTORY: Atrial fibrillation, congestive heart failure, hypertension and hyperlipidemia. SOCIAL HISTORY: The patient denies having any tobacco or alcohol use. During the hospital course, the patient was awake. PHYSICAL EXAMINATION: VITAL SIGNS: Normal vital signs. LUNGS: Within normal limits. HEART: Within normal limits. ABDOMEN: Soft and nontender. LABORATORY DATA: The patient's repeat stool was positive for C. diff. Urine was positive for UTI. The patient was having atrial fibrillation with rapid ventricular rate. EP doctor was consulted and started on amiodarone. The patient's general condition was deteriorating, so family and the patient advised DNR. The patient was treated in ICU. Respiratory treatment, IV treatment, IV antibiotics and all the medications were stopped as per family's request. DNR continued. The patient in the hospital. FINAL DIAGNOSES: 1. Cardiac arrest. 2. Ischemic cardiomyopathy. 3. Congestive heart failure. 4. Clostridium difficile colitis, severe. 5. Urinary tract infection. 6. Anemia. William Teran MD
== END 2017-01-14 15:28 | DRG 371 ==
LOC: C.ER 13:50 → C.9E 18:00 → C.6T 20:50 → C.9I 01-07 23:07 → C.5S 01-14 15:20
PROVIDERS: ADMIT Internal Medicine Cardiovascular Disease; ATTEND Internal Medicine Cardiovascular Disease
PROC: 30233N1 Transfusion of Nonautologous Red Blood Cells into Peripheral Vein, Percutaneous Approach (ICD-10-PCS; 2016-12-29)
PROC: 0DBE8ZX Excision of Large Intestine, Via Natural or Artificial Opening Endoscopic, Diagnostic (ICD-10-PCS; 2016-12-31)
PROC: 0DB88ZX Excision of Small Intestine, Via Natural or Artificial Opening Endoscopic, Diagnostic (ICD-10-PCS; 2016-12-31)
PROC: 02HV33Z Insertion of Infusion Device into Superior Vena Cava, Percutaneous Approach (ICD-10-PCS; 2017-01-07)
PROC: 0BH18EZ Insertion of Endotracheal Airway into Trachea, Via Natural or Artificial Opening Endoscopic (ICD-10-PCS; principal; 2017-01-08)
PROC: 5A1945Z Respiratory Ventilation, 24-96 Consecutive Hours (ICD-10-PCS; 2017-01-08)
DX: A04.72 Enterocolitis due to Clostridium difficile, not specified as recurrent (principal); J69.0 Pneumonitis due to inhalation of food and vomit; J96.00 Acute respiratory failure, unspecified whether with hypoxia or hypercapnia; R65.20 Severe sepsis without septic shock; A41.9 Sepsis, unspecified organism; I13.0 Hypertensive heart and chronic kidney disease with heart failure and stage 1 through stage 4 chronic kidney disease, or unspecified chronic kidney disease; I50.9 Heart failure, unspecified; I48.92 Unspecified atrial flutter; I47.1 Supraventricular tachycardia; E11.22 Type 2 diabetes mellitus with diabetic chronic kidney disease; I48.91 Unspecified atrial fibrillation; E86.0 Dehydration; K51.00 Ulcerative (chronic) pancolitis without complications; E87.1 Hypo-osmolality and hyponatremia; N39.0 Urinary tract infection, site not specified; E78.00 Pure hypercholesterolemia, unspecified; D64.9 Anemia, unspecified; E03.9 Hypothyroidism, unspecified; R19.7 Diarrhea, unspecified; N18.3 Chronic kidney disease, stage 3 (moderate); K64.3 Fourth degree hemorrhoids; K52.9 Noninfective gastroenteritis and colitis, unspecified; K44.9 Diaphragmatic hernia without obstruction or gangrene; K29.70 Gastritis, unspecified, without bleeding; K21.9 Gastro-esophageal reflux disease without esophagitis; I27.20 Pulmonary hypertension, unspecified; Z66 Do not resuscitate; I25.5 Ischemic cardiomyopathy